=== PATIENT | male | born 1955 | race Caucasian/White ===

== ENCOUNTER → 2019-06-19 07:49 | Outpatient (BNVA) | payer MEDICAID, SELFPAY | PROVIDERS: Family Provider Family Medicine; PCP Family Medicine; Visit Provider Nurse Practitioner Psychiatric/Mental Health | DX: F33.2 Major depressive disorder, recurrent severe without psychotic features (principal); F17.210 Nicotine dependence, cigarettes, uncomplicated; F15.20 Other stimulant dependence, uncomplicated; F10.20 Alcohol dependence, uncomplicated; F12.20 Cannabis dependence, uncomplicated | CPT/HCPCS: 99213 ==

== ENCOUNTER 2019-07-18 09:14 | Emergency (ER) | payer MEDICAID, SELFPAY ==
[2019-07-18 09:14] VITALS: BP 124/86; PULSE 77; RESP 20; TEMP 36.6; O2SAT 96; BMI 20.5
[2019-07-18 09:22] VITALS: O2SAT 97
--- NOTE | 2019-07-18 09:30 | XR_ITS ---
WS: [id number] ABDOMEN SERIES ACUTE Supine and upright views of the abdomen with AP or PA chest CLINICAL INFORMATION: pain/cough COMPARISON: None. FINDINGS: Heart: Normal cardiac silhouette. Lungs: Hyperinflation. Chronic emphysematous changes. No acute pulmonary infiltrates. Bowel gas pattern: A few air-fluid levels in the upright view. Fecal retention left colon and sigmoid colon. Free air: None. Abnormal calcifications: None. Bones: Mild lumbar curve convex right. Hypertrophic changes lumbar spine. XR/XR acute abdomen series 36210 IMPRESSION: 1. A few air-fluid levels in the upright view and small bowel. 2. Descending colon and sigmoid constipation 3. Lungs are well aerated.
--- NOTE | 2019-07-18 09:32 | W.ED.GENADLT ---
HPI - General Adult General: Chief complaint: General Medical Stated complaint: flu like symptoms Time Seen by Provider: 07/18/19 09:21 History of Present Illness: HPI narrative: Patient's arrived via ambulance with complaint of cough now and abdominal pain that has resolved. Patient states he had nosebleed last night but has not had any since then. Patient states that he is homeless trying get back into skilled nursing. Called him and said he was dizzy but he said that dizziness has now resolved. Said he has some nasal congestion. Patient is a 1 pack/day smoker MD complaint: cough Onset (ago): hour(s) Associated symptoms: Reports cough and nausea; Deny chest pain, dyspnea, fevers/chills, headache(s), rash or vomiting Review of Systems Const: Denies: fever, chills or body aches Eyes: Denies: change in vision or blurry vision ENMT: Reports: nose bleeds (Last night only); Denies: throat pain or nasal congestion Card: Denies: chest pain or shortness of breath on exertion Resp: Reports: productive cough; Denies: shortness of breath or non-productive cough GI: Reports: abdominal pain (Last night only), nausea and heartburn/indigestion; Denies: vomiting : Denies: difficulty urinating Musc: Denies: extremity pain Skin/Breast: Denies: rash Neuro: Denies: headache Psych: Denies: anxiety or depression Yovanny/Lymph: Denies: easy bruising PFSH ED PFSH: Statuses (acute, chronic, etc) shown below reflect problem list status as previously entered and may not be historically accurate Medical History (Updated 06/19/19 @ 08:56 by Cintia Rodriguez [facility]) Alcohol addiction (Acute) Amphetamine addiction (Acute) Cannabis dependence (Acute) Cigarette nicotine dependence (Acute) Hiatal hernia (Acute) Major depressive disorder, recurrent severe without psychotic features (Acute) Social History (Updated 06/19/19 @ 08:12 by Nieves Baird LPN) Smoking and tobacco status: current every day smoker cigarettes Packs smoked per day: 1 Years cigarettes smoked: 40 Quit status (tobacco): not considering quitting Second hand smoke exposure: Yes Smoking risk assessment/counseling performed?: No Reason smoking risk assessment not done: patient refused Physical Exam Const: COMMON NORMALS: no apparent distress, average body habitus and oriented x3 HENMT: COMMON NORMALS: normocephalic HEAD & SCALP: normal to inspection and normocephalic FACE & SINUS: normal facial exam Eye: COMMON NORMALS: conjunctivae normal GENERAL EYE: normal appearance of both eyes CONJUNCTIVA: Yes conjunctivae normal Neck/C-Spine: COMMON NORMALS: no JVD Chest: COMMONS NORMALS: inspection of chest normal Resp: COMMON NORMALS: normal respiratory effort AUSCULTATION: rales (Bases minimal) and diminished lung sounds Cardio: COMMON NORMALS: no JVD, regular rate and regular rhythm RATE: regular rate RHYTHM: regular rhythm GI: COMMON NORMALS: normal to inspection, nondistended, normoactive bowel sounds Extremity: COMMON NORMALS: normal to inspection and full ROM Neuro: COMMON NORMALS: oriented x3 Course Vital Signs: Vital signs: Vital Signs Temperature 97.9 F 07/18/19 09:14 Pulse Rate 77 07/18/19 09:14 Respiratory Rate 20 H 07/18/19 09:14 Blood Pressure 124/86 07/18/19 09:14 Pulse Oximetry 97 07/18/19 09:22 MDM - General Adult MDM Narrative: Medical decision making narrative: Patient left the ER before I could going to talk to him about all of his test results. Case management went and talked to the patient about setting him up for a place to stay and he got upset and walked out of the room. In my visit with the patient during his stay here he said he was feeling fine he was hungry 1 7 drinks it did not bother his abdominal pain. His abdominal pain is gone no more nosebleeds and he feels fine. Lab Data: Labs: Lab Results 07/18/19 07/18/19 07/18/19 Range/Units 09:35 09:56 09:56 WBC 11.0 H (4.0-10.0) 10^3/ uL RBC 4.38 (4.1-5.3) 10^6/u L Hgb 14.3 (11.7-16.6) g/dL Hct 42.7 (42.0-52.0) % MCV 97.5 H (80-94) fL MCH 32.6 (28.0-34.0) pg MCHC 33.5 (30.0-36.0) g/dL RDW 12.9 (12.1-15.1) % Plt Count 277 (130-400) 10^3/c mm MPV 9.5 (7.4-10.4) fL Neut % (Auto) 77.6 % Lymph % (Auto) 13.9 % Caldwell % (Auto) 7.3 % Eos % (Auto) 0.4 % Baso % (Auto) 0.3 % Neut # (Auto) 8.6 H (1.8-7.7) 10^3/u L Lymph # (Auto) 1.5 (0.8-4.8) 10^3/u L Caldwell # (Auto) 0.8 (0.2-0.9) 10^3/u L Eos # (Auto) 0.0 (0.0-0.8) 10^3/u L Baso # (Auto) 0.0 (0.0-0.1) 10^3/u L Nucleated RBC % (a uto) 0 % Nucleated RBCs # 0.0 /100WBC Sodium 136 (136-145) mmol/L Potassium 4.3 (3.5-5.1) mmol/L Chloride 99 (98-107) mmol/L Carbon Dioxide 27 (22-29) mmol/L Anion Gap 14.3 (5-19) BUN 16 (8-23) mg/dL Creatinine 0.8 (0.7-1.2) mg/dL GFR Calculation 96.7 (90-130) mL/min Glucose 115 (65-115) mg/dL Calcium 9.5 (8.5-10.5) mg/dL Total Bilirubin 0.2 (0.15-1.2) mg/dL AST 17 (0-40) U/L ALT 11 (0-41) U/L Alkaline Phosphata se 125 (40-130) IU/L Total Protein 7.1 (6.6-8.7) g/dL Albumin 4.1 (3.5-5.2) g/dL Globulin 3.0 (1.3-4.6) g/dL Lipase 26 (13-60) U/L Influenza Type A A g Negative (Negative) POC Influenza B Ag Negative (Negative) Discharge Plan Discharge Patient Disposition: Home, Self-Care Condition: Stable Prescriptions: No Action quetiapine [Seroquel] 400 mg tablet 400 mg PO .Qhs RF: 0 citalopram [Celexa] 20 mg tablet 20 mg PO QAM RF: 0 aspirin 325 mg tablet,delayed release (DR/EC) 325 mg PO DAILY RF: 0 clopidogrel 75 mg tablet 75 mg PO ONCE RF: 0 diltiazem HCl 180 mg capsule,extended release 24 hr 180 mg PO QAM RF: 0 Referrals: Perico Martinez MD [Primary Care Provider] - Interventions: ED Discharge Assessment Last Done: 07/18/19 10:38 Discharge Date/Time: 07/18/19 10:40 Coding Level of Care Code ED Gas Operations Superintendent for Chg Fwd Exam Problem Focused
[2019-07-18] MEDS: ondansetron 4 MG Tablet PO (09:38)
--- NOTE | 2019-07-18 09:43 | PC.NURSE ---
pt off unit at this time to radiology by wheelchair with tech
[2019-07-18 10:02] LABS: Basophils % 0.3 %; Eosinophils % 0.4 %; Hematocrit 42.7 % (42.0-52.0); Hemoglobin 14.3 g/dL (11.7-16.6); Lymphocytes # 1.5 10^3/uL (0.8-4.8); Lymphocytes % 13.9 %; Mean Corpuscular HGB Conc 33.5 g/dL (30.0-36.0); Mean Corpuscular Hemoglobin 32.6 pg (28.0-34.0); Mean Corpuscular Volume 97.5 fL (80-94); Mean Platelet Volume 9.5 fL (7.4-10.4); Monocytes # 0.8 10^3/uL (0.2-0.9); Monocytes % 7.3 %; Neutrophils # 8.6 10^3/uL (1.8-7.7); Neutrophils % 77.6 %; Nucleated Red Blood Cells % 0 %; Platelet Count 277 10^3/cmm (130-400); Red Blood Count 4.38 10^6/uL (4.1-5.3); Red Cell Distribution Width 12.9 % (12.1-15.1)
[2019-07-18 10:09] LABS: Influenza A by IFA Negative (Negative); Influenza B by IFA Negative (Negative)
--- NOTE | 2019-07-18 10:17 | PC.NURSE ---
pt reports nausea improved. pt given food and drink per verbal order of ED provider
[2019-07-18 10:19] LABS: Alanine Aminotransferase 11 U/L (0-41); Albumin Level 4.1 g/dL (3.5-5.2); Alkaline Phosphatase 125 IU/L (40-130); Anion Gap 14.3 (5-19); Aspartate Amino Transferase 17 U/L (0-40); Blood Urea Nitrogen 16 mg/dL (8-23); Calcium 9.5 mg/dL (8.5-10.5); Carbon Dioxide 27 mmol/L (22-29); Chloride 99 mmol/L (98-107); Glomerular Filtration Rate 96.7 mL/min (90-130); Glucose 115 mg/dL (65-115); Lipase 26 U/L (13-60); Potassium 4.3 mmol/L (3.5-5.1); Sodium 136 mmol/L (136-145); Total Bilirubin 0.2 mg/dL (0.15-1.2); Total Protein 7.1 g/dL (6.6-8.7)
[2019-07-18 10:26] LABS: Add Urine Microscopic? NO
--- NOTE | 2019-07-18 10:32 | PC.NURSE ---
case management in room to speak with pt
--- NOTE | 2019-07-18 10:36 | PC.NURSE ---
Pt left-refusing to sign AMA papers. Pt alert and oriented upon departure. Pt left via ambulatory
[2019-07-18 10:43] LABS: Bilirubin Urine Neg (NEGATIVE); Blood Urine Neg (Negative); Glucose Urine UA Norm (Normal); Ketones Urine Negative (Negative); Leukocyte Esterase Urine Negative (Negative); Nitrate Urine Negative (Negative); Protein Urine Neg (Negative); Urine Appearance Clear (CLEAR); Urine Color Straw (Yellow); Urobilinogen Urine Norm (Negative)
== END 2019-07-18 10:45 | disposition left against medical advice (07) ==
PROVIDERS: Emergency Provider Nurse Practitioner Family; Family Provider Family Medicine; PCP Family Medicine
DX: R05 Cough (principal); R11.0 Nausea; R12 Heartburn; R42 Dizziness and giddiness; R09.81 Nasal congestion; F17.210 Nicotine dependence, cigarettes, uncomplicated; Z59.0 Homelessness
CPT/HCPCS: 36415; 74022; 80053; 81003; 83690; 85025; 87804; 99282; 99283; Q0162

== ENCOUNTER 2019-08-16 11:24 | Emergency (ER) | payer MEDICAID, SELFPAY | END 2019-08-16 13:29 | disposition admitted as inpatient to this hospital (09) | LOC: ER 09-10 16:05 | PROVIDERS: Emergency Provider Emergency Medicine; Family Provider Family Medicine; PCP Family Medicine | DX: F33.2 Major depressive disorder, recurrent severe without psychotic features (principal); R45.851 Suicidal ideations; F17.210 Nicotine dependence, cigarettes, uncomplicated | CPT/HCPCS: 12345; 36415; 80053; 80156; 80164; 80178; 80185; 80306; 80307; 84443; 85025; 93005; 99284; 99285 ==

== ENCOUNTER 2019-08-16 11:24 | Inpatient (IN) | payer MEDICAID, SELFPAY ==
[2019-08-16] VITALS (7 sets, daily range): BP systolic 127–164; BP diastolic 78–97; PULSE 68–81; RESP 16–20; TEMP 36.4–36.6; O2SAT 95–98; BMI 20.5
--- NOTE | 2019-08-16 11:41 | ECG_ITS ---
Measurements Intervals [place] Rate: 70 P: 79 FL: 163 QRS: 79 QRSD: 90 T: 68 QT: 402 QTc: 436 SINUS RHYTHM POSSIBLE LEFT ATRIAL ENLARGEMENT [-0.1mV P WAVE IN V1/V2] SEPTAL MYOCARDIAL INFARCTION , OF INDETERMINATE AGE [40+ ms Q WAVE IN V1/V2] Compared to ECG 08/22/2018 18:25:21 No significant changes Electronically Signed On 08-16-2019 16:58:15 ANNUAL CAMPAIGN MANAGER by Osmel Sánchez M.D. [email or web address]
--- NOTE | 2019-08-16 11:45 | ED_ITS ---
Entered by Didi Burgess, acting as scribe for Carla Morris HPI - Psych General: Chief Complaint: Psychiatric Symptoms Stated Complaint: SI Time Seen by Provider: 08/16/19 11:45 Source: patient Mode of arrival: ambulatory Limitations: no limitations History of Present Illness: HPI Narrative: 64 yo Male presents to ED with complaints of suicidal ideation and depression. Pt states that he has been living on the streets and he is tired of living like this. Pt states that he was going to try anything he could to kill himself. Pt states that he has been really depressed. Pt states that he has made previous suicidal attempts but failed. MD complaint: suicidal ideation and feels depressed Onset (ago): unknown Duration: constant History of same: Yes Relieving factors: none Exacerbating factors: none Associated psychiatric symptoms: depression and suicidal ideation Associated symptoms: Reports depression and suicidal ideation Treatments prior to arrival: none If self harm: admits thoughts of self harm and has acted on plan (in the past) Review of Systems General: Reports: other (negative unless marked) Const: Denies: fever, chills, body aches, fatigue, malaise or diaphoresis Eyes: Denies: change in vision or blurry vision ENMT: Denies: throat pain, painful swallowing, hoarseness, ear pain, ear discharge, Change in hearing or nasal discharge Card: Denies: chest pain, palpitations, irregular heart rhythm, syncope, pre- syncope, shortness of breath on exertion or shortness of breath when lying down Resp: Denies: shortness of breath, productive cough, non-productive cough, wheezing, coughing up blood or chest congestion GI: Denies: abdominal pain, nausea, vomiting, vomiting blood, coffee grounds in vomit, diarrhea, constipation, cramping, blood in stool or black tarry stool : Denies: flank pain, difficulty urinating, painful urination, urinary frequency, urinary urgency, decreased urine ouput, urinary incontinence or blood in urine Musc: Denies: neck pain, back pain, extremity pain, extremity swelling, joint pain, joint swelling, joint warmth or joint stiffness Skin/Breast: Denies: rash, skin tenderness or yellow skin Neuro: Denies: headache, numbness in extremities, weakness in extremities, changes in sensation, lack of coordination, difficulty walking, dizziness, vertigo or confusion Psych: Reports: depression and suicidal ideation Endo: Denies: excessive thirst, tired all the time, cold intolerance, excessive sweating, flushing or hot flashes Yovanny/Lymph: Denies: easy bruising, easy bleeding, petechiae or enlarged lymph nodes All/Imm: Denies: hives, throat swelling, tongue swelling, facial swelling or acute wheezing PFSH ED PFSH: Medical History Alcohol addiction Amphetamine addiction 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 Social History Smoking and tobacco status: current every day smoker cigarettes Packs smoked per day: 1 Years cigarettes smoked: 40 Quit status (tobacco): not considering quitting Second hand smoke exposure: Yes Smoking risk assessment/counseling performed?: No Reason smoking risk assessment not done: patient refused Alcohol intake: former Marital status: Current occupational status: disabled History of recent travel: No Physical Exam Const: COMMON NORMALS: no apparent distress, oriented x3, no limitations, healthy appearing and well nourished EXAM LIMITATIONS: no altered mental status GENERAL APPEARANCE: cooperative, well kempt and well developed ORIENTATION/CONSCIOUSNESS: Yes awake HENMT: COMMON NORMALS: normocephalic, head/scalp atraumatic, hearing grossly normal bilaterally, external ears normal, EAC's normal, external nose normal and moist oral mucous membranes HEAD & SCALP: normal to inspection, normocephalic and atraumatic FACE & SINUS: normal facial exam and face symmetric NOSE: external nose normal and nares normal EXTERNAL EAR: Yes external ears normal EXTERNAL AUDITORY CANAL: EAC's normal MOUTH: oral and palatal mucosa normal and tongue normal Eye: COMMON NORMALS: PERRL, EOMs intact bilaterally, conjunctivae normal and no scleral icterus GENERAL EYE: normal appearance of both eyes and normal light reflex CONJUNCTIVA: Yes conjunctivae normal SCLERA: sclerae normal CORNEA: Yes corneas normal PUPIL: Yes PERRL DIRECT OPHTHALMOSCOPY: Yes normal light reflex Neck/C-Spine: COMMON NORMALS: full ROM, no lymphadenopathy, supple, no meningeal signs and no JVD GENERAL: Yes normal visual inspection and Yes trachea midline CERVICAL SPINE: Yes cervical ROM normal Chest: COMMONS NORMALS: inspection of chest normal and palpation of chest normal Resp: COMMON NORMALS: normal respiratory effort, no retractions, no use of accessory muscles and clear to auscultation bilaterally EFFORT & INSPECTION: Yes able to speak in complete sentences AUSCULTATION: clear to auscultation bilaterally Cardio: COMMON NORMALS: no JVD, regular rate, regular rhythm, S1 normal heart sound, S2 normal heart sound, no gallops, no clicks, no murmurs and no rub JUGULAR VENOUS DISTENTION: no JVD RATE: regular rate RHYTHM: regular rhythm HEART SOUNDS: S1 normal and S2 normal GI: COMMON NORMALS: soft to palpation, non-tender, no hepatosplenomegaly and no masses INSPECTION: Yes normal to inspection PALPATION: Yes soft and Yes no hepatosplenomegaly : COMMON NORMALS: Yes no CVA tenderness BLADDER/KIDNEY EXAM: Yes no CVA tenderness Back/Pelvis: COMMON NORMALS: no CVA tenderness, thoracic and lumbar spine normal to inspection, no thoracic nor lumbar tenderness and thoraco-lumbar ROM normal Extremity: COMMON NORMALS: normal to inspection, full ROM, normal capillary refill, no joint enlargement, no clubbing, cyanosis or edema and no calf tenderness Neuro: COMMON NORMALS: oriented x3, CN's II-XII intact bilaterally, moves all extremities, no focal motor deficits and no sensory deficits noted MENINGEAL SIGNS: Yes no meningeal signs Psych: COMMON NORMALS: mental status grossly normal, thought process normal, cooperative, affect normal, speech normal and activity/motor behavior normal APPEARANCE: Yes well kempt SPEECH: Yes normal speech THOUGHT PROCESS: normal thought process Skin: COMMON NORMALS: no rashes or lesions noted, skin turgor normal, no jaundice, no petechiae and no mottling GENERAL SKIN EXAM: no rashes or lesions noted and turgor normal MDM - Psych MDM Narrative: Medical decision making narrative: The case was reviewed with Dr. Bruner, he will accept the patient to the [facility]. Lab Data: Labs: Lab Results 08/16/19 08/16/19 08/16/19 Range/Units 12:06 12:12 12:12 WBC 5.4 (4.0-10.0) 10^3/ uL RBC 4.17 (4.1-5.3) 10^6/u L Hgb 13.2 (11.7-16.6) g/dL Hct 39.9 L (42.0-52.0) % MCV 95.7 H (80-94) fL MCH 31.7 (28.0-34.0) pg MCHC 33.1 (30.0-36.0) g/dL RDW 13.1 (12.1-15.1) % Plt Count 247 (130-400) 10^3/c mm MPV 9.6 (7.4-10.4) fL Neut % (Auto) 46.6 % Lymph % (Auto) 39.2 % Ransom % (Auto) 11.2 % Eos % (Auto) 2.0 % Baso % (Auto) 0.6 % Neut # (Auto) 2.5 (1.8-7.7) 10^3/u L Lymph # (Auto) 2.1 (0.8-4.8) 10^3/u L Ransom # (Auto) 0.6 (0.2-0.9) 10^3/u L Eos # (Auto) 0.1 (0.0-0.8) 10^3/u L Baso # (Auto) 0.0 (0.0-0.1) 10^3/u L Nucleated RBC % (a uto) 0 % Nucleated RBCs # 0.0 /100WBC Sodium 139 (136-145) mmol/L Potassium 4.1 (3.5-5.1) mmol/L Chloride 99 (98-107) mmol/L Carbon Dioxide 30 H (22-29) mmol/L Anion Gap 14.1 (5-19) BUN 8 (8-23) mg/dL Creatinine 0.7 (0.7-1.2) mg/dL GFR Calculation 112.8 (90-130) mL/min Glucose 107 (65-115) mg/dL Calcium 9.3 (8.5-10.5) mg/dL Total Bilirubin 0.2 (0.15-1.2) mg/dL AST 16 (0-40) U/L ALT 10 (0-41) U/L Alkaline Phosphata se 111 (40-130) IU/L Total Protein 7.3 (6.6-8.7) g/dL Albumin 3.9 (3.5-5.2) g/dL Globulin 3.4 (1.3-4.6) g/dL TSH 3.04 (0.27-4.20) uIU/ mL Salicylates < 0.3 L (3-10) mg/dL Urine Opiates Scre en Negative (Negative) ng/mL Acetaminophen 15.6 (10-30) ug/mL Ur Barbiturates Sc reen Negative (Negative) ng/mL Phenytoin < 0.8 L (10-20) ug/mL Valproic Acid < 2.8 L (50-100) mcg/mL Carbamazepine < 2.0 L (4.0-12.0) ug/mL Ur Phencyclidine S crn Negative (Negative) ng/mL Ur Amphetamines Sc reen Negative (Negative) ng/mL U Benzodiazepines Scrn Positive H (Negative) ng/mL Bertram (0.6-1.2) mmol/L Urine Cocaine Scre en Negative (Negative) ng/mL U Marijuana (THC) Screen Negative (Negative) ng/mL Ethyl Alcohol < 10 (0-10) mg/dL 08/16/19 Range/Units 12:12 WBC (4.0-10.0) 10^3/ uL RBC (4.1-5.3) 10^6/u L Hgb (11.7-16.6) g/dL Hct (42.0-52.0) % MCV (80-94) fL MCH (28.0-34.0) pg MCHC (30.0-36.0) g/dL RDW (12.1-15.1) % Plt Count (130-400) 10^3/c mm MPV (7.4-10.4) fL Neut % (Auto) % Lymph % (Auto) % Ransom % (Auto) % Eos % (Auto) % Baso % (Auto) % Neut # (Auto) (1.8-7.7) 10^3/u L Lymph # (Auto) (0.8-4.8) 10^3/u L Ransom # (Auto) (0.2-0.9) 10^3/u L Eos # (Auto) (0.0-0.8) 10^3/u L Baso # (Auto) (0.0-0.1) 10^3/u L Nucleated RBC % (a uto) % Nucleated RBCs # /100WBC Sodium (136-145) mmol/L Potassium (3.5-5.1) mmol/L Chloride (98-107) mmol/L Carbon Dioxide (22-29) mmol/L Anion Gap (5-19) BUN (8-23) mg/dL Creatinine (0.7-1.2) mg/dL GFR Calculation (90-130) mL/min Glucose (65-115) mg/dL Calcium (8.5-10.5) mg/dL Total Bilirubin (0.15-1.2) mg/dL AST (0-40) U/L ALT (0-41) U/L Alkaline Phosphata se (40-130) IU/L Total Protein (6.6-8.7) g/dL Albumin (3.5-5.2) g/dL Globulin (1.3-4.6) g/dL TSH (0.27-4.20) uIU/ mL Salicylates (3-10) mg/dL Urine Opiates Scre en (Negative) ng/mL Acetaminophen (10-30) ug/mL Ur Barbiturates Sc reen (Negative) ng/mL Phenytoin (10-20) ug/mL Valproic Acid (50-100) mcg/mL Carbamazepine (4.0-12.0) ug/mL Ur Phencyclidine S crn (Negative) ng/mL Ur Amphetamines Sc reen (Negative) ng/mL U Benzodiazepines Scrn (Negative) ng/mL Bertram < 0.1 L (0.6-1.2) mmol/L Urine Cocaine Scre en (Negative) ng/mL U Marijuana (THC) Screen (Negative) ng/mL Ethyl Alcohol (0-10) mg/dL EKG Data^: EKG 1: Attestation: I personally reviewed and interpreted this EKG as follows: EKG interpretation date: 08/16/19 EKG interpretation time: 12:11 Interpretation: Normal sinus rhythm at 70 beats a minute, nonspecific ST and T wave changes, normal intervals, normal QTC. Discharge Plan Discharge Patient Disposition: Admitted As Inpatient Clinical Impression: Suicidal ideation Condition: Stable Coding Level of Care Code ED Small Engine Mechanic for Chg Fwd Exam Comprehensive The documentation recorded by the Jenifer castro Carmen, accurately reflects the service I personally performed and the decisions made by Arturo esqueda Eli N Aug 16, 2019 11:24
[2019-08-16 12:19] LABS: Basophils % 0.6 %; Eosinophils # 0.1 10^3/uL (0.0-0.8); Hematocrit 39.9 % (42.0-52.0); Hemoglobin 13.2 g/dL (11.7-16.6); Lymphocytes # 2.1 10^3/uL (0.8-4.8); Lymphocytes % 39.2 %; Mean Corpuscular HGB Conc 33.1 g/dL (30.0-36.0); Mean Corpuscular Hemoglobin 31.7 pg (28.0-34.0); Mean Corpuscular Volume 95.7 fL (80-94); Mean Platelet Volume 9.6 fL (7.4-10.4); Monocytes # 0.6 10^3/uL (0.2-0.9); Monocytes % 11.2 %; Neutrophils # 2.5 10^3/uL (1.8-7.7); Neutrophils % 46.6 %; Nucleated Red Blood Cells % 0 %; Platelet Count 247 10^3/cmm (130-400); Red Blood Count 4.17 10^6/uL (4.1-5.3); Red Cell Distribution Width 13.1 % (12.1-15.1); White Blood Count 5.4 10^3/uL (4.0-10.0)
--- NOTE | 2019-08-16 12:38 | PC.PHAR ---
pt states he has only been taking the flomax-pt states he hasnt taken his bp meds,and anxiety meds in months
[2019-08-16 12:42] LABS: Amphetamines Screen Urine Negative (Negative); Barbiturates Screen Urine Negative (Negative); Benzodiazepines Screen Urine Positive (Negative); Cocaine Screen Urine Negative (Negative); Opiate Screen Urine Negative (Negative); PCP Screen Urine Negative (Negative); THC Screen Urine Negative (Negative)
[2019-08-16 12:42] LABS: Carbamazepine Tegretol < 2.0 ug/mL (4.0-12.0); Lithium < 0.1 mmol/L (0.6-1.2); Phenytoin Dilantin < 0.8 ug/mL (10-20); Valproic Acid Level < 2.8 mcg/mL (50-100)
[2019-08-16 12:43] LABS: Acetaminophen 15.6 ug/mL (10-30); Alanine Aminotransferase 10 U/L (0-41); Albumin Level 3.9 g/dL (3.5-5.2); Alkaline Phosphatase 111 IU/L (40-130); Anion Gap 14.1 (5-19); Aspartate Amino Transferase 16 U/L (0-40); Blood Urea Nitrogen 8 mg/dL (8-23); Calcium 9.3 mg/dL (8.5-10.5); Carbon Dioxide 30 mmol/L (22-29); Chloride 99 mmol/L (98-107); Globulin 3.4 g/dL (1.3-4.6); Glomerular Filtration Rate 112.8 mL/min (90-130); Glucose 107 mg/dL (65-115); Potassium 4.1 mmol/L (3.5-5.1); Sodium 139 mmol/L (136-145); Thyroid Stimulating Hormone 3.04 uIU/mL (0.27-4.20); Total Bilirubin 0.2 mg/dL (0.15-1.2); Total Protein 7.3 g/dL (6.6-8.7)
[2019-08-16 12:45] LABS: Alcohol Level < 10 mg/dL (0-10); Salicylate < 0.3 mg/dL (3-10)
[2019-08-16] MEDS: lidocaine 2% viscous 15 ML, aluminum-mag hydrox-simethicon 30 ML, sucralfate oral liq 1 GM PO (12:50)
[2019-08-16] MEDS: hyDROXYzine 25 mg Capsule 50 MG PO (14:50)
[2019-08-16] MEDS: citalopram 20 mg Tablet PO (15:06)
[2019-08-16] MEDS: nicotine 21 mg Patch 1 PATCH TRANSDERMA (15:09)
[2019-08-16] MEDS: pneumococcal (23 valent) SDV 0.5 mL IM (17:56)
[2019-08-16] MEDS: quetiapine 100 mg Tablet PO (20:55)
--- NOTE | 2019-08-16 20:56 | PC.NURSE ---
HS meds given
[2019-08-17 06:00] VITALS: BP 116/73; PULSE 72; RESP 15; TEMP 36.4; O2SAT 97
[2019-08-17] MEDS: citalopram 20 mg Tablet PO (08:54)
[2019-08-17] MEDS: tamsulosin 0.4 mg Capsule PO (08:54)
[2019-08-17] MEDS: acetaminophen 325 mg Tablet 650 MG PO ×2 (09:49→16:26)
--- NOTE | 2019-08-17 09:58 | P.HP_ITS ---
Providers/Chief Complaint Admitting Physician: Sanford Bruner MD Primary Care Provider: Perico Martinez MD Chief Complaint: SI HPI NPU History of Present Illness Nima Vallejo is a 64 year old male who presents today reporting that he's been very depressed and not taking his medication because he's been fighting just have a place to lay his head etc. He reports that about a year ago he had been living in a local motel for about 2-1/2 years and he changed ownership and that led to him being evicted and since then he has been more or less going around [place] and living on the streets. He reports that for the last year he has been staying in a motel for about 8 days to get cleaned up every month and then spending the remaining 22-[address]. He reports that he asked her with addiction but that he has been doing much better recently. Endorses that he smokes marijuana but denies seeing that as a problem or really as a drug. He does report having issues with alcohol in the past but that not being an issue for the last 15 years or so and that he has struggled with methamphetamines. 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 He had his medications but he had not been taking them. He started having thoughts of killing himself and so he came to the hospital. We discussed his psychosocial history as compared to the note below from 03/24/2015. The only updates are that he was in fact homeless when he came in. He has 3 siblings and does not know where his children are except for 1. Any does endorse addiction issues in his father's side of the family and mental health issues on his mother's side of the family. Per last [facility] [place] eval: History of Present Illness Date of Service: Mar 24, 2015 Chief Complaint: Suicidal ideations. HPI: The patient was admitted from the emergency room. According to reports, he was depressed and stated that he had no place to stay. He had been living in a motel for a year and a half, but they recently switched the payment modality to weekly which was more expensive. He states he was spending $600 a month. Endorses depressed mood, suicidal ideations with a plan to stab himself, excessive worrying. He is not hearing voices and seeing things. Review of Psychiatric Systems: Negative, except as above. Allergies: Coded Allergies: No Known Allergies (Verified , 03/18/05) Past Medical History Past Medical/Social History: PAST PSYCHIATRIC HISTORY:Previous psychiatric admissions: He was here in 2007. Previous suicide attempts: Yes. No current outpatient psychiatric follow-up. Seroquel is prescribed by his primary care provider to help with sleep. SUBSTANCE ABUSE HISTORY: Smokes Cigarettes: yes. Number of packs per day: 2. Endorses illicit drug use: Yes. Has abused methamphetamine and marijuana, but states I quit . Alcohol use:No. SOCIAL HISTORY: Employed: No. Is on disability: Yes. Education: 11th grade. Marital status: . Has 3 children. DEVELOPMENTAL HISTORY: History of Physical, Emotional and Sexual abuse: No. LEGAL HISTORY: None. FAMILY PSYCHIATRIC HISTORY: None reported. PAST MEDICAL HISTORY: Gastritis, leg fracture. 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 Social History Smoking and tobacco status: current every day smoker cigarettes Packs smoked per day: 1 Years cigarettes smoked: 40 Quit status (tobacco): not considering quitting Second hand smoke exposure: Yes Smoking risk assessment/counseling performed?: No Reason smoking risk assessment not done: patient refused Alcohol intake: former Marital status: Current occupational status: disabled History of recent travel: No Mental Status Exam MSE Comments: This is a slender white male with adequate dress, grooming and eye contact. No abnormal movements except for psychomotor retardation. Cooperative with exam in no acute distress. Speech was decreased rate and volume. Mood described as depressed, affect congruent. Thought process organized. Thought content: Patient endorsed suicidal ideation that is less he re, he denies homicidal ideation, there were no delusions reported noted, he denied any auditory or visual hallucinations. Attention concentration and memory appear intact but were not formally tested. He is alert and oriented ?3. Insight and judgment are improving. Vitals/I&O/Wt Last Vital Signs Temp 98.1 F 08/17/19 14:00 Pulse 80 08/17/19 14:00 Resp 18 08/17/19 14:00 BP 151/78 08/17/19 14:00 Pulse Ox 95 08/17/19 14:00 Weight last 48 hrs Weight 72.575 kg Home Medications tamsulosin 0.4 mg PO DAILY 08/16/19 [History Confirmed 08/16/19] Active Medications Acetaminophen (Tylenol) 650 mg PO Q4H PRN PRN Reason: MILD PAIN Last Admin: 08/17/19 09:49 Dose: 650 mg Documented by: Benztropine Mesylate (Cogentin) 1 mg PO BID PRN PRN Reason: Mild Extrapyramidal symptoms Camphor/Menthol/Phenol (Blistex) 1 applic TOPICAL Q1H PRN PRN Reason: DRYNESS Citalopram Hydrobromide (Celexa) 20 mg PO DAILY [facility] Last Admin: 08/17/19 08:54 Dose: 20 mg Documented by: Diphenhydramine HCl (Benadryl) 50 mg IM ONCE PRN PRN Reason: Severe Extrapyramidal Symptoms Diphenhydramine HCl (Benadryl) 50 mg IM Q4H PRN PRN Reason: Severe Aggression Haloperidol (Haldol) 5 mg PO Q4H PRN PRN Reason: AGITATION Haloperidol Lactate (Haldol Inj) 5 mg IM Q4H PRN PRN Reason: Severe Aggression Hydroxyzine Pamoate (Vistaril) 50 mg PO Q6H PRN PRN Reason: ANXIETY Last Admin: 08/16/19 14:50 Dose: 50 mg Documented by: Loperamide HCl (Imodium Capsule) 2 mg PO Q6H PRN PRN Reason: DIARRHEA Lorazepam (Ativan) 2 mg IM Q4H PRN PRN Reason: Severe Aggression Nicotine (Nicoderm 21 Mg Patch) 1 patch TRANSDERMA DAILY PRN PRN Reason: NICOTINE WITHDRAWAL Last Admin: 08/16/19 15:09 Dose: 1 patch Documented by: Nicotine Polacrilex (Nicorette) 2 mg BUCCAL Q2H PRN PRN Reason: NICOTINE WITHDRAWAL Olanzapine (Zyprexa Zydis) 5 mg PO Q4H PRN PRN Reason: Agitation/Psychosis Ondansetron HCl (Zofran) 4 mg PO Q6H PRN PRN Reason: NAUSEA AND VOMITING Quetiapine Fumarate (Seroquel) 100 mg PO BEDTIME [facility] Last Admin: 08/16/19 20:55 Dose: 100 mg Documented by: Tamsulosin HCl (Flomax) 0.4 mg PO DAILY [facility] Last Admin: 08/17/19 08:54 Dose: 0.4 mg Documented by: Trazodone HCl (Desyrel) 50 mg PO BEDTIME PRN PRN Reason: SLEEP Data NPU : 08/16/19 12:12 08/16/19 12:12 A&P Additional A&P Information There is a 64-year-old white male with a long history of depression, anxiety and addiction who presents homeless and feeling this positive and suicidal and open to restarting his medication. 1. Continue current medication. We will titrate his Seroquel as he tolerates it back to previously successful dosing. 2. Encourage individual, group and milieu therapy. 3. Continue every 15 minute checks for safety. 4. Work with social workers to determine a reasonable discharge plan and explore sober living treatment options to assist in maintaining his sobriety. Involuntary Hold Information 96 Hour Hold: 96 Hour Involuntary Admission: Yes 96 Hour Hold Ending Date: 08/22/19 96 Hour Hold Ending Time: 12:20 Attestations NPU Medical Necessity Statement*: Inpatient hospitalization is medically necessary and the clinically appropriate intervention at this time. He will be in the hospital for over 2 midnights. We will monitor medications and titrate as indicated. Likely length of stay 3-5 days. Coding Level of Care Code Acute Clam Sorter for Nereida Martinez
[2019-08-17 14:00] VITALS: BP 151/78; PULSE 80; RESP 18; TEMP 36.7; O2SAT 95
[2019-08-17] MEDS: nicotine 21 mg Patch 1 PATCH TRANSDERMA (18:08)
[2019-08-17 20:23] VITALS: BP 120/76; PULSE 70; RESP 18; O2SAT 96
[2019-08-17] MEDS: quetiapine 100 mg Tablet PO (20:33)
[2019-08-17] MEDS: trazodone 50 mg Tablet PO (20:33)
--- NOTE | 2019-08-17 20:34 | PC.NURSE ---
hs meds given
--- NOTE | 2019-08-17 20:56 | PC.NURSE ---
pt voiced that he talked to his Dr earlier today about getting something for his cough. pt does not currently have a cough med ordered. pt stated he takes NyQuel at home, junior underwriter educated pt that this facility does not use NyQuel because of the alcohol in it. pt voiced being upset that nothing was made avaiable for his cough. Injection Molding Machine Offbearer has not heard pt cough even one time the last two (2) nights of caring for him.
[2019-08-18 06:00] VITALS: BP 113/70; PULSE 68; RESP 18; TEMP 36.6; O2SAT 97
[2019-08-18] MEDS: citalopram 20 mg Tablet PO ×2 (09:12→12:46)
[2019-08-18] MEDS: tamsulosin 0.4 mg Capsule PO (09:12)
--- NOTE | 2019-08-18 11:19 | PM.NPN ---
Subjective NPU Subjective: Interval history: The patient presents today reporting that he has a cold or cough that came from being out in the rain and being out on the streets for the last several weeks. He reports he has a lot of congestion and is hoping that we can give him something for that. He reports that he was able to get ahold of one of his brothers and his brother is going to get back to him, and he thinks he is going to help him out. He reports that he has made a commitment now to stopping the methamphetamine all together. He said he had been dabbling with it and as he sits back he realizes it has absolutely ruined his life; and the very reason why he is homeless has very much to do with methamphetamine. He said he has not done any for about three weeks, so it is his vision that he not do it ever again. He reports that he is still having depression. We discussed the risks, benefits, and alternatives of increasing the Seroquel to 200 mg and the Celexa to 40 mg, and he understood and agreed to proceed as is documented in this note. Mental Status Exam MSE Comments: This is a slender white male with adequate dress, grooming and eye contact. No abnormal movements except for psychomotor retardation. Cooperative with exam in no acute distress. Speech was decreased rate and volume. Mood described as a little depressed, affect congruent. Thought process organized. Thought content: Patient endorsed suicidal ideation is decreasing, he denies homicidal ideation, there were no delusions reported noted, he denied any auditory or visual hallucinations. Attention concentration and memory appear intact but were not formally tested. He is alert and oriented ?3. Insight and judgment are improving. Vitals/I&O/Wt Last Vital Signs Temp 97.8 F 08/18/19 06:00 Pulse 68 08/18/19 06:00 Resp 18 08/18/19 06:00 BP 113/70 08/18/19 06:00 Pulse Ox 97 08/18/19 06:00 Weight last 48 hrs Weight 72.575 kg Home Medications tamsulosin 0.4 mg PO DAILY 08/16/19 [History Confirmed 08/16/19] Active Medications Acetaminophen (Tylenol) 650 mg PO Q4H PRN PRN Reason: MILD PAIN Last Admin: 08/17/19 16:26 Dose: 650 mg Documented by: Benztropine Mesylate (Cogentin) 1 mg PO BID PRN PRN Reason: Mild Extrapyramidal symptoms Camphor/Menthol/Phenol (Blistex) 1 applic TOPICAL Q1H PRN PRN Reason: DRYNESS Citalopram Hydrobromide (Celexa) 40 mg PO DAILY [facility] Diphenhydramine HCl (Benadryl) 50 mg IM ONCE PRN PRN Reason: Severe Extrapyramidal Symptoms Diphenhydramine HCl (Benadryl) 50 mg IM Q4H PRN PRN Reason: Severe Aggression Haloperidol (Haldol) 5 mg PO Q4H PRN PRN Reason: AGITATION Haloperidol Lactate (Haldol Inj) 5 mg IM Q4H PRN PRN Reason: Severe Aggression Hydroxyzine Pamoate (Vistaril) 50 mg PO Q6H PRN PRN Reason: ANXIETY Last Admin: 08/16/19 14:50 Dose: 50 mg Documented by: Loperamide HCl (Imodium Capsule) 2 mg PO Q6H PRN PRN Reason: DIARRHEA Lorazepam (Ativan) 2 mg IM Q4H PRN PRN Reason: Severe Aggression Nicotine (Nicoderm 21 Mg Patch) 1 patch TRANSDERMA DAILY PRN PRN Reason: NICOTINE WITHDRAWAL Last Admin: 08/17/19 18:08 Dose: 1 patch Documented by: Nicotine Polacrilex (Nicorette) 2 mg BUCCAL Q2H PRN PRN Reason: NICOTINE WITHDRAWAL Olanzapine (Zyprexa Zydis) 5 mg PO Q4H PRN PRN Reason: Agitation/Psychosis Ondansetron HCl (Zofran) 4 mg PO Q6H PRN PRN Reason: NAUSEA AND VOMITING Quetiapine Fumarate (Seroquel) 200 mg PO BEDTIME [facility] Tamsulosin HCl (Flomax) 0.4 mg PO DAILY [facility] Last Admin: 08/18/19 09:12 Dose: 0.4 mg Documented by: Trazodone HCl (Desyrel) 50 mg PO BEDTIME PRN PRN Reason: SLEEP Last Admin: 08/17/19 20:33 Dose: 50 mg Documented by: Data NPU : 08/16/19 12:12 08/16/19 12:12 A&P Additional A&P Information There is a 64-year-old white male with a long history of depression, anxiety and addiction who presents homeless and feeling this positive and suicidal and open to restarting his medication. Continue current medications, except: Increase Seroquel to 200 mg po qhs. Increase Celexa to 40 mg po qam. Encourage individual, group, and milieu therapy. Continue q-15 minute checks for safety. Recommend drug and alcohol treatment, at the highest level to which he is willing to commit, after discharge. Involuntary Hold Information 96 Hour Hold: 96 Hour Involuntary Admission: Yes 96 Hour Hold Ending Date: 08/22/19 96 Hour Hold Ending Time: 12:20 Attestations NPU Medical Necessity Statement*: Inpatient hospitalization is medically necessary and the clinically appropriate intervention at this time. We will monitor medications and titrate as indicated. Likely length of stay 2-4 days. Coding Level of Care Code Acute Nuclear Weapons Mechanical Specialist for Nereida Martinez
[2019-08-18 14:00] VITALS: PULSE 75; RESP 18; TEMP 36.4; O2SAT 96
[2019-08-18 19:39] VITALS: BP 122/78; PULSE 74; RESP 18; TEMP 37.1; O2SAT 97
[2019-08-18] MEDS: trazodone 50 mg Tablet PO (20:47)
[2019-08-18] MEDS: quetiapine 100 mg Tablet 200 MG PO (20:47)
--- NOTE | 2019-08-18 21:33 | PC.NURSE ---
Pt requested prn Trazodone 50mgs po at bedtime. Pt in bed at present and appears to be resting comfortably with eyes closed. Respirations even and unlabored.
[2019-08-19 06:00] VITALS: BP 104/66; PULSE 72; RESP 18; TEMP 36.6
[2019-08-19] MEDS: citalopram 20 mg Tablet 40 MG PO (08:27)
[2019-08-19] MEDS: tamsulosin 0.4 mg Capsule PO (08:27)
--- NOTE | 2019-08-19 11:26 | P.PN_ITS ---
Subjective NPU Subjective: Interval history: Nima presents today reporting that he is feeling a little less depressed, but somewhat more anxious because he was able to speak to his brother and his brother is having a really tough time in his life as well. I talked to his other siblings and family, and it seems like no one is really going to be able to help him. He reports that he is at a place where being homeless and being out there using is just not something his system can tolerate, and he just does not feel like he can go forward if that is the solution, just to be on the street for another year or so, as he says he is just too old for that. We discussed treatment team tomorrow morning and that it will be our goal to work with them to find a rehab or some residential treatment poss ibility that might allow him to get himself back on his feet given the resources that he has as far as his social security. He is sleeping better and eating fine. He is starting to feel a little better from the standpoint of his upper respiratory virus. Mental Status Exam MSE Comments: This is a well-nourished, well-developed, older white male, with adequate dress, grooming, and eye contact. No abnormal movements except for mild psychomotor retardation. Cooperative with exam in no acute distress. Speech was decreased rate and volume. Mood described as a little better; affect congruent. Thought process, organized. Thought content: patient denied any suicidal or homicidal ideation, there were no delusions reported or noted, patient denied any auditory or visual hallucinations. Attention, concentration, and memory appeared intact but were not formally tested. Alert and oriented times three. Insight and judgment are improving. Vitals/I&O/Wt Last Vital Signs Temp 98 F 08/19/19 06:00 Pulse 72 08/19/19 06:00 Resp 18 08/19/19 06:00 BP 104/66 08/19/19 06:00 Pulse Ox 97 08/18/19 19:39 Weight last 48 hrs Weight 78.131 kg Home Medications tamsulosin 0.4 mg PO DAILY 08/16/19 [History Confirmed 08/16/19] Active Medications Acetaminophen (Tylenol) 650 mg PO Q4H PRN PRN Reason: MILD PAIN Last Admin: 08/17/19 16:26 Dose: 650 mg Documented by: Benztropine Mesylate (Cogentin) 1 mg PO BID PRN PRN Reason: Mild Extrapyramidal symptoms Camphor/Menthol/Phenol (Blistex) 1 applic TOPICAL Q1H PRN PRN Reason: DRYNESS Citalopram Hydrobromide (Celexa) 40 mg PO DAILY [facility] Last Admin: 08/19/19 08:27 Dose: 40 mg Documented by: Diphenhydramine HCl (Benadryl) 50 mg IM ONCE PRN PRN Reason: Severe Extrapyramidal Symptoms Diphenhydramine HCl (Benadryl) 50 mg IM Q4H PRN PRN Reason: Severe Aggression Haloperidol (Haldol) 5 mg PO Q4H PRN PRN Reason: AGITATION Haloperidol Lactate (Haldol Inj) 5 mg IM Q4H PRN PRN Reason: Severe Aggression Hydroxyzine Pamoate (Vistaril) 50 mg PO Q6H PRN PRN Reason: ANXIETY Last Admin: 08/16/19 14:50 Dose: 50 mg Documented by: Loperamide HCl (Imodium Capsule) 2 mg PO Q6H PRN PRN Reason: DIARRHEA Lorazepam (Ativan) 2 mg IM Q4H PRN PRN Reason: Severe Aggression Nicotine (Nicoderm 21 Mg Patch) 1 patch TRANSDERMA DAILY PRN PRN Reason: NICOTINE WITHDRAWAL Last Admin: 08/17/19 18:08 Dose: 1 patch Documented by: Nicotine Polacrilex (Nicorette) 2 mg BUCCAL Q2H PRN PRN Reason: NICOTINE WITHDRAWAL Olanzapine (Zyprexa Zydis) 5 mg PO Q4H PRN PRN Reason: Agitation/Psychosis Ondansetron HCl (Zofran) 4 mg PO Q6H PRN PRN Reason: NAUSEA AND VOMITING Quetiapine Fumarate (Seroquel) 200 mg PO BEDTIME [facility] Last Admin: 08/18/19 20:47 Dose: 200 mg Documented by: Tamsulosin HCl (Flomax) 0.4 mg PO DAILY [facility] Last Admin: 08/19/19 08:27 Dose: 0.4 mg Documented by: Data NPU : 08/16/19 12:12 08/16/19 12:12 A&P Additional A&P Information There is a 64-year-old white male with a long history of depression, anxiety and addiction who presents homeless and feeling this positive and suicidal and open to restarting his medication. Continue current medications, except: Encourage individual, group, and milieu therapy. Continue q-15 minute checks for safety. Recommend drug and alcohol treatment, at the highest level to which he is willing to commit, after discharge. Involuntary Hold Information 96 Hour Hold: 96 Hour Involuntary Admission: Yes 96 Hour Hold Ending Date: 08/22/19 96 Hour Hold Ending Time: 12:20 Attestations NPU Medical Necessity Statement*: Inpatient hospitalization is medically necessary and the clinically appropriate intervention at this time. We will monitor medications and titrate as indicated. Likely length of stay 1-3 days. Coding Level of Care Code Acute Apple Checker for Nereida Martinez
[2019-08-19 14:00] VITALS: BP 122/74; PULSE 80; RESP 18
[2019-08-19] MEDS: nicotine 21 mg Patch 1 PATCH TRANSDERMA (17:29)
[2019-08-19] MEDS: quetiapine 100 mg Tablet 200 MG PO (20:34)
[2019-08-19] MEDS: trazodone 50 mg Tablet PO (21:16)
--- NOTE | 2019-08-19 21:17 | PC.NURSE ---
6TRAZODONE 50 MG PO GIVEN SLEEP AIDE.
[2019-08-19 21:56] VITALS: BP 126/79; PULSE 70; RESP 24; TEMP 36.9; O2SAT 98
--- NOTE | 2019-08-19 22:04 | PC.NURSE ---
APPEARS TO BE ASLEEP AFTER TAKING TRAZADONE EARLIER.
[2019-08-20 06:00] VITALS: RESP 16
[2019-08-20 06:32] VITALS: RESP 16
[2019-08-20] MEDS: citalopram 20 mg Tablet 40 MG PO (08:18)
[2019-08-20] MEDS: tamsulosin 0.4 mg Capsule PO (08:18)
[2019-08-20 13:46] VITALS: BP 111/77; PULSE 76; RESP 20; TEMP 36.5; O2SAT 95
--- NOTE | 2019-08-20 15:53 | P.PN_ITS ---
Subjective NPU Subjective: Interval history: Nima presents today reporting that he is having continued improvement. He is working with the social workers to figure out where he is going to go next. He has had an upper respiratory virus that he feels is secondary to being out in the rain recently, but otherwise he is working with the treatment team to figure out where he can go that will not be a step backwards. We discussed the limitations given some of his lack of resources. He reports that he is eating fine and sleeping well. Mental Status Exam MSE Comments: This is a slender, white male, with adequate dress, grooming, and eye contact. No abnormal movements. Cooperative with exam in no acute distress. Speech was decreased rate and volume but improving. Mood described as getting better; affect slightly brighter. Thought process, organized. Thought content: patient denied any suicidal or homicidal ideation, there were no delusions reported or noted, patient denied any auditory or visual hallucinations. Attention, concentration, and memory appeared intact but were not formally tested. Alert and oriented times three. Insight and judgment are improving. Vitals/I&O/Wt Last Vital Signs Temp 97.7 F 08/20/19 13:46 Pulse 76 08/20/19 13:46 Resp 20 H 08/20/19 13:46 BP 111/77 08/20/19 13:46 Pulse Ox 95 08/20/19 13:46 Weight last 48 hrs Weight 78.131 kg Home Medications tamsulosin 0.4 mg PO DAILY 08/16/19 [History Confirmed 08/16/19] Active Medications Acetaminophen (Tylenol) 650 mg PO Q4H PRN PRN Reason: MILD PAIN Last Admin: 08/17/19 16:26 Dose: 650 mg Documented by: Benztropine Mesylate (Cogentin) 1 mg PO BID PRN PRN Reason: Mild Extrapyramidal symptoms Camphor/Menthol/Phenol (Blistex) 1 applic TOPICAL Q1H PRN PRN Reason: DRYNESS Citalopram Hydrobromide (Celexa) 40 mg PO DAILY [facility] Last Admin: 08/20/19 08:18 Dose: 40 mg Documented by: Diphenhydramine HCl (Benadryl) 50 mg IM ONCE PRN PRN Reason: Severe Extrapyramidal Symptoms Diphenhydramine HCl (Benadryl) 50 mg IM Q4H PRN PRN Reason: Severe Aggression Haloperidol (Haldol) 5 mg PO Q4H PRN PRN Reason: AGITATION Haloperidol Lactate (Haldol Inj) 5 mg IM Q4H PRN PRN Reason: Severe Aggression Hydroxyzine Pamoate (Vistaril) 50 mg PO Q6H PRN PRN Reason: ANXIETY Last Admin: 08/16/19 14:50 Dose: 50 mg Documented by: Loperamide HCl (Imodium Capsule) 2 mg PO Q6H PRN PRN Reason: DIARRHEA Nicotine (Nicoderm 21 Mg Patch) 1 patch TRANSDERMA DAILY PRN PRN Reason: NICOTINE WITHDRAWAL Last Admin: 08/19/19 17:29 Dose: 1 patch Documented by: Nicotine Polacrilex (Nicorette) 2 mg BUCCAL Q2H PRN PRN Reason: NICOTINE WITHDRAWAL Olanzapine (Zyprexa Zydis) 5 mg PO Q4H PRN PRN Reason: Agitation/Psychosis Ondansetron HCl (Zofran) 4 mg PO Q6H PRN PRN Reason: NAUSEA AND VOMITING Quetiapine Fumarate (Seroquel) 200 mg PO BEDTIME [facility] Last Admin: 08/19/19 20:34 Dose: 200 mg Documented by: Tamsulosin HCl (Flomax) 0.4 mg PO DAILY [facility] Last Admin: 08/20/19 08:18 Dose: 0.4 mg Documented by: Trazodone HCl (Desyrel) 50 mg PO BEDTIME PRN PRN Reason: SLEEP Last Admin: 08/19/19 21:16 Dose: 50 mg Documented by: Trazodone HCl (Desyrel) 50 mg PO Q24H PRN PRN Reason: SLEEP Data NPU : 08/16/19 12:12 08/16/19 12:12 A&P Additional A&P Information There is a 64-year-old white male with a long history of depression, anxiety and addiction who presents homeless and feeling this positive and suicidal and open to restarting his medication. Continue current medications, except: Encourage individual, group, and milieu therapy. Continue q-15 minute checks for safety. Recommend drug and alcohol treatment, at the highest level to which he is willing to commit, after discharge. Involuntary Hold Information 96 Hour Hold: 96 Hour Involuntary Admission: Yes 96 Hour Hold Ending Date: 08/22/19 96 Hour Hold Ending Time: 12:20 Attestations NPU Medical Necessity Statement*: Inpatient hospitalization is medically necessary and the clinically appropriate intervention at this time. We will monitor medications and titrate as indicated. Likely length of stay 1-2 days. Consider discharge tomorrow. Coding Level of Care Code Acute Vice President Global Advertising Sales for Nereida Martinez
[2019-08-20] MEDS: cetylpyridinium Lozenge 1 EACH MUCOUS MEM (16:26)
--- NOTE | 2019-08-20 16:27 | PC.NURSE ---
PRN CEPACOL 1 LOZENGE GIVEN PO PER PT C/O SORE THROAT
[2019-08-20] MEDS: quetiapine 100 mg Tablet 200 MG PO (20:34)
[2019-08-20] MEDS: trazodone 50 mg Tablet PO (20:34)
[2019-08-20 21:27] VITALS: BP 110/64; PULSE 69; RESP 23; TEMP 36.4; O2SAT 97
--- NOTE | 2019-08-20 22:29 | PC.NURSE ---
Pt requested sleeping pill with bedtime meds. Medicated with Trazadone 50mgs po per prn order. Appears to be resting comfortably with eyes closed. Respirations even and unlabored. Will continue to monitor.
[2019-08-21 06:00] VITALS: BP 99/56; PULSE 65; RESP 16; TEMP 36.4; O2SAT 96
[2019-08-21] MEDS: tamsulosin 0.4 mg Capsule PO (08:41)
[2019-08-21] MEDS: cetylpyridinium Lozenge 1 EACH MUCOUS MEM (08:41)
[2019-08-21] MEDS: citalopram 20 mg Tablet 40 MG PO (08:41)
--- NOTE | 2019-08-21 08:42 | PC.NURSE ---
PRN CEPACOL 1 LOZENGE GIVEN PO PER PT C/O SORE THROAT/COUGH
[2019-08-21 13:58] VITALS: BP 124/80; PULSE 75; RESP 18; TEMP 36.7; O2SAT 94
--- NOTE | 2019-08-21 16:29 | PM.NPN ---
Subjective NPU Subjective: Interval history: Nima presents today reporting that he is starting to feel better. He reports that he is working with the social services director to try to find a spot. We discussed the fact we were able to contact the community support individual that had been working with him to find a place. She is feeling optimistic that if we find something that meets the criteria, that they would support him in getting the cost of actually moving in everything taken care of. We discussed the plan of working on that today and if we are unable to manage that, we would discharge him by tomorrow morning. Mental Status Exam MSE Comments: This is a slender, older, white male, with adequate dress, limited grooming, and eye contact. No abnormal movements. Cooperative with exam in no acute distress. Speech was normal rate and volume. Mood described as a little better; affect congruent. Thought process, organized. Thought content: patient denied any suicidal or homicidal ideation, there were no delusions reported or noted, patient denied any auditory or visual hallucinations. Attention, concentration, and memory appeared intact but were not formally tested. Alert and oriented times three. Insight and judgment are improving. Vitals/I&O/Wt Last Vital Signs Temp 98.0 F 08/21/19 13:58 Pulse 75 08/21/19 13:58 Resp 18 08/21/19 13:58 BP 124/80 08/21/19 13:58 Pulse Ox 94 08/21/19 13:58 Home Medications tamsulosin 0.4 mg PO DAILY 08/16/19 [History Confirmed 08/16/19] Active Medications Acetaminophen (Tylenol) 650 mg PO Q4H PRN PRN Reason: MILD PAIN Last Admin: 08/17/19 16:26 Dose: 650 mg Documented by: Benzocaine (Cepacol) 1 each MUCOUS MEM Q2H PRN PRN Reason: SORE THROAT Last Admin: 08/21/19 08:41 Dose: 1 each Documented by: Benztropine Mesylate (Cogentin) 1 mg PO BID PRN PRN Reason: Mild Extrapyramidal symptoms Camphor/Menthol/Phenol (Blistex) 1 applic TOPICAL Q1H PRN PRN Reason: DRYNESS Citalopram Hydrobromide (Celexa) 40 mg PO DAILY HENRY Last Admin: 08/21/19 08:41 Dose: 40 mg Documented by: Diphenhydramine HCl (Benadryl) 50 mg IM ONCE PRN PRN Reason: Severe Extrapyramidal Symptoms Diphenhydramine HCl (Benadryl) 50 mg IM Q4H PRN PRN Reason: Severe Aggression Haloperidol (Haldol) 5 mg PO Q4H PRN PRN Reason: AGITATION Haloperidol Lactate (Haldol Inj) 5 mg IM Q4H PRN PRN Reason: Severe Aggression Hydroxyzine Pamoate (Vistaril) 50 mg PO Q6H PRN PRN Reason: ANXIETY Last Admin: 08/16/19 14:50 Dose: 50 mg Documented by: Loperamide HCl (Imodium Capsule) 2 mg PO Q6H PRN PRN Reason: DIARRHEA Nicotine (Nicoderm 21 Mg Patch) 1 patch TRANSDERMA DAILY PRN PRN Reason: NICOTINE WITHDRAWAL Last Admin: 08/19/19 17:29 Dose: 1 patch Documented by: Nicotine Polacrilex (Nicorette) 2 mg BUCCAL Q2H PRN PRN Reason: NICOTINE WITHDRAWAL Olanzapine (Zyprexa Zydis) 5 mg PO Q4H PRN PRN Reason: Agitation/Psychosis Ondansetron HCl (Zofran) 4 mg PO Q6H PRN PRN Reason: NAUSEA AND VOMITING Quetiapine Fumarate 100 mg/ (Quetiapine Fumarate 300 mg) 400 mg PO BEDTIME HENRY Tamsulosin HCl (Flomax) 0.4 mg PO DAILY HENRY Last Admin: 08/21/19 08:41 Dose: 0.4 mg Documented by: Trazodone HCl (Desyrel) 50 mg PO BEDTIME PRN PRN Reason: SLEEP Last Admin: 08/20/19 20:34 Dose: 50 mg Documented by: Trazodone HCl (Desyrel) 50 mg PO Q24H PRN PRN Reason: SLEEP Data NPU : 08/16/19 12:12 08/16/19 12:12 A&P Additional A&P Information There is a 64-year-old white male with a long history of depression, anxiety and addiction who presents homeless and feeling this positive and suicidal and open to restarting his medication. Continue current medications, except: Increase Seroquel to 400 mg by mouth daily at bedtime. Encourage individual, group, and milieu therapy. Continue q-15 minute checks for safety. Recommend drug and alcohol treatment, at the highest level to which he is willing to commit, after discharge. Working with community supports to assist with housing today will discharge tomorrow. Involuntary Hold Information 96 Hour Hold: 96 Hour Involuntary Admission: Yes 96 Hour Hold Ending Date: 08/22/19 96 Hour Hold Ending Time: 12:20 Attestations NPU Medical Necessity Statement*: Inpatient hospitalization is medically necessary and the clinically appropriate intervention at this time. We will monitor medications and titrate as indicated. Likely length of stay 1-2 days. Tentative discharge tomorrow. Coding Level of Care Code Acute Chef De Froid for Nereida Martinez
[2019-08-21 20:59] VITALS: BP 122/70; PULSE 73; RESP 20; TEMP 36.7; O2SAT 96
[2019-08-21 22:00] VITALS: BP 122/70; PULSE 73; RESP 20; TEMP 36.7; O2SAT 96
[2019-08-22 06:00] VITALS: BP 100/55; PULSE 65; RESP 18; TEMP 36.4; O2SAT 96
[2019-08-22] MEDS: citalopram 20 mg Tablet 40 MG PO (08:39)
[2019-08-22] MEDS: tamsulosin 0.4 mg Capsule PO (08:40)
--- NOTE | 2019-08-22 10:52 | PC.SOCIAL ---
Medicaid ride called, trip ID# [id number]
[2019-08-22 11:03] VITALS: BP 100/55; PULSE 65; RESP 18; TEMP 36.4; O2SAT 96
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
== END 2019-08-22 12:51 | disposition home or self-care (01) | DRG 881 ==
LOC: ER 12:30 → NP 12:54
PROVIDERS: Admitting Provider Psychiatry & Neurology Psychiatry; Emergency Provider Emergency Medicine; Family Provider Family Medicine; PCP Family Medicine; Visit Provider Psychiatry & Neurology Psychiatry
DX: F32.9 Major depressive disorder, single episode, unspecified (principal); R45.851 Suicidal ideations; F17.210 Nicotine dependence, cigarettes, uncomplicated; F41.9 Anxiety disorder, unspecified; Z59.0 Homelessness
CPT/HCPCS: 12345; 36415; 80053; 80156; 80164; 80178; 80185; 80306; 80307; 84443; 85025; 90471; 90732; 93005; 99284; A9270

== ENCOUNTER 2019-08-31 13:34 | Emergency (ER) | payer MEDICAID, SELFPAY | END 2019-08-31 19:47 | disposition admitted as inpatient to this hospital (09) | LOC: ER 09-06 15:17 | PROVIDERS: Emergency Provider Family Medicine; Family Provider Family Medicine; PCP Family Medicine | DX: Z01.89 Encounter for other specified special examinations (principal) | CPT/HCPCS: 12345; 36415; 80053; 80306; 80307; 85025; 99284; 99285; A9270 ==

== ENCOUNTER 2019-08-31 13:34 | Inpatient (IN) | payer MEDICAID, SELFPAY ==
[2019-08-31 13:43] VITALS: BP 146/87; PULSE 78; RESP 17; TEMP 36.6; O2SAT 100; BMI 21.8
--- NOTE | 2019-08-31 14:00 | ED_ITS ---
Entered by Natividad Hurst, acting as scribe for Martha Lynn MD, [facility] [place] [facility] [place] Aug 31, 2019 13:34 HPI - Psych General: Chief Complaint: Psychiatric Symptoms Stated Complaint: SI Time Seen by Provider: 08/31/19 14:03 Source: patient and EMS Mode of arrival: EMS Limitations: no limitations History of Present Illness: HPI Narrative: 64-year-old gentleman with a h istory of depression who was recently admitted and discharged from the neuropsychiatric unit for suicidal ideation presents to the emergency department today with suicidal ideations. He states that he was unable to obtain his medications as he claims they were not prescribed to him when he was discharged. The patient feels tired of living as he feels no one cares for him. He thinks he will be better off . He states that if he had a gun he would have shot himself already. 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) Duration: constant and getting worse History of same: Yes Relieving factors: none Exacerbating factors: other (stress) Context: significant life stressor and other (homeless) Associated psychiatric symptoms: depression and suicidal ideation Associated symptoms: Reports depression and suicidal ideation (no plan) Treatments prior to arrival: none If self harm: admits thoughts of self harm Review of Systems General: Reports: 10 or more systems reviewed and unremarkable except in HPI and below Const: Denies: fever, chills or body aches Eyes: Denies: change in vision or blurry vision ENMT: Denies: throat pain, enlarged tonsils, painful swallowing, hoarseness, mouth pain or swelling of lips/tongue Card: Reports: chest pain; Denies: palpitations, irregular heart rhythm, edema or swelling of feet/ankles Resp: Denies: shortness of breath, productive cough or non-productive cough GI: Denies: abdominal pain, nausea or vomiting : Denies: flank pain, painful urination, urinary frequency, urinary urgency or urinary hesitancy Musc: Denies: joint warmth Skin/Breast: Denies: rash, itching or redness Neuro: Denies: headache, numbness in extremities or weakness in extremities Psych: Reports: depression and suicidal ideation (no plan) Endo: Denies: excessive urination, excessive thirst or tired all the time All/Imm: Denies: acute wheezing PFSH ED PFSH: Medical History (Updated 09/01/19 @ 00:00 by Martha Lynn MD, [facility] [place]) Alcohol addiction Amphetamine addiction 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 Surgical History S/P hernia repair abdominal Status post skin graft Social History Smoking and tobacco status: current every day smoker cigarettes Packs smoked per day: 1 Years cigarettes smoked: 40 Quit status (tobacco): not considering quitting Second hand smoke exposure: Yes Smoking risk assessment/counseling performed?: No Reason smoking risk assessment not done: patient refused Alcohol intake: former Marital status: Current occupational status: disabled History of recent travel: No Physical Exam Const: COMMON NORMALS: no apparent distress, average body habitus, oriented x3, no limitations, healthy appearing, alert and well nourished HENMT: COMMON NORMALS: normocephalic, head/scalp atraumatic and moist oral mucous membranes HEAD & SCALP: normocephalic and atraumatic Eye: COMMON NORMALS: PERRL, EOMs intact bilaterally, conjunctivae normal and no scleral icterus CONJUNCTIVA: Yes conjunctivae normal PUPIL: Yes PERRL Neck/C-Spine: COMMON NORMALS: full ROM, supple, no meningeal signs, no JVD and no carotid bruits Chest: COMMONS NORMALS: inspection of chest normal and palpation of chest nor mal Resp: COMMON NORMALS: normal respiratory effort, no retractions, no use of accessory muscles, clear to auscultation bilaterally and percussion normal AUSCULTATION: clear to auscultation bilaterally PERCUSSION: percussion normal Cardio: COMMON NORMALS: no JVD, regular rate, regular rhythm, S1 normal heart sound, S2 normal heart sound, no gallops, no clicks, no murmurs, no rub and peripheral pulses 2+ throughout RATE: regular rate RHYTHM: regular rhythm HEART SOUNDS: S1 normal and S2 normal PERIPHERAL PULSES: pulses 2+ thr oughout GI: COMMON NORMALS: normal to inspection, nondistended, normoactive bowel sounds, soft to palpation, non-tender, no hepatosplenomegaly, no masses and no bruits PALPATION: Yes soft and Yes no hepatosplenomegaly : COMMON NORMALS: Yes no CVA tenderness BLADDER/KIDNEY EXAM: Yes no CVA tenderness Back/Pelvis: COMMON NORMALS: no CVA tenderness Extremity: COMMON NORMALS: normal to inspection, full ROM, normal capillary refill, no calf tenderness and no pedal edema Neuro: COMMON NORMALS: oriented x3 SENSORIUM/ORIENTATION: Yes alert MENINGEAL SIGNS: Yes no meningeal signs Psych: COMMON NORMALS: thought process normal and cooperative ATTITUDE: Yes agitated MOOD & AFFECT: Yes depressed mood and Yes irritable THOUGHT PROCESS: normal thought process THOUGHT CONTENT: Yes suicidality Skin: COMMON NORMALS: no rashes or lesions noted, no wounds, skin turgor normal, no jaundice, no petechiae and no mottling GENERAL SKIN EXAM: no rash es or lesions noted and turgor normal MDM - Psych MDM Narrative: Medical decision making narrative: 64-year-old gentleman who presents with suicidal ideation. He was medically cleared and admitted to the neuropsychiatric unit under the care of Dr. Arrieta. Medical Records: Attestation: I reviewed the patient's medical records. Lab Data: Attestation: I reviewed the patient's lab results. Labs: Lab Results 08/31/19 08/31/19 08/31/19 Range/Units 13:50 13:50 14:00 WBC 7.1 (4.0-10.0) 10^3/ uL RBC 3.83 L (4.1-5.3) 10^6/u L Hgb 12.6 (11.7-16.6) g/dL Hct 38.9 L (42.0-52.0) % MCV 101.6 H (80-94) fL MCH 32.9 (28.0-34.0) pg MCHC 32.4 (30.0-36.0) g/dL RDW 13.2 (12.1-15.1) % Plt Count 300 (130-400) 10^3/c mm MPV 9.9 (7.4-10.4) fL Neut % (Auto) 55.7 % Lymph % (Auto) 30.4 % Jerome % (Auto) 9.6 % Eos % (Auto) 3.0 % Baso % (Auto) 1.0 % Neut # (Auto) 3.9 (1.8-7.7) 10^3/u L Lymph # (Auto) 2.1 (0.8-4.8) 10^3/u L Jerome # (Auto) 0.7 (0.2-0.9) 10^3/u L Eos # (Auto) 0.2 (0.0-0.8) 10^3/u L Baso # (Auto) 0.1 (0.0-0.1) 10^3/u L Nucleated RBC % (a uto) 0 % Nucleated RBCs # 0.0 /100WBC Sodium 141 (136-145) mmol/L Potassium 4.0 (3.5-5.1) mmol/L Chloride 101 (98-107) mmol/L Carbon Dioxide 36 H (22-29) mmol/L Anion Gap 8.0 (5-19) BUN 6 L (8-23) mg/dL Creatinine 0.7 (0.7-1.2) mg/dL GFR Calculation 112.8 (90-130) mL/min Glucose 98 (65-115) mg/dL Calculated Osmolal ity 288 (285-295) mOsm/k g Calcium 9.0 (8.5-10.5) mg/dL Total Bilirubin 0.2 (0.15-1.2) mg/dL AST 16 (0-40) U/L ALT 14 (0-41) U/L Alkaline Phosphata se 116 (40-130) IU/L Total Protein 6.7 (6.6-8.7) g/dL Albumin 3.8 (3.5-5.2) g/dL Globulin 2.9 (1.3-4.6) g/dL Salicylates < 0.3 L (3-10) mg/dL Urine Opiates Scre en Negative (Negative) ng/mL Acetaminophen < 5.0 L (10-30) ug/mL Ur Barbiturates Sc reen Negative (Negative) ng/mL Ur Phencyclidine S crn Negative (Negative) ng/mL Ur Amphetamines Sc reen Negative (Negative) ng/mL U Benzodiazepines Scrn Negative (Negative) ng/mL Urine Cocaine Scre en Negative (Negative) ng/mL U Marijuana (THC) Screen Positive H (Negative) ng/mL Ethyl Alcohol < 10 (0-10) mg/dL Discharge Plan Discharge Patient Disposition: Admitted As Inpatient Admit Provider: Govind Collins Clinical Impression: Suicidal ideation, Cannabis dependence, Major depressive disorder, recurrent severe without psychotic features Condition: Stable Interventions: ED Discharge Assessment Last Done: 08/31/19 19:46 Discharge Date/Time: 08/31/19 19:47 Coding Level of Care Code ED Hand Blocker for Chg Fwd Exam Comprehensive The documentation recorded by the Aris castro Bridget Annette, accurately reflects the service I personally performed and the decisions made by Shane esqueda Adegoke I, MD, [facility] [place] Aug 31, 2019 13:34
[2019-08-31 14:08] LABS: Basophils # 0.1 10^3/uL (0.0-0.1); Eosinophils # 0.2 10^3/uL (0.0-0.8); Hematocrit 38.9 % (42.0-52.0); Hemoglobin 12.6 g/dL (11.7-16.6); Lymphocytes # 2.1 10^3/uL (0.8-4.8); Lymphocytes % 30.4 %; Mean Corpuscular HGB Conc 32.4 g/dL (30.0-36.0); Mean Corpuscular Hemoglobin 32.9 pg (28.0-34.0); Mean Corpuscular Volume 101.6 fL (80-94); Mean Platelet Volume 9.9 fL (7.4-10.4); Monocytes # 0.7 10^3/uL (0.2-0.9); Monocytes % 9.6 %; Neutrophils # 3.9 10^3/uL (1.8-7.7); Neutrophils % 55.7 %; Nucleated Red Blood Cells % 0 %; Platelet Count 300 10^3/cmm (130-400); Red Blood Count 3.83 10^6/uL (4.1-5.3); Red Cell Distribution Width 13.2 % (12.1-15.1); White Blood Count 7.1 10^3/uL (4.0-10.0)
[2019-08-31 14:27] LABS: Alanine Aminotransferase 14 U/L (0-41); Albumin Level 3.8 g/dL (3.5-5.2); Alkaline Phosphatase 116 IU/L (40-130); Aspartate Amino Transferase 16 U/L (0-40); Blood Urea Nitrogen 6 mg/dL (8-23); Carbon Dioxide 36 mmol/L (22-29); Chloride 101 mmol/L (98-107); Globulin 2.9 g/dL (1.3-4.6); Glomerular Filtration Rate 112.8 mL/min (90-130); Glucose 98 mg/dL (65-115); Osmolality Calculated 288 mOsm/kg (285-295); Sodium 141 mmol/L (136-145); Total Bilirubin 0.2 mg/dL (0.15-1.2); Total Protein 6.7 g/dL (6.6-8.7)
[2019-08-31 14:29] LABS: Acetaminophen < 5.0 ug/mL (10-30); Alcohol Level < 10 mg/dL (0-10); Salicylate < 0.3 mg/dL (3-10)
[2019-08-31 15:07] LABS: Amphetamines Screen Urine Negative (Negative); Barbiturates Screen Urine Negative (Negative); Benzodiazepines Screen Urine Negative (Negative); Cocaine Screen Urine Negative (Negative); Opiate Screen Urine Negative (Negative); PCP Screen Urine Negative (Negative); THC Screen Urine Positive (Negative)
[2019-08-31] MEDS: LORazepam 2 mg Tablet PO (15:56)
[2019-08-31] MEDS: nicotine 21 mg Patch 1 PATCH TRANSDERMA (16:49)
[2019-08-31 19:46] VITALS: BP 128/67; PULSE 87; RESP 17; O2SAT 99
--- NOTE | 2019-08-31 20:30 | PC.NURSE ---
Pt arrived to unit via w/c from ER at this time.
[2019-08-31 22:00] VITALS: BP 144/82; PULSE 84; RESP 18; TEMP 36.8; O2SAT 96
[2019-08-31] MEDS: acetaminophen 325 mg Tablet 650 MG PO (22:41)
[2019-08-31] MEDS: trazodone 50 mg Tablet PO (22:42)
[2019-09-01 06:00] VITALS: BP 113/72; PULSE 68; RESP 18; TEMP 36.4; O2SAT 97
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
[2019-09-01 14:00] VITALS: BP 143/79; PULSE 79; RESP 18
[2019-09-01] MEDS: trazodone 50 mg Tablet PO (20:40)
[2019-09-01] MEDS: quetiapine 100 mg Tablet 400 MG PO ×2 (20:44→22:11)
[2019-09-01 22:00] VITALS: BP 160/95; PULSE 75; RESP 18; TEMP 36.6; O2SAT 98
[2019-09-02 06:00] VITALS: BP 115/76; PULSE 70; RESP 16; TEMP 36.7; O2SAT 97
[2019-09-02] MEDS: citalopram 20 mg Tablet 40 MG PO (09:42)
[2019-09-02] MEDS: tamsulosin 0.4 mg Capsule PO (09:42)
--- NOTE | 2019-09-02 10:25 | P.PN_ITS ---
Subjective NPU Subjective: Interval history: The patient indicates that he got stressed because he was homeless and was not on his medicines (again), which he knows to be very detrimental to him. He says his medicines work very well for him and there is no need for adjustment. He feels safe on the unit and can keep himself safe here. Medications: Reviewed: Yes Medication Review Details: Current Medications Acetaminophen (Tylenol) 650 mg PO Q4H PRN PRN Reason: MILD PAIN Last Admin: 08/31/19 22:41 Dose: 650 mg Documented by: Camphor/Menthol/Phenol (Blistex) 1 applic TOPICAL Q1H PRN PRN Reason: DRYNESS Citalopram Hydrobromide (Celexa) 40 mg PO DAILY [facility] Last Admin: 09/02/19 09:42 Dose: 40 mg Documented by: Diphenhydramine HCl (Benadryl) 50 mg IM ONCE PRN PRN Reason: Severe Extrapyramidal Symptoms Diphenhydramine HCl (Benadryl) 50 mg IM Q4H PRN PRN Reason: Severe Aggression Haloperidol (Haldol) 5 mg PO Q4H PRN PRN Reason: AGITATION Haloperidol Lactate (Haldol Inj) 5 mg IM Q4H PRN PRN Reason: Severe Aggression Hydroxyzine Pamoate (Vistaril) 50 mg PO Q6H PRN PRN Reason: ANXIETY Ibuprofen (Motrin) 400 mg PO QID PRN PRN Reason: Pain Loperamide HCl (Imodium Capsule) 2 mg PO Q6H PRN PRN Reason: DIARRHEA Lorazepam (Ativan) 2 mg IM Q4H PRN PRN Reason: Severe Aggression Nicotine (Nicoderm 21 Mg Patch) 1 patch TRANSDERMA DAILY PRN PRN Reason: NICOTINE WITHDRAWAL Nicotine Polacrilex (Nicorette) 2 mg BUCCAL Q2H PRN PRN Reason: NICOTINE WITHDRAWAL Olanzapine (Zyprexa Zydis) 5 mg PO Q4H PRN PRN Reason: Agitation/Psychosis Ondansetron HCl (Zofran) 4 mg PO Q6H PRN PRN Reason: NAUSEA AND VOMITING Quetiapine Fumarate (Seroquel) 400 mg PO DAILY@2200 [facility] Last Admin: 09/01/19 22:11 Dose: 400 mg Documented by: Tamsulosin HCl (Flomax) 0.4 mg PO DAILY [facility] Last Admin: 09/02/19 09:42 Dose: 0.4 mg Documented by: Mental Status Exam MSE Comments: This is a 64-year-old male who presents at his stated age. He is disheveled but clean. Mood is upbeat, affect is cheerful. He is very happy. He is back on his meds, which he frankly acknowledges are helpful. Thought processes are integrated and free of any racing, blocking or looseness of association. Speech is of normal rate and volume, without dysarthria, aprosody or pressure. Cognitive functions seem adequate vis-?-vis orientation, recent and remote memory, capacity to reason, although not formally tested. However, insight and judgment appear to be mildly impaired. Cognition: Patient Appearance: Disheveled/Poor Hygiene Level of Consciousness: Awake, Alert and Appropriate Attention Span Ability: Capable of Focused Attention Level of Alertness: Alert and Active Patient Cognition Impaired: No Ability to Follow Directions: Good Executive Function Ability: No Deficits Noted Patient Orientation (long list): Person, Place, Time, Name, Age and Birthday Comprehension Ability: No Impairment Memory Description: Intact Perception: None Receptive Language Skills Age Appropriate: Yes Hallucination Type: None Delusion Description: Not Present Thought Process: Appropriate Thought Content: Intact Affect: Mood Description: Appropriate Behavior: Patient Behavior: Appropriate and Cooperative Emotional State Description: Alert and Attentive Speech Pattern: Appropriate Voice Loudness: Normal Restraint Use Risk: Mental Disorder, Psych Facility Resident and Substance Use Vitals/I&O/Wt Last Vital Signs Temp 98.1 F 09/02/19 06:00 Pulse 70 09/02/19 06:00 Resp 16 09/02/19 06:00 BP 115/76 09/02/19 06:00 Pulse Ox 97 09/02/19 06:00 Weight last 48 hrs Weight 184 lb Weight 170 lb Data NPU : 08/31/19 13:50 08/31/19 13:50 A&P Assessment and plan (1) Major depressive disorder, recurrent severe without psychotic features: The patient will be involved in [facility]. He will be referred for outpatient treatment. He is presently on citalopram. Status: Acute Code(s): F33.2 - Major depressive disorder, recurrent severe without psychotic features (2) Amphetamine addiction: Refer to rehab Status: Acute Code(s): F15.20 - Other stimulant dependence, uncomplicated (3) Alcohol addiction: This patient needs rehab for all his addictions. Status: Acute Code(s): F10.20 - Alcohol dependence, uncomplicated Additional A&P Information Additional A&P Information There is a 64-year-old white male with a long history of depression, anxiety and addiction who presents homeless and feeling this positive and suicidal and open to restarting his medication. Continue current medications, except: Increase Seroquel to 400 mg by mouth daily at bedtime. Encourage individual, group, and milieu therapy. Continue q-15 minute checks for safety. Recommend drug and alcohol treatment, at the highest level to which he is w illing to commit, after discharge. Working with community supports to assist with housing today will discharge tomorrow. Involuntary Hold Information 96 Hour Hold: 96 Hour Involuntary Admission: No 96 Hour Hold Ending Date: 08/22/19 96 Hour Hold Ending Time: 12:20 Attestations NPU Medical Necessity Statement*: I anticipate it will take 2-3 midnights to e ffectuate transfer to rehab. Time Spent in Patient Care: Greater than 35 minutes (>than 50% of time spent in counselling and/or direct pt care on unit) . Coding Level of Care Code Acute Event Decorator for Nereida Martinez Diagnoses Major depressive disorder, recurrent severe without psychotic features F33.2 Amphetamine addiction F15.20 Alcohol addiction F10.20
[2019-09-02 13:41] VITALS: BP 111/79; PULSE 82; RESP 17
[2019-09-02 21:41] VITALS: BP 125/69; PULSE 77; RESP 20; TEMP 36.6; O2SAT 95
[2019-09-02] MEDS: quetiapine 100 mg Tablet 400 MG PO (22:00)
[2019-09-03 06:00] VITALS: BP 92/56; PULSE 67; RESP 17; TEMP 36.5; O2SAT 95
[2019-09-03] MEDS: tamsulosin 0.4 mg Capsule PO (08:42)
[2019-09-03] MEDS: citalopram 20 mg Tablet 40 MG PO (08:42)
--- NOTE | 2019-09-03 09:10 | PM.NDC ---
Diagnoses at Discharge Discharge Diagnosis (1) Major depressive disorder, recurrent severe without psychotic features: Status: Resolved Problem details: Patient has responded well to pharmacotherapy. We will set him up with follow-up at [facility] and discharge him with a supply of medicine (2) Amphetamine addiction: Status: Chronic Problem details: Patient is offered inpatient/outpatient rehab program. He declines. (3) Alcohol addiction: Status: Chronic Problem details: Patient is offered inpatient/outpatient rehab program. He declines. Reason for Visit Reason for Visit: Reason For Visit: SI Brief History: 64-year-old gentleman with a history of depression who was recently admitted and discharged from the neuropsychiatric unit for suicidal ideation presents to the emergency department today with suicidal ideations. He states that he was unable to obtain his medications as he claims they were not prescribed to him when he was discharged. The patient feels tired of living as he feels no one cares for him. He thinks he will be better off . He states that if he had a gun he would have shot himself already. Hospital Course Hospital Course The patient is back on his medicines and responding. He understands the need for stable lifestyle and entry into recovery. We shall see. Involuntary Hold Information 96 Hour Hold: 96 Hour Involuntary Admission: No 96 Hour Hold Ending Date: 08/22/19 96 Hour Hold Ending Time: 12:20 Mental Status Exam MSE Comments: 64-year-old male who presents older than his stated age. Mood is much improved, being upbeat and energetic. Affect is appropriate. Thought processes are integrated and free of any racing, blocking or looseness of association. There is no evidence of psychosis, such as but not limited to hallucinations, delusions or ideas of reference. Speech is of normal rate and volume, without dysarthria, aprosody or pressure. Cognitive functions, including but not limited to orientation, recent and remote memory, capacity for reason. Insight and judgment are improved. The patient denies any suicidal or homicidal ideation, plan or intent. Discharge Data Vitals: Last Vital Signs Temp 97.7 F 09/03/19 06:00 Pulse 67 09/03/19 06:00 Resp 17 09/03/19 06:00 BP 92/56 09/03/19 06:00 Pulse Ox 95 09/03/19 06:00 Discharge Plan Discharge Patient Disposition: Home, Self-Care Condition: Stable Prescriptions: Continued citalopram 40 mg tablet 40 mg PO DAILY 30 Days Qty: 30 RF: 1 tamsulosin 0.4 mg Capsule 0.4 mg PO DAILY 30 Days Qty: 30 RF: 1 quetiapine [Seroquel] 400 mg tablet 400 mg PO DAILY Qty: 30 RF: 1 Discontinued ibuprofen 200 mg Tablet 400 mg PO QID PRN (Reason: Pain) RF: 0 Discharge Orders: Discharge Order (Routine); Ordered 09/03/19 Ordered By: Harsh House Referrals: Perico Martinez MD [Primary Care Provider] - Discharge Diet: Usual diet Discharge Activity: Resume usual activity Discharge Attestations NPU Time Spent in Discharge Care*: greater than 30 min Coding Level of Care Code Acute Superintendent Horticulture for [facility] Fwd Diagnoses Major depressive disorder, recurrent severe without psychotic features F33.2 Amphetamine addiction F15.20 Alcohol addiction F10.20
[2019-09-03 09:21] VITALS: BP 92/56; PULSE 67; RESP 17; TEMP 36.5; O2SAT 95
[2019-09-03 10:12] VITALS: BP 92/56; PULSE 67; RESP 17; TEMP 36.5; O2SAT 95
== END 2019-09-03 10:55 | disposition home or self-care (01) | DRG 885 ==
LOC: ER 14:03 → NP 19:44
PROVIDERS: Emergency Medicine; Admitting Provider Psychiatry & Neurology Psychiatry; Emergency Provider Family Medicine; Family Provider Family Medicine; PCP Family Medicine; Visit Provider Psychiatry & Neurology Psychiatry
DX: F33.2 Major depressive disorder, recurrent severe without psychotic features (principal); F15.20 Other stimulant dependence, uncomplicated; R45.851 Suicidal ideations; F10.20 Alcohol dependence, uncomplicated; F12.90 Cannabis use, unspecified, uncomplicated; Z59.0 Homelessness; Z79.1 Long term (current) use of non-steroidal anti-inflammatories (NSAID)
CPT/HCPCS: 12345; 36415; 80053; 80306; 80307; 85025; 99284; A9270

== ENCOUNTER → 2019-09-14 07:26 | Outpatient (BNVA) | payer MEDICAID, SELFPAY | PROVIDERS: Family Provider Family Medicine; PCP Family Medicine; Visit Provider Nurse Practitioner Psychiatric/Mental Health | DX: F15.20 Other stimulant dependence, uncomplicated (principal); F33.2 Major depressive disorder, recurrent severe without psychotic features; F10.20 Alcohol dependence, uncomplicated; F12.20 Cannabis dependence, uncomplicated; F17.210 Nicotine dependence, cigarettes, uncomplicated | CPT/HCPCS: 99213 ==

== ENCOUNTER 2019-09-29 19:52 | Inpatient (IN) | payer MEDICAID, SELFPAY ==
[2019-09-29 20:03] VITALS: BP 113/79; PULSE 98; RESP 18; TEMP 36.6; O2SAT 95; BMI 21.9
--- NOTE | 2019-09-29 20:34 | XRR_ITS ---
PROCEDURE INFORMATION: Exam: XR Chest, 1 View Exam date and time: 09/29/2019 9:17 PM Age: 64 years old Clinical indication: Other: Psychiatric screen TECHNIQUE: Imaging protocol: XR of the chest Views: Frontal portable upright view of the chest. COMPARISON: CR Chest 1 [place] [id number] 03/06/2016 2:03 PM FINDINGS: Lungs: Moderate pulmonary hyperexpansion. The lungs are otherwise clear bilaterally. The pulmonary vasculature is normal. Pleural space: No pleural effusion. No pneumothorax. Heart/Mediastinum: The heart is normal in size and contour. Mediastinum: Stable. Vasculature: Mild aortic arch atherosclerotic calcification without ectasia. Bones/joints: Stable. XR/XR chest 1V portable [id number] IMPRESSION: Moderate pulmonary hyperexpansion.
--- NOTE | 2019-09-29 20:34 | ECG_ITS ---
Measurements Intervals [place] Rate: 92 P: 76 NC: 176 QRS: 75 QRSD: 86 T: 74 QT: 371 QTc: 460 SINUS RHYTHM WITH OCCASIONAL VENTRICULAR PREMATURE COMPLEXES Compared to ECG 08/16/2019 12:11:54 Ventricular premature complex(es) now present Myocardial infarct finding no longer present Electronically Signed On 09-30-2019 12:24:52 CDT by Sherri Warren M.D. [email or web address]
--- NOTE | 2019-09-29 21:05 | ED_ITS ---
HPI - Psych General: Chief Complaint: Psychiatric Symptoms Stated Complaint: si/hi Time Seen by Provider: 09/29/19 20:17 History of Present Illness: HPI Narrative: 64-year-old male presents to the emergency department complaining of feeling down and depressed. He states I need to go to the psychiatric unit . When asked why he says I have been feeling really down . He also states if I do not get help, I am going to end up hurting myself or someone else. MD complaint: feels depressed Associated symptoms: Deny auditory hallucinations or visual hallucinations Review of Systems Const: Denies: fever or chills Eyes: Denies: change in vision or blurry vision ENMT: Denies: painful swallowing, swelling of lips/tongue, bleeding gums, dental pain, Change in hearing, nose bleeds, post nasal drip or facial/sinus pain Card: Denies: chest pain, palpitations, irregular heart rhythm, edema, swelling of feet/ankles, shortness of breath on exertion or shortness of breath when lying down Resp: Denies: shortness of breath, productive cough, non-productive cough or wheezing GI: Denies: abdominal pain, nausea, vomiting, rectal pain, blood in stool or black tarry stool : Denies: difficulty urinating, painful urination, urinary frequency, urinary urgency or blood in urine Musc: Denies: neck pain, back pain, redness or joint warmth Skin/Breast: Denies: rash, itching or redness Neuro: Denies: headache, dizziness, vertigo, confusion or seizure-like activity Psych: Denies: anxiety, visual hallucinations or auditory hallucinations PFS ED PFSH: Medical History (Updated 09/14/19 @ 10:24 by Cintia Rodriguez, [facility]) Alcohol addiction Patient is offered inpatient/outpatient rehab program. He declines. Amphetamine addiction Patient is offered inpatient/outpatient rehab program. He declines. 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 Surgical History S/P hernia repair abdominal Status post skin graft Social History Smoking and tobacco status: current every day smoker cigarettes Packs smoked per day: 1 Years cigarettes smoked: 40 Quit status (tobacco): not considering quitting Second hand smoke exposure: Yes Smoking risk assessment/counseling performed?: No Reason smoking risk assessment not done: patient refused Alcohol intake: former Marital status: Current occupational status: disabled History of recent travel: No Physical Exam Const: GENERAL APPEARANCE: disheveled ORIENTATION/CONSCIOUSNESS: Yes oriented to person, Yes oriented to place and Yes oriented to time HENMT: COMMON NORMALS: normocephalic, external ears normal and external nose normal HEAD & SCALP: normocephalic; no scalp tenderness FACE & SINUS: normal facial exam NOSE: external nose normal and no nasal discharge EXTERNAL EAR: Yes external ears normal MOUTH: tongue normal Eye: COMMON NORMALS: PERRL, EOMs intact bilaterally and conjunctivae normal EYELID: eyelids normal CONJUNCTIVA: Yes conjunctivae normal PUPIL: Yes PERRL Neck/C-Spine: GENERAL: No tracheal deviation Chest: COMMONS NORMALS: inspection of chest normal CHEST: No tenderness Resp: COMMON NORMALS: clear to auscultation bilaterally EFFORT & INSPECTION: No tachypneic, No respiratory distress, No retractions, No uses accessory muscles and No tracheal deviation AUSCULTATION: clear to auscultation bilaterally, no rhonchi, no wheezes and lung sounds not diminished Cardio: COMMON NORMALS: regular rate and regular rhythm RATE: regular rate RHYTHM: regular rhythm HEART SOUNDS: no murmurs PERIPHERAL PULSES: radial pulses present GI: INSPECTION: No abdominal distension AUSCULTATION: No hyperactive bowel sounds and No hypoactive bowel sounds PALPATION: No guarding and No rigid PERCUSSION: no dullness to percussion and no tympanic to percussion : COMMON NORMALS: Yes no CVA tenderness BLADDER/KIDNEY EXAM: Yes no CVA tenderness Back/Pelvis: COMMON NORMALS: no CVA tenderness Neuro: SENSORIUM/ORIENTATION: Yes oriented to person, Yes oriented to place and Yes oriented to time Psych: COMMON NORMALS: cooperative and speech normal APPEARANCE: Yes disheveled ATTITUDE: Yes agitated ACTIVITY/MOTOR BEHAVIOR: Yes appropriate eye contact SPEECH: Yes normal speech MOOD & AFFECT: Yes depressed mood and Yes irritable MEMORY/COGNITION: Yes memory grossly intact INSIGHT: fair JUDGEMENT: fair Skin: COMMON NORMALS: no rashes or lesions noted GENERAL SKIN EXAM: no rashes or lesions noted MDM - Psych MDM Narrative: Medical decision making narrative: 64-year-old male presents with depression and suicidal ideation. He is willing to come in. His labs are benign. Spoke with psychiatry. They are willing to admit. Lab Data: Labs: Lab Results 09/29/19 09/29/19 Range/Units 21:02 21:02 WBC 12.4 H (4.0-10.0) 10^3/ uL RBC 4.29 (4.1-5.3) 10^6/u L Hgb 13.6 (11.7-16.6) g/dL Hct 41.9 L (42.0-52.0) % MCV 97.7 H (80-94) fL MCH 31.7 (28.0-34.0) pg MCHC 32.5 (30.0-36.0) g/dL RDW 13.2 (12.1-15.1) % Plt Count 314 (130-400) 10^3/c mm MPV 9.6 (7.4-10.4) fL Neut % (Auto) 63.4 % Lymph % (Auto) 27.0 % Bullock % (Auto) 8.7 % Eos % (Auto) 0.2 % Baso % (Auto) 0.5 % Neut # (Auto) 7.9 H (1.8-7.7) 10^3/u L Lymph # (Auto) 3.4 (0.8-4.8) 10^3/u L Bullock # (Auto) 1.1 H (0.2-0.9) 10^3/u L Eos # (Auto) 0.0 (0.0-0.8) 10^3/u L Baso # (Auto) 0.1 (0.0-0.1) 10^3/u L Nucleated RBC % (a uto) 0 % Nucleated RBCs # 0.0 /100WBC Sodium 137 (136-145) mmol/L Potassium 3.5 (3.5-5.1) mmol/L Chloride 101 (98-107) mmol/L Carbon Dioxide 26 (22-29) mmol/L Anion Gap 13.5 (5-19) BUN 21 (8-23) mg/dL Creatinine 0.9 (0.7-1.2) mg/dL GFR Calculation 84.4 L (90-130) mL/min Glucose 126 H (65-115) mg/dL Calculated Osmolal ity 282 L (285-295) mOsm/k g Calcium 9.4 (8.5-10.5) mg/dL Total Bilirubin 0.5 (0.15-1.2) mg/dL AST 22 (0-40) U/L ALT 12 (0-41) U/L Alkaline Phosphata se 111 (40-130) IU/L Total Protein 6.9 (6.6-8.7) g/dL Albumin 4.4 (3.5-5.2) g/dL Globulin 2.5 (1.3-4.6) g/dL TSH 3.97 (0.27-4.20) uIU/ mL Salicylates < 0.3 L (3-10) mg/dL Acetaminophen < 5.0 L (10-30) ug/mL Ethyl Alcohol < 10 (0-10) mg/dL Discharge Plan Discharge Admit Provider: Govind Collins Discharge Date/Time: 09/29/19 23:40 Coding Level of Care Code ED Communications Professional for Nereida Martinez
[2019-09-29 21:07] LABS: Basophils # 0.1 10^3/uL (0.0-0.1); Basophils % 0.5 %; Eosinophils % 0.2 %; Hematocrit 41.9 % (42.0-52.0); Hemoglobin 13.6 g/dL (11.7-16.6); Lymphocytes # 3.4 10^3/uL (0.8-4.8); Mean Corpuscular HGB Conc 32.5 g/dL (30.0-36.0); Mean Corpuscular Hemoglobin 31.7 pg (28.0-34.0); Mean Corpuscular Volume 97.7 fL (80-94); Mean Platelet Volume 9.6 fL (7.4-10.4); Monocytes # 1.1 10^3/uL (0.2-0.9); Monocytes % 8.7 %; Neutrophils # 7.9 10^3/uL (1.8-7.7); Neutrophils % 63.4 %; Nucleated Red Blood Cells % 0 %; Platelet Count 314 10^3/cmm (130-400); Red Blood Count 4.29 10^6/uL (4.1-5.3); Red Cell Distribution Width 13.2 % (12.1-15.1); White Blood Count 12.4 10^3/uL (4.0-10.0)
[2019-09-29 21:26] LABS: Acetaminophen < 5.0 ug/mL (10-30); Alanine Aminotransferase 12 U/L (0-41); Albumin Level 4.4 g/dL (3.5-5.2); Alcohol Level < 10 mg/dL (0-10); Alkaline Phosphatase 111 IU/L (40-130); Anion Gap 13.5 (5-19); Aspartate Amino Transferase 22 U/L (0-40); Blood Urea Nitrogen 21 mg/dL (8-23); Calcium 9.4 mg/dL (8.5-10.5); Carbon Dioxide 26 mmol/L (22-29); Chloride 101 mmol/L (98-107); Globulin 2.5 g/dL (1.3-4.6); Glomerular Filtration Rate 84.4 mL/min (90-130); Glucose 126 mg/dL (65-115); Osmolality Calculated 282 mOsm/kg (285-295); Potassium 3.5 mmol/L (3.5-5.1); Salicylate < 0.3 mg/dL (3-10); Sodium 137 mmol/L (136-145); Total Bilirubin 0.5 mg/dL (0.15-1.2); Total Protein 6.9 g/dL (6.6-8.7)
[2019-09-29 21:35] LABS: Thyroid Stimulating Hormone 3.97 uIU/mL (0.27-4.20)
[2019-09-29] MEDS: ondansetron 4 MG Tablet PO (22:34)
[2019-09-29] MEDS: ziprasidone 20 mg/mL SDV 10 MG IM (23:27)
[2019-09-29 23:36] VITALS: BP 117/76; PULSE 86; RESP 16; O2SAT 96
[2019-09-29 23:38] VITALS: BP 117/82; PULSE 88; RESP 16; O2SAT 97
[2019-09-29 23:45] VITALS: BP 97/64; PULSE 66; RESP 18; TEMP 36.8; O2SAT 99
[2019-09-30 06:00] VITALS: BP 97/67; PULSE 85; RESP 18; TEMP 36.6; O2SAT 95
[2019-09-30] MEDS: tamsulosin 0.4 mg Capsule PO (08:14)
[2019-09-30] MEDS: citalopram 20 mg Tablet 40 MG PO (08:14)
[2019-09-30] MEDS: LORazepam 2 mg/mL INJ 1 mL IM (09:18)
[2019-09-30] MEDS: acetaminophen 325 mg Tablet 650 MG PO (09:19)
--- NOTE | 2019-09-30 09:24 | PC.NURSE ---
PT UP TO NURSES STATION REQUESTING IBUPROFEN, APAP IS ORDERED HE STATED THAT HE HAS IBUPROFEN IN HIS BAG & FOR ME TO GO GET IT. HE THEN HE STATES THAT WE ARE GOING TO FIGHT IF I CANT GET HIM HIS MEDS. ATIVAN 2MG IM GIVEN LEFT DELTOID APAP 650MG PO GIVEN FOR HEADACHE
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
[2019-09-30 14:00] VITALS: BP 97/67; PULSE 85; RESP 18; TEMP 36.6; O2SAT 95
[2019-09-30] MEDS: trazodone 50 mg Tablet PO (21:29)
[2019-09-30] MEDS: quetiapine 100 mg Tablet 400 MG PO (21:29)
[2019-09-30 21:41] VITALS: BP 117/66; PULSE 77; RESP 22; TEMP 36.7; O2SAT 96
--- NOTE | 2019-09-30 21:52 | PC.NURSE ---
Pt given HS seroquel and prn trazodone at 2128
[2019-10-01 06:00] VITALS: BP 99/61; PULSE 73; RESP 17; TEMP 36.6; O2SAT 96
[2019-10-01] MEDS: citalopram 20 mg Tablet 40 MG PO (08:06)
[2019-10-01] MEDS: tamsulosin 0.4 mg Capsule PO (08:06)
[2019-10-01 14:00] VITALS: BP 94/57; PULSE 102; RESP 18; TEMP 36.7; O2SAT 97
--- NOTE | 2019-10-01 14:42 | P.PN_ITS ---
Subjective NPU Subjective: Interval history: Nima presented today much per his MO with a somewhat entitled sense to his about what the treatment team needs to do for him. To his credit his UDS was only positive for marijuana and so the methamphetamine abuse does not appear to be a major factor as it has been in the past. But he continues to be saddled by his psychosocial challenges. His samira elessness seems to really way down on his mental illness and functioning. But he does not seem to be able to follow through on the opportunity are provided him. His feverish demand for independence very much is in denial of the limited options that are in front of him. We continue to discussed the fact that there was a high likelihood we would need to discharge without any real solutions. Mental Status Exam MSE Comments: This is a slender, older, white male, with adequate dress, grooming, and eye contact. No abnormal movements except for psychomotor retardation. Cooperative with exam in no acute distress. Speech was slightly increased rate and volume. Mood described as depressed; affect congruent. Thought process, organized. Thought content: patient denied any suicidal or homicidal ideation at the moment, there were no delusions reported or noted, patient denied any auditory or visual hallucinations. Attention and concentration appeared intact and memory seemed reliable, but none were formally tested. He is alert and oriented times three. Insight and judgment are limited . Vitals/I&O/Wt Last Vital Signs Temp 97.8 F 10/01/19 22:00 Pulse 91 10/01/19 22:00 Resp 18 10/01/19 22:00 BP 127/66 10/01/19 22:00 Pulse Ox 96 10/01/19 22:00 Weight last 48 hrs Weight 79.923 kg Data NPU : 09/29/19 21:02 09/29/19 21:02 A&P Additional A&P Information (1) Major depressive disorder, recurrent severe without psychotic features: This is a 64 year old, white male, with a long history of depression, anxiety and addiction, who presents with continued psychosocial challenges, active addiction, though with some improvements, and reports of suicidal thoughts and plans to kill himself. Restart medications. Encourage individual and milieu therapy. Continue q 15-minute checks for safety. Recommend sober living treatment after discharge, at the highest level of treatment he is willing to commit. (2) Cannabis dependence: (3) Amphetamine addiction: (4) Alcohol addiction: Involuntary Hold Information 96 Hour Hold: 96 Hour Involuntary Admission: No 96 Hour Hold Ending Date: 08/22/19 96 Hour Hold Ending Time: 12:20 Attestations NPU Medical Necessity Statement*: Inpatient hospitalization is medically necessary and the clinically appropriate intervention at this time. We will monitor medications and titrate as indicated. We will work with social work to make a fast admission with a plan to assist if possible but accept that there are limitations to our abilities and cannot manage his psychosocial challenges as long inpatient stays.Likely length of stay 2-4 days. Coding Level of Care Code Acute Lacing String Cutter for Nereida Martinez
[2019-10-01] MEDS: trazodone 50 mg Tablet PO (20:45)
[2019-10-01] MEDS: quetiapine 100 mg Tablet 400 MG PO (20:45)
--- NOTE | 2019-10-01 21:53 | PC.NURSE ---
Pt given scheduled seroquel and prn trazodone at 2044.
[2019-10-01 22:00] VITALS: BP 127/66; PULSE 91; RESP 18; TEMP 36.6; O2SAT 96
[2019-10-02 05:54] VITALS: BP 111/70; PULSE 83; RESP 20; TEMP 36.8; O2SAT 95
[2019-10-02] MEDS: citalopram 20 mg Tablet 40 MG PO (08:04)
[2019-10-02] MEDS: tamsulosin 0.4 mg Capsule PO (08:04)
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
[2019-10-02 14:02] VITALS: BP 111/70; PULSE 83; RESP 20; TEMP 36.8; O2SAT 95
== END 2019-10-02 15:31 | disposition home or self-care (01) | DRG 885 ==
LOC: ER 21:19 → NP 23:39
PROVIDERS: Admitting Provider Psychiatry & Neurology Psychiatry; Emergency Provider Emergency Medicine; Family Provider Family Medicine; PCP Family Medicine; Visit Provider Psychiatry & Neurology Psychiatry
DX: F33.2 Major depressive disorder, recurrent severe without psychotic features (principal); F15.20 Other stimulant dependence, uncomplicated; R45.851 Suicidal ideations; F12.20 Cannabis dependence, uncomplicated; F10.20 Alcohol dependence, uncomplicated; R45.850 Homicidal ideations; F17.210 Nicotine dependence, cigarettes, uncomplicated
CPT/HCPCS: 12345; 36415; 71045; 80053; 80307; 84443; 85025; 93005; 96372; 99282; A9270; J2060; J3486; Q0162

== ENCOUNTER 2019-09-29 19:52 | Emergency (ER) | payer MEDICAID, SELFPAY | END 2019-09-29 23:40 | disposition admitted as inpatient to this hospital (09) | LOC: ER 10-01 10:08 | PROVIDERS: Emergency Provider Emergency Medicine; Family Provider Family Medicine; PCP Family Medicine | DX: R45.851 Suicidal ideations (principal); F17.210 Nicotine dependence, cigarettes, uncomplicated | CPT/HCPCS: 36415; 71045; 80053; 80307; 84443; 85025; 93005; 96372; 99282; 99285; J3486; Q0162 ==

== ENCOUNTER 2019-11-07 08:13 | Emergency (ER) | payer MEDICAID, SELFPAY ==
[2019-11-07 08:07] VITALS: BP 129/91; PULSE 77; RESP 18; TEMP 36.7; O2SAT 94; BMI 21.2
--- NOTE | 2019-11-07 08:15 | XR_ITS ---
WS: [id number] PORTABLE CHEST HISTORY: cough/congestion COMPARISON: 09/29/2019 Moderate pulmonary hyperexpansion. No pneumonia. Normal vasculature. No pleural effusion or pneumotho rax. Cardiac size: Normal. Mediastinum/Aorta: Normal mediastinum. No osseous abnormality seen. XR/XR chest 1V portable [id number] IMPRESSION: Chronic emphysema with no pneumonia.
--- NOTE | 2019-11-07 08:16 | ED_ITS ---
HPI - General Adult General: Chief complaint: General Medical Stated complaint: flu like symptoms Source: patient Mode of arrival: EMS Limitations: no limitations History of Present Illness: HPI narrative: Patient is a 64-year-old homeless individual here for complaints of a productive cough with white sputum as well as nausea and vomiting over the past few days. Patient states he has been chilling however reports being outside in the rain over the last few days. He has no known fevers. Most of the vomiting he describes as dry heaving but has had a few active episodes of vomiting. No hematemesis. Patient reports normal bowel movements. He has some mild epigastric tenderness. He states he was able to eat some pizza last night. Patient reports history of COPD-continues to smoke daily. He does not complain of chest pains, SOB, or difficulty breathing. Onset (ago): day(s) Relieving factors: none Exacerbating factors: none Associated symptoms: Reports nausea and vomiting (reports dry heaving white stuff ); Deny chest pain, dyspnea, headache(s), malaise, rash, palpitations or syncope Treatments prior to arrival: none Review of Systems General: Reports: 10 or more systems reviewed and unremarkable except in HPI and below Const: Denies: fever(s), chills, body aches, fatigue or malaise Eyes: Denies: change in vision, blurry vision, photophobia, floaters or seeing flashes ENMT: Denies: throat pain, enlarged tonsils or odynophagia Card: Denies: chest pain, palpitations, irregular heart rhythm, edema, swelling of feet/ankles, lightheadedness, syncope, pre-syncope, dyspnea on exertion, orthopnea, leg pain with exertion or acrocyanosis Resp: Reports: productive cough, change in phlegm color (reports white phlegm) and chest congestion; Denies: dyspnea, wheezing, stridor, pain on inspiration or hemoptysis GI: Reports: abdominal pain, nausea and vomiting (reports dry heaving white stuff ); Denies: hematemesis, coffee ground emesis, dysphagia, heartburn, early satiety, diarrhea, constipation, change in bowel habits, rectal swelling, change in stool character, hematochezia, melena, mucus in stool, white/light colored stool or steatorrhea : Denies: flank pain, difficulty urinating, dysuria, urinary frequency, urinary urgency or urinary hesitancy Musc: Denies: neck pain, back pain, extremity pain, extremity swelling, joint pain or joint swelling Skin/Breast: Denies: rash Neuro: Denies: headache(s), numbness in extremities, weakness in extremities or sensory changes PFS ED PFSH: Medical History (Updated 11/07/19 @ 08:54 by MALCOM Lamb) Alcohol addiction Amphetamine addiction 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 Social History Smoking and tobacco status: current every day smoker cigarettes Packs smoked per day: 1 Years cigarettes smoked: 40 Quit status (tobacco): not considering quitting Second hand smoke exposure: Yes Smoking risk assessment/counseling performed?: No Reason smoking risk assessment not done: patient refused Alcohol intake: former Marital status: Current occupational status: disabled History of recent travel: No Physical Exam Const: COMMON NORMALS: no acute distress, patient oriented x3, no limitations and alert GENERAL APPEARANCE: cooperative and disheveled ORIENTATION/CONSCIOUSNESS: Yes oriented to person, Yes oriented to place and Yes oriented to time HENMT: COMMON NORMALS: normocephalic and atraumatic HEAD & SCALP: normocephalic and atraumatic Chest: COMMONS NORMALS: normal inspection of the chest and normal palpation of entire chest wall Resp: COMMON NORMALS: normal respiratory effort and clear to auscultation bilaterally AUSCULTATION: clear to auscultation bilaterally Cardio: COMMON NORMALS: regular rate and regular rhythm RATE: regular rate RHYTHM: regular rhythm GI: COMMON NORMALS: Normal to inspection, nondistended, normoactive bowel sounds present, Soft to palpation, No hepatosplenomegaly present and no masses PALPATION: Yes Soft to palpation, Yes Tenderness to palpation present (GI) (mild tenderness-epigastric; non surgical examination) and Yes No hepatosplenomegaly present : COMMON NORMALS: Yes no CVA tenderness BLADDER/KIDNEY EXAM: Yes no CVA tenderness Back/Pelvis: COMMON NORMALS: no CVA tenderness Extremity: COMMON NORMALS: normal to inspection, full ROM, capillary refill normal, no clubbing, cyanosis or edema, no calf tenderness and no pedal edema GENERAL: Yes normal exam except as noted Neuro: TUNDE COMA SCALE: document GCS findings Tunde coma scale eye opening: Spontaneous [facility] coma scale verbal response: Orientated [facility] coma scale motor response: Obey commands Tunde coma scale total score: 15 COMMON NORMALS: patient oriented x3, CN's II-XII intact bilaterally, moves all extremities, no focal motor deficits and no sensory deficits noted SENSORIUM/ORIENTATION: Yes alert, Yes oriented to person, Yes oriented to place and Yes oriented to time Skin: COMMON NORMALS: no rashes or lesions noted GENERAL SKIN EXAM: no rashes or lesions noted Course Vital Signs: Vital signs: Vital Signs Temperature 98.0 F 11/07/19 08:07 Pulse Rate 77 11/07/19 08:07 Respiratory Rate 18 11/07/19 08:07 Blood Pressure 129/91 11/07/19 08:07 Pulse Oximetry 94 11/07/19 08:07 MDM - General Adult MDM Narrative: Medical decision making narrative: Patient clinically is in no acute distress. His vital signs are completely normal. Patient's labs are normal. His CXR showing chronic emphysema without pneumonia or other acute abnormalities. Patient has not had any vomiting during his stay here. Patient is stable for discharge. Lab Data: Labs: Lab Results 11/07/19 11/07/19 Range/Units 07:45 07:45 WBC 8.6 (4.0-10.0) 10^3/ uL RBC 4.64 (4.1-5.3) 10^6/u L Hgb 15.3 (11.7-16.6) g/dL Hct 45.7 (42.0-52.0) % MCV 98.5 H (80-94) fL MCH 33.0 (28.0-34.0) pg MCHC 33.5 (30.0-36.0) g/dL RDW 13.2 (12.1-15.1) % Plt Count 388 (130-400) 10^3/c mm MPV 10.3 (7.4-10.4) fL Neut % (Auto) 54.4 % Lymph % (Auto) 31.7 % [place] % (Auto) 10.2 % Eos % (Auto) 2.6 % Baso % (Auto) 0.8 % Neut # (Auto) 4.7 (1.8-7.7) 10^3/u L Lymph # (Auto) 2.7 (0.8-4.8) 10^3/u L [place] # (Auto) 0.9 (0.2-0.9) 10^3/u L Eos # (Auto) 0.2 (0.0-0.8) 10^3/u L Baso # (Auto) 0.1 (0.0-0.1) 10^3/u L Nucleated RBC % (a uto) 0 % Nucleated RBCs # 0.0 /100WBC Sodium 142 (136-145) mmol/L Potassium 4.0 (3.5-5.1) mmol/L Chloride 104 (98-107) mmol/L Carbon Dioxide 28 (22-29) mmol/L Anion Gap 14.0 (5-19) BUN 17 (8-23) mg/dL Creatinine 0.8 (0.7-1.2) mg/dL GFR Calculation 96.7 (90-130) mL/min Glucose 103 (65-115) mg/dL Calculated Osmolal ity 291 (285-295) mOsm/k g Calcium 10.1 (8.5-10.5) mg/dL Total Bilirubin 0.4 (0.15-1.2) mg/dL AST 18 (0-40) U/L ALT 10 (0-41) U/L Alkaline Phosphata se 108 (40-130) IU/L Total Protein 8.1 (6.6-8.7) g/dL Albumin 4.8 (3.5-5.2) g/dL Globulin 3.3 (1.3-4.6) g/dL Lipase 21 (13-60) U/L Imaging Data^: CXR: Radiologist's impression: [address] [address] XRay Report Signed Patient: Nima Vallejo Unit #: [id number] : 1955 Age/Sex: 64 / M ADM Date: 11/07/19 Loc: ER Room/Bed: Attending Dr: Ordering Provider/Ordering MD: Asmita Herrera Date of Service: 11/07/19 Procedure(s): XR chest 1V portable [id number] Accession Number(s): [id number] Report Number: [id number] WS: [id number] PORTABLE CHEST HISTORY: cough/congestion COMPARISON: 09/29/2019 Moderate pulmonary hyperexpansion. No pneumonia. Normal vasculature. No pleural effusion or pneumothorax. Cardiac size: Normal. Mediastinum/Aorta: Normal mediastinum. No osseous abnormality seen. XR/XR chest 1V portable [id number] IMPRESSION: Chronic emphysema with no pneumonia. Dictated By: Ania Raymond DO Signed By: Ania Raymond DO Signed Date/Time: 11/07/19826 DD/ 6 Discharge Plan Discharge Patient Disposition: Home, Self-Care Clinical Impression: Homeless Emphysema/COPD Qualifiers: Emphysema type: unspecified Qualified Code(s): J43.9 - Emphysema, unspecified Nausea and vomiting Qualifiers: Vomiting type: unspecified Vomiting Intractability: non-intractable Qualified Code(s): R11.2 - Nausea with vomiting, unspecified Condition: Stable Prescriptions: New Zofran 4 mg tablet 4 mg PO Q6H PRN (Reason: nausea and vomiting) Qty: 14 RF: 0 Medrol (Barber) 4 mg tablets,dose pack See Rx Instructions .ROUTE .COMPLEX Qty: 21 RF: 0 albuterol sulfate 90 mcg/actuation HFA aerosol inhaler 2 inh INHALATION Q4H PRN (Reason: bronchospasm) Qty: 6.7 RF: 0 No Action quetiapine [Seroquel] 25 mg tablet 25 mg PO TID PRN (Reason: anxiety/agitation) Qty: 90 RF: 3 quetiapine [Seroquel] 400 mg tablet 400 mg PO .bedtime Qty: 30 RF: 3 tamsulosin 0.4 mg Capsule 0.4 mg PO DAILY 30 Days Qty: 30 RF: 1 citalopram 20 mg Tablet 40 mg PO DAILY 30 Days Qty: 30 RF: 1 Discharge Orders: Discharge Order (Routine); Ordered 11/07/19 Ordered By: Asimta Herrera Referrals: Perico Martinez MD [Primary Care Provider] - Coding Level of Care Code ED Personal Development Educator for Chg Fwd Exam Comprehensive
[2019-11-07 08:30] LABS: Basophils # 0.1 10^3/uL (0.0-0.1); Basophils % 0.8 %; Eosinophils # 0.2 10^3/uL (0.0-0.8); Eosinophils % 2.6 %; Hematocrit 45.7 % (42.0-52.0); Hemoglobin 15.3 g/dL (11.7-16.6); Lymphocytes # 2.7 10^3/uL (0.8-4.8); Lymphocytes % 31.7 %; Mean Corpuscular HGB Conc 33.5 g/dL (30.0-36.0); Mean Corpuscular Volume 98.5 fL (80-94); Mean Platelet Volume 10.3 fL (7.4-10.4); Monocytes # 0.9 10^3/uL (0.2-0.9); Monocytes % 10.2 %; Neutrophils # 4.7 10^3/uL (1.8-7.7); Neutrophils % 54.4 %; Nucleated Red Blood Cells % 0 %; Platelet Count 388 10^3/cmm (130-400); Red Blood Count 4.64 10^6/uL (4.1-5.3); Red Cell Distribution Width 13.2 % (12.1-15.1); White Blood Count 8.6 10^3/uL (4.0-10.0)
[2019-11-07 08:45] LABS: Alanine Aminotransferase 10 U/L (0-41); Albumin Level 4.8 g/dL (3.5-5.2); Alkaline Phosphatase 108 IU/L (40-130); Aspartate Amino Transferase 18 U/L (0-40); Blood Urea Nitrogen 17 mg/dL (8-23); Calcium 10.1 mg/dL (8.5-10.5); Carbon Dioxide 28 mmol/L (22-29); Chloride 104 mmol/L (98-107); Creatinine Clr Calc Pharmacy 104.7619; Globulin 3.3 g/dL (1.3-4.6); Glomerular Filtration Rate 96.7 mL/min (90-130); Glucose 103 mg/dL (65-115); Lipase 21 U/L (13-60); Osmolality Calculated 291 mOsm/kg (285-295); Sodium 142 mmol/L (136-145); Total Bilirubin 0.4 mg/dL (0.15-1.2); Total Protein 8.1 g/dL (6.6-8.7)
[2019-11-07] MEDS: sodium chloride 0.9% 1,000 ML 999 ML IV (09:22)
[2019-11-07 10:14] VITALS: BP 136/87; PULSE 71; RESP 18; O2SAT 96
== END 2019-11-07 10:17 | disposition home or self-care (01) ==
PROVIDERS: Emergency Provider Physician Assistant; Family Provider Family Medicine; PCP Family Medicine
DX: J43.9 Emphysema, unspecified (principal); R11.2 Nausea with vomiting, unspecified; Z59.0 Homelessness; F17.210 Nicotine dependence, cigarettes, uncomplicated
CPT/HCPCS: 12345; 36415; 71045; 80053; 83690; 85025; 96360; 99281; 99283; J7030

== ENCOUNTER → 2019-12-05 07:30 | Outpatient (BNVA) | payer MEDICAID, SELFPAY | PROVIDERS: Family Provider Family Medicine; PCP Family Medicine; Visit Provider Nurse Practitioner Psychiatric/Mental Health | DX: F15.20 Other stimulant dependence, uncomplicated (principal); F10.20 Alcohol dependence, uncomplicated; F12.20 Cannabis dependence, uncomplicated; F17.210 Nicotine dependence, cigarettes, uncomplicated; F33.2 Major depressive disorder, recurrent severe without psychotic features | CPT/HCPCS: 99213 ==

== ENCOUNTER 2020-01-17 13:37 | Emergency (ER) | payer MEDICAID, SELFPAY ==
[2020-01-17 13:47] VITALS: BP 124/75; PULSE 81; RESP 14; TEMP 35.6; O2SAT 96; BMI 23.2
--- NOTE | 2020-01-17 13:59 | ED_ITS ---
HPI - Psych General: Chief Complaint: Psychiatric Symptoms Stated Complaint: mhe Time Seen by Provider: 01/17/20 13:50 Source: patient Mode of arrival: ambulatory Limitations: no limitations History of Present Illness: HPI Narrative: 64-year-old male with a history of depression along with marijuana use. Patient states that he has been having suicidal thoughts as a plan of killing himself by shooting himself in the head. He states he wants to get help. He denies any worsening improving factors. complaint: suicidal ideation Onset (ago): day(s) Duration: constant History of same: Yes Relieving factors: none Exacerbating factors: none Associated symptoms: Reports depression and suicidal ideation Review of Systems Const: Denies: fever(s), chills, body aches or change in appetite Eyes: Denies: blurry vision or eye discomfort ENMT: Denies: throat pain or dental pain Card: Denies: chest pain Resp: Denies: dyspnea GI: Denies: abdominal pain, nausea, vomiting or diarrhea : Denies: dysuria Musc: Denies: neck pain or back pain Skin/Breast: Denies: rash Neuro: Denies: headache(s) Psych: Reports: depression and suicidal ideation Yovanny/Lymph: Denies: easy bruising All/Imm: Denies: urticaria PFSH ED PFSH: Medical History Alcohol addiction Amphetamine addiction 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 Social History Smoking and tobacco status: current every day smoker cigarettes Packs smoked per day: 1 Years cigarettes smoked: 40 Quit status (tobacco): not considering quitting Second hand smoke exposure: Yes Smoking risk assessment/counseling performed?: No Reason smoking risk a ssessment not done: patient refused Alcohol intake: former Marital status: Current occupational status: disabled History of recent travel: No Physical Exam Const: COMMON NORMALS: no acute distress, patient oriented x3 and healthy appearing HENMT: COMMON NORMALS: normocephalic and atraumatic HEAD & SCALP: normocephalic and atraumatic Eye: COMMON NORMALS: Equal, round and reactive pupils present and EOMs intact bilaterally PUPIL: Yes Equal, round and reactive pupils present Neck/C-Spine: COMMON NORMALS: full ROM and supple Chest: COMMONS NORMALS: normal inspection of the chest and normal palpation of entire chest wall Resp: COMMON NORMALS: normal respiratory effort, No retractions, No use of accessory muscles and clear to auscultation bilaterally AUSCULTATION: clear to auscultation bilaterally Cardio: COMMON NORMALS: regular rate, regular rhythm and No murmurs present (Cardio) RATE: regular rate RHYTHM: regular rhythm GI: COMMON NORMALS: Normal to inspection, nondistended, normoactive bowel sounds present, Soft to palpation, non-tender and no masses PALPATION: Yes Soft to palpation Extremity: COMMON NORMALS: normal to inspection and full ROM Neuro: COMMON NORMALS: patient oriented x3, moves all extremities and no focal motor deficits Psych: COMMON NORMALS: mental status grossly normal and cooperative THOUGHT CONTENT: Yes Suicidality present Skin: COMMON NORMALS: no rashes or lesions noted and no wounds GENERAL SKIN EXAM: no rashes or lesions noted MDM - Psych MDM Narrative: Medical decision making narrative: Patient presents here with suicidal ideation. Patient was medically cleared and accepted at [facility]. Patient has been stable here. Patient transferred there. Lab Data: Labs: Lab Results 01/17/20 01/17/20 01/17/20 Range/Units 14:05 14:20 14:20 WBC 8.1 (4.0-10.0) 10^3/ uL RBC 4.16 (4.1-5.3) 10^6/u L Hgb 13.8 (11.7-16.6) g/dL Hct 40.8 L (42.0-52.0) % MCV 98.1 H (80-94) fL MCH 33.2 (28.0-34.0) pg MCHC 33.8 (30.0-36.0) g/dL RDW 13.4 (12.1-15.1) % Plt Count 258 (130-400) 10^3/c mm MPV 10.2 (7.4-10.4) fL Neut % (Auto) 69.0 % Lymph % (Auto) 21.0 % Swift % (Auto) 7.6 % Eos % (Auto) 1.5 % Baso % (Auto) 0.5 % Neut # (Auto) 5.60 (1.8-7.7) 10^3/u L Lymph # (Auto) 1.7 (0.8-4.8) 10^3/u L Swift # (Auto) 0.6 (0.2-0.9) 10^3/u L Eos # (Auto) 0.1 (0.0-0.8) 10^3/u L Baso # (Auto) 0.0 (0.0-0.1) 10^3/u L Nucleated RBC % (a uto) 0 % Nucleated RBCs # 0.0 /100WBC Sodium 136 (136-145) mmol/L Potassium 3.7 (3.5-5.1) mmol/L Chloride 101 (98-107) mmol/L Carbon Dioxide 28 (22-29) mmol/L Anion Gap 10.7 (5-19) BUN 14 (8-23) mg/dL Creatinine 0.7 (0.7-1.2) mg/dL GFR Calculation 112.8 (90-130) mL/min Glucose 107 (65-115) mg/dL Calculated Osmolal ity 279 L (285-295) mOsm/k g Calcium 8.5 (8.5-10.5) mg/dL Total Bilirubin 0.2 (0.15-1.2) mg/dL AST 13 (0-40) U/L ALT 8 (0-41) U/L Alkaline Phosphata se 90 (40-130) IU/L Total Protein 6.7 (6.6-8.7) g/dL Albumin 4.0 (3.5-5.2) g/dL Globulin 2.7 (1.3-4.6) g/dL Vitamin B12 (232-1245) pg/mL TSH (0.27-4.20) uIU/ mL Salicylates < 0.3 L (3-10) mg/dL Urine Opiates Scre en Negative (Negative) ng/mL Acetaminophen < 5.0 L (10-30) ug/mL Ur Barbiturates Sc reen Negative (Negative) ng/mL Ur Phencyclidine S crn Negative (Negative) ng/mL Ur Amphetamines Sc reen Positive H (Negative) ng/mL U Benzodiazepines Scrn Negative (Negative) ng/mL Urine Cocaine Scre en Negative (Negative) ng/mL U Marijuana (THC) Screen Positive H (Negative) ng/mL Ethyl Alcohol < 10 (0-10) mg/dL 01/17/20 Range/Units 14:20 WBC (4.0-10.0) 10^3/ uL RBC (4.1-5.3) 10^6/u L Hgb (11.7-16.6) g/dL Hct (42.0-52.0) % MCV (80-94) fL MCH (28.0-34.0) pg MCHC (30.0-36.0) g/dL RDW (12.1-15.1) % Plt Count (130-400) 10^3/c mm MPV (7.4-10.4) fL Neut % (Auto) % Lymph % (Auto) % Swift % (Auto) % Eos % (Auto) % Baso % (Auto) % Neut # (Auto) (1.8-7.7) 10^3/u L Lymph # (Auto) (0.8-4.8) 10^3/u L Swift # (Auto) (0.2-0.9) 10^3/u L Eos # (Auto) (0.0-0.8) 10^3/u L Baso # (Auto) (0.0-0.1) 10^3/u L Nucleated RBC % (a uto) % Nucleated RBCs # /100WBC Sodium (136-145) mmol/L Potassium (3.5-5.1) mmol/L Chloride (98-107) mmol/L Carbon Dioxide (22-29) mmol/L Anion Gap (5-19) BUN (8-23) mg/dL Creatinine (0.7-1.2) mg/dL GFR Calculation (90-130) mL/min Glucose (65-115) mg/dL Calculated Osmolal ity (285-295) mOsm/k g Calcium (8.5-10.5) mg/dL Total Bilirubin (0.15-1.2) mg/dL AST (0-40) U/L ALT (0-41) U/L Alkaline Phosphata se (40-130) IU/L Total Protein (6.6-8.7) g/dL Albumin (3.5-5.2) g/dL Globulin (1.3-4.6) g/dL Vitamin B12 353 (232-1245) pg/mL TSH 1.69 (0.27-4.20) uIU/ mL Salicylates (3-10) mg/dL Urine Opiates Scre en (Negative) ng/mL Acetaminophen (10-30) ug/mL Ur Barbiturates Sc reen (Negative) ng/mL Ur Phencyclidine S crn (Negative) ng/mL Ur Amphetamines Sc reen (Negative) ng/mL U Benzodiazepines Scrn (Negative) ng/mL Urine Cocaine Scre en (Negative) ng/mL U Marijuana (THC) Screen (Negative) ng/mL Ethyl Alcohol (0-10) mg/dL Imaging Data^: CXR: Attestation: I personally reviewed and interpreted this imaging study as follows : My impression: no acute abnormality Discharge Plan Discharge Patient Disposition: Xfer Other Clinical Impression: Suicidal ideation Condition: Stable Referrals: Perico Martinez MD [Primary Care Provider] - Coding Level of Care Code ED Enrobing Machine Corder for Nereida Fwd Exam Comprehensive
[2020-01-17 14:09] VITALS: BP 132/57; PULSE 80; RESP 16; O2SAT 96
[2020-01-17 14:35] LABS: Basophils % 0.5 %; Eosinophils # 0.1 10^3/uL (0.0-0.8); Eosinophils % 1.5 %; Hematocrit 40.8 % (42.0-52.0); Hemoglobin 13.8 g/dL (11.7-16.6); Lymphocytes # 1.7 10^3/uL (0.8-4.8); Mean Corpuscular HGB Conc 33.8 g/dL (30.0-36.0); Mean Corpuscular Hemoglobin 33.2 pg (28.0-34.0); Mean Corpuscular Volume 98.1 fL (80-94); Mean Platelet Volume 10.2 fL (7.4-10.4); Monocytes # 0.6 10^3/uL (0.2-0.9); Monocytes % 7.6 %; Nucleated Red Blood Cells % 0 %; Platelet Count 258 10^3/cmm (130-400); Red Blood Count 4.16 10^6/uL (4.1-5.3); Red Cell Distribution Width 13.4 % (12.1-15.1); White Blood Count 8.1 10^3/uL (4.0-10.0)
[2020-01-17 14:53] LABS: Alanine Aminotransferase 8 U/L (0-41); Alkaline Phosphatase 90 IU/L (40-130); Anion Gap 10.7 (5-19); Aspartate Amino Transferase 13 U/L (0-40); Blood Urea Nitrogen 14 mg/dL (8-23); Calcium 8.5 mg/dL (8.5-10.5); Carbon Dioxide 28 mmol/L (22-29); Chloride 101 mmol/L (98-107); Globulin 2.7 g/dL (1.3-4.6); Glomerular Filtration Rate 112.8 mL/min (90-130); Glucose 107 mg/dL (65-115); Osmolality Calculated 279 mOsm/kg (285-295); Potassium 3.7 mmol/L (3.5-5.1); Sodium 136 mmol/L (136-145); Total Bilirubin 0.2 mg/dL (0.15-1.2); Total Protein 6.7 g/dL (6.6-8.7)
[2020-01-17 14:54] LABS: Acetaminophen < 5.0 ug/mL (10-30); Alcohol Level < 10 mg/dL (0-10); Salicylate < 0.3 mg/dL (3-10)
[2020-01-17 15:01] LABS: Amphetamines Screen Urine Positive (Negative); Barbiturates Screen Urine Negative (Negative); Benzodiazepines Screen Urine Negative (Negative); Cocaine Screen Urine Negative (Negative); Opiate Screen Urine Negative (Negative); PCP Screen Urine Negative (Negative); THC Screen Urine Positive (Negative)
--- NOTE | 2020-01-17 15:14 | ECG_ITS ---
[facility] Test Date: 2020-01-17 Pat Name: Nima Vallejo Department: Room: Gender: Male Crystal Evaluator: : 1955 Requested By: Roman Jin Order Number: [id number] Concepción MD: Nicci Montalvo M.D. Measurements Intervals [place] Rate: 73 P: 74 TX: 165 QRS: 70 QRSD: 85 T: 69 QT: 387 QTc: 428 Interpretive Statements SINUS RHYTHM LOW QRS VOLTAGE IN PRECORDIAL LEADS [QRS DEFLECTION < 1.0 mV IN CHEST LEADS] Compared to ECG 09/29/2019 21:38:48 Low QRS voltage now present Ventricular premature complex(es) no longer present Electronically Signed On 01-17-2020 21:07:43 CDT by Nicci Montalvo M.D. [id number]
--- NOTE | 2020-01-17 15:14 | XRR_ITS ---
PROCEDURE INFORMATION: Exam: XR Chest, 1 View Exam date and time: 01/17/2020 3:30 PM Age: 64 years old Clinical indication: Screening exam; Other screening; Other: None noted; Additional info: Psych medical clearance TECHNIQUE: Imaging protocol: XR of the chest Views: 1 view. COMPARISON: CR XR chest 1V portable [id number] 11/07/2019 8:35 AM FINDINGS: Lungs: Unremarkable. No consolidation. Pleural space: Unremarkable. No pleural effusion. No pneumothorax. Heart/Mediastinum: Unremarkable. No cardiomegaly. Bones/joints: Unremarkable. XR/XR chest 1V portable [id number] IMPRESSION: No acute findings.
[2020-01-17 16:10] LABS: Thyroid Stimulating Hormone 1.69 uIU/mL (0.27-4.20); Vitamin B12 353 pg/mL (232-1245)
[2020-01-17 20:07] VITALS: BP 116/76; PULSE 70; RESP 16; O2SAT 96
== END 2020-01-17 21:55 | disposition other institution (70) ==
PROVIDERS: Emergency Provider Emergency Medicine; PCP Family Medicine
DX: R45.851 Suicidal ideations (principal); F17.210 Nicotine dependence, cigarettes, uncomplicated
CPT/HCPCS: 12345; 36415; 71045; 80053; 80306; 80307; 82607; 84443; 85025; 93005; 99284; 99285

== ENCOUNTER → 2020-03-04 09:32 | Outpatient (BNVA) | payer MEDICAID, SELFPAY | PROVIDERS: PCP Family Medicine; Visit Provider Urology | DX: R39.9 Unspecified symptoms and signs involving the genitourinary system (principal) | CPT/HCPCS: 81001 ==

== ENCOUNTER 2020-05-16 15:28 | Emergency (ER) | payer MEDICAID, SELFPAY ==
[2020-05-16 15:34] VITALS: BP 133/76; PULSE 104; RESP 18; TEMP 36.4; O2SAT 96; BMI 21.2
--- NOTE | 2020-05-16 15:40 | ECG_ITS ---
[facility] Test Date: 2020-05-16 Pat Name: Nima Vallejo Department: Room: Gender: Male Quality Assurance Calibrator: : 1955 Requested By: Ariel Bauer Order Number: [id number] Concepción MD: Nicci Montalvo M.D. Measurements Intervals [place] Rate: 71 P: 70 SC: 172 QRS: 68 QRSD: 89 T: 72 QT: 408 QTc: 444 Interpretive Statements SINUS RHYTHM Compared to ECG 01/17/2020 15:31:02 No significant changes Electronically Signed On 05-16-2020 19:16:02 FORENSIC INVESTIGATOR by Nicci Montalvo M.D. [id number]
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
--- NOTE | 2020-05-16 15:47 | XR_ITS ---
WS: [id number] Portable AP upright chest, 05/16/2020 Clinical Data: cough Comparison: Portable chest, 01/17/2020 Findings: No nodules, masses or effusions are seen. The heart is normal. The pulmonary vascularity is not increased. No pneumonia or pneumothorax is seen. The aortic arch and descending aorta are minima lly tortuous and the diaphragms are flattened. XR/XR chest 1V portable [id number] Impression: Atherosclerosis and hyperinflation.
[2020-05-16 16:33] LABS: Basophils % 0.5 %; Eosinophils # 0.1 10^3/uL (0.0-0.8); Eosinophils % 1.9 %; Hematocrit 42.8 % (42.0-52.0); Hemoglobin 14.5 g/dL (11.7-16.6); Lymphocytes # 2.1 10^3/uL (0.8-4.8); Lymphocytes % 29.1 %; Mean Corpuscular HGB Conc 33.9 g/dL (30.0-36.0); Mean Corpuscular Hemoglobin 32.9 pg (28.0-34.0); Mean Corpuscular Volume 97.1 fL (80-94); Mean Platelet Volume 9.9 fL (7.4-10.4); Monocytes # 0.6 10^3/uL (0.2-0.9); Neutrophils # 4.37 10^3/uL (1.8-7.7); Neutrophils % 60.1 %; Nucleated Red Blood Cells % 0 %; Platelet Count 312 10^3/cmm (130-400); Red Blood Count 4.41 10^6/uL (4.1-5.3); Red Cell Distribution Width 12.8 % (12.1-15.1); White Blood Count 7.3 10^3/uL (4.0-10.0)
[2020-05-16 17:03] LABS: Alanine Aminotransferase 9 U/L (0-41); Albumin Level 4.3 g/dL (3.5-5.2); Alkaline Phosphatase 91 IU/L (40-130); Aspartate Amino Transferase 17 U/L (0-40); Blood Urea Nitrogen 22 mg/dL (8-23); Carbon Dioxide 28 mmol/L (22-29); Chloride 102 mmol/L (98-107); Globulin 2.4 g/dL (1.3-4.6); Glomerular Filtration Rate 84.4 mL/min (90-130); Glucose 126 mg/dL (65-115); Osmolality Calculated 293 mOsm/kg (285-295); Sodium 139 mmol/L (136-145); Thyroid Stimulating Hormone 1.41 uIU/mL (0.27-4.20); Total Bilirubin 0.2 mg/dL (0.15-1.2); Total Protein 6.7 g/dL (6.6-8.7)
[2020-05-16 17:04] LABS: Acetaminophen < 5.0 ug/mL (10-30); Alcohol Level < 10 mg/dL (0-10); Salicylate < 0.3 mg/dL (3-10)
[2020-05-16 18:33] LABS: Add Urine Microscopic? NO
[2020-05-16 18:50] LABS: Amphetamines Screen Urine Positive (Negative); Barbiturates Screen Urine Negative (Negative); Benzodiazepines Screen Urine Negative (Negative); Cocaine Screen Urine Negative (Negative); Opiate Screen Urine Negative (Negative); PCP Screen Urine Negative (Negative); THC Screen Urine Positive (Negative)
[2020-05-16 18:51] LABS: Bilirubin Urine Neg (Negative); Blood Urine Neg (Negative); Glucose Urine UA Norm (Normal); Ketones Urine Negative (Negative); Leukocyte Esterase Urine Negative (Negative); Nitrate Urine Negative (Negative); Protein Urine Neg (Negative); Urine Appearance Clear (CLEAR); Urine Color Yellow (Yellow); Urobilinogen Urine Norm (Negative); pH Urine 5 (5-7)
[2020-05-16 20:23] LABS: SARS Covid-2 Antigen Negative (Negative)
--- NOTE | 2020-05-16 21:30 | PC.SOCIAL ---
Patient updated that due to age he will need to go to a geriatric unit. He is agreeable to this and was updated that [facility] [place] was considering. Will continue to update.
[2020-05-17 01:00] VITALS: BP 109/62; PULSE 72; RESP 16; O2SAT 96
--- NOTE | 2020-05-17 01:06 | PC.SOCIAL ---
Accepted at [facility] in [place], [place] per [facility]. Dr. Garces accepting provider. Phone number for report provided to HANNAH Negron. Patient updated.
[2020-05-17 01:21] VITALS: BP 100/53; PULSE 63; RESP 15; O2SAT 96
== END 2020-05-17 02:35 ==
PROVIDERS: Nurse Practitioner Family; Emergency Provider Physician Assistant
DX: R45.851 Suicidal ideations (principal); F17.210 Nicotine dependence, cigarettes, uncomplicated
CPT/HCPCS: 12345; 71045; 80053; 80306; 80307; 81003; 84443; 85025; 87426; 93005; 99284; 99285

== ENCOUNTER 2020-08-01 15:12 | Emergency (ER) | payer MEDICAID, SELFPAY ==
[2020-08-01 16:13] VITALS: BP 122/68; PULSE 80; RESP 20; TEMP 36.4; O2SAT 98; BMI 21.2
--- NOTE | 2020-08-01 16:28 | ED_ITS ---
Documented by User: MALCOM Lamb 08/01/20 16:47 HPI - Psych General: Chief Complaint: Psychiatric Symptoms Stated Complaint: wants to check into stress unit Time Seen by Provider: 08/01/20 15:32 Source: patient Mode of arrival: ambulatory Limitations: no limitations History of Present Illness: HPI Narrative: Patient is a 65-year-old male who presents to ED today with a complaint of suicidal ideations. Patient states he has felt suicidal over the past 3 weeks. He states I am ready to go . He states that he is tired of living on the streets and baggin' . When asked if he has specific plan he responds if I had a gun it would already been over with . Patient is not homicidal or experiencing hallucinations. He admittedly is homeless. MD complaint: suicidal ideation Onset (ago): week(s) Duration: constant History of same: Yes Relieving factors: none Exacerbating factors: other (homelessness ) Associated psychiatric symptoms: depression and suicidal ideation Associated symptoms: Reports depression and suicidal ideation; Deny auditory hallucinations, visual hallucinations or homicidal ideation Review of Systems Const: Denies: fever(s) or chills Card: Denies: chest pain, palpitations, lightheadedness or syncope Resp: Denies: dyspnea GI: Denies: abdominal pain, nausea, vomiting or diarrhea Skin/Breast: Denies: rash Neuro: Denies: headache(s) Psych: Reports: depression, hopelessness, loss of interest and suicidal ideation; Denies: anxiety, visual hallucinations, auditory hallucinations or homicidal ideation [facility] ED PFSH: Medical History Alcohol addiction 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 Social History Smoking and tobacco status: current every day smoker cigarettes Packs smoked per day: 1 Years cigarettes smoked: 40 Quit status (tobacco): not considering quitting Second hand smoke exposure: Yes Smoking risk assessment/counseling performed?: No Reason smoking risk assessment not done: patient refused Alcohol intake: former Marital status: Current occupational status: disabled History of recent travel: No Physical Exam Const: COMMON NORMALS: no acute distress, patient oriented x3 and alert GENERAL APPEARANCE: cooperative and disheveled ORIENTATION/CONSCIOUSNESS: Yes awake, Yes oriented to person, Yes oriented to place and Yes oriented to time Resp: COMMON NORMALS: normal respiratory effort and clear to auscultation bilaterally AUSCULTATION: clear to auscultation bilaterally Cardio: COMMON NORMALS: regular rate and regular rhythm RATE: regular rate RHYTHM: regular rhythm Neuro: TUNDE COMA SCALE: document GCS findings Kingsley coma scale eye opening: Spontaneous Kingsley coma scale verbal response: Orientated Tunde coma scale motor response: Obey commands Kingsley coma scale total score: 15 COMMON NORMALS: patient oriented x3 SENSORIUM/ORIENTATION: Yes alert, Yes oriented to person, Yes oriented to place and Yes oriented to time Psych: COMMON NORMALS: mental status grossly normal, Normal thought process present, cooperative, normal affect, speech normal, activity/motor behavior normal, denies hallucinations and denies homicidal ideation APPEARANCE: Yes disheveled ATTITUDE: Yes calm ACTIVITY/MOTOR BEHAVIOR: Yes appropriate eye contact and No psychomotor agitation SPEECH: Yes normal speech MOOD & AFFECT: Yes euthymic mood THOUGHT PROCESS: Normal thought process present ATTENTION/CONCENTRATION: Yes attention grossly intact and Yes concentration grossly intact MEMORY/COGNITION: Yes memory grossly intact and Yes cognition grossly intact INSIGHT: Good insight present (Psych) JUDGEMENT: Good judgement present (Psych) MDM - Psych MDM Narrative: Medical decision making narrative: Affidavit filled out on patient. Care will be transferred to HEATHER Cui at shift change pending work up and trudy psych transfer. Lab Data: Labs: Lab Results 08/01/20 08/01/20 08/01/20 Range/Units 16:44 16:44 16:44 WBC 5.4 (4.0-10.0) 10^3/ uL RBC 4.37 (4.1-5.3) 10^6/u L Hgb 14.2 (11.7-16.6) g/dL Hct 42.7 (42.0-52.0) % MCV 97.7 H (80-94) fL MCH 32.5 (28.0-34.0) pg MCHC 33.3 (30.0-36.0) g/dL RDW 12.8 (12.1-15.1) % Plt Count 246 (130-400) 10^3/c mm MPV 9.8 (7.4-10.4) fL Neut % (Auto) 47.9 % Lymph % (Auto) 43.6 % [place] % (Auto) 5.6 % Eos % (Auto) 2.1 % Baso % (Auto) 0.6 % Neut # (Auto) 2.57 (1.8-7.7) 10^3/u L Lymph # (Auto) 2.3 (0.8-4.8) 10^3/u L [place] # (Auto) 0.3 (0.2-0.9) 10^3/u L Eos # (Auto) 0.1 (0.0-0.8) 10^3/u L Baso # (Auto) 0.0 (0.0-0.1) 10^3/u L Nucleated RBC % (a uto) 0 % Nucleated RBCs # 0.0 /100WBC Sodium 140 (136-145) mmol/L Potassium 3.6 (3.5-5.1) mmol/L Chloride 103 (98-107) mmol/L Carbon Dioxide 29 (22-29) mmol/L Anion Gap 11.6 (5-19) BUN 13 (8-23) mg/dL Creatinine 0.6 L (0.7-1.2) mg/dL GFR Calculation 134.4 H (90-130) mL/min Glucose 106 (65-115) mg/dL Calculated Osmolal ity 291 (285-295) mOsm/k g Calcium 8.8 (8.5-10.5) mg/dL Total Bilirubin 0.2 (0.15-1.2) mg/dL AST 12 (0-40) U/L ALT 7 (0-41) U/L Alkaline Phosphata se 105 (40-130) IU/L Total Protein 6.3 L (6.6-8.7) g/dL Albumin 3.9 (3.5-5.2) g/dL Globulin 2.4 (1.3-4.6) g/dL TSH 1.23 (0.27-4.20) uIU/ mL Free T4 1.08 (0.82-1.77) ng/d L Free T3 3.0 (2.0-4.4) PG/ML Urine Color (Yellow) Urine Appearance (CLEAR) Urine pH (5-7) Ur Specific Gravit y (1.005-1.030) Urine Protein (Negative) Urine Glucose (UA) (Normal) Urine Ketones (Negative) Urine Blood (Negative) Urine Nitrate (Negative) Urine Bilirubin (Negative) Urine Urobilinogen (Negative) mg/dL Ur Leukocyte Ella ase (Negative) Salicylates < 0.3 L (3-10) mg/dL Urine Opiates Scre en (Negative) ng/mL Acetaminophen < 5.0 L (10-30) ug/mL Ur Barbiturates Sc reen (Negative) ng/mL Ur Phencyclidine S crn (Negative) ng/mL Ur Amphetamines Sc reen (Negative) ng/mL U Benzodiazepines Scrn (Negative) ng/mL Urine Cocaine Scre en (Negative) ng/mL U Marijuana (THC) Screen (Negative) ng/mL Ethyl Alcohol < 10 (0-10) mg/dL Influenza Type A A g (Negative) Influenza Type B A g (Negative) SARS-CoV-2 Ag (Rap id) (Negative) 08/01/20 08/01/20 08/01/20 Range/Units 17:10 17:23 17:23 WBC (4.0-10.0) 10^3/ uL RBC (4.1-5.3) 10^6/u L Hgb (11.7-16.6) g/dL Hct (42.0-52.0) % MCV (80-94) fL MCH (28.0-34.0) pg MCHC (30.0-36.0) g/dL RDW (12.1-15.1) % Plt Count (130-400) 10^3/c mm MPV (7.4-10.4) fL Neut % (Auto) % Lymph % (Auto) % [place] % (Auto) % Eos % (Auto) % Baso % (Auto) % Neut # (Auto) (1.8-7.7) 10^3/u L Lymph # (Auto) (0.8-4.8) 10^3/u L [place] # (Auto) (0.2-0.9) 10^3/u L Eos # (Auto) (0.0-0.8) 10^3/u L Baso # (Auto) (0.0-0.1) 10^3/u L Nucleated RBC % (a uto) % Nucleated RBCs # /100WBC Sodium (136-145) mmol/L Potassium (3.5-5.1) mmol/L Chloride (98-107) mmol/L Carbon Dioxide (22-29) mmol/L Anion Gap (5-19) BUN (8-23) mg/dL Creatinine (0.7-1.2) mg/dL GFR Calculation (90-130) mL/min Glucose (65-115) mg/dL Calculated Osmolal ity (285-295) mOsm/k g Calcium (8.5-10.5) mg/dL Total Bilirubin (0.15-1.2) mg/dL AST (0-40) U/L ALT (0-41) U/L Alkaline Phosphata se (40-130) IU/L Total Protein (6.6-8.7) g/dL Albumin (3.5-5.2) g/dL Globulin (1.3-4.6) g/dL TSH (0.27-4.20) uIU/ mL Free T4 (0.82-1.77) ng/d L Free T3 (2.0-4.4) PG/ML Urine Color Straw (Yellow) Urine Appearance Clear (CLEAR) Urine pH 5 (5-7) Ur Specific Gravit y 1.015 (1.005-1.030) Urine Protein Neg (Negative) Urine Glucose (UA) Norm (Normal) Urine Ketones Negative (Negative) Urine Blood Neg (Negative) Urine Nitrate Negative (Negative) Urine Bilirubin Neg (Negative) Urine Urobilinogen Norm (Negative) mg/dL Ur Leukocyte Ella ase Negative (Negative) Salicylates (3-10) mg/dL Urine Opiates Scre en Negative (Negative) ng/mL Acetaminophen (10-30) ug/mL Ur Barbiturates Sc reen Negative (Negative) ng/mL Ur Phencyclidine S crn Negative (Negative) ng/mL Ur Amphetamines Sc reen Negative (Negative) ng/mL U Benzodiazepines Scrn Negative (Negative) ng/mL Urine Cocaine Scre en Negative (Negative) ng/mL U Marijuana (THC) Screen Positive H (Negative) ng/mL Ethyl Alcohol (0-10) mg/dL Influenza Type A A g (Negative) Influenza Type B A g (Negative) SARS-CoV-2 Ag (Rap id) Negative (Negative) 08/01/20 Range/Units 20:50 WBC (4.0-10.0) 10^3/ uL RBC (4.1-5.3) 10^6/u L Hgb (11.7-16.6) g/dL Hct (42.0-52.0) % MCV (80-94) fL MCH (28.0-34.0) pg MCHC (30.0-36.0) g/dL RDW (12.1-15.1) % Plt Count (130-400) 10^3/c mm MPV (7.4-10.4) fL Neut % (Auto) % Lymph % (Auto) % [place] % (Auto) % Eos % (Auto) % Baso % (Auto) % Neut # (Auto) (1.8-7.7) 10^3/u L Lymph # (Auto) (0.8-4.8) 10^3/u L [place] # (Auto) (0.2-0.9) 10^3/u L Eos # (Auto) (0.0-0.8) 10^3/u L Baso # (Auto) (0.0-0.1) 10^3/u L Nucleated RBC % (a uto) % Nucleated RBCs # /100WBC Sodium (136-145) mmol/L Potassium (3.5-5.1) mmol/L Chloride (98-107) mmol/L Carbon Dioxide (22-29) mmol/L Anion Gap (5-19) BUN (8-23) mg/dL Creatinine (0.7-1.2) mg/dL GFR Calculation (90-130) mL/min Glucose (65-115) mg/dL Calculated Osmolal ity (285-295) mOsm/k g Calcium (8.5-10.5) mg/dL Total Bilirubin (0.15-1.2) mg/dL AST (0-40) U/L ALT (0-41) U/L Alkaline Phosphata se (40-130) IU/L Total Protein (6.6-8.7) g/dL Albumin (3.5-5.2) g/dL Globulin (1.3-4.6) g/dL TSH (0.27-4.20) uIU/ mL Free T4 (0.82-1.77) ng/d L Free T3 (2.0-4.4) PG/ML Urine Color (Yellow) Urine Appearance (CLEAR) Urine pH (5-7) Ur Specific Gravit y (1.005-1.030) Urine Protein (Negative) Urine Glucose (UA) (Normal) Urine Ketones (Negative) Urine Blood (Negative) Urine Nitrate (Negative) Urine Bilirubin (Negative) Urine Urobilinogen (Negative) mg/dL Ur Leukocyte Ella ase (Negative) Salicylates (3-10) mg/dL Urine Opiates Scre en (Negative) ng/mL Acetaminophen (10-30) ug/mL Ur Barbiturates Sc reen (Negative) ng/mL Ur Phencyclidine S crn (Negative) ng/mL Ur Amphetamines Sc reen (Negative) ng/mL U Benzodiazepines Scrn (Negative) ng/mL Urine Cocaine Scre en (Negative) ng/mL U Marijuana (THC) Screen (Negative) ng/mL Ethyl Alcohol (0-10) mg/dL Influenza Type A A g Negative (Negative) Influenza Type B A g Negative (Negative) SARS-CoV-2 Ag (Rap id) (Negative) Discharge Plan Discharge Prescriptions: No Action tamsulosin 0.4 mg capsule 0.4 mg PO BID 30 Days Qty: 180 RF: 3 oxybutynin chloride 5 mg tablet 5 mg PO BID Qty: 60 RF: 3 ibuprofen 200 mg Tablet 400 mg PO PRN RF: 0 citalopram [Celexa] 40 mg tablet 40 mg PO DAILY PRN (Reason: unknown) RF: 0 finasteride 5 mg tablet 5 mg PO DAILY RF: 0 quetiapine [Seroquel] 400 mg tablet 400 mg PO BEDTIME RF: 0 Coding Level of Care Code ED Building Admin for Chg Fwd Exam Detailed Documented by User: HEATHER Cui 08/02/20 02:03 HPI - Psych General: Chief Complaint: Psychiatric Symptoms Stated Complaint: wants to check into stress unit Time Seen by Provider: 08/01/20 15:32 PFSH ED PFSH: Medical History Alcohol addiction 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 Social History Smoking and tobacco status: current every day smoker cigarettes Packs smoked per day: 1 Years cigarettes smoked: 40 Quit status (tobacco): not considering quitting Second hand smoke exposure: Yes Smoking risk assessment/counseling performed?: No Reason smoking risk assessment not done: patient refused Alcohol intake: former Marital status: Current occupational status: disabled History of recent travel: No MDM - Psych Lab Data: Labs: Lab Results 08/01/20 08/01/20 08/01/20 Range/Units 16:44 16:44 16:44 WBC 5.4 (4.0-10.0) 10^3/ uL RBC 4.37 (4.1-5.3) 10^6/u L Hgb 14.2 (11.7-16.6) g/dL Hct 42.7 (42.0-52.0) % MCV 97.7 H (80-94) fL MCH 32.5 (28.0-34.0) pg MCHC 33.3 (30.0-36.0) g/dL RDW 12.8 (12.1-15.1) % Plt Count 246 (130-400) 10^3/c mm MPV 9.8 (7.4-10.4) fL Neut % (Auto) 47.9 % Lymph % (Auto) 43.6 % [place] % (Auto) 5.6 % Eos % (Auto) 2.1 % Baso % (Auto) 0.6 % Neut # (Auto) 2.57 (1.8-7.7) 10^3/u L Lymph # (Auto) 2.3 (0.8-4.8) 10^3/u L [place] # (Auto) 0.3 (0.2-0.9) 10^3/u L Eos # (Auto) 0.1 (0.0-0.8) 10^3/u L Baso # (Auto) 0.0 (0.0-0.1) 10^3/u L Nucleated RBC % (a uto) 0 % Nucleated RBCs # 0.0 /100WBC Sodium 140 (136-145) mmol/L Potassium 3.6 (3.5-5.1) mmol/L Chloride 103 (98-107) mmol/L Carbon Dioxide 29 (22-29) mmol/L Anion Gap 11.6 (5-19) BUN 13 (8-23) mg/dL Creatinine 0.6 L (0.7-1.2) mg/dL GFR Calculation 134.4 H (90-130) mL/min Glucose 106 (65-115) mg/dL Calculated Osmolal ity 291 (285-295) mOsm/k g Calcium 8.8 (8.5-10.5) mg/dL Total Bilirubin 0.2 (0.15-1.2) mg/dL AST 12 (0-40) U/L ALT 7 (0-41) U/L Alkaline Phosphata se 105 (40-130) IU/L Total Protein 6.3 L (6.6-8.7) g/dL Albumin 3.9 (3.5-5.2) g/dL Globulin 2.4 (1.3-4.6) g/dL TSH 1.23 (0.27-4.20) uIU/ mL Free T4 1.08 (0.82-1.77) ng/d L Free T3 3.0 (2.0-4.4) PG/ML Urine Color (Yellow) Urine Appearance (CLEAR) Urine pH (5-7) Ur Specific Gravit y (1.005-1.030) Urine Protein (Negative) Urine Glucose (UA) (Normal) Urine Ketones (Negative) Urine Blood (Negative) Urine Nitrate (Negative) Urine Bilirubin (Negative) Urine Urobilinogen (Negative) mg/dL Ur Leukocyte Ella ase (Negative) Salicylates < 0.3 L (3-10) mg/dL Urine Opiates Scre en (Negative) ng/mL Acetaminophen < 5.0 L (10-30) ug/mL Ur Barbiturates Sc reen (Negative) ng/mL Ur Phencyclidine S crn (Negative) ng/mL Ur Amphetamines Sc reen (Negative) ng/mL U Benzodiazepines Scrn (Negative) ng/mL Urine Cocaine Scre en (Negative) ng/mL U Marijuana (THC) Screen (Negative) ng/mL Ethyl Alcohol < 10 (0-10) mg/dL Influenza Type A A g (Negative) Influenza Type B A g (Negative) SARS-CoV-2 Ag (Rap id) (Negative) 08/01/20 08/01/20 08/01/20 Range/Units 17:10 17:23 17:23 WBC (4.0-10.0) 10^3/ uL RBC (4.1-5.3) 10^6/u L Hgb (11.7-16.6) g/dL Hct (42.0-52.0) % MCV (80-94) fL MCH (28.0-34.0) pg MCHC (30.0-36.0) g/dL RDW (12.1-15.1) % Plt Count (130-400) 10^3/c mm MPV (7.4-10.4) fL Neut % (Auto) % Lymph % (Auto) % [place] % (Auto) % Eos % (Auto) % Baso % (Auto) % Neut # (Auto) (1.8-7.7) 10^3/u L Lymph # (Auto) (0.8-4.8) 10^3/u L [place] # (Auto) (0.2-0.9) 10^3/u L Eos # (Auto) (0.0-0.8) 10^3/u L Baso # (Auto) (0.0-0.1) 10^3/u L Nucleated RBC % (a uto) % Nucleated RBCs # /100WBC Sodium (136-145) mmol/L Potassium (3.5-5.1) mmol/L Chloride (98-107) mmol/L Carbon Dioxide (22-29) mmol/L Anion Gap (5-19) BUN (8-23) mg/dL Creatinine (0.7-1.2) mg/dL GFR Calculation (90-130) mL/min Glucose (65-115) mg/dL Calculated Osmolal ity (285-295) mOsm/k g Calcium (8.5-10.5) mg/dL Total Bilirubin (0.15-1.2) mg/dL AST (0-40) U/L ALT (0-41) U/L Alkaline Phosphata se (40-130) IU/L Total Protein (6.6-8.7) g/dL Albumin (3.5-5.2) g/dL Globulin (1.3-4.6) g/dL TSH (0.27-4.20) uIU/ mL Free T4 (0.82-1.77) ng/d L Free T3 (2.0-4.4) PG/ML Urine Color Straw (Yellow) Urine Appearance Clear (CLEAR) Urine pH 5 (5-7) Ur Specific Gravit y 1.015 (1.005-1.030) Urine Protein Neg (Negative) Urine Glucose (UA) Norm (Normal) Urine Ketones Negative (Negative) Urine Blood Neg (Negative) Urine Nitrate Negative (Negative) Urine Bilirubin Neg (Negative) Urine Urobilinogen Norm (Negative) mg/dL Ur Leukocyte Ella ase Negative (Negative) Salicylates (3-10) mg/dL Urine Opiates Scre en Negative (Negative) ng/mL Acetaminophen (10-30) ug/mL Ur Barbiturates Sc reen Negative (Negative) ng/mL Ur Phencyclidine S crn Negative (Negative) ng/mL Ur Amphetamines Sc reen Negative (Negative) ng/mL U Benzodiazepines Scrn Negative (Negative) ng/mL Urine Cocaine Scre en Negative (Negative) ng/mL U Marijuana (THC) Screen Positive H (Negative) ng/mL Ethyl Alcohol (0-10) mg/dL Influenza Type A A g (Negative) Influenza Type B A g (Negative) SARS-CoV-2 Ag (Rap id) Negative (Negative) 08/01/20 Range/Units 20:50 WBC (4.0-10.0) 10^3/ uL RBC (4.1-5.3) 10^6/u L Hgb (11.7-16.6) g/dL Hct (42.0-52.0) % MCV (80-94) fL MCH (28.0-34.0) pg MCHC (30.0-36.0) g/dL RDW (12.1-15.1) % Plt Count (130-400) 10^3/c mm MPV (7.4-10.4) fL Neut % (Auto) % Lymph % (Auto) % [place] % (Auto) % Eos % (Auto) % Baso % (Auto) % Neut # (Auto) (1.8-7.7) 10^3/u L Lymph # (Auto) (0.8-4.8) 10^3/u L [place] # (Auto) (0.2-0.9) 10^3/u L Eos # (Auto) (0.0-0.8) 10^3/u L Baso # (Auto) (0.0-0.1) 10^3/u L Nucleated RBC % (a uto) % Nucleated RBCs # /100WBC Sodium (136-145) mmol/L Potassium (3.5-5.1) mmol/L Chloride (98-107) mmol/L Carbon Dioxide (22-29) mmol/L Anion Gap (5-19) BUN (8-23) mg/dL Creatinine (0.7-1.2) mg/dL GFR Calculation (90-130) mL/min Glucose (65-115) mg/dL Calculated Osmolal ity (285-295) mOsm/k g Calcium (8.5-10.5) mg/dL Total Bilirubin (0.15-1.2) mg/dL AST (0-40) U/L ALT (0-41) U/L Alkaline Phosphata se (40-130) IU/L Total Protein (6.6-8.7) g/dL Albumin (3.5-5.2) g/dL Globulin (1.3-4.6) g/dL TSH (0.27-4.20) uIU/ mL Free T4 (0.82-1.77) ng/d L Free T3 (2.0-4.4) PG/ML Urine Color (Yellow) Urine Appearance (CLEAR) Urine pH (5-7) Ur Specific Gravit y (1.005-1.030) Urine Protein (Negative) Urine Glucose (UA) (Normal) Urine Ketones (Negative) Urine Blood (Negative) Urine Nitrate (Negative) Urine Bilirubin (Negative) Urine Urobilinogen (Negative) mg/dL Ur Leukocyte Ella ase (Negative) Salicylates (3-10) mg/dL Urine Opiates Scre en (Negative) ng/mL Acetaminophen (10-30) ug/mL Ur Barbiturates Sc reen (Negative) ng/mL Ur Phencyclidine S crn (Negative) ng/mL Ur Amphetamines Sc reen (Negative) ng/mL U Benzodiazepines Scrn (Negative) ng/mL Urine Cocaine Scre en (Negative) ng/mL U Marijuana (THC) Screen (Negative) ng/mL Ethyl Alcohol (0-10) mg/dL Influenza Type A A g Negative (Negative) Influenza Type B A g Negative (Negative) SARS-CoV-2 Ag (Rap id) (Negative) Discharge Plan Discharge Prescriptions: No Action tamsulosin 0.4 mg capsule 0.4 mg PO BID 30 Days Qty: 180 RF: 3 oxybutynin chloride 5 mg tablet 5 mg PO BID Qty: 60 RF: 3 ibuprofen 200 mg Tablet 400 mg PO PRN RF: 0 citalopram [Celexa] 40 mg tablet 40 mg PO DAILY PRN (Reason: unknown) RF: 0 finasteride 5 mg tablet 5 mg PO DAILY RF: 0 quetiapine [Seroquel] 400 mg tablet 400 mg PO BEDTIME RF: 0 Coding Level of Care Code ED Building Admin for Chg Fwd Exam Detailed
--- NOTE | 2020-08-01 16:46 | XRR_ITS ---
PROCEDURE INFORMATION: Exam: XR Chest, 1 View Exam date and time: 08/01/2020 4:53 PM Age: 65 years old Clinical indication: Cough; Patient HX: No chest complaints for trudy physch placement; Additional info: Trudy psych placement TECHNIQUE: Imaging protocol: XR of the chest Views: 1 view. COMPARISON: CR XR chest 1V portable [id number] 05/16/2020 4:09 PM FINDINGS: Lungs: Moderate emphysematous changes. No focal pulmonary consolidation. Pleural spaces: Unremarkable. No pleural effusion. No pneumothorax. Heart/Mediastinum: Unremarkable. No cardiomegaly. Bones/joints: Unremarkable. XR/XR chest 1V portable [id number] IMPRESSION: 1. Negative for acute pulmonary disease. 2. No significant change from prior on 05/16/2020.
--- NOTE | 2020-08-01 16:46 | ECG_ITS ---
[facility] Test Date: 2020-08-01 Pat Name: Nima Vallejo Department: Room: Gender: Male International Exchange Coordinator: : 1955 Requested By: Asmita Herrera Order Number: [id number] Concepción MD: Sherri Warren M.D. Measurements Intervals [place] Rate: 70 P: 81 TX: 177 QRS: 83 QRSD: 86 T: 76 QT: 404 QTc: 436 Interpretive Statements SINUS RHYTHM SEPTAL MYOCARDIAL INFARCTION , PROBABLY OLD [40+ ms Q WAVE IN V1/V2] Compared to ECG 05/16/2020 17:51:13 Myocardial infarct finding now present Electronically Signed On 08-02-2020 19:59:35 ASSISTANT PUBLIC DEFENDER by Sherri Warren M.D. [id number]
[2020-08-01 16:48] LABS: Basophils % 0.6 %; Eosinophils # 0.1 10^3/uL (0.0-0.8); Eosinophils % 2.1 %; Hematocrit 42.7 % (42.0-52.0); Hemoglobin 14.2 g/dL (11.7-16.6); Lymphocytes # 2.3 10^3/uL (0.8-4.8); Lymphocytes % 43.6 %; Mean Corpuscular HGB Conc 33.3 g/dL (30.0-36.0); Mean Corpuscular Hemoglobin 32.5 pg (28.0-34.0); Mean Corpuscular Volume 97.7 fL (80-94); Mean Platelet Volume 9.8 fL (7.4-10.4); Monocytes # 0.3 10^3/uL (0.2-0.9); Monocytes % 5.6 %; Neutrophils # 2.57 10^3/uL (1.8-7.7); Neutrophils % 47.9 %; Nucleated Red Blood Cells % 0 %; Platelet Count 246 10^3/cmm (130-400); Red Blood Count 4.37 10^6/uL (4.1-5.3); Red Cell Distribution Width 12.8 % (12.1-15.1); White Blood Count 5.4 10^3/uL (4.0-10.0)
[2020-08-01 17:14] LABS: Alanine Aminotransferase 7 U/L (0-41); Albumin Level 3.9 g/dL (3.5-5.2); Alkaline Phosphatase 105 IU/L (40-130); Anion Gap 11.6 (5-19); Aspartate Amino Transferase 12 U/L (0-40); Blood Urea Nitrogen 13 mg/dL (8-23); Calcium 8.8 mg/dL (8.5-10.5); Carbon Dioxide 29 mmol/L (22-29); Chloride 103 mmol/L (98-107); Globulin 2.4 g/dL (1.3-4.6); Glomerular Filtration Rate 134.4 mL/min (90-130); Glucose 106 mg/dL (65-115); Osmolality Calculated 291 mOsm/kg (285-295); Potassium 3.6 mmol/L (3.5-5.1); Sodium 140 mmol/L (136-145); Total Bilirubin 0.2 mg/dL (0.15-1.2); Total Protein 6.3 g/dL (6.6-8.7)
[2020-08-01 17:18] LABS: Acetaminophen < 5.0 ug/mL (10-30); Alcohol Level < 10 mg/dL (0-10); Salicylate < 0.3 mg/dL (3-10)
[2020-08-01 17:26] LABS: Free T4 Free Thyroxine 1.08 ng/dL (0.82-1.77); Thyroid Stimulating Hormone 1.23 uIU/mL (0.27-4.20)
[2020-08-01 17:28] LABS: Add Urine Microscopic? NO
[2020-08-01 17:32] LABS: Bilirubin Urine Neg (Negative); Blood Urine Neg (Negative); Glucose Urine UA Norm (Normal); Ketones Urine Negative (Negative); Leukocyte Esterase Urine Negative (Negative); Nitrate Urine Negative (Negative); Protein Urine Neg (Negative); Specific Gravity, Urine 1.015 (1.005-1.030); Urine Appearance Clear (CLEAR); Urine Color Straw (Yellow); Urobilinogen Urine Norm (Negative); pH Urine 5 (5-7)
[2020-08-01 17:41] LABS: Amphetamines Screen Urine Negative (Negative); Barbiturates Screen Urine Negative (Negative); Benzodiazepines Screen Urine Negative (Negative); Cocaine Screen Urine Negative (Negative); Opiate Screen Urine Negative (Negative); PCP Screen Urine Negative (Negative); THC Screen Urine Positive (Negative)
[2020-08-01 18:08] LABS: SARS Covid-2 Antigen Negative (Negative)
--- NOTE | 2020-08-01 18:28 | PC.NURSE ---
called [facility] who has beds, faxed pt packet to them.
[2020-08-01 20:09] VITALS: BP 130/69; PULSE 60; O2SAT 96
--- NOTE | 2020-08-01 20:34 | PC.NURSE ---
contacted [facility], nurse stated she was looking over our fax and would call us when a decision was made
[2020-08-01 21:22] LABS: Influenza A by IFA Negative (Negative); Influenza B by IFA Negative (Negative)
[2020-08-01 22:49] VITALS: PULSE 72; O2SAT 95
[2020-08-01 23:58] VITALS: BP 111/57; PULSE 68; RESP 18; O2SAT 96
[2020-08-01 23:59] VITALS: BP 111/57; PULSE 68; O2SAT 96
[2020-08-02] VITALS: PULSE 68; O2SAT 96
[2020-08-02 00:07] VITALS: PULSE 68; O2SAT 96
== END 2020-08-02 01:05 ==
PROVIDERS: Physician Assistant; Emergency Provider Nurse Practitioner Family
DX: R45.851 Suicidal ideations (principal); F17.210 Nicotine dependence, cigarettes, uncomplicated
CPT/HCPCS: 71045; 80053; 80306; 80307; 81003; 84439; 84443; 84481; 85025; 87426; 87804; 93005; 99285

== ENCOUNTER → 2020-08-18 07:42 | Outpatient (BNVA) | payer MEDICAID, SELFPAY | PROVIDERS: Visit Provider Nurse Practitioner Psychiatric/Mental Health | DX: F33.2 Major depressive disorder, recurrent severe without psychotic features (principal); F02.80 Dementia in other diseases classified elsewhere, unspecified severity, without behavioral disturbance, psychotic disturbance, mood disturbance, and anxiety; F17.210 Nicotine dependence, cigarettes, uncomplicated; F15.20 Other stimulant dependence, uncomplicated; F10.20 Alcohol dependence, uncomplicated; F12.20 Cannabis dependence, uncomplicated | CPT/HCPCS: 99214 ==

== ENCOUNTER 2020-09-21 12:28 | Emergency (ER) | payer MEDICAID, SELFPAY ==
[2020-09-21 12:37] VITALS: BP 159/94; PULSE 76; RESP 18; TEMP 36.3; O2SAT 96; BMI 23.7
--- NOTE | 2020-09-21 13:40 | ED_ITS ---
HPI - Extremity Problem General: Chief complaint: Extremity Problem,Nontraumatic Stated complaint: r side pain Time Seen by Provider: 09/21/20 13:40 Source: patient Mode of arrival: ambulatory Limitations: no limitations History of Present Illness: HPI Narrative: Patient is a 65-year-old male who presents to ED today with a complaint of pain to the right posterior hip that radiates down the posterior lateral aspect of his right lower extremity and down into his lower leg and foot. He states symptoms have been present over the past 2 to 3 months. He states pain seems to be exacerbated with walking. He has not noticed any swelling to his extremity. No color or temperature changes. He is not having midline lower back pain. He denies saddle anesthesia. No issues with urinary retention or bowel incontinence. MD Complaint: extremity pain Onset (ago): month(s) Pain Consistency: intermittent Location: right and lower extremity Relieving factors: nothing Exacerbating factors: walking Associated symptoms: Reports no associated symptoms; Deny chest pain or fever(s) Review of Systems Const: Denies: fever(s) Card: Denies: chest pain Resp: Denies: dyspnea Musc: Reports: extremity pain; Denies: neck pain, back pain, extremity swelling, joint pain, joint swelling or limited range of motion Neuro: Denies: numbness in extremities, weakness in extremities or sensory changes [facility] ED PFSH: Medical History (Updated 09/21/20 @ 14:00 by MALCOM Lamb) Alcohol addiction Last use Jul 2020 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 Social History Smoking and tobacco status: current every day smoker cigarettes Packs smoked per day: 1 Years cigarettes smoked: 40 Quit status (tobacco): not considering quitting Second hand smoke exposure: Yes Smoking risk assessment/counseling performed?: No Reason smoking risk assessment not done: patient refused Alcohol intake: former Marital status: Current occupational status: disabled History of recent travel: No Physical Exam Const: COMMON NORMALS: no acute distress, patient oriented x3, no limitations and alert GENERAL APPEARANCE: cooperative ORIENTATION/CONSCIOUSNESS: Yes awake, Yes oriented to person, Yes oriented to place and Yes oriented to time Back/Pelvis: COMMON NORMALS: thoracic and lumbar spine normal to inspection, no thoracic nor lumbar tenderness and thoraco-lumbar ROM normal Extremity: COMMON NORMALS: full ROM, capillary refill normal, no joint enlargement, no clubbing, cyanosis or edema, no calf tenderness and no pedal edema GENERAL: Yes normal exam except as noted EXTREMITY IMAGE (BACK): 1. TTP Neuro: COMMON NORMALS: patient oriented x3, moves all extremities, no focal motor deficits, no sensory deficits noted and gait normal SENSORIUM/ORIENTATION: Yes alert, Yes oriented to person, Yes oriented to place and Yes oriented to time Course Vital Signs: Vital signs: Vital Signs Temperature 97.3 F L 09/21/20 12:37 Pulse Rate 76 09/21/20 12:37 Respiratory Rate 18 09/21/20 12:37 Blood Pressure 159/94 09/21/20 12:37 Pulse Oximetry 96 09/21/20 12:37 Discharge Plan Discharge Patient Disposition: Home Clinical Impression: Neuropathy, lumbosacral plexus Condition: Stable Prescriptions: New diclofenac sodium 50 mg tablet,delayed release (DR/EC) 50 mg PO Q12H PRN (Reason: pain) Qty: 20 RF: 0 Medrol (Barber) 4 mg tablets,dose pack See Rx Instructions .ROUTE .COMPLEX Qty: 21 RF: 0 Discontinued ibuprofen 200 mg Tablet 400 mg PO PRN RF: 0 No Action tamsulosin 0.4 mg capsule 0.4 mg PO BID 30 Days Qty: 180 RF: 3 donepezil 5 mg tablet 5 mg PO .morning Qty: 30 RF: 6 quetiapine [Seroquel] 400 mg tablet 400 mg PO BEDTIME Qty: 30 RF: 6 citalopram [Celexa] 20 mg tablet 20 mg PO .morning Qty: 30 RF: 6 oxybutynin chloride 5 mg tablet 5 mg PO BID Qty: 60 RF: 3 finasteride 5 mg tablet 5 mg PO DAILY RF: 0 Discharge Orders: Discharge ED (Routine); Ordered 09/21/20 Ordered By: Asmita Herrera Patient Instructions: Lumbar Radiculopathy (ED) Activity Restrictions/Additional Instructions: Do not take the Diclofenac with other anti-inflammatory such as Motrin/Ibuprofen/Advil or Naproxen/Aleve. Coding Level of Care Code ED Project Management Engineer for Nereida Martinez
== END 2020-09-21 14:09 | disposition home or self-care (01) ==
PROVIDERS: Emergency Provider Physician Assistant
DX: G54.1 Lumbosacral plexus disorders (principal); F17.210 Nicotine dependence, cigarettes, uncomplicated
CPT/HCPCS: 99281

== ENCOUNTER 2020-11-19 11:06 | Outpatient (CLI) | payer MEDICAID, SELFPAY ==
--- NOTE | 2020-11-19 11:20 | XR_ITS ---
WS: [id number] Lumbar spine, AP, L5-S1, lateral, both obliques, 11/19/2020 Clinical Data: BACK PAIN. LUMBAR Comparison: None. Findings: No compression fractures or subluxation is seen. There is degenerative disc narrowing at all levels e xcept L2-L3. There is anterior osteoarthritic spurring of all the lumbar vertebral bodies.. The trans verse processes and SI joints are normal. The oblique films show no spondylolysis or spondylolisthesis. There is aortic vascular calcification but no aneurysm is seen. XR/XR lumbar spine min 4V [id number] Impression: 1. Degenerative disc narrowing at all levels except L2-L3. 2. Osteoarthritis of all the lumbar vertebral bodies.
== END 2020-11-19 11:07 | disposition home or self-care (01) ==
LOC: RAD 11:12
PROVIDERS: PCP Nurse Practitioner Family; Visit Provider Nurse Practitioner Family
DX: M54.16 Radiculopathy, lumbar region (principal); M47.816 Spondylosis without myelopathy or radiculopathy, lumbar region
CPT/HCPCS: 72110

== ENCOUNTER → 2021-02-19 10:36 | Outpatient (BNVA) | payer MEDICAID, SELFPAY | PROVIDERS: PCP Nurse Practitioner Family; Referring Provider Nurse Practitioner Family; Visit Provider Orthopaedic Surgery | DX: M47.896 Other spondylosis, lumbar region (principal); M54.5 Low back pain | CPT/HCPCS: 72120 ==

== ENCOUNTER 2021-03-19 14:56 | Outpatient (CLI) | payer MEDICAID, SELFPAY ==
--- NOTE | 2021-03-19 15:15 | MR_ITS ---
WS: [id number] MRI LUMBAR SPINE NONCONTRAST TECHNIQUE: Sagittal T1, T2 and STIR imaging. Axial T2 imaging. Patient unable to complete entire exam ination due to claustrophobia CLINICAL INFORMATION: M48.061 - Spinal stenosis, lumbar region without neurogen... COMPARISON: None. FINDINGS: Mild lumbar curve. No acute compression. Endplate Schmorl's nodes in the lower thoracic and lumbar sp ine. Severe central canal stenosis L4-5 due to small disc protrusion in combination with facet arthro saad and ligamentum flavum hypertrophy. Impingement on the traversing L5 nerve roots right greater t villarreal left. Mild congenital spinal canal narrowing contributes to central canal stenosis. L1-L2: Normal. L2-L3: No significant disc bulging. Mild right and no significant left foraminal narrowing. Mild face t arthropathy. L3-L4: Mild disc bulging with mild central canal stenosis. Slight impingement on the subarticular rec ess bilaterally. Mild bilateral foraminal narrowing. L4-L5: Severe central canal stenosis with a small right pericentral protrusion in combination with fa cet arthropathy and ligamentum flavum hypertrophy. Moderate facet arthropathy. Mild bilateral foramin al narrowing. This is worse on the right. L5-S1: Tiny central disc protrusion with slight effacement of ventral thecal sac. Slight contact of t he S1 nerve roots without significant impingement. Foramen are patent. Mild facet arthropathy. Chronic myelomalacia in the cervical cord at C4-5 with moderate cervical spondylitic changes. This is seen on the Second Officer imaging. Right renal cyst measuring 1.5 CM. MR/MR lumbar spine wo con* [id number] IMPRESSION: 1. Mild lumbar curve. No acute compression. 2. Congenital spinal canal narrowing contributes to central canal stenosis. 3. Severe central canal stenosis L4-5 with a small central and right pericentr al disc protrusion impinges the right greater than left subarticular recess and traversing L5 nerve roots. Mild right greater than left L4-5 foraminal narrowi ng. 4. Mild central canal stenosis L3-4 with narrowing of the subarticular recess bilaterally. Mild bilateral foraminal narrowing. 5. Tiny central protrusion L5-S1 with slight encroachment traversing S1 nerve roots. 6. Mild to moderate facet arthropathy L3-L4 L4-L5 and L5-S1 worse L4-5.
== END 2021-03-19 14:57 | disposition home or self-care (01) ==
PROVIDERS: PCP Nurse Practitioner Family; Visit Provider Orthopaedic Surgery
DX: M48.061 Spinal stenosis, lumbar region without neurogenic claudication (principal); M47.816 Spondylosis without myelopathy or radiculopathy, lumbar region; M47.817 Spondylosis without myelopathy or radiculopathy, lumbosacral region; M51.27 Other intervertebral disc displacement, lumbosacral region
CPT/HCPCS: 72148

== ENCOUNTER → 2021-04-14 12:42 | Outpatient (BNVA) | payer MEDICAID, SELFPAY | PROVIDERS: PCP Nurse Practitioner Family; Visit Provider Orthopaedic Surgery | DX: M48.062 Spinal stenosis, lumbar region with neurogenic claudication (principal); Z20.822 Contact with and (suspected) exposure to COVID-19 | CPT/HCPCS: 87635 ==

== ENCOUNTER 2021-04-17 11:34 | Day surgery (SDC) | payer MEDICAID, SELFPAY ==
[2021-04-14 12:09] VITALS: BMI 22.5
--- NOTE | 2021-04-14 12:21 | ANES.PREANE2 ---
Pre-Anesthetic Assessment Pre-Anesthetic Assessment: Height/Weight: Height 1.91 m Weight 81.647 kg Preop Diagnosis: back pain Proposed Procedure: Operation Date: 04/17/21 13:35 Proposed Procedures p Lumbar Spine Decompression L4/5 72775(Bilateral) - Nile Denny DO Familial anesthetic complications: none Social: Social History: No alcohol Exam: Pre-Anes Outpt Exam: alert, oriented x 3 and regular rate & rhythm Additional Exam Findings (including area of procedure): coarse breath sounds Airway: MP: 3 Dentition: Other (no teeth) Pulmonary: Pulmonary: COPD Anesthetic Plan: ASA status: 3 Anesthesia: General Risk of > 500 ml blood loss (7ml/kg in children): No PFSH Anesthesia PFSH: Medical History Alcohol addiction Last use Jul 2020 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 Social History Quit status (tobacco): not considering quitting Second hand smoke exposure: Yes Smoking risk assessment/counseling performed?: No Reason smoking risk assessment not done: patient refused Alcohol intake: former Marital status: Current occupational status: disabled History of recent travel: No Data Anesthesia Cardiac Studies: No Data to Display
--- NOTE | 2021-04-17 | XR_ITS ---
WS: [id number] C-ARM RADIOGRAPHS LUMBAR SPINE; 2 IMAGES HISTORY: lumbar spine decompression COMPARISON: None available. Intraoperative imaging during spine decompression. Marker is placed at the L4-5 level. XR/XR lumbar spine 1V 16030 IMPRESSION: Intraoperative imaging during spine decompression at L4-5.
--- NOTE | 2021-04-17 | SCC_ITS ---
Procedure Done: Bilateral L4/5 laminectomywith partial facetectomies 10.3 seconds of fluoroscopic guidance, for a cumulative dose of 2.92 mGy, was provided to Dr. Denny by the radiology department. C-arm images of the lumbar spine were saved for the patient's permanent record. MONA
[2021-04-17 11:42] VITALS: BP 124/84; PULSE 90; RESP 18; TEMP 37; O2SAT 96
[2021-04-17] MEDS: sodium chloride 0.9% 1,000 ML 30 ML IV (11:58)
--- NOTE | 2021-04-17 12:16 | W.PM.OPSUD ---
Surgery/Procedure H&P Update DATE OF PROCEDURE: April 17, 2021 DATE H&P PERFORMED: 03/26/21 H&P UPDATE INFORMATION: I have reviewed H&P completed within last 30 days, I have examined patient prior to procedure and No changes to prior documentation PREOP DIAGNOSIS: Lumbar stenosis with neurogenic claudication PLANNED PROCEDURE: Operation Date: 04/17/21 09:35 Proposed Procedures p Lumbar Spine Decompression L4/5 65000(Bilateral) - Nile Denny DO
--- NOTE | 2021-04-17 12:48 | P.ANESUD_ITS ---
Pre-Anesthetic Update Pre-Anesthetic Assessment: Date of Surgery/Procedure: 04/17/21 Preop Ella gnosis: Lumbar stenosis with neurogenic claudication Proposed Procedure: Operation Date: 04/17/21 09:35 Proposed Procedures p Lumbar Spine Decompression L4/5 11148(Bilateral) - Nile Denny, DO Any changes to Pre-Anesthetic Assessment?: No Last Intake: Intake Last Liquid Date 04/16/21 Last Liquid Time 23:00 Last Solid Date 04/16/21 Last Solid Time 23:00 Vitals: Temperature 98.6 F 04/17/21 11:42 Temperature Source Temporal Artery S can 04/17/21 11:42 Pulse Rate 90 04/17/21 11:42 Pulse Rhythm 04/17/21 11:43 Pulse Strength 3+ Normal 04/17/21 11:43 Respiratory Rate 18 04/17/21 11:42 Blood Pressure 124/84 04/17/21 11:42 Blood Pressure Pura n 97 04/17/21 11:42 Pulse Oximetry 96 04/17/21 11:42 Oxygen Delivery Me thod 04/17/21 11:43 Exam: Pre-Anes Outpt Exam: alert, oriented x 3, clear to auscultation bilaterally and regular rate & rhythm Cardiac Studies: No Data to Display
--- NOTE | 2021-04-17 13:52 | PM.OP ---
Operative Report Date of procedure: April 17, 2021 Pre-op Diagnosis: Lumbar stenosis with neurogenic claudication Post-op diagnosis: same Procedure Done: Bilateral L4/5 laminectomywith partial facetectomies Anesthesia: General Estimated blood loss (mL): 5 Condition: stable Disposition: PACU Procedure: Bilateral L4/5 laminectomywith partial facetectomies Patient is brought to the operative suite. After undergoing anesthesia they are placed in the prone position. All areas of impingement are well padded. Patient is then prepped and draped in the normal sterile fashion. A skin incision is made over the L4/5 level. This is confirmed under c-arm guidance. A series of dilators are passed and the tubular retractor is docked on the L4 lamina. A bovie is used to clear the soft tissue off the lamina and the L 4/5 facet joint. A high speed brannon is then used to perform the laminectomy and take down the medial aspect of the L 4/5 facet joint. A kerrison rongeure was then used to take down the remaining lamina and smooth the edged of the laminectomy up to the point where the ligamentum flavum attaches. Attention was then brought to the medial aspect of the facet joint. The remaining medial aspect of the superior and inferior aspect of the facet joint were taken down with the kerrison from the pedicle of L4 to L 5. The facet joint had significant hypertrophy. Attention was then brought to the Ligamentum Flavum. The ligament was taken down from the lamina of L4 to L5 and out medially to the remaining facet joint. The ligament was thick. The dura was then exposed. The dura was in good repair. The L4 nerve was then traced with a curette out the L4/5 foramen and found to be adequately decompressed. The L5 nerve was traced with a curette around the L5 pedicle. The lateral recess was opened with a kerrison helping to further decompress the L5 nerve. The tubular retractor was then tilted to the contralateral side. The bovie was used to take down the soft tissue on the spinous process. The high speed brannon was used to take down the spinous process and then the contralateral lamina of L4. The kerrison rongeur was used to take down the remaining lamina to the point where the ligamentum flavum attached and the ligamentum flavum was taken down from L4 to L5. The kerrison rongeur was then used to reach across and take down the medial aspect of the contralateral L4/5 facet joint.The currete was used to trace the contralateral L4 nerve out the L4/5 foramen to make sure it was decompressed adequatesly and the L5 was traced around the L5 pedicle. The lateral recess was opened further with the kerrison to ensure the L5 is adequately decompressed. Wound is then irrigated copiously with saline and surgiflo is used to stop any bleeding. The tubular retractor is removed and the wound is closed with vicryl and monocryl suture. Glue is then used to protect the wound. A sterile dressing is then placed. Patient was then placed in the supine position and transferred to the PACU in stable condition.
[2021-04-17 13:59] VITALS: BP 144/88; PULSE 90; RESP 16; TEMP 36.3; O2SAT 99
[2021-04-17 14:05] VITALS: BP 147/92; PULSE 92; RESP 27; O2SAT 99
[2021-04-17 14:10] VITALS: BP 115/63; PULSE 89; RESP 20; TEMP 36.5; O2SAT 100
[2021-04-17 14:20] VITALS: BP 145/117; PULSE 103; RESP 18; O2SAT 94
[2021-04-17 14:45] VITALS: BP 145/101; PULSE 98; RESP 18; O2SAT 97
--- NOTE | 2021-04-17 17:23 | ANE.PACU2 ---
Inpatient post-anesthesia follow up: Airway intact: Yes Vital signs: Temperature 97.7 F Pulse Rate 98 Respiratory Rate 18 Blood Pressure 145/101 Pulse Oximetry 97 Oxygen Delivery Me thod Room Air Oxygen Flow Rate 8 Fraction of Inspir ed Oxygen Hydration adequate: Yes Nausea and vomiting: No Pain level: 2 Mental status: Baseline
== END 2021-04-17 15:05 | disposition home or self-care (01) ==
PROVIDERS: PCP Nurse Practitioner Family; Visit Provider Orthopaedic Surgery
PROC: (CPT 63005; principal; 2021-04-17 09:35)
DX: M48.062 Spinal stenosis, lumbar region with neurogenic claudication (principal); J44.9 Chronic obstructive pulmonary disease, unspecified; F17.210 Nicotine dependence, cigarettes, uncomplicated
CPT/HCPCS: 63047; 72020; 76000; J0690; J1100; J2405; J2704; J3010; J3490; J7030

== ENCOUNTER 2021-04-19 06:39 | Emergency (ER) | payer MEDICAID, SELFPAY ==
[2021-04-19 06:40] VITALS: BP 112/64; PULSE 90; RESP 18; TEMP 36.6; O2SAT 93; BMI 22.5
[2021-04-19 06:44] VITALS: BP 112/64; PULSE 92; RESP 18; O2SAT 93
--- NOTE | 2021-04-19 07:03 | ED_ITS ---
HPI - Back Pain/Injury General: Chief Complaint: Back Pain/Injury Stated Complaint: BACK PAIN POST SURGERY Time Seen by Provider: 04/19/21 06:49 Source: patient and old records reviewed Mode of arrival: EMS History of Present Illness: HPI Narrative: 65-year-old male presents to emergency department by EMS chief complaint of acute on chronic back pain. Patient underwent a bilateral laminectomy of L4-L5 by Dr. Denny on 04/17/2021. Patient had uneventful postoperative. He had the surgery due to significant lumbar spine stenosis with neurological claudication. Patient presents in here this morning with increased pain postsurgical. The patient reports she was released yesterday he reports he is unsure whether or not he took his medications this morning for pain control. He reports no recent injury or trauma. He reports no numbness. in his groin area reports no bowel or bladder incontinence or weakness to either his legs. MD elicited complaint: back pain Pertinent past history: prior back pain and back surgery Onset (ago): day(s) Timing: constant Severity: moderate Similar Symptoms Previously: Yes Quality: burning Location: lumbar spine Radiation: none Exacerbating factors: movement Associated symptoms: Reports no associated symptoms; Deny chills, change in bowel habits, difficulty walking, dysuria, fatigue, fecal incontinence, fever(s), numbness, tingling/numbness/burning, urinary frequency or urinary urgency Treatments prior to arrival: other medications Review of Systems General: Reports: 10 or more systems reviewed and unremarkable except in HPI and below Const: Denies: fever(s), chills, fatigue or malaise Eyes: Denies: change in vision or blurry vision Card: Denies: chest pain or palpitations Resp: Denies: dyspnea or productive cough GI: Denies: fecal incontinence or change in bowel habits : Denies: dysuria or urinary urgency Musc: Reports: back pain; Denies: extremity pain or extremity swelling Skin/Breast: Denies: rash or pruritus Neuro: Denies: difficulty walking Psych: Denies: anxiety or depression Yovanny/Lymph: Denies: easy bleeding All/Imm: Denies: urticaria, throat swelling or facial swelling PFS ED PFSH: Medical History Alcohol addiction Last use Jul 2020 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 Social History Quit status (tobacco): not considering quitting Second hand smoke exposure: Yes Smoking risk assessment/counseling performed?: No Reason smoking risk assessment not done: patient refused Alcohol intake: former Marital status: Current occupational status: disabled History of recent travel: No Physical Exam Narrative: EXAM NARRATIVE: Patient appears in no obvious acute distress on exa m. Currently asking for a Coke to drink. Const: COMMON NORMALS: no acute distress and patient oriented x3 HENMT: COMMON NORMALS: normocephalic and atraumatic HEAD & SCALP: normocephalic and atraumatic Eye: COMMON NORMALS: Equal, round and reactive pupils present and EOMs intact bilaterally PUPIL: Yes Equal, round and reactive pupils present Neck/C-Spine: COMMON NORMALS: full ROM, supple and no JVD Lymph: LYMPHATIC: no lymphadenopathy noted Chest: COMMONS NORMALS: normal inspection of the chest and normal palpation of entire chest wall Resp: COMMON NORMALS: normal respiratory effort and No retractions EFFORT & INSPECTION: Yes able to speak in complete sentences and Yes symmetric chest movement AUSCULTATION: wheezes expiratory wheezes ( mild expiratory wheezing noted patient reports this is chronic) Cardio: COMMON NORMALS: no JVD, regular rate and regular rhythm RATE: regular rate RHYTHM: regular rhythm GI: COMMON NORMALS: Normal to inspection, nondistended, normoactive bowel sounds present, Soft to palpation and non-tender INSPECTION: Yes normal to inspection PALPATION: Yes Soft to palpation : COMMON NORMALS: Yes no CVA tenderness BLADDER/KIDNEY EXAM: Yes no CVA tenderness Back/Pelvis: COMMON NORMALS: no CVA tenderness GENERAL BACK: Yes scar(s), Yes tenderness (Mild tenderness noted to the midline spine region no obvious ecchymosis no ) and Yes other (Bandage noted to the midline region L4-L5 the back appears to be fresh with) THORACIC SPINE/UPPER BACK: Yes normal to inspection Extremity: COMMON NORMALS: normal to inspection and full ROM Neuro: COMMON NORMALS: patient oriented x3, CN's II-XII intact bilaterally, moves all extremities and no focal motor deficits Psych: COMMON NORMALS: mental status grossly normal, Normal thought process present, cooperative and normal affect THOUGHT PROCESS: Normal thought process present Skin: COMMON NORMALS: no rashes or lesions noted GENERAL SKIN EXAM: no rashes or lesions noted Course ED course: Due to due to the patient's symptoms and condition CT imaging of the lumbar spine without contrast will be obtained we will continue to follow. Anticipate discharge home pending results. Vital Signs: Vital signs: Vital Signs Temperature 98 F 04/19/21 06:40 Pulse Rate 77 04/19/21 08:16 Respiratory Rate 18 04/19/21 08:16 Blood Pressure 104/50 04/19/21 08:16 Pulse Oximetry 97 04/19/21 08:16 MDM - Back Pain/Injury MDM Narrative: Medical decision making narrative: Patient CT imaging came back unremarkable at this time will be provided patient hydrocodone for breakthrough pain control which she was set up will be subsequent discharged home to promptly follow-up outpatient with his back doctor. Patient throughout his 10 emergency department was demanding about wanting something to eat and/or drink he was provided a Coke prior to subsequent discharge. Differential Diagnosis: Differential diagnosis back pain/injury: Likely lumbar radiculopathy and strain of lumbar region Medical Records: Attestation: I reviewed the patient's medical records. Discharge Plan Discharge Patient Disposition: Home Clinical Impression: Postoperative back pain Condition: Stable Prescriptions: No Action tizanidine [Zanaflex] 4 mg capsule 4 mg PO Q8H PRN (Reason: Muscle Spasticity) RF: 0 prednisone 20 mg tablet 20 mg PO DAILY Qty: 15 RF: 0 donepezil 5 mg tablet 5 mg PO .morning Qty: 30 RF: 6 quetiapine [Seroquel] 400 mg tablet 400 mg PO BEDTIME Qty: 30 RF: 6 tamsulosin 0.4 mg capsule See Rx Instructions .ROUTE .COMPLEX Qty: 180 RF: 0 hydrocodone-acetaminophen 5-325 mg tablet 1 - 2 tab PO .Q4-6H Qty: 40 RF: 0 Discharge Orders: Discharge ED (Routine); Ordered 04/19/21 Ordered By: Evelio Toro Referrals: Armond Armando NP [Primary Care Provider] - Patient Instructions: Opioid Safety Activity Restrictions/Additional Instructions: Follow-up with your back surgeon in the next 2 to 3 days, take medications as already prescribed, please return the ER if any of your symptoms persist or worse. Coding Level of Care Code ED Art History Instructor for Nereida Fwd Exam Comprehensive
--- NOTE | 2021-04-19 07:04 | CTR_ITS ---
PROCEDURE INFORMATION: Exam: CT Lumbar Spine Without Contrast Exam date and time: 04/19/2021 7:04 AM Age: 65 years old Clinical indication: Low back pain; Prior surgery; Surgery date: Post-operative (0-2 days); Surgery type: Low back; Additional info: Back pain S/P surgery TECHNIQUE: Imaging protocol: Computed tomography images of the lumbar spine without contrast. Total images: 387 Radiation optimization: All CT scans at this facility use at least one of these dose optimization techniques: automated exposure control; mA and/or kV adjustment per patient size (includes targeted exams where dose is matched to clinical indication); or iterative reconstruction. COMPARISON: MR lumbar spine wo con* [id number] 03/19/2021 3:26 PM RADIATION DOSE METRICS: Total DLP (mGy-cm): 4348.9 FINDINGS: Vertebrae: Multiple Schmorl's nodes noted. Facet joint degenerative changes are present. Discs/Spinal canal/Neural foramina: Multilevel degenerative disc disease with disc space narrowing and osteophyte formation. Epidural space: Status post left laminectomy at L4 with expected small amount of fluid and air within this area and adjacent soft tissues and epidural space. No complication detected. Vasculature: Atherosclerosis is evident. Soft tissues: Unremarkable. CT/CT lumbar spine wo con* [id number] IMPRESSION: Status post left laminectomy at L4 with expected small amount of fluid and air within this area and adjacent soft tissues and epidural space. No complication detected. Radiation Dose CTDIVOL = (mGy): DLP = 4348.9 (mGy-cm)
[2021-04-19] MEDS: HYDROcodone-acetaminophen 7.5-325 mg Tablet 1 TAB PO (08:12)
[2021-04-19 08:16] VITALS: BP 104/50; PULSE 77; RESP 18; O2SAT 97
[2021-04-19 09:16] VITALS: BP 104/50; PULSE 77; RESP 18; O2SAT 97
== END 2021-04-19 09:17 | disposition home or self-care (01) ==
PROVIDERS: Emergency Provider Emergency Medicine; PCP Nurse Practitioner Family
DX: G89.18 Other acute postprocedural pain (principal); M54.9 Dorsalgia, unspecified; Z77.22 Contact with and (suspected) exposure to environmental tobacco smoke (acute) (chronic)
CPT/HCPCS: 72131; 99283

== ENCOUNTER 2021-04-20 09:12 | Emergency (ER) | payer MEDICAID, SELFPAY ==
[2021-04-20 09:19] VITALS: BP 131/77; PULSE 92; RESP 18; O2SAT 96; BMI 23.7
--- NOTE | 2021-04-20 09:37 | W.ED.BACK ---
HPI - Back Pain/Injury General: Chief Complaint: Back Pain/Injury Stated Complaint: BACK PAIN Time Seen by Provider: 04/20/21 09:26 History of Present Illness: HPI Narrative: 65-year-old male presents emergency room with complaints of back pain. He was seen at this hospital on 04 17 and had a lumbar decompression procedure done he was discharged home after the surgery. He returned to the emergency room yesterday 04 19 and again today. He will take his medication reports the medicine wears off and the pain recurs evidently EMS states she has been calling 911. MD elicited complaint: back pain Pertinent past history: prior back pain and other (Postop day #3 L4-5 laminectomy) Onset (ago): hour(s) Timing: other Severity: moderate Similar Symptoms Previously: Yes Quality: sharp Location: lumbar spine Radiation: none Exacerbating factors: sitting upright and walking Relieving factors: medication Associated symptoms: Reports difficulty walking; Deny abdominal pain, arthralgias, chills, change in bowel habits, dysuria, fatigue, fecal incontinence, fever(s), hematuria, myalgias, nausea, numbness, syncope, tingling/numbness/burning, urinary frequency, urinary urgency, vomiting, weakness or other Treatments prior to arrival: prescription analgesics Work related injury: No Review of Systems Const: Denies: fever(s), chills or fatigue Card: Denies: syncope GI: Denies: abdominal pain, nausea, vomiting, fecal incontinence or change in bowel habits : Denies: dysuria, urinary urgency or hematuria Neuro: Reports: difficulty walking ON LICENSE OF [facility] ED PFSH: Medical History Alcohol addiction Last use Jul 2020 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 Social History Quit status (tobacco): not considering quitting Second hand smoke exposure: Yes Smoking risk assessment/counseling performed?: No Reason smoking risk assessment not done: patient refused Alcohol intake: former Marital status: Current occupational status: disabled History of recent travel: No Physical Exam Const: COMMON NORMALS: no acute distress GENERAL APPEARANCE: cooperative and comfortable ORIENTATION/CONSCIOUSNESS: Yes awake, Yes oriented to person, Yes oriented to place and Yes oriented to time HENMT: COMMON NORMALS: normocephalic, atraumatic and hearing grossly normal bilaterally HEAD & SCALP: normocephalic and atraumatic Neck/C-Spine: COMMON NORMALS: no JVD Resp: COMMON NORMALS: normal respiratory effort, No retractions, No use of accessory muscles and clear to auscultation bilaterally AUSCULTATION: clear to auscultation bilaterally Cardio: COMMON NORMALS: no JVD, regular rate, regular rhythm and No murmurs present (Cardio) RATE: regular rate RHYTHM: regular rhythm GI: COMMON NORMALS: Soft to palpation and No hepatosplenomegaly present AUSCULTATION: Yes normoactive bowel sounds PALPATION: Yes Soft to palpation, No Tenderness to palpation present (GI), No Guarding due to palpation present (GI) and Yes No hepatosplenomegaly present Extremity: COMMON NORMALS: normal to inspection, capillary refill normal, no clubbing, cyanosis or edema, no calf tenderness and no pedal edema OTHER: Straight leg raising negative dorsum plantar flexion strength at the ankles is +45. Neuro: SENSORIUM/ORIENTATION: Yes oriented to person, Yes oriented to place and Yes oriented to time Skin: COMMON NORMALS: no rashes or lesions noted GENERAL SKIN EXAM: no rashes or lesions noted Course Vital Signs: Vital signs: Vital Signs Pulse Rate 92 04/20/21 09:19 Respiratory Rate 18 04/20/21 09:19 Blood Pressure 131/77 04/20/21 09:19 Pulse Oximetry 96 04/20/21 09:19 MDM - Back Pain/Injury MDM Narrative: Medical decision making narrative: Switch to Percocet add Lyrica follow-up with surgeon within the next 2 to 3 days return if has further problems. Discharge Plan Discharge Patient Disposition: Home Clinical Impression: Postoperative back pain, Lumbar radiculopathy, Lumbar disc disease with radiculopathy Condition: Stable Prescriptions: New Percocet 5-325 mg tablet 1 tab PO Q4H PRN (Reason: pain) Qty: 20 RF: 0 Lyrica 75 mg capsule 75 mg PO BID Qty: 60 RF: 0 Discontinued hydrocodone-acetaminophen 5-325 mg tablet 1 - 2 tab PO .Q4-6H Qty: 40 RF: 0 No Action tizanidine [Zanaflex] 4 mg capsule 4 mg PO Q8H PRN (Reason: Muscle Spasticity) RF: 0 prednisone 20 mg tablet 20 mg PO DAILY Qty: 15 RF: 0 donepezil 5 mg tablet 5 mg PO .morning Qty: 30 RF: 6 quetiapine [Seroquel] 400 mg tablet 400 mg PO BEDTIME Qty: 30 RF: 6 tamsulosin 0.4 mg capsule See Rx Instructions .ROUTE .COMPLEX Qty: 180 RF: 0 Discharge Orders: Discharge ED (Routine); Ordered 04/20/21 Ordered By: Diego hCen Referrals: Armond Armando NP [Primary Care Provider] - Discharge Diet: Usual diet Discharge Activity: Resume usual activity Patient Instructions: Opioid Safety Activity Restrictions/Additional Instructions: Call Dr. Denny's office for follow-up this week. Coding Level of Care Code ED Client Technologies Analyst for Nereida Martinez
[2021-04-20] MEDS: dexamethasone 10 mg/mL INJ IVP (10:38)
[2021-04-20] MEDS: morphine 4 mg/mL SDV 1 mL IVP (10:39)
[2021-04-20] MEDS: promethazine 25 mg/mL SDV 1 mL IM (10:39)
--- NOTE | 2021-04-21 09:27 | DCPLANNER ---
it risk and assurance manager had message to schedule a follow up appointment for patient with ortho. it risk and assurance manager called the ortho clinic, spoke with Lluvia, gave the clinic patients information. it risk and assurance manager was told that patients information will be printed and reviewed. Clinic will call patient with appointment information.
--- NOTE | 2021-04-22 15:22 | DCPLANNER ---
Patient has a follow up appointment scheduled for , April 30, 2021 at 3:[address] Denny at [facility]. Clinic will call patient with appointment information.
--- NOTE | 2021-07-05 16:20 | DCPLANNER ---
Patient had a follow up appointment scheduled with ortho - patient did attend appointment.
== END 2021-04-20 11:11 | disposition home or self-care (01) ==
PROVIDERS: Emergency Provider Family Medicine; PCP Nurse Practitioner Family
DX: M51.16 Intervertebral disc disorders with radiculopathy, lumbar region (principal); M54.89 Other dorsalgia; G89.18 Other acute postprocedural pain; Z79.52 Long term (current) use of systemic steroids; Z79.891 Long term (current) use of opiate analgesic; F17.200 Nicotine dependence, unspecified, uncomplicated
CPT/HCPCS: 96372; 99283; J1100; J2270; J2550

== ENCOUNTER → 2021-05-12 12:55 | Outpatient (BNVA) | payer MEDICAID, SELFPAY | PROVIDERS: PCP Nurse Practitioner Family; Visit Provider Nurse Practitioner Psychiatric/Mental Health | DX: F33.2 Major depressive disorder, recurrent severe without psychotic features (principal); F02.80 Dementia in other diseases classified elsewhere, unspecified severity, without behavioral disturbance, psychotic disturbance, mood disturbance, and anxiety; F17.210 Nicotine dependence, cigarettes, uncomplicated; F12.20 Cannabis dependence, uncomplicated; F10.11 Alcohol abuse, in remission; F15.21 Other stimulant dependence, in remission | CPT/HCPCS: 99214 ==

== ENCOUNTER 2021-08-24 09:11 | Emergency (ER) | payer MEDICAID, SELFPAY ==
[2021-08-24 09:19] VITALS: BP 124/83; PULSE 91; RESP 20; TEMP 36.4; O2SAT 94
[2021-08-24 09:23] VITALS: BP 127/86; RESP 18; O2SAT 95
--- NOTE | 2021-08-24 09:32 | CT_ITS ---
WS: [id number] CT neck w con* [id number] REASON FOR EXAM: pain, trouble swallowing, hoarseness IV CONTRAST ADMINISTERED: 95 mL of Omnipaque 300 TOTAL EXAM DLP: 401.[address] scans at use at least one of these dose optimization techniques: automat ed exposure control; mA and/or kV adjustment per patient size (includes targeted exams where dose is matched to clinical indication); or iterative reconstruction. FINDINGS: Some loss of resolution due to swallowing and movement of soft tissue air interfaces. Moderately severe changes of degenerative spondylosis with disc space narrowing and anterior osteophy tic spurring C3-T1. Normal thyroid. No salivary gland abnormality. No significant cervical adenopathy. 3 x 3 x 4 cm (? Ulcerated) Mass in the base of the tongue/epiglottis with obliteration of the left va llecula. Lesion extends posteriorly to the left anterior margin of the C4 vertebral body without defi nite invasion. There appears to abut the left posterior aspect of the hyoid bone without definite inv asion. 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
--- NOTE | 2021-08-24 09:33 | XR_ITS ---
WS: [id number] Portable AP upright chest, 08/24/2021 Clinical Data: cough Comparison: Portable chest, 08/01/2020. Findings: No nodules, masses or effusions are seen. There is apical pleural scarring. The heart is no rmal. The pulmonary vascularity is not increased. No pneumonia or pneumothorax is seen. The aortic ar ch and descending thoracic aorta show minimal calcification and tortuosity. The diaphragms are flatte antione. XR/XR chest 1V portable [id number] Impression: Atherosclerosis and hyperinflation.
--- NOTE | 2021-08-24 09:34 | W.ED.NECK ---
Documented by User: MALCOM Lamb 08/24/21 12:29 HPI - Neck Pain/Injury General: Chief Complaint: COVID symptoms Stated Complaint: sore throat Time Seen by Provider: 08/24/21 09:14 Source: patient Mode of arrival: ambulatory Limitations: no limitations History of Present Illness: Patient is a 66-year-old male who presents to ED today with a complaint of throat/neck pain over the past month. Patient states he is having difficulty eating-mainly with large food bites. He is still able to hold down liquids normally. He feels like his voice has changed. He also reports feeling like there is a lot of phlegm in his throat. Patient does complain of a cough as well. He is an every day smoker. He has not noticed any swelling to his neck. He has no previous history of malignancy though reportedly is concerned about this today. MD complaint: neck pain Onset (ago): week(s) Duration: constant Exacerbating factors: swallowing and other (eating/drinking) Associated symptoms: Denies headache(s) Review of Systems Const: Denies: fever(s), chills, body aches, fatigue or malaise ENMT: Reports: throat pain and odynophagia; Denies: oral sores, ear or mastoid pain, nasal discharge, nasal congestion, post nasal drip or sinus pain Card: Denies: chest pain Resp: Reports: non-productive cough; Denies: dyspnea GI: Denies: abdominal pain Musc: Reports: neck pain; Denies: back pain, extremity pain or joint pain Skin/Breast: Denies: rash Neuro: Denies: headache(s), numbness in extremities, weakness in extremities or sensory changes [facility] ED PFSH: Medical History Alcohol use disorder, mild, in early remission, abuse Last use Jul 2020 Amphetamine use disorder, severe, in early remission, dependence Last use Jul 2020 BPH loc w urin obs/LUTS Cannabis dependence Cigarette nicotine dependence Hiatal hernia Lower urinary tract symptoms (LUTS) Major depressive disorder, 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 Social History Smoking and tobacco status: current every day smoker cigarettes Packs smoked per day: 1 Years cigarettes smoked: 40 Quit status (tobacco): not considering quitting Second hand smoke exposure: Yes Smoking risk assessment/counseling performed?: No Reason smoking risk assessment not done: patient refused Alcohol intake: former Marital status: Current occupational status: disabled History of recent travel: No Physical Exam Const: COMMON NORMALS: patient oriented x3, no limitations and alert GENERAL APPEARANCE: disheveled ORIENTATION/CONSCIOUSNESS: Yes awake, Yes oriented to person, Yes oriented to place and Yes oriented to time HENMT: COMMON NORMALS: normocephalic, atraumatic, Normal nasal mucous membranes and turbinates present and gingiva normal HEAD & SCALP: normal to inspection, normocephalic and atraumatic FACE & SINUS: normal facial exam NOSE: Normal nasal mucous membranes and turbinates present MOUTH: lip normal and tongue normal TEETH & GINGIVA: Yes poor dentition THROAT: posterior oropharynx normal (minus a large amount of phlegm/post nasal drainage present) Eye: GENERAL EYE: appearance normal, both eyes and all related structures Neck/C-Spine: COMMON NORMALS: full ROM, no lymphadenopathy, no meningeal signs and Thyroid normal GENERAL: No anterior neck swelling, No tracheal deviation and No submandibular swelling THYROID: Thyroid normal CERVICAL SPINE: Yes cervical ROM normal Resp: COMMON NORMALS: normal respiratory effort and clear to auscultation bilaterally AUSCULTATION: clear to auscultation bilaterally Cardio: COMMON NORMALS: regular rate and regular rhythm RATE: regular rate RHYTHM: regular rhythm Extremity: GENERAL: Yes normal exam except as noted Neuro: TUNDE COMA SCALE: document GCS findings [place] coma scale eye opening: Spontaneous [place] coma scale verbal response: Orientated [place] coma scale motor response: Obey commands [place] coma scale total score: 15 COMMON NORMALS: patient oriented x3, CN's II-XII intact bilaterally, moves all extremities, no focal motor deficits and no sensory deficits noted SENSORIUM/ORIENTATION: Yes alert, Yes oriented to person, Yes oriented to place and Yes oriented to time MENINGEAL SIGNS: Yes no meningeal signs Skin: COMMON NORMALS: no rashes or lesions noted GENERAL SKIN EXAM: no rashes or lesions noted Course Consultations: Consultation #1: Dr. Clarke-will see patient in office and schedule biopsy Vital Signs: Vital signs: Vital Signs Temperature 97.5 F L 08/24/21 09:19 Pulse Rate 88 08/24/21 10:54 Respiratory Rate 18 08/24/21 10:54 Blood Pressure 143/87 08/24/21 10:54 Pulse Oximetry 94 08/24/21 10:54 MDM - Neck Pain/Injury Medical Decision Making Patient is a 66-year-old male here for complaints of anterior neck pain and trouble eating. Patient is an every day smoker. On his CT scan he does have a 3 x 3 x 4 cm presumed malignancy at the base of his tongue/epiglottis. Patient is still able to drink and eat small bites and soft foods normally. He has no complaints of difficulty breathing/no airway compromise. I spoke to Dr. Clarke who will see patient as an outpatient and get him biopsied. Case management was able to get him an appointment today at 3:00PM. Strict return to ED precautions given. 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 Chest X-Ray 08/24/21 09:33 Impression: Atherosclerosis and hyperinflation. Laboratory Results WBC 7.4 10^3/uL (4.0-10.0) 08/24/21 09:50 RBC 4.80 10^6/uL (4.1-5.3) 08/24/21 09:50 Hgb 15.8 g/dL (11.7-16.6) 08/24/21 09:50 Hct 46.7 % (42.0-52.0) 08/24/21 09:50 MCV 97.3 fl (80-94) H 08/24/21 09:50 MCH 32.9 pg (28.0-34.0) 08/24/21 09:50 MCHC 33.8 g/dL (30.0-36.0) 08/24/21 09:50 RDW 13.5 % (12.1-15.1) 08/24/21 09:50 Plt Count 314 10^3/cmm (130-400) 08/24/21 09:50 MPV 9.5 fL (7.4-10.4) 08/24/21 09:50 Neut % (Auto) 53.5 % 08/24/21 09:50 Lymph % (Auto) 34.7 % 08/24/21 09:50 [place] % (Auto) 8.0 % 08/24/21 09:50 Eos % (Auto) 2.7 % 08/24/21 09:50 Baso % (Auto) 0.8 % 08/24/21 09:50 Neut # (Auto) 3.96 10^3/uL (1.8-7.7) 08/24/21 09:50 Lymph # (Auto) 2.6 10^3/uL (0.8-4.8) 08/24/21 09:50 [place] # (Auto) 0.6 10^3/uL (0.2-0.9) 08/24/21 09:50 Eos # (Auto) 0.2 10^3/uL (0.0-0.8) 08/24/21 09:50 Baso # (Auto) 0.1 10^3/uL (0.0-0.1) 08/24/21 09:50 Nucleated RBC % (auto) 0 % 08/24/21 09:50 Nucleated RBCs # 0.0 /100WBC 08/24/21 09:50 Sodium 140 mmol/L (136-145) 08/24/21 09:50 Potassium 4.1 mmol/L (3.5-5.1) 08/24/21 09:50 Chloride 102 mmol/L (98-107) 08/24/21 09:50 Carbon Dioxide 28 mmol/L (22-29) 08/24/21 09:50 Anion Gap 14.1 (5-19) 08/24/21 09:50 BUN 13 mg/dL (8-23) 08/24/21 09:50 Creatinine 0.7 mg/dL (0.7-1.2) 08/24/21 09:50 GFR Calculation 112.1 mL/min (90-130) 08/24/21 09:50 Glucose 93 mg/dL (65-115) 08/24/21 09:50 Calculated Osmolality 290 mOsm/kg (285-295) 08/24/21 09:50 Calcium 9.1 mg/dL (8.5-10.5) 08/24/21 09:50 Total Bilirubin 0.3 mg/dL (0.15-1.2) 08/24/21 09:50 AST 12 U/L (0-40) 08/24/21 09:50 ALT 11 U/L (0-41) 08/24/21 09:50 Alkaline Phosphatase 126 IU/L (40-130) 08/24/21 09:50 Total Protein 7.7 g/dL (6.6-8.7) 08/24/21 09:50 Albumin 4.8 g/dL (3.5-5.2) 08/24/21 09:50 Globulin 2.9 g/dL (1.3-4.6) 08/24/21 09:50 Discharge Plan Discharge Patient Disposition: Home Clinical Impression: Mass of throat Condition: Stable Prescriptions: No Action tizanidine [Zanaflex] 4 mg capsule 4 mg PO Q8H PRN (Reason: Muscle Spasticity) 0RF prednisone 20 mg tablet 20 mg PO DAILY Qty: 15 0RF Rx Instructions: 60mg x 3 days 40mg x 2 days 20mg x 2 days donepezil 5 mg tablet 5 mg PO .morning Qty: 30 6RF Rx Instructions: Take one tablet every morning quetiapine [Seroquel] 400 mg tablet 400 mg PO BEDTIME Qty: 30 6RF Rx Instructions: Take one tablet at bedtime Percocet 5-325 mg tablet 1 tab PO Q4H PRN (Reason: pain) 7 Days Qty: 40 0RF tamsulosin 0.4 mg capsule See Rx Instructions .ROUTE .COMPLEX Qty: 180 0RF Dose Instruction: TAKE 1 CAPSULE BY MOUTH TWICE DAILY Rx Instructions: TAKE 1 CAPSULE BY MOUTH TWICE DAILY Lyrica 75 mg capsule 75 mg PO BID Qty: 60 0RF Discharge Orders: Discharge ED (Routine); Ordered 08/24/21 Ordered By: Asmita Herrera Referrals: Tirso Clarke MD [Physician] - Armond Armando NP [Referring] - Activity Restrictions/Additional Instructions: YOU HAVE AN APPOINTMENT WITH Dr. Clarke-ear/nose/throat specialty physician TODAY AT 3PM. DO NOT MISS THIS APPOINTMENT! YOU HAVE BEEN GIVEN THE CLINIC ADDRESS AND PHONE NUMBER AND WE HAVE EXPLAINED DIRECTIONS TO YOU. Please stick with a soft food diet to avoid food becoming stuck or lodged. You need to return to the emergency department immediately for any trouble swallowing, inability to control your saliva, trouble breathing, trouble eating, or any other concerns you may have. Coding Level of Care Code ED Boom Stick Man for Chg Fwd Exam Comprehensive Documented by User: Diego Chen DO 08/24/21 12:30 HPI - Neck Pain/Injury General: Chief Complaint: COVID symptoms Stated Complaint: sore throat Time Seen by Provider: 08/24/21 09:14 [facility] ED PFSH: Medical History Alcohol use disorder, mild, in early remission, abuse Last use Jul 2020 Amphetamine use disorder, severe, in early remission, dependence Last use Jul 2020 BPH loc w urin obs/LUTS Cannabis dependence Cigarette nicotine dependence Hiatal hernia Lower urinary tract symptoms (LUTS) Major depressive disorder, 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 Social History Smoking and tobacco status: current every day smoker cigarettes Packs smoked per day: 1 Years cigarettes smoked: 40 Quit status (tobacco): not considering quitting Second hand smoke exposure: Yes Smoking risk assessment/counseling performed?: No Reason smoking risk assessment not done: patient refused Alcohol intake: former Marital status: Current occupational status: disabled History of recent travel: No Physical Exam Neuro: TUNDE COMA SCALE: document GCS findings [place] coma scale total score: 15 Course Vital Signs: Vital signs: Vital Signs Temperature 97.5 F L 08/24/21 09:19 Pulse Rate 88 08/24/21 10:54 Respiratory Rate 18 08/24/21 10:54 Blood Pressure 143/87 08/24/21 10:54 Pulse Oximetry 94 08/24/21 10:54 MDM - Neck Pain/Injury Medical Decision Making Patient is a 66-year-old male here for complaints of anterior neck pain and trouble eating. Patient is an every day smoker. On his CT scan he does have a 3 x 3 x 4 cm presumed malignancy at the base of his tongue/epiglottis. Patient is still able to drink and eat small bites and soft foods normally. He has no complaints of difficulty breathing/no airway compromise. I spoke to Dr. Clarke who will see patient as an outpatient and get him biopsied. Case management was able to get him an appointment today at 3:00PM. Strict return to ED precautions given. Chart reviewed and patient discussed with midlevel. Agree with assessment and plan. Lab Data : 08/24/21 09:50 08/24/21 09:[address] 08/24/21 09:32
[2021-08-24 09:59] LABS: Basophils # 0.1 10^3/uL (0.0-0.1); Basophils % 0.8 %; Eosinophils # 0.2 10^3/uL (0.0-0.8); Eosinophils % 2.7 %; Hematocrit 46.7 % (42.0-52.0); Hemoglobin 15.8 g/dL (11.7-16.6); Lymphocytes # 2.6 10^3/uL (0.8-4.8); Lymphocytes % 34.7 %; Mean Corpuscular HGB Conc 33.8 g/dL (30.0-36.0); Mean Corpuscular Hemoglobin 32.9 pg (28.0-34.0); Mean Corpuscular Volume 97.3 fl (80-94); Mean Platelet Volume 9.5 fL (7.4-10.4); Monocytes # 0.6 10^3/uL (0.2-0.9); Neutrophils # 3.96 10^3/uL (1.8-7.7); Neutrophils % 53.5 %; Nucleated Red Blood Cells % 0 %; Platelet Count 314 10^3/cmm (130-400); Red Cell Distribution Width 13.5 % (12.1-15.1); White Blood Count 7.4 10^3/uL (4.0-10.0)
[2021-08-24 10:05] VITALS: O2SAT 95
[2021-08-24 10:21] LABS: Alanine Aminotransferase 11 U/L (0-41); Albumin Level 4.8 g/dL (3.5-5.2); Alkaline Phosphatase 126 IU/L (40-130); Aspartate Amino Transferase 12 U/L (0-40); Blood Urea Nitrogen 13 mg/dL (8-23); Calcium 9.1 mg/dL (8.5-10.5); Carbon Dioxide 28 mmol/L (22-29); Chloride 102 mmol/L (98-107); Creatinine Clr Calc Pharmacy 99.6625; Globulin 2.9 g/dL (1.3-4.6); Glomerular Filtration Rate 112.1 mL/min (90-130); Glucose 93 mg/dL (65-115); Osmolality Calculated 290 mOsm/kg (285-295); Sodium 140 mmol/L (136-145); Total Bilirubin 0.3 mg/dL (0.15-1.2); Total Protein 7.7 g/dL (6.6-8.7)
[2021-08-24 10:27] LABS: Anion Gap 14.1 (5-19); Potassium 4.1 mmol/L (3.5-5.1)
[2021-08-24] MEDS: iohexol 300 mg/mL 100 mL Btl IV (10:40)
[2021-08-24 10:54] VITALS: BP 143/87; PULSE 88; RESP 18; O2SAT 94
--- NOTE | 2021-08-24 12:38 | DCPLANNER ---
Addendum entered by Sonia Dee 09/04/21 12:30: Patient had a follow up appointment scheduled for 08.24.21 with ROME Sharpe - patient did attend appointment. Original Note: net development manager was asked to schedule a follow up appointment for patient with Dr. Clarke ENT. net development manager called the office of Dr. Clarke, a follow up appointment was scheduled for Tuesday, August 24, 2021 at 3:[address] Clarke. net development manager informed physician and patient of the scheduled appointment. net development manager will fax patients information to the office of Dr. Clarke.
== END 2021-08-24 12:31 | disposition home or self-care (01) ==
PROVIDERS: Emergency Provider Physician Assistant
DX: J39.2 Other diseases of pharynx (principal); F17.210 Nicotine dependence, cigarettes, uncomplicated
CPT/HCPCS: 70491; 71045; 80053; 85025; 99283; Q9967

== ENCOUNTER 2021-08-25 09:07 | Outpatient (CLI) | payer MEDICAID, SELFPAY ==
--- NOTE | 2021-08-25 09:34 | ECG_ITS ---
[facility] Test Date: 2021-08-25 Pat Name: Nima Vallejo Department: Room: Gender: Male Slasher Operator: : 1955 Requested By: Tirso Bauer Order Number: [id number] Concepción MD: Jonathon Pedro M.D. Measurements Intervals [place] Rate: 90 P: 77 [place]: 161 QRS: 72 QRSD: 93 T: 68 QT: 357 QTc: 439 Interpretive Statements SINUS RHYTHM Compared to ECG 08/01/2020 18:10:48 Myocardial infarct finding no longer present Electronically Signed On 08-26-2021 20:26:02 CDT by Jonathon Pedro M.D. [email or web address].Net 263/store/[id number] f
== END 2021-08-25 09:08 | disposition home or self-care (01) ==
LOC: RT 09:08
PROVIDERS: Visit Provider Specialist
DX: Z01.810 Encounter for preprocedural cardiovascular examination (principal); C32.1 Malignant neoplasm of supraglottis
CPT/HCPCS: 93005

== ENCOUNTER 2021-08-26 15:08 | Inpatient (IN) | payer MEDICAID, SELFPAY ==
[2021-08-26] VITALS (30 sets, daily range): BP systolic 113–139; BP diastolic 70–90; PULSE 72–114; RESP 11–26; TEMP 36.2–37.8; O2SAT 81–100
--- NOTE | 2021-08-26 13:00 | ANES.PREANE2 ---
Pre-Anesthetic Assessment Height/Weight: Height 1.91 m Preop Diagnosis: Lumbar stenosis with neurogenic claudication Operation Date: 08/26/21 14:00 Proposed Procedures p Tracheostomy [id number](Not Applicable) - Tirso Clarke MD s Direct Laryngoscopy(Not Applicable) - Tirso Clarke MD s Esophagoscopy(Not Applicable) - Tirso Clarke MD Familial anesthetic complications: None Was Beta Miriam taken within 24 hours: N/A Was Clonidine taken within 24 hours: N/A Last intake: Patient entered pre-op with coffee and creamer. States he only took a few sips, denying any other food or drink during the day. Discussed with Clarke and patient. They are agreeable to proceed with tracheostomy under local only. Social Tobacco and No alcohol patient denies alcohol, but is listed as having dependence Exam alert, oriented x 3, clear to auscultation bilaterally and regular rate & rhythm Airway Mallampati: Class IV Dentition: other (no teeth) Comments: Comments: Mass not visible with inspection Pulmonary Chronic Obstructive Pulmonary Disease CV/HEM None reported None reported Hepatic None reported GI Gastroesophageal Reflux Disease Metabolic None reported Musc/skel None reported Neuropsych None reported Anesthetic Plan ASA status: 3 Anesthesia: Local Only Other: MAC after airway secured and cuff inflated Risk of > 500 ml blood loss (7ml/kg in children): Yes, adequate IV access and fluids planned Medications/Allergies Home Medications Medication Instructions Recorded Confirmed Last Taken Type tizanidine 4 mg capsule (Zanaflex) 4 mg PO Q8H PRN 02/19/21 08/26/21 08/25/21 History donepezil 5 mg tablet 5 mg PO .morning #30 tab 05/12/21 08/26/21 08/26/21 Rx quetiapine 400 mg tablet (Seroquel) 400 mg PO BEDTIME #30 tab 05/12/21 08/26/21 08/25/21 Rx Allergies Allergy/AdvReac Type Severity Reaction Status Date / Time No Known Allergies Allergy Verified 07/07/21 14:41 [facility] Anesthesia Medical History Alcohol use disorder, mild, in early remission, abuse Last use Jul 2020 Amphetamine use disorder, severe, in early remission, dependence Last use Jul 2020 BPH loc w urin obs/LUTS Cannabis dependence Cigarette nicotine dependence Hiatal hernia Lower urinary tract symptoms (LUTS) Major depressive disorder, 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 Social History Smoking and tobacco status: current every day smoker cigarettes Packs smoked per day: 1 Years cigarettes smoked: 40 Quit status (tobacco): not considering quitting Second hand smoke exposure: Yes Smoking risk assessment/counseling performed?: No Reason smoking risk assessment not done: patient refused Alcohol intake: former Marital status: Current occupational status: disabled History of recent travel: No Data Anesthesia Cardiac Studies: No Data to Display
--- NOTE | 2021-08-26 13:33 | W.PM.OPSUD ---
Surgery/Procedure H&P Update DATE OF PROCEDURE: August 26, 2021 DATE H&P PERFORMED: 08/24/21 H&P UPDATE INFORMATION: I have reviewed H&P completed within last 30 days, I have examined patient prior to procedure and No changes to prior documentation PREOP DIAGNOSIS: Laryngeal mass with airway obstruction PRIMARY INDICATION FOR PROCEDURE: Laryngeal mass Airway obstruction PLANNED PROCEDURE: Operation Date: 08/26/21 14:00 Proposed Procedures p Tracheostomy [id number](Not Applicable) - Tirso Clarke MD s Direct Laryngoscopy(Not Applicable) - Tirso Clarke MD s Esophagoscopy(Not Applicable) - Tirso Clarke MD Related Problem List Diagnoses (1) Mass of throat:
[2021-08-26] MEDS: fluorescein 1 mg Strip XX (14:06)
[2021-08-26] MEDS: EPINEPHrine 1 mg/mL INJ XX (14:07)
[2021-08-26] MEDS: thrombin 5,000 unit SDV 5000 UNIT XX (14:12)
[2021-08-26] MEDS: lidocaine 2% INJ 20 mL INJECTION (14:45)
--- NOTE | 2021-08-26 15:00 | PC.NURSE ---
Pt admitted to ICU from OR. Fresh trach payment. Size 8, sutured. Site oozing blood. Pt coughing up phlegm, suction off end of trach with yankuer. Pt tolerating well.
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
[2021-08-26 15:18] LABS: Adenovirus Not Detected (NOT DETECT); Chlamydia Pneumoniae Not Detected (NOT DETECT); Coronavirus 229E,HKU1,NL63,OC4 Not Detected (NOT DETECT); Human Metapneumovirus Not Detected (NOT DETECT); Human Rhinovirus/Enterovirus Not Detected (NOT DETECT); Influenza A Not Detected (NOT DETECT); Influenza A H1 Not Detected (NOT DETECT); Influenza A H1-2009 Not Detected (NOT DETECT); Influenza A H3 Not Detected (NOT DETECT); Influenza B Not Detected (NOT DETECT); Mycoplasma Pneumoniae Not Detected (NOT DETECT); Parainfluenza Virus Type 1 Not Detected (NOT DETECT); Parainfluenza Virus Type 2 Not Detected (NOT DETECT); Parainfluenza Virus Type 3 Not Detected (NOT DETECT); Parainfluenza Virus Type 4 Not Detected (NOT DETECT); Respiratory Syncytial Virus A Not Detected (NOT DETECT); Respiratory Syncytial Virus B Not Detected (NOT DETECT); SARS-COV-2 Not Detected (NOT DETECT)
--- NOTE | 2021-08-26 15:19 | ANE.PACU2 ---
Inpatient post-anesthesia follow up: Airway intact: Yes Vital signs: Temperature 97.2 F Pulse Rate 78 Respiratory Rate 18 Blood Pressure 113/70 Pulse Oximetry 96 Oxygen Delivery Me thod Room Air Oxygen Flow Rate Fraction of Inspir ed Oxygen Hydration adequate: Yes Nausea and vomiting: No Pain level: 2 Mental status: Baseline
--- NOTE | 2021-08-26 16:27 | PC.NURSE ---
Hospitalization education: Pt has fresh trach he is unable to verbalize. But he does mouth words, nods and /or writes to communicate.
[2021-08-26] MEDS: lactated ringers 1,000 ML 125 ML IV (18:15)
[2021-08-26] MEDS: famotidine 20 mg/2 mL INJ IVP (18:16)
[2021-08-26] MEDS: docusate sodium 100 mg Capsule PO (18:17)
[2021-08-26] MEDS: HYDROcodone-acetaminophen 5-325 mg Tablet 1 TAB PO (18:27)
--- NOTE | 2021-08-26 19:12 | PC.NURSE ---
Shift Note Pt has been rest in bed. He coughs frequently. Thick tenacious phlegm suctioned numerous times. Trach site oozing slightly at end of shift. Pt has attempted ice chips and small sips, he tolerates well. Medication needed crushed in applesauce this evening, he tolerated that well. Vital signs stable. Pt able to make needs known with writing, gesturing and mouthing words. Frequent safety and comfort rounds continue. Orders and/or nursing care completed as indicated. Patient monitored for response to intervention and treatment(s). Education provided includes Suctioning, pepcid and continuing care. Patient and/or community representative verbalized understanding of plan of care,medications and progress . Will continue to monitor.
[2021-08-26] MEDS: quetiapine 100 mg Tablet PO (21:16)
[2021-08-26] MEDS: quetiapine 300 mg Tablet PO (21:16)
[2021-08-26] MEDS: donepezil 5 MG Tablet PO (21:16)
[2021-08-27] VITALS (25 sets, daily range): BP systolic 84–157; BP diastolic 55–97; PULSE 74–102; RESP 12–25; TEMP 36.8–36.9; O2SAT 10–100
[2021-08-27] MEDS: lactated ringers 1,000 ML 125 ML IV ×3 (01:31→18:39)
--- NOTE | 2021-08-27 05:19 | XRR_ITS ---
PROCEDURE INFORMATION: Exam: XR Chest Exam date and time: 08/27/2021 5:19 AM Age: 66 years old Clinical indication: Device placement; Tracheostomy placement or adjustment; Prior surgery; Surgery date: Post-operative (0-2 days); Additional info: S/P tracheotomy - for placement TECHNIQUE: Imaging protocol: XR of the chest. Views: 1 view. COMPARISON: CR XR chest 1V portable [id number] 08/24/2021 8:55 AM FINDINGS: Airway: Tracheostomy.Subcutaneous emphysema in the soft tissues of the neck likely related to the tracheostomy. No visualized pneumothorax or pneumo mediastinum. Correlate. Lungs: Lungs are well aerated without a focal area of consolidation. Pleural spaces: See Airway finding. Heart/Mediastinum: See Airway finding. Bones/joints: Unremarkable. XR/XR chest 1V portable [id number] IMPRESSION: 1. Tracheostomy.Subcutaneous emphysema in the soft tissues of the neck likely related to the tracheostomy. No visualized pneumothorax or pneumo mediastinum. Correlate. 2. Lungs are well aerated without a focal area of consolidation.
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
[2021-08-27] MEDS: famotidine 20 mg/2 mL INJ IVP ×2 (05:28→18:38)
[2021-08-27] MEDS: HYDROcodone-acetaminophen 5-325 mg Tablet 1 TAB PO ×2 (09:53→19:52)
[2021-08-27] MEDS: docusate sodium 100 mg Capsule PO ×2 (09:53→18:39)
[2021-08-27] MEDS: tizanidine 4 mg Tablet PO (14:06)
[2021-08-27] MEDS: LORazepam 0.5 mg Tablet 0.25 MG PO (15:40)
--- NOTE | 2021-08-27 19:42 | PC.NURSE ---
Shift Note: Pt able to make needs know very well with writing, gesturing and mouthing words. His lungs sound clear, his Oxygen needs are low, 28% on CAG/trach collar. He coughs up copious amounts of sputum, mostly whitish. At endi f sift it is getting blood flecks occasionally. He has requested suctioning very frequently and it was provided. Sterile trach suctioning provided numerous times this shift. Dressing and gowns changed frequently too, due to excess drainage. He is able to eat well and swallow whole tablets. He toro been instructed to take small bites, chew thoroughly and take sips of water between bites (as this seems to lessen his sputum production during/after meals.) He has been do this. He has been out of bed to the chair today without difficulty. He has been slightly agitated/anxious and tearful worried/thinking about what his prognosis might be. He said he was going to/ wanted to . Spiritual support p ovided by health companion Dr Clarke notified of pt's comments and state. Psychiatric consult and ativan ordered. Pt given ativan, he stated he felt better afterwards. He has received pain med once and Muscle spasm med once this shift. Adequate urine output. Frequent safety and comfort rounds continue. Orders and/or nursing care completed as indicated. Patient monitored for response to intervention and treatment(s). Education provided includes suctioning, too much in trach suctioning can cause irritation, ativan, Pepcid. Patient verbaized understadning of medications, and ongoing plan of care. Will continue to monitor.
[2021-08-27] MEDS: donepezil 5 MG Tablet PO (19:51)
[2021-08-27] MEDS: quetiapine 100 mg Tablet PO (19:52)
[2021-08-27] MEDS: quetiapine 300 mg Tablet PO (19:52)
[2021-08-28] VITALS (19 sets, daily range): BP systolic 86–167; BP diastolic 62–113; PULSE 76–196; RESP 15–30; O2SAT 89–98
[2021-08-28] MEDS: famotidine 20 mg/2 mL INJ IVP ×2 (04:02→17:14)
[2021-08-28] MEDS: lactated ringers 1,000 ML 125 ML IV ×4 (04:02→20:59)
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
[2021-08-28] MEDS: docusate sodium 100 mg Capsule PO ×2 (08:57→17:14)
[2021-08-28] MEDS: LORazepam 0.5 mg Tablet 0.25 MG PO (09:00)
--- NOTE | 2021-08-28 10:25 | PC.CHAP ---
Pastoral Care Encounter/Spiritual Assessment Type of Contact [] Declined vice president of operations visit [] Patient/Family/Request visit [] Outpatient visit [] Follow-up visit [] Physician referral [] Code/Alert [x] Routine visit [] Staff referral [] Actively dying [] Patient sleeping [x] Family support [] [] Out of room [] Palliative care [] [] Receiving care in room [] Pre-surgical visit [] Trauma [] Long length of stay [x] ICU visit [] Other: Relational/Emotional Strength [] Patient feels connected with others/family/visitors/staff [] Distress [] Loneliness/isolation [] Abandonment Spirituality of Patient [] Person of Ivy [] Attends Cheondoism of their Ivy [] Believes in Prayer [] Reads Bible or Congregational materials [] There are Spiritual issues to be addressed Circus Hand Interventions [x] Prayer [] Active listening [] Non-anxious presence [] Spiritual/emotional support [] Crisis/trauma care [] Spiritual counseling [] Bereavement support [] Provided bereavement packet [] Provided Bible/devotional materials [] Provided toy/stuffed animal, coloring book to patient or family member [] Provided Communion [] Anointing/Munday [] Salvation [x] Completed spiritual assessment [] Other: Impact on Illness or Injury [] Angry [] Fearful [] Anxious [] Often cries [] Exhaustion [] Unable to work [] Unable to attend yazidi [] Unable to walk/stand [] Unable to read [] Unable to drive [] Unable to eat/drink [] Unable to sleep [] Unable to be with family [] Patient intubated [] Other: Summary chaplain Soler addressing this patient... called in night before and will continue to oxygen furnace operator to him while he is in hospital Time spent with patient 5 min
[2021-08-28] MEDS: lanolin oint 7 gm 1 APPLIC TOPICAL (11:30)
[2021-08-28] MEDS: HYDROcodone-acetaminophen 5-325 mg Tablet 1 TAB PO ×2 (12:34→20:58)
--- NOTE | 2021-08-28 12:46 | PC.NURSE ---
Patient reliant on nursing staff to perform suctioning cares, patient is capable of performing cares, patient wants staff to perform everything for him.
[2021-08-28] MEDS: donepezil 5 MG Tablet PO (20:58)
[2021-08-28] MEDS: quetiapine 300 mg Tablet PO (20:59)
[2021-08-28] MEDS: quetiapine 100 mg Tablet PO (20:59)
[2021-08-28] MEDS: diphenhydrAMINE 50 mg/mL SDV 1mL 12.5 MG IVP (23:55)
[2021-08-29] VITALS (80 sets, daily range): BP systolic 78–164; BP diastolic 60–90; PULSE 67–184; RESP 7–32; TEMP 36.8–37.1; O2SAT 87–100
--- NOTE | 2021-08-29 00:01 | ECG_ITS ---
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 Measurements Intervals [place] Rate: 184 P: UT: QRS: 79 QRSD: 90 T: 48 QT: 240 QTc: 420 Interpretive Statements SUPRAVENTRICULAR TACHYCARDIA ST DEPRESSION, CONSIDER SUBENDOCARDIAL INJURY [0.1+ mV ST DEPRESSION] CRITICAL TEST RESULT INTERPRETATION BASED ON A DEFAULT AGE OF 40 YEARS Compared to ECG 08/25/2021 09:26:14 ST (T wave) deviation now present Sinus rhythm no longer present Electronically Signed On 08-30-2021 17:20:21 CDT by Nicci Montalvo M.D. [email or web address]
[2021-08-29] MEDS: adenosine 3 mg/mL SDV 2mL 6 MG IVP (00:08)
[2021-08-29] MEDS: sodium chloride 0.9% (100 ml) 100 ML (00:08)
--- NOTE | 2021-08-29 00:08 | XRR_ITS ---
PROCEDURE INFORMATION: Exam: XR Chest Exam date and time: 08/29/2021 12:18 AM Age: 66 years old Clinical indication: Shortness of breath; Prior surgery; Surgery type: Tracheostomy; Patient HX: Sudden onset of svts with SOB. ; Additional info: Svt, SOB TECHNIQUE: Imaging protocol: XR of the chest. Views: 1 view. COMPARISON: CR XR chest 1V portable [id number] 08/27/2021 5:50 AM FINDINGS: Tubes, catheters and devices: A tracheostomy tube is stable in position. A transcutaneous pacemaker lead overlies the right upper hemithorax and left hemidiaphragm. EKG leads overlie the chest. Lungs: Unremarkable. No consolidation. Pleural spaces: Unremarkable. No pleural effusion. No pneumothorax. Heart/Mediastinum: Unremarkable. No cardiomegaly. Bones/joints: Unremarkable. Soft tissues: The subcutaneous emphysema within the neck base bilaterally appears slightly improved compared to 08/27/2021. XR/XR chest 1V portable [id number] IMPRESSION: Stable appearance of the chest compared with 08/27/2021.
--- NOTE | 2021-08-29 00:12 | ECG_ITS ---
[facility] Test Date: 2021-08-29 Pat Name: Nima Vallejo Department: Room: [facility]04 Gender: Male Tobacco Sorter: : 1955 Requested By: David Hauser Order Number: [id number] Concepción MD: Nicci Montalvo M.D. Measurements Intervals [place] Rate: 119 P: 83 NC: 167 QRS: 76 QRSD: 81 T: 81 QT: 422 QTc: 594 Interpretive Statements SINUS TACHYCARDIA NONSPECIFIC ST & T-WAVE ABNORMALITY ABNORMAL RHYTHM ECG INTERPRETATION BASED ON A DEFAULT AGE OF 40 YEARS Compared to ECG 08/28/2021 23:57:56 T-wave abnormality now present Supraventricular tachycardia no longer present ST (T wave) deviation no longer present Electronically Signed On 08-30-2021 17:22:28 CDT by Nicci Montalvo M.D. [email or web address]
--- NOTE | 2021-08-29 00:25 | P.CONIM_ITS ---
Providers/Reason For Consult Consulting Physician/Specialty*: Hospitalist Reason for Consult*: SVT Attending Physician: Tirso Clarke MD History of Present Illness History of Present Illness Received an urgent call regarding rapid change in condition of Mr. Vallejo who underwent tracheostomy on 08/26 due to obstruction with laryngeal mass, with noted regular tachycardia into 180s just around midnight, not symptomatic but with soft blood pressure when seen at bedside. Vagal manouvers did chelo alleviate tachycardia noted as SVT on 12-lead. Additional IV access was being worked on. He received 6mg adenosine with return to sinus rhythm. The only pain he notes is some discomfort around the tracheostomy. We are going to repeat chest x-ray. We will follow-up chemistries including magnesium. Check TSH. Check troponin EKG series. He reports he may have had an episode of tachycardia in the past. Discussed with Dr Clarke. Review of Systems General: Reports: ROS unobtainable due to medical condition Medications/Allergies Home Medications Medication Instructions Recorded Confirmed Last Taken Type tizanidine 4 mg capsule (Zanaflex) 4 mg PO Q8H PRN 02/19/21 08/26/21 08/25/21 History donepezil 5 mg tablet 5 mg PO .morning #30 tab 05/12/21 08/26/21 08/26/21 Rx quetiapine 400 mg tablet (Seroquel) 400 mg PO BEDTIME #30 tab 05/12/21 08/26/21 08/25/21 Rx Allergies Allergy/AdvReac Type Severity Reaction Status Date / Time No Known Allergies Allergy Verified 07/07/21 14:41 Current Medications Generic Name Dose Route Start Last Admin Trade Name Freq PRN Reason Stop Dose Admin Hydrocodone Bitart/Acetaminophen 1 tab 08/26/21 15:49 08/28/21 20:58 Hydrocodone-Acetaminophen 5-325 Mg Tablet PO 1 tab Q6H PRN Administration MODERATE PAIN Docusate Sodium 100 mg 08/26/21 18:00 08/28/21 17:14 Docusate Sodium 100 Mg Capsule PO 100 mg BID HENRY Administration Donepezil HCl 5 mg 08/26/21 21:00 08/28/21 20:58 Donepezil 5 Mg Tablet PO 5 mg BEDTIME HENRY Administration Famotidine 20 mg 08/26/21 18:00 08/28/21 17:14 Famotidine 20 Mg/2 Ml Inj IVP 20 mg Q12H HENRY Administration Lactated Ringer's 1,000 mls @ 125 mls/hr 08/26/21 15:49 08/28/21 20:59 Lactated Ringers IV 125 mls/hr .Q8H HENRY Administration Lanolin 1 applic 08/28/21 11:25 08/28/21 11:30 Lanolin Oint 7 Gm TOPICAL 1 applic PRN PRN Administration DRYNESS Lorazepam 0.25 mg 08/27/21 15:22 08/28/21 09:00 Lorazepam 0.5 Mg Tablet PO 0.25 mg TID PRN Administration ANXIETY Quetiapine Fumarate 300 mg 08/26/21 21:00 08/28/21 20:59 Quetiapine 300 Mg Tablet PO 300 mg BEDTIME HENRY Administration Quetiapine Fumarate 100 mg 08/26/21 21:00 08/28/21 20:59 Quetiapine 100 Mg Tablet PO 100 mg BEDTIME HENRY Administration Tizanidine HCl 4 mg 08/26/21 15:52 08/27/21 14:06 Tizanidine 4 Mg Tablet PO 4 mg Q8H PRN Administration Muscle Spasticity PFSH Acute PFSH: Medical History Alcohol use disorder, mild, in early remission, abuse Last use Jul 2020 Amphetamine use disorder, severe, in early remission, dependence Last use Jul 2020 BPH loc w urin obs/LUTS Cannabis dependence Cigarette nicotine dependence Hiatal hernia Lower urinary tract symptoms (LUTS) Major depressive disorder, 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 Social History Smoking and tobacco status: current every day smoker cigarettes Packs smoked per day: 1 Years cigarettes smoked: 40 Quit status (tobacco): not considering quitting Second hand smoke exposure: Yes Smoking risk assessment/counseling performed?: No Reason smoking risk assessment not done: patient refused Alcohol intake: former Marital status: Current occupational status: disabled History of recent travel: No Vitals/I&O/Wt Last Vital Signs Temp 98.5 F 08/27/21 16:00 Pulse 84 08/28/21 23:00 Resp 15 08/28/21 23:00 BP 102/62 08/28/21 23:00 Pulse Ox 96 08/28/21 23:00 08/28/21 08/28/21 08/29/21 14:59 22:59 06:59 Intake Total 1297.5 / 1297.5 1421.25 / 2718.75 Output Total 300 / 300 1250 / 1550 Balance 997.5 / 997.5 171.25 / 1168.75 Physical Exam Const: COMMON NORMALS: no acute distress, patient oriented x3 and alert GENERAL APPEARANCE: cooperative ORIENTATION/CONSCIOUSNESS: Yes awake HENMT: COMMON NORMALS: oropharynx normal OTHER: Tracheostomy Neck/C-Spine: COMMON NORMALS: no JVD Resp: COMMON NORMALS: normal respiratory effort AUSCULTATION: rhonchi Cardio: COMMON NORMALS: no JVD, regular rhythm, S1 normal heart sound present, S2 normal heart sound present and No murmurs present (Cardio) RATE: tachycardic RHYTHM: regular rhythm HEART SOUNDS: S1 normal heart sound present and S2 normal heart sound present GI: COMMON NORMALS: Normal to inspection, nondistended, normoactive bowel sounds present, Soft to palpation and non-tender PALPATION: Yes Soft to palpation Extremity: COMMON NORMALS: no joint enlargement and no pedal edema Neuro: COMMON NORMALS: patient oriented x3 and moves all extremities SENSORIUM/ORIENTATION: Yes alert Skin: COMMON NORMALS: no rashes or lesions noted GENERAL SKIN EXAM: no rashes or lesions noted A&P Assessment and plan (1) SVT (supraventricular tachycardia): Did not respond to vagal maneuvers, but responded to 6 mg of adenosine. Denies chest pain or pressure. Will repeat chemistries including magnesium, TSH. CBC. Repeat chest x-ray. Complete troponin EKG series. TTE. PE less likely given improvement in blood pressure with resolution of SVT, no chest pain pressure, no cough, no change in oxygen requirement. Check DDimer. We will add low-dose metoprolol 12.5mg BID. Status: Acute (2) Tracheostomy in place: Status post tracheostomy on 316 Status: Acute (3) Mass of throat: Status: Acute Plan Past history of alcohol use disorder, amphetamine use disorder BPH Smoking Depression Neurocognitive disorder with behavioral disturbance Other chronic medical problems Consult Attestations Medical Necessity Statement: Continue admission for postoperative care after tracheostomy due to laryngeal mass as per primary team. 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
--- NOTE | 2021-08-29 00:37 | USCV_ITS ---
Yoni Nima Age: 66 Gender: M : 1955 Exam Date: 08/29/2021 06:28 Ordering Phys: David Hauser MD Technologist: Exam Location: [facility] Indication: svt BP: 142 / 88 HR: 75 Rhythm: Sinus Technical Quality: Very technically difficult study MEASUREMENTS (Male / Female) Normal Values DOPPLER LVOT Peak Velocity 101.3 cm/s MV Area PHT 5.0 cm squared Mitral E to A Ratio 0.8 MV E' Velocity 71.0 cm/s TR Peak Velocity 227.0 cm/s TR Peak Gradient 20.6 mmHg TV Peak E Velocity 94.0 cm/s Right Atrial Pressure 8.0 mmHg Pulmonary Artery Systolic Pressu 28.6 mmHg FINDINGS Left Ventricle Technically very difficult study. Only subcostal views were obtained. The LV ejection fraction appears to be within normal limits. The septum was found to have mild diffuse hypokinesia. Right Ventricle Possibly normal size and ejection fraction Right Atrium Right atrium not well visualized. Left Atrium Left atrium not well visualized. Mitral Valve No gross abnormalities noted Aortic Valve Aortic valve not well visualized. Tricuspid Valve No gross abnormalities noted Pulmonic Valve Pulmonic valve not well visualized. Pericardium Normal pericardium without effusion. Aorta Aorta not well visualized. CONCLUSIONS Technically very difficult study. Only subcostal views were obtained. The LV ejection fraction appears to be within normal limits. The septum was found to have mild diffuse hypokinesia. The atria valve not well visualized. The right ventricle, possibly of normal size and ejection fraction There is no pericardial effusion. Comparison with the previous study is difficult because of the difference in the technical quality. Dr Nicci Montalvo MD [facility] (Electronically Signed) Final Date: 29 August 2021 11:51 S
--- NOTE | 2021-08-29 00:45 | PC.NURSE ---
At 2349 on 08/28/21 pt's heart rate elevated from the baseline rate of approximately 90-115 to the 180s after the patient stood up in order to urinate. After sitting back down the patient's heart rate did not return to baseline. An EKG was obtained at 2357 which verified SVT with a rate of 184. At 2358, the patient's blood pressure dropped from 102/62(75) (baseline) to 86/73(77) and remained low throughout the duration of the SVT. Dr. Clarke was notified, as well as the hospitalist, who came to bedside. Vagal maneuvers were attempted X2 without success. Per hospitalist orders, 6mg of adenosine was given at 0008 followed by a rapid flush. This successfully returned the patient's heart rate to the 120s by 0010 and to the low 100s by 0015. A second EKG was obtained at 0009 which verified sinus tachycardia. The patient's blood pressure at 0009 was 101/678 and at 0011 was 103/68. The patient did not report any symptoms except for mild anxiety at the beginning of the episode, but is now asymptomatic.
[2021-08-29 01:00] LABS: D Dimer 1.04 ug/mIFEU (0-0.59)
[2021-08-29 01:03] LABS: Basophils % 0.3 %; Eosinophils # 0.1 10^3/uL (0.0-0.8); Eosinophils % 0.7 %; Hematocrit 40.7 % (42.0-52.0); Hemoglobin 13.9 g/dL (11.7-16.6); Lymphocytes # 2.1 10^3/uL (0.8-4.8); Lymphocytes % 19.4 %; Mean Corpuscular HGB Conc 34.2 g/dL (30.0-36.0); Mean Corpuscular Hemoglobin 33.1 pg (28.0-34.0); Mean Corpuscular Volume 96.9 fl (80-94); Mean Platelet Volume 9.8 fL (7.4-10.4); Monocytes # 0.8 10^3/uL (0.2-0.9); Monocytes % 7.4 %; Neutrophils # 7.83 10^3/uL (1.8-7.7); Neutrophils % 71.9 %; Nucleated Red Blood Cells % 0 %; Platelet Count 241 10^3/cmm (130-400); Red Cell Distribution Width 13.4 % (12.1-15.1); White Blood Count 10.9 10^3/uL (4.0-10.0)
[2021-08-29] MEDS: metoprolol tartrate 25 mg Tablet 12.5 MG PO ×3 (01:07→21:01)
[2021-08-29 01:09] LABS: Troponin(5th) Baseline 11 ng/L (0-15)
--- NOTE | 2021-08-29 01:10 | CTR_ITS ---
PROCEDURE INFORMATION: Exam: CTA Chest With Contrast Exam date and time: 08/29/2021 1:59 AM Age: 66 years old Clinical indication: Shortness of breath; Prior surgery; Surgery type: Tracheostomy; Patient HX: Episode of svts with SOB. History of esophageal cancer. ; Additional info: Svt, cancer, assess for pe TECHNIQUE: Imaging protocol: Computed tomographic angiography of the chest with contrast. 3D rendering (Not supervised by radiologist): MIP and/or 3D reconstructed images were created by the technologist. Radiation optimization: All CT scans at this facility use at least one of these dose optimization techniques: automated exposure control; mA and/or kV adjustment per patient size (includes targeted exams where dose is matched to clinical indication); or iterative reconstruction. Contrast material: OMNI 350; Contrast volume: 64 ml; Contrast route: INTRAVENOUS (IV); COMPARISON: CR (CHEST, ) 08/29/2021 12:18 AM RADIATION DOSE METRICS: Total DLP (mGy-cm): 610.72 FINDINGS: Pulmonary arteries: Normal. No pulmonary emboli. Aorta: Unremarkable. No aortic aneurysm. No aortic dissection. Trachea: A tracheostomy is present. The tip terminates approximately 7.5 cm from the ariella. Lungs: There is a background of centrilobular emphysema and pulmonary fibrosis. There are tiny nodularity seen within the left hemithorax, the largest measuring 4.8 mm within the superior segment of the left lower lobe adjacent to the major fissure. These likely represent benign granulomas. There is a calcified granuloma present within the left lower lobe adjacent to the major fissure is well. Pleural spaces: Unremarkable. No pneumothorax. No pleural effusion. Heart: Unremarkable. No cardiomegaly. No pericardial effusion. Mediastinal space: There is pneumomediastinum seen. This finding could be related to the patient's history of esophageal cancer or secondary to the tracheostomy. Lymph nodes: Unremarkable. No enlarged lymph nodes. Bones/joints: Unremarkable. No acute fracture. Soft tissues: Subcutaneous gas densities are present in the neck base is bilaterally similar to those seen on the chest radiograph of the same date. CT/CT angio chest PE protcl [id number] IMPRESSION: 1. There is no evidence for pulmonary emboli. 2. Pneumomediastinum possibly related to the patient's esophageal cancer or perhaps secondary to the tracheostomy. 3. Subcutaneous emphysema seen in the neck base bilaterally again possibly related to the patient's tracheostomy. 4. Severe bullous emphysematous changes and pulmonary fibrosis seen. 5. Multiple small pulmonary nodularities seen in the left hemithorax, the largest measuring 4.8 mm. Fleischner Society follow up recommendations for incidental nodules are not indicated. Follow up per the patient's medical condition.
[2021-08-29 01:18] LABS: Alanine Aminotransferase 7 U/L (0-41); Albumin Level 4.1 g/dL (3.5-5.2); Alkaline Phosphatase 115 IU/L (40-130); Anion Gap 17.4 (5-19); Aspartate Amino Transferase 13 U/L (0-40); Blood Urea Nitrogen 6 mg/dL (8-23); Calcium 9.4 mg/dL (8.5-10.5); Carbon Dioxide 24 mmol/L (22-29); Chloride 100 mmol/L (98-107); Globulin 2.4 g/dL (1.3-4.6); Glucose 123 mg/dL (65-115); Magnesium 1.9 mg/dL (1.7-2.3); Osmolality Calculated 285 mOsm/kg (285-295); Potassium 3.4 mmol/L (3.5-5.1); Sodium 138 mmol/L (136-145); Thyroid Stimulating Hormone 5.57 uIU/mL (0.27-4.20); Total Bilirubin 0.5 mg/dL (0.15-1.2); Total Protein 6.5 g/dL (6.6-8.7)
[2021-08-29 01:19] LABS: Creatinine Clr Calc Pharmacy 99.6625
[2021-08-29] MEDS: iohexol 350 mg/mL 100 mL Btl IV (02:03)
[2021-08-29] MEDS: potassium chloride oral liq 20 mEq/15 mL UDC 40 MEQ PO (03:24)
[2021-08-29] MEDS: enoxaparin 40 mg/0.4 mL Syringe SUBCUT (03:24)
--- NOTE | 2021-08-29 03:30 | ECG_ITS ---
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 Measurements Intervals [place] Rate: 80 P: 73 MD: 173 QRS: 65 QRSD: 88 T: 67 QT: 369 QTc: 428 Interpretive Statements SINUS RHYTHM ANTEROSEPTAL MYOCARDIAL INFARCTION , OF INDETERMINATE AGE [40+ ms Q WAVE IN V1-V4] Compared to ECG 08/29/2021 00:09:32 Myocardial infarct finding now present Sinus tachycardia no longer present T-wave abnormality no longer present Electronically Signed On 08-30-2021 17:41:44 CDT by Nicci Montalvo M.D. [id number]
[2021-08-29 04:04] LABS: Troponin 5 2HR 11.47 ng/L (0-15)
[2021-08-29 04:16] LABS: Free T4 Free Thyroxine 1.54 ng/dL (0.82-1.77)
[2021-08-29] MEDS: famotidine 20 mg/2 mL INJ IVP ×2 (06:30→17:09)
--- NOTE | 2021-08-29 06:30 | ECG_ITS ---
[facility] Test Date: 2021-08-29 Pat Name: Nima Vallejo Department: Room: [facility]04 Gender: Male Log Roller: : 1955 Requested By: David Hauser Order Number: [id number] Reading MD: Nicci Montalvo M.D. Measurements Intervals [place] Rate: 73 P: 69 ID: [id number] QRS: 58 QRSD: 88 T: 63 QT: 377 QTc: 417 Interpretive Statements SINUS RHYTHM ANTEROSEPTAL MYOCARDIAL INFARCTION , OF INDETERMINATE AGE [40+ ms Q WAVE IN V1-V4] Compared to ECG 08/29/2021 03:30:45 No significant changes Electronically Signed On 08-30-2021 17:41:52 CDT by Nicci Montalvo M.D. [id number]
[2021-08-29 06:57] LABS: Troponin 5 6HR 9.93 ng/L (0-15)
[2021-08-29 07:42] LABS: Troponin 5 6HR Delta -1.07 ng/L (0-12)
[2021-08-29] MEDS: docusate sodium 100 mg Capsule PO ×2 (08:33→17:09)
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
[2021-08-29] MEDS: lactated ringers 1,000 ML 125 ML IV (08:34)
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
--- NOTE | 2021-08-29 10:42 | PC.NURSE ---
Nurse waited 1 hour after morning dose of metoprolol before getting patient up to a chair. Patient transferred well with minimal assistance. No tachycardia noted.
[2021-08-29] MEDS: HYDROcodone-acetaminophen 5-325 mg Tablet 1 TAB PO ×2 (11:28→21:02)
--- NOTE | 2021-08-29 12:29 | PM.PN ---
Subjective Subjective: Pt c/o of neck pain. Good BM today. Denies cp, pressure or trouble breathing. agrees to NH for a few weeks to recover. Vitals/I&O/Wt Last Vital Signs Temp 98.5 F 08/27/21 16:00 Pulse 79 08/29/21 05:27 Resp 18 08/29/21 00:39 BP 83/65 08/29/21 00:39 Pulse Ox 93 08/29/21 00:39 08/28/21 08/29/21 08/29/21 22:59 06:59 14:59 Intake Total 1421.25 / 2718.75 1062 / 3780.75 Output Total 1250 / 1550 250 / 1800 250 / 250 Balance 171.25 / 1168.75 812 / 1980.75 -250 / -250 Physical Exam Narrative: Thin white male seen sitting in chair in room. No acute distress. Neck: Trach in place with need for frequent suctioning. Heart: Normal S1-S2 without murmurs clicks gallops or rubs normal rate. Normal rhythm Lungs: Diminished breath sounds throughout Abdomen: Flat soft nontender nondistended positive bowel sounds Extremities: No clubbing cyanosis or edema Data : 08/29/21 00:24 08/29/21 00:24 A&P Assessment and plan (1) SVT (supraventricular tachycardia): treated with adenosine and given electrolyte replacement and started on low dose metoprolol. No further tachycardia. continue current medications and follow electrolytes. Will follow with you/ Status: Acute (2) Tracheostomy in place: Discussed with Dr. Santoyo from ENT. Patient will need [facility] for initial care of a fresh trach. Case management aware and working on placement. Status: Acute (3) Mass of throat: Per ENT. Status: Acute Plan Transfer to floor. Continue metoprolol and telemetry monitoring. We will check electrolytes again in a.m. Attestations Medical Necessity Statement*: new trachostomy, concern with acute respiratory failure or life threatening arryhmias. Coding Level of Care Code Acute Tool And Die Maker for [facility] Fwd Diagnoses SVT (supraventricular tachycardia) I47.[address] Z93.0 Mass of throat J39.2
[2021-08-29] MEDS: acetaminophen 325 mg Tablet 650 MG PO (17:08)
--- NOTE | 2021-08-29 18:06 | PC.NURSE ---
Addendum entered by Tigre Nash RN 08/29/21 18:09: Shift SUmmary: Uneventful shift. Patient was up to a chair for about 9 hours of the day. Ambulates well. Mostly needs help managing lines. VItals stayed within normal limits. NUrse cleaned trach using vinegar, q tips, and non fibrous gauze per Dr Clarke orders. Ne repeat episodes of SVT. Transferred patient to [facility] room [facility]. REport given to and patient received by Nurse Painter. Transport was uneventful. Nurse verified that patient had working suction at bedside before leaving room. Original Note: Shift SUmmary: Transferred patient to [facility] room 275. REport given to and patient received by Nurse Painter. Transport was uneventful. Nurse verified that patient had working suction at bedside.
--- NOTE | 2021-08-29 18:08 | PC.NURSE ---
NUrse attempted sebas call patient's brother, Felxi thanh, to update him. patient transferred to [facility]. no answer.
--- NOTE | 2021-08-29 19:09 | PC.NURSE ---
Report to Ania YOUNG at this time.
[2021-08-29] MEDS: quetiapine 100 mg Tablet PO (21:01)
[2021-08-29] MEDS: quetiapine 300 mg Tablet PO (21:01)
[2021-08-29] MEDS: donepezil 5 MG Tablet PO (21:01)
[2021-08-30] VITALS (12 sets, daily range): BP systolic 119–159; BP diastolic 72–85; PULSE 69–89; RESP 16–18; TEMP 36.7–37.3; O2SAT 91–96
[2021-08-30] MEDS: enoxaparin 40 mg/0.4 mL Syringe SUBCUT (04:11)
[2021-08-30] MEDS: HYDROcodone-acetaminophen 5-325 mg Tablet 1 TAB PO ×3 (04:16→17:54)
[2021-08-30 05:50] LABS: Anion Gap 12.3 (5-19); Blood Urea Nitrogen 11 mg/dL (8-23); Carbon Dioxide 28 mmol/L (22-29); Chloride 103 mmol/L (98-107); Glomerular Filtration Rate 165.4 mL/min (90-130); Glucose 106 mg/dL (65-115); Osmolality Calculated 290 mOsm/kg (285-295); Potassium 3.3 mmol/L (3.5-5.1); Sodium 140 mmol/L (136-145)
[2021-08-30 05:51] LABS: Creatinine Clr Calc Pharmacy 99.6625
--- NOTE | 2021-08-30 06:05 | PC.RESP ---
Trach care done at beginning of this RT's shift, around 2129- cleaned and replaced gauze as well as inspected inner cannula. Pt is on room air at this time with a Spo2 of 94%- at 0545, Ania YOUNG and I cleaned inner cannula as well as around trach. trach site at this time is clean and dry. little redness which is expected of a fairly new trach. both stitches are still in place. Inner Cannula gumming up on the inside. cleaned this and looked for a replacement of the inner cannula. Unable to find.Replaced inner cannula with no adverse reactions. placed the patient back on a heated air flow of 6l to thin the secretions for him to cough up more easily. We will continue to clean and keep dry. Patient very gracious with his trach care.
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
[2021-08-30] MEDS: metoprolol tartrate 25 mg Tablet 12.5 MG PO ×2 (08:21→20:51)
[2021-08-30] MEDS: docusate sodium 100 mg Capsule PO (08:21)
[2021-08-30] MEDS: acetaminophen 325 mg Tablet 650 MG PO (14:49)
[2021-08-30] MEDS: potassium chloride ER 20 mEq Tablet 40 MEQ PO (14:49)
--- NOTE | 2021-08-30 17:21 | PM.PN ---
Subjective Subjective: Doing OK Feels like he is having swallong issue at times. Mild neck discomfort Vitals/I&O/Wt Last Vital Signs Temp 98.4 F 08/30/21 16:00 Pulse 89 08/30/21 16:00 Resp 18 08/30/21 16:00 BP 119/72 08/30/21 16:00 Pulse Ox 94 08/30/21 16:00 08/30/21 08/30/21 08/30/21 06:59 14:59 22:59 Intake Total 480 / 480 Output Total 200 / 1050 225 / 225 Balance -200 / 670 255 / 255 Physical Exam Narrative: Thin white male seen sitting in chair in room.? No acute distress.? Neck: Trach in place with need for frequent suctioning. Heart: Normal S1-S2 without murmurs clicks gallops or rubs normal rate.? Normal rhythm Lungs: Diminished breath sounds throughout Abdomen: Flat soft nontender nondistended positive bowel sounds Extremities: No clubbing cyanosis or edema Data : 08/29/21 00:24 08/30/21 05:15 A&P Assessment and plan (1) SVT (supraventricular tachycardia): Rate controlled Probablly due to hypokalemia Status: Acute (2) Electrolyte abnormality: K 3.3 being corrected Status: Acute (3) Laryngeal mass: S/P Tracheostomy. 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 Will need SNF placement. Awaiting yransferand until the continue hospitalization Time Spent in Patient Care: 40 min Coding Level of Care Code Acute Assistant Property Manager for [facility] Fwd Diagnoses SVT (supraventricular tachycardia) I47.1 Electrolyte abnormality E87.8 Laryngeal mass J38.7
--- NOTE | 2021-08-30 18:24 | PC.NURSE ---
Trach care performed. Suctioned multiple times. Abram changed twice this shift due to thick secretions. Respiratory deep suctioned as needed. Patient encouraged and educated to suction self with mirror set up in room. Done multiple times by himself.
[2021-08-30 19:14] LABS: Anion Gap 13.9 (5-19); Blood Urea Nitrogen 12 mg/dL (8-23); Calcium 9.2 mg/dL (8.5-10.5); Carbon Dioxide 28 mmol/L (22-29); Chloride 102 mmol/L (98-107); Glomerular Filtration Rate 165.4 mL/min (90-130); Glucose 119 mg/dL (65-115); Osmolality Calculated 291 mOsm/kg (285-295); Potassium 3.9 mmol/L (3.5-5.1); Sodium 140 mmol/L (136-145)
[2021-08-30 19:15] LABS: Creatinine Clr Calc Pharmacy 99.6625
[2021-08-30] MEDS: quetiapine 100 mg Tablet PO (20:50)
[2021-08-30] MEDS: donepezil 5 MG Tablet PO (20:50)
[2021-08-30] MEDS: quetiapine 300 mg Tablet PO (20:50)
[2021-08-31] VITALS (11 sets, daily range): BP systolic 120–151; BP diastolic 58–85; PULSE 70–108; RESP 16–20; TEMP 36.4–36.9; O2SAT 90–96
[2021-08-31] MEDS: HYDROcodone-acetaminophen 5-325 mg Tablet 1 TAB PO ×3 (02:29→17:57)
[2021-08-31] MEDS: enoxaparin 40 mg/0.4 mL Syringe SUBCUT (03:31)
--- NOTE | 2021-08-31 04:55 | P.PN_ITS ---
Subjective Subjective: 66 yo wm who has an obstructing SCCA of the supraglottic larynx who is POD #5 s/p tracheotomy who is doing well from this standpoint. The patient has also had an episode of SVT and hypokalemia which the Hospitalist team has been managing. The patient reports that he is taking po well, and has no other c/o. Medications: Reviewed: Yes Vitals/I&O/Wt Last Vital Signs Temp 98.4 F 08/31/21 04:00 Pulse 108 H 08/31/21 04:00 Resp 17 08/31/21 04:00 BP 133/85 08/31/21 04:00 Pulse Ox 90 08/31/21 04:00 08/30/21 08/30/21 08/31/21 14:59 22:59 06:59 Intake Total 480 / 480 600 / 1080 Output Total 225 / 225 640 / 865 225 / 1090 Balance 255 / 255 -40 / 215 -225 / -10 Physical Exam Const: COMMON NORMALS: no acute distress and patient oriented x3 HENMT: COMMON NORMALS: normocephalic and atraumatic HEAD & SCALP: nor mocephalic and atraumatic FACE & SINUS: sinuses nontender and face symmetric Eye: COMMON NORMALS: EOMs intact bilaterally, conjunctivae normal and no scleral icterus CONJUNCTIVA: Yes conjunctivae normal Neck/C-Spine: COMMON NORMALS: no lymphadenopathy and supple GENERAL: Yes trachea midline, Yes tracheostomy present (Clean without erythema or discharge.) and Yes other Lymph: LYMPHATIC: no lymphadenopathy noted Chest: COMMONS NORMALS: normal inspection of the chest and normal palpation of entire chest wall Resp: COMMON NORMALS: normal respiratory effort, No retractions and clear to auscultation bilaterally AUSCULTATION: clear to auscultation bilaterally Cardio: COMMON NORMALS: regular rate, regular rhythm and No murmurs present (Cardio) RATE: regular rate RHYTHM: regular rhythm GI: COMMON NORMALS: Normal to inspection, nondistended, normoactive bowel sounds present Extremity: COMMON NORMALS: normal to inspection Neuro: COMMON NORMALS: patient oriented x3 Data : 08/29/21 00:24 08/30/21 18:36 Attestation for Other Data: I personally reviewed and interpreted the following: Other data: Surgical path report A&P Assessment and plan (1) Laryngeal mass: Impression Status: Acute (2) Electrolyte abnormality: Impression: Hypokalemia now resolved Plan: See Hospitalist's notes Status: Acute (3) Tracheostomy in place: Impression: POD #5 s/p tracheotomy doing well from this standpoint Plan: I will perform the first trach change tomorrow Status: Acute (4) SVT (supraventricular tachycardia): Impression: Stable Plan: See Hospitalists notes Status: Acute (5) Need for discharge planning: Impression: The patient will need a penitentiary facility after discharge that can care for a tracheotomy patient Plan: Social work evaluation pending Status: Acute Attestations Medical Necessity Statement*: The patient requires admission until airway is stable and his discharge planning is complete. Coding Level of Care Code Acute Bindery Assistant for Nereida Martinez Diagnoses Laryngeal mass J38.7 Electrolyte abnormality E87.[address] Z93.0 SVT (supraventricular tachycardia) I47.1 Need for discharge planning
[2021-08-31 05:45] LABS: Blood Urea Nitrogen 12 mg/dL (8-23); Calcium 9.1 mg/dL (8.5-10.5); Carbon Dioxide 23 mmol/L (22-29); Chloride 102 mmol/L (98-107); Glomerular Filtration Rate 213.9 mL/min (90-130); Glucose 103 mg/dL (65-115); Osmolality Calculated 284 mOsm/kg (285-295); Sodium 137 mmol/L (136-145)
[2021-08-31 05:51] LABS: Creatinine Clr Calc Pharmacy 99.6625
[2021-08-31 05:52] LABS: Anion Gap 15.5 (5-19); Potassium 3.5 mmol/L (3.5-5.1)
[2021-08-31] MEDS: metoprolol tartrate 25 mg Tablet 12.5 MG PO ×2 (07:52→20:56)
[2021-08-31] MEDS: docusate sodium 100 mg Capsule PO (07:52)
--- NOTE | 2021-08-31 10:21 | PC.CHAP ---
Pastoral Care Encounter/Spiritual Assessment Type of Contact [] Declined aerotriangulation specialist visit [] Patient/Family/Request visit [] Outpatient visit [] Follow-up visit [] Physician referral [] Code/Alert [x] Routine visit [] Staff referral [] Actively dying [] Patient sleeping [] Family support [] [] Out of room [] Palliative care [] [] Receiving care in room [] Pre-surgical visit [] Trauma [] Long length of stay [] ICU visit [] Other: Relational/Emotional Strength [] Patient feels connected with others/family/visitors/staff [] Distress [] Loneliness/isolation [] Abandonment Spirituality of Patient x] Person of Ivy [] Attends Mu-Ism of their Ivy [x] Believes in Prayer [] Reads Bible or Worship materials [] There are Spiritual issues to be addressed Artificial Flower Maker Interventions [x] Prayer [] Active listening [] Non-anxious presence [] Spiritual/emotional support [] Crisis/trauma care [] Spiritual counseling [] Bereavement support [] Provided bereavement packet [] Provided Bible/devotional materials [] Provided toy/stuffed animal, coloring book to patient or family member [] Provided Communion [] Anointing/[place] [] Salvation [x] Completed spiritual assessment [] Other: Impact on Illness or Injury [] Angry [] Fearful [] Anxious [] Often cries [] Exhaustion [] Unable to work [] Unable to attend yarsanism [] Unable to walk/stand [] Unable to read [] Unable to drive [] Unable to eat/drink [] Unable to sleep [] Unable to be with family [] Patient intubated [] Other: Summary Time spent with patient
[2021-08-31] MEDS: acetaminophen 325 mg Tablet 650 MG PO (12:42)
--- NOTE | 2021-08-31 13:42 | PM.PN ---
Subjective Subjective: Potassium was 3.5 Afebrile A lot of secretions noted through the PEG tube which patient has been suctioning He was asking if he will be able to talk or if he needs any further surgeries, I requested him to ask this question to the ENT surgeon We will give IV potassium Check magnesium level No signs of SVT on telemetry Heart rate has been in sinus rhythm 70 to 80s. Echo was not of optimal quality, septal hypokinesia, chest pain, troponin without significant delta Normal free T4 Vitals/I&O/Wt Last Vital Signs Temp 98.0 F 08/31/21 11:42 Pulse 84 08/31/21 11:42 Resp 16 08/31/21 11:42 BP 135/79 08/31/21 11:42 Pulse Ox 96 08/31/21 11:42 08/30/21 08/31/21 08/31/21 22:59 06:59 14:59 Intake Total 600 / 1080 100 / 1180 60 / 60 Output Total 640 / 865 425 / 1290 125 / 125 Balance -40 / 215 -325 / -110 -65 / -65 Physical Exam Narrative: Patient was sitting in a chair Currently on 6 L oxygen around his trach collar Dehydrated malnourished Water secretions noted through the trach tube Patient has been suctioning yellow mucoid secretions He has been writing in order to communicate No signs of edema Nonfocal neuro exam Brother at the bedside Lung auscultation :-diminished airflow bilaterally Data : 08/29/21 00:24 08/31/21 05:04 A&P Assessment and plan (1) Laryngeal mass: Status: Acute (2) Electrolyte abnormality: Status: Acute (3) Tracheostomy in place: Status: Acute (4) SVT (supraventricular tachycardia): Status: Acute (5) Mass of throat: Status: Acute (6) Encounter for Postoperative Care: Status: Acute (7) Need for discharge planning: Status: Acute (8) Alcohol use disorder, mild, in early remission, abuse: Status: Acute (9) Amphetamine use disorder, severe, in early remission, dependence: Status: Acute (10) BPH loc w urin obs/LUTS: Status: Acute Plan Poor quality echo Septal hypokinesia However no active chest pain, no significant delta troponin noted No recurrence of SVT Patient has remained in sinus rhythm Replenish potassium, check magnesium level Laryngeal mass status post tracheostomy, trach will be replaced tomorrow Appreciate speech therapy recommendation Patient is not full code, he does not want any chest compressions, defibrillation or intubation in case of any worsening he would likely choose comfort measures. Brother was at the bedside Awaiting placement Attestations Medical Necessity Statement*: Awaiting placement Time Spent in Patient Care: 20mins Coding Level of Care Code Acute Registered Respiratory Technician for [facility] Fwd Diagnoses Laryngeal mass J38.7 Electrolyte abnormality E87.[address] Z93.0 SVT (supraventricular tachycardia) I47.1 Mass of throat J39.2 Encounter for Postoperative Care Z48.89 Need for discharge planning Alcohol use disorder, mild, in early remission, abuse F10.11 Amphetamine use disorder, severe, in early remission, dependence F15.21 BPH loc w urin obs/LUTS N40.1
[2021-08-31] MEDS: lidocaine 1% 5 ML in potassium chloride premix 100 ML 25 ML IV (14:23)
[2021-08-31 14:43] LABS: Magnesium 1.8 mg/dL (1.7-2.3)
[2021-08-31] MEDS: donepezil 5 MG Tablet PO (20:56)
[2021-08-31] MEDS: quetiapine 300 mg Tablet PO (20:57)
[2021-09-01] VITALS (10 sets, daily range): BP systolic 112–160; BP diastolic 68–81; PULSE 75–117; RESP 15–19; TEMP 36.6–37.1; O2SAT 89–96
[2021-09-01] MEDS: enoxaparin 40 mg/0.4 mL Syringe SUBCUT (04:18)
--- NOTE | 2021-09-01 04:52 | P.PN_ITS ---
Subjective Subjective: 66 yo wm with an obstructing SCCA of the supraglottic larynx who is POD #6 s/p tracheotomy and DL with biopsy. The patient is doing well from this standpoint. There are no new c/o. He reports that he is taking po well. Medications: Reviewed: Yes Vitals/I&O/Wt Last Vital Signs Temp 97.8 F 09/01/21 04:00 Pulse 82 09/01/21 04:00 Resp 15 09/01/21 04:00 BP 112/69 09/01/21 04:00 Pulse Ox 90 09/01/21 04:00 08/31/21 08/31/21 09/01/21 14:59 22:59 06:59 Intake Total 180 / 180 240 / 420 Output Total 125 / 125 400 / 525 350 / 875 Balance 55 / 55 -160 / -105 -350 / -455 Physical Exam Const: COMMON NORMALS: no acute distress, patient oriented x3 and alert HENMT: COMMON NORMALS: normocephalic and atraumatic HEAD & SCALP: normocephalic and atraumatic FACE & SINUS: other (Facial exam unchanged.) Eye: COMMON NORMALS: EOMs intact bilaterally, conjunctivae normal and no scleral icterus CONJUNCTIVA: Yes conjunctivae normal Neck/C-Spine: COMMON NORMALS: no lymphadenopathy and supple GENERAL: Yes trachea midline and Yes tracheostomy present (Clean, without erythema or tenderness. ) Lymph: LYMPHATIC: no lymphadenopathy noted Chest: COMMONS NORMALS: normal inspection of the chest and normal palpation of entire chest wall Resp: COMMON NORMALS: normal respiratory effort Cardio: COMMON NORMALS: regular rate, regular rhythm and No murmurs present (Cardio) RATE: regular rate RHYTHM: regular rhythm GI: COMMON NORMALS: Normal to inspection, nondistended, normoactive bowel sounds present Extremity: COMMON NORMALS: normal to inspection Neuro: COMMON NORMALS: patient oriented x3 SENSORIUM/ORIENTATION: Yes alert Data : 08/29/21 00:24 08/31/21 05:04 A&P Assessment and plan (1) Laryngeal mass: Impression: Obstructing supraglottic SCCA Plan: - Will schedule a staging PET scan after discharge - The patient will need Radiation Oncology, HemeOncology, and Surgical Oncology evaluations after discharge - We will formulate a treatment plan once the above is complete Status: Acute (2) Tracheostomy in place: Impression: POD #6 s/p tracheotomy doing well Plan: First Trach change performed this morning without difficulty Status: Acute (3) Need for discharge planning: Impression: The patient is ready for discharge to a intermediate facility from a tracheotomy standpoint Plan: - D/C once the patient is placed Status: Acute (4) Electrolyte abnormality: Impression/Plan: See Hospitalists notes Status: Acute (5) SVT (supraventricular tachycardia): Impression: Stable Plan: See Hospitalists notes Status: Acute Attestations Medical Necessity Statement*: The patient requires inpatient care until his airway and medical issues are stable. Procedures Procedure Narrative First Tracheotomy Change: The patient's trach was removed and replaced with an uncuffed #8 Shiley with disposable inner cannula without difficulty. The patient tolerated the procedure well. Coding Level of Care Code Acute Pulverizer Feeder for Chg Fwd Diagnoses Laryngeal mass J38.[address] Z93.0 Need for discharge planning Electrolyte abnormality E87.8 SVT (supraventricular tachycardia) I47.1
--- NOTE | 2021-09-01 05:07 | PC.NURSE ---
SHIFT SUMMARY Has done well tonight. Continues to brig up quite a bit of thick secretions via trach. Pt uses [facility] and occ wants nurse to help him. Says hard to get secretions coughed up. Has denied pain. HAG per trach mask. Taking po well and likes coffee. Dr Clarke in this am and changed out trach. Pt tolerated well. He communicated bu mouthing words, writing notes and gestures. Is telling me this morning that he would like to go home with his brother. Enc him to discuss this with and health information managers.
[2021-09-01 06:00] LABS: Basophils % 0.6 %; Eosinophils # 0.1 10^3/uL (0.0-0.8); Eosinophils % 0.8 %; Hematocrit 38.7 % (42.0-52.0); Hemoglobin 13.3 g/dL (11.7-16.6); Lymphocytes # 1.2 10^3/uL (0.8-4.8); Lymphocytes % 17.1 %; Mean Corpuscular HGB Conc 34.4 g/dL (30.0-36.0); Mean Corpuscular Hemoglobin 32.8 pg (28.0-34.0); Mean Corpuscular Volume 95.3 fl (80-94); Mean Platelet Volume 10.1 fL (7.4-10.4); Monocytes % 13.8 %; Neutrophils # 4.88 10^3/uL (1.8-7.7); Neutrophils % 67.1 %; Nucleated Red Blood Cells % 0 %; Platelet Count 285 10^3/cmm (130-400); Red Blood Count 4.06 10^6/uL (4.1-5.3); Red Cell Distribution Width 13.5 % (12.1-15.1); White Blood Count 7.3 10^3/uL (4.0-10.0)
[2021-09-01 06:25] LABS: Anion Gap 16.7 (5-19); Blood Urea Nitrogen 10 mg/dL (8-23); Calcium 9.4 mg/dL (8.5-10.5); Carbon Dioxide 25 mmol/L (22-29); Chloride 98 mmol/L (98-107); Glomerular Filtration Rate 165.4 mL/min (90-130); Glucose 101 mg/dL (65-115); Osmolality Calculated 281 mOsm/kg (285-295); Potassium 3.7 mmol/L (3.5-5.1); Sodium 136 mmol/L (136-145)
[2021-09-01 06:28] LABS: Creatinine Clr Calc Pharmacy 99.6625
[2021-09-01] MEDS: metoprolol tartrate 25 mg Tablet 12.5 MG PO ×2 (08:28→20:10)
[2021-09-01] MEDS: docusate sodium 100 mg Capsule PO ×2 (08:28→17:32)
[2021-09-01] MEDS: HYDROcodone-acetaminophen 5-325 mg Tablet 1 TAB PO ×2 (08:28→17:32)
--- NOTE | 2021-09-01 11:55 | P.PN_ITS ---
Subjective Subjective: Case discussed with Dr. Clarke who is planning for outpatient PET scan and follow-up with oncologist after a week, for now we are looking for rehab with [facility] care Dr. Santoyo mentioned that thick secretions are normal after tracheostomy, he did not recommend long-term antibiotics Potassium and magnesium levels noted No recurrent SVT Patient is agreeable to go to rehab Vitals/I&O/Wt Last Vital Signs Temp 97.8 F 09/01/21 11:00 Pulse 75 09/01/21 11:00 Resp 18 09/01/21 11:00 BP 114/68 09/01/21 11:00 Pulse Ox 92 09/01/21 11:00 08/31/21 09/01/21 09/01/21 22:59 06:59 14:59 Intake Total 240 / 420 590 / 590 Output Total 400 / 525 650 / 1175 225 / 225 Balance -160 / -105 -650 / -755 365 / 365 Physical Exam Narrative: Patient was communicating via writing Lot of secretions noted in the trach which she has been suctioning He is not on oxygen Bilateral breath sounds diminished left lower than right Cachectic Malnourished No active respiratory distress Nonfocal neuro exam Dehydrated Malnourished Data : 09/01/21 05:11 09/01/21 05:11 A&P Assessment and plan (1) Need for discharge planning: Status: Acute (2) Laryngeal mass: Status: Acute (3) Electrolyte abnormality: Status: Acute (4) Tracheostomy in place: Status: Acute (5) SVT (supraventricular tachycardia): Status: Acute (6) Encounter for Postoperative Care: Status: Acute (7) Amphetamine use disorder, severe, in early remission, dependence: Status: Acute (8) Alcohol use disorder, mild, in early remission, abuse: Status: Acute (9) Malnourished: Status: Acute Plan Patient is awaiting rehab placement Is agreeable to go to the rehab No need to continue long-term antibiotics Secretions are normal as per the ENT surgeon Afebrile Potassium magnesium levels noted, no recurrence of SVT Continue metoprolol Patient's CODE STATUS has been changed to DNR/DNI, verified with the nurse today as well He will follow up with Dr. 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
[2021-09-01] MEDS: acetaminophen 325 mg Tablet 650 MG PO (13:11)
[2021-09-01] MEDS: magnesium oxide 400 mg tablet PO (17:32)
[2021-09-01] MEDS: ondansetron 2 mg/ML SDV 2 mL 4 MG IVP (20:09)
[2021-09-01] MEDS: quetiapine 300 mg Tablet PO (20:09)
[2021-09-01] MEDS: donepezil 5 MG Tablet PO (20:10)
--- NOTE | 2021-09-01 21:35 | XRR_ITS ---
PROCEDURE INFORMATION: Exam: XR Chest Exam date and time: 09/01/2021 9:43 PM Age: 66 years old Clinical indication: Other: Low o2; Prior surgery; Surgery date: 1-6 months; Additional info: SOB TECHNIQUE: Imaging protocol: XR of the chest. Views: 1 view. COMPARISON: CR (CHEST, ) 08/29/2021 12:18 AM FINDINGS: Tubes, catheters and devices: Stable tracheostomy tube. Lungs: Stable severe COPD . Pleural spaces: Unremarkable. No pleural effusion. No pneumothorax. Heart/Mediastinum: Unremarkable. No cardiomegaly. Bones/joints: Mild dextroscoliosis. XR/XR chest 1V portable [id number] IMPRESSION: 1. Stable tracheostomy tube. 2. Stable severe COPD .
--- NOTE | 2021-09-01 21:36 | ECG_ITS ---
[facility] Test Date: 2021-09-01 Pat Name: Nima Vallejo Department: Room: 275 Gender: Male Hired Hand: : 1955 Requested By: Jt Fair Order Number: [id number] Concepción MD: Nicci Montalvo M.D. Measurements Intervals [place] Rate: 121 P: 73 [place]: 140 QRS: 65 QRSD: 80 T: 74 QT: 335 QTc: 476 Interpretive Statements SINUS TACHYCARDIA NONSPECIFIC T-WAVE ABNORMALITY ABNORMAL RHYTHM ECG Compared to ECG 08/29/2021 06:12:13 T-wave abnormality now present Sinus rhythm no longer present Myocardial infarct finding no longer present Electronically Signed On 09-02-2021 19:15:48 CDT by Nicci Montalvo M.D. [id number]
--- NOTE | 2021-09-01 21:43 | PC.NURSE ---
Went to check on Mr. Vallejo and found him to have saturations at 77%. Woke him and encouraged him to cough. His saturations only came up to 82%. Notified RT as she came onto the floor. She was able to suction him, and placed him on 100% heated high flow. His saturations came up to 91%. Notified Dr. Fair and he ordered telemetry, Ekg, and chest x-ray.
[2021-09-01 22:26] LABS: Basophils # 0.1 10^3/uL (0.0-0.1); Basophils % 0.6 %; Eosinophils % 0.1 %; Hematocrit 38.3 % (42.0-52.0); Hemoglobin 13.3 g/dL (11.7-16.6); Lymphocytes # 0.6 10^3/uL (0.8-4.8); Mean Corpuscular HGB Conc 34.7 g/dL (30.0-36.0); Mean Corpuscular Hemoglobin 32.8 pg (28.0-34.0); Mean Corpuscular Volume 94.6 fl (80-94); Mean Platelet Volume 9.9 fL (7.4-10.4); Monocytes # 0.8 10^3/uL (0.2-0.9); Monocytes % 8.8 %; Neutrophils # 7.27 10^3/uL (1.8-7.7); Nucleated Red Blood Cells % 0 %; Platelet Count 286 10^3/cmm (130-400); Red Blood Count 4.05 10^6/uL (4.1-5.3); Red Cell Distribution Width 13.4 % (12.1-15.1); White Blood Count 8.8 10^3/uL (4.0-10.0)
[2021-09-01 22:28] LABS: ABG PCO2 41.3 mmHg (35-45); ABG PH Result 7.45 (7.35-7.45); Arterial Blood Gas Hematocrit 40.9 % (42-52); Base Excess ABG 4.3 mmol/L (-2.0-2.0); Blood Gas Allen Test Pos; Blood Gas Sample Site Radial, left; Blood Gas Sample Type Arterial; HCO3 ABG 28.7 mmol/L (22-26); Oxygen Device HAG; PO2 ABG 66.3 mmHg (80.0-100.0)
[2021-09-01 22:54] LABS: Troponin(5th) Baseline 14 ng/L (0-15)
[2021-09-01 22:58] LABS: NT Pro B Type Natriuretic Pept 146 pg/mL (0-125)
--- NOTE | 2021-09-01 23:36 | ECG_ITS ---
[facility] Test Date: 2021-09-02 Pat Name: Nima Vallejo Department: Room: 275 Gender: Male Technology Trainer: : 1955 Requested By: Jt Fair Order Number: [id number] Concepción MD: Nicci Montalvo M.D. Measurements Intervals [place] Rate: 123 P: 79 [place]: 116 QRS: 76 QRSD: 82 T: 75 QT: 337 QTc: 482 Interpretive Statements SINUS TACHYCARDIA WITH SHORT LA INTERVAL ABNORMAL RHYTHM ECG Compared to ECG 09/01/2021 21:41:19 Short LA interval now present T-wave abnormality no longer present Electronically Signed On 09-02-2021 19:27:39 CDT by Nicci Montalvo M.D. [id number]
[2021-09-02] VITALS (10 sets, daily range): BP systolic 102–126; BP diastolic 59–78; PULSE 82–121; RESP 14–22; TEMP 36.5–38.8; O2SAT 90–97
[2021-09-02] MEDS: enoxaparin 40 mg/0.4 mL Syringe SUBCUT (03:28)
--- NOTE | 2021-09-02 03:36 | ECG_ITS ---
[facility] Test Date: 2021-09-02 Pat Name: Nima Vallejo Department: Room: 275 Gender: Male Parts Counter Representative: : 1955 Requested By: Jt Fair Order Number: [id number] Concepción MD: Nicci Montalvo M.D. Measurements Intervals [place] Rate: 97 P: 85 TX: 155 QRS: 80 QRSD: 86 T: 88 QT: 337 QTc: 430 Interpretive Statements SINUS RHYTHM POSSIBLE RIGHT ATRIAL ENLARGEMENT [0.25mV P WAVE] POSSIBLE LEFT ATRIAL ENLARGEMENT [-0.1mV P WAVE IN V1/V2] There are a progression. Possible old septal WA Compared to ECG 09/02/2021 00:06:21 Sinus tachycardia no longer present Short TX interval no longer present Electronically Signed On 09-02-2021 19:28:39 CDT by Nicci Montalvo M.D. [id number]
[2021-09-02 04:37] LABS: Troponin 5 6HR 9.67 ng/L (0-15)
[2021-09-02 04:49] LABS: Troponin 5 6HR Delta -4.33 ng/L (0-12)
--- NOTE | 2021-09-02 08:37 | XRR_ITS ---
PROCEDURE INFORMATION: Exam: XR Chest Exam date and time: 09/02/2021 8:43 AM Age: 66 years old Clinical indication: Other: Hypoxia TECHNIQUE: Imaging protocol: XR of the chest. Views: 1 view. Total images: 2 COMPARISON: CR XR chest 1V portable [id number] 09/01/2021 9:43 PM FINDINGS: Tubes, catheters and devices: Tracheostomy tube in satisfactory location. Lungs: Hyperinflation with prominent interstitial markings suggesting COPD changes. Pleural spaces: Unremarkable. No pleural effusion. No pneumothorax. Heart/Mediastinum: Unremarkable. No cardiomegaly. Bones/joints: Unremarkable. Soft tissues: Subcutaneous emphysema present in the lower neck and left axilla similar to prior exam. XR/XR chest 1V portable [id number] IMPRESSION: 1. Hyperinflation with prominent interstitial markings suggesting COPD changes. 2. No acute cardiopulmonary process. 3. Subcutaneous emphysema present in the lower neck and left axilla similar to prior exam.
--- NOTE | 2021-09-02 08:58 | PM.PN ---
Subjective Subjective: Overnight events noted Currently patient is on 40% 10 L A lot of yellow thick mucoid secretions noted around the trach Crackles noted left lung base greater than right Repeated x-ray this morning Afebrile Added Augmentin Vitals/I&O/Wt Last Vital Signs Temp 98.2 F 09/02/21 08:00 Pulse 92 09/02/21 08:00 Resp 18 09/02/21 08:00 BP 120/73 09/02/21 08:00 Pulse Ox 97 09/02/21 08:00 09/01/21 09/02/21 09/02/21 22:59 06:59 14:59 Intake Total 240 / 830 Output Total 100 / 325 Balance 240 / 605 -100 / 505 Physical Exam Narrative: Patient is on oxygen now He was laying in his right lateral position Cachectic, malnourished Nonlabored breathing A lot of thick mucoid secretions around the trach collar Crackles noted at lung base left greater than right Soft abdomen Nonfocal neuro exam Data : 09/01/21 22:16 09/01/21 05:11 A&P Assessment and plan (1) Malnourished: Status: Acute (2) Need for discharge planning: Status: Acute (3) Laryngeal mass: Status: Acute (4) Electrolyte abnormality: Status: Acute (5) Tracheostomy in place: Status: Acute (6) SVT (supraventricular tachycardia): Status: Acute (7) Encounter for Postoperative Care: Status: Acute (8) Amphetamine use disorder, severe, in early remission, dependence: Status: Acute (9) Hypoxia: Status: Acute Plan Status post tracheostomy for laryngeal mass PET scan and radiation oncology follow-up outpatient Tracheostomy tube has been replaced by Dr. 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
[2021-09-02] MEDS: amoxicillin-clav 875-125 mg Tablet 1 TAB PO ×2 (09:40→18:04)
[2021-09-02] MEDS: HYDROcodone-acetaminophen 5-325 mg Tablet 1 TAB PO ×2 (09:41→18:02)
[2021-09-02] MEDS: magnesium oxide 400 mg tablet PO ×2 (09:41→18:04)
[2021-09-02] MEDS: metoprolol tartrate 25 mg Tablet 12.5 MG PO ×2 (09:41→20:04)
[2021-09-02] MEDS: docusate sodium 100 mg Capsule PO ×2 (09:41→18:03)
[2021-09-02] MEDS: potassium chloride ER 20 mEq Tablet PO (09:41)
--- NOTE | 2021-09-02 18:36 | ECG_ITS ---
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 Measurements Intervals [place] Rate: 96 P: -20 NC: 151 QRS: -20 QRSD: 89 T: -28 QT: 331 QTc: 420 Interpretive Statements SINUS RHYTHM INFERIOR MYOCARDIAL INFARCTION , OF INDETERMINATE AGE [40+ ms Q WAVE AND/OR ST/T ABNORMALITY IN II/aVF] Poor R wave progression Compared to ECG 09/02/2021 05:37:16 Myocardial infarct finding now present Electronically Signed On 09-02-2021 19:26:35 CDT by Nicci Montalvo M.D. [id number]
[2021-09-02] MEDS: donepezil 5 MG Tablet PO (20:04)
[2021-09-02] MEDS: acetaminophen 325 mg Tablet 650 MG PO (20:04)
[2021-09-02] MEDS: quetiapine 300 mg Tablet PO (20:04)
[2021-09-03] VITALS (11 sets, daily range): BP systolic 105–121; BP diastolic 62–82; PULSE 64–102; RESP 16–18; TEMP 36.3–37.4; O2SAT 90–98
[2021-09-03 03:15] LABS: Basophils # 0.1 10^3/uL (0.0-0.1); Basophils % 0.5 %; Eosinophils % 0.1 %; Hematocrit 38.4 % (42.0-52.0); Hemoglobin 13.1 g/dL (11.7-16.6); Lymphocytes # 1.2 10^3/uL (0.8-4.8); Lymphocytes % 12.6 %; Mean Corpuscular HGB Conc 34.1 g/dL (30.0-36.0); Mean Corpuscular Hemoglobin 32.3 pg (28.0-34.0); Mean Corpuscular Volume 94.8 fl (80-94); Mean Platelet Volume 9.6 fL (7.4-10.4); Monocytes # 1.2 10^3/uL (0.2-0.9); Monocytes % 13.1 %; Neutrophils # 6.67 10^3/uL (1.8-7.7); Neutrophils % 72.9 %; Nucleated Red Blood Cells % 0 %; Platelet Count 322 10^3/cmm (130-400); Red Blood Count 4.05 10^6/uL (4.1-5.3); Red Cell Distribution Width 13.6 % (12.1-15.1); White Blood Count 9.2 10^3/uL (4.0-10.0)
[2021-09-03 03:36] LABS: Anion Gap 15.4 (5-19); Blood Urea Nitrogen 20 mg/dL (8-23); Calcium 9.7 mg/dL (8.5-10.5); Carbon Dioxide 29 mmol/L (22-29); Chloride 97 mmol/L (98-107); Glucose 101 mg/dL (65-115); Osmolality Calculated 287 mOsm/kg (285-295); Potassium 4.4 mmol/L (3.5-5.1); Sodium 137 mmol/L (136-145)
[2021-09-03 03:37] LABS: Creatinine Clr Calc Pharmacy 99.6625
[2021-09-03] MEDS: enoxaparin 40 mg/0.4 mL Syringe SUBCUT (05:28)
--- NOTE | 2021-09-03 09:23 | PM.PN ---
Subjective Subjective: Patient is still requiring oxygen Thick mucoid secretions noted from the trach 10 L 30% Febrile episode Chest x-ray reviewed Vitals/I&O/Wt Last Vital Signs Temp 97.4 F L 09/03/21 07:37 Pulse 64 09/03/21 07:37 Resp 18 09/03/21 07:37 BP 108/62 09/03/21 07:37 Pulse Ox 98 09/03/21 07:37 09/02/21 09/03/21 09/03/21 22:59 06:59 14:59 Intake Total 50 / 50 240 / 240 Output Total 175 / 175 Balance 50 / 50 -175 / -125 240 / 240 Physical Exam Narrative: Cachectic malnourished early male He seems to show signs of depression He was laying in left lateral position Thick mucoid yellow secretions noted from trach collar Soft abdomen Looks dehydrated He did not communicate much today Not making eye contact Nonfocal neuro exam Does understand and follow commands appropriately Data : 09/03/21 02:59 09/03/21 02:59 A&P Assessment and plan (1) Hypoxia: Status: Acute (2) Malnourished: Status: Acute (3) Laryngeal mass: Status: Acute (4) SVT (supraventricular tachycardia): Status: Acute (5) Tracheostomy in place: Status: Acute (6) Electrolyte abnormality: Status: Acute (7) Alcohol use disorder, mild, in early remission, abuse: Status: Acute (8) Amphetamine use disorder, severe, in early remission, dependence: Status: Acute Plan Acute hypoxia Currently on 10 L, 30% Related to thick mucoid secretions around and inside PEG tube Needing frequent suctioning I have put him on Augmentin Febrile events noted X-ray did not show consolidation Concern for aspiration pneumonitis PET scan and radiation oncologist appointment outpatient Awaiting halfway placement Cachectic, malnourished, supplemental diet Signs of depression, add escitalopram DNR/DNI Attestations Medical Necessity Statement*: Awaiting placement Time Spent in Patient Care: 20min Coding Level of Care Code Acute Social Media Coordinator for Nereida Fwmega Diagnoses Hypoxia R09.02 Malnourished E46 Laryngeal mass J38.7 SVT (supraventricular tachycardia) I47.[address] Z93.0 Electrolyte abnormality E87.8 Alcohol use disorder, mild, in early remission, abuse F10.11 Amphetamine use disorder, severe, in early remission, dependence F15.21
[2021-09-03] MEDS: magnesium oxide 400 mg tablet PO ×2 (09:31→17:17)
[2021-09-03] MEDS: amoxicillin-clav 875-125 mg Tablet 1 TAB PO ×2 (09:31→17:17)
[2021-09-03] MEDS: docusate sodium 100 mg Capsule PO ×2 (09:32→17:17)
[2021-09-03] MEDS: escitalopram 10 mg Tablet 20 MG PO (09:37)
[2021-09-03] MEDS: HYDROcodone-acetaminophen 5-325 mg Tablet 1 TAB PO (11:33)
--- NOTE | 2021-09-03 18:53 | PC.NURSE ---
Patient AAOx4, sits up in bed and moves around independently. Trach has copious amount of thick secretions. Hag in place and patient re-educated to keep in place. Patient communicates with paper and pen. Patient tolerating soft mechanical diet and fluids with minimal aspiration. No new events during shift.
[2021-09-03] MEDS: acetaminophen 325 mg Tablet 650 MG PO (20:10)
[2021-09-03] MEDS: donepezil 5 MG Tablet PO (20:10)
[2021-09-03] MEDS: quetiapine 300 mg Tablet PO (20:10)
[2021-09-03] MEDS: metoprolol tartrate 25 mg Tablet 12.5 MG PO (20:10)
[2021-09-04] VITALS (13 sets, daily range): BP systolic 110–145; BP diastolic 73–92; PULSE 74–98; RESP 16–18; TEMP 36.7–36.9; O2SAT 90–96
[2021-09-04] MEDS: enoxaparin 40 mg/0.4 mL Syringe SUBCUT (04:58)
[2021-09-04] MEDS: acetaminophen 325 mg Tablet 650 MG PO ×3 (07:24→20:01)
[2021-09-04] MEDS: metoprolol tartrate 25 mg Tablet 12.5 MG PO (08:49)
--- NOTE | 2021-09-04 09:13 | PC.NURSE ---
Crushed all of patients morning medications after reviewing with patient, mixed them in applesauce and when returned to room patient refused all medications including IV medication.
--- NOTE | 2021-09-04 11:06 | P.PN_ITS ---
Subjective Subjective: No fever since 09/02 Currently on 8 L 30% Poor p.o. intake Refusing his p.o. meds He was asking for his cough medications Added Mucinex to Robitussin Vitals/I&O/Wt Last Vital Signs Temp 98.4 F 09/04/21 08:00 Pulse 98 09/04/21 09:37 Resp 17 09/04/21 09:37 BP 119/73 09/04/21 08:00 Pulse Ox 96 09/04/21 09:37 09/03/21 09/04/21 09/04/21 22:59 06:59 14:59 Intake Total 300 / 540 240 / 780 300 / 300 Output Total 180 / 180 200 / 380 Balance 120 / 360 40 / 400 300 / 300 Physical Exam Narrative: Patient laying in left lateral position Currently on 8 L, 30% Cachectic malnourished Dehydrated Thick mucoid secretions from trach Patient seems very depressed Nonfocal neuro exam Abdomen is soft No audible stridor, diminished airflow bilaterally Data : 09/03/21 02:59 09/03/21 02:59 A&P Assessment and plan (1) Hypoxia: Status: Acute (2) Malnourished: Status: Acute (3) Need for discharge planning: Status: Acute (4) Laryngeal mass: Status: Acute (5) Electrolyte abnormality: Status: Acute (6) Tracheostomy in place: Status: Acute (7) SVT (supraventricular tachycardia): Status: Acute (8) Alcohol use disorder, mild, in early remission, abuse: Status: Acute (9) Amphetamine use disorder, severe, in early remission, dependence: Status: Acute (10) Depression: Status: Acute Plan Laryngeal mass status post tracheostomy PET scan and radiation oncology appointment outpatient as per Dr. 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
[2021-09-04] MEDS: guaiFENesin-dextromethorphan UDC 10 mL 5 ML PO (13:09)
[2021-09-04] MEDS: HYDROcodone-acetaminophen 5-325 mg Tablet 1 TAB PO ×2 (13:10→20:01)
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
--- NOTE | 2021-09-04 18:31 | PC.NURSE ---
Patient AAOx4, displeased with current diet, physician will discuss with patient. Patient wants to walk the halls but still has HAG in place so compromised to walk in room. Still producing copious amounts of sputem through trach. C/o headache through out shift, refusing all medications but pain and cough. Will report to oncoming nurse.
[2021-09-04] MEDS: quetiapine 300 mg Tablet PO (20:01)
[2021-09-05] VITALS (11 sets, daily range): BP systolic 108–134; BP diastolic 58–76; PULSE 68–92; RESP 16–18; TEMP 36.7–36.8; O2SAT 90–97
--- NOTE | 2021-09-05 09:23 | P.PN_ITS ---
Subjective Subjective: Appreciate neuropsych evaluation He is stating that he does not like modification of his diet and he would like to take the risk of eating food that he wants, he does understand that there is risk of aspiration, choking and He is depressed, started antidepressants yesterday, will consider Remeron at night Currently on 10 L oxygen, 30% Vitals/I&O/Wt Last Vital Signs Temp 98.1 F 09/05/21 07:40 Pulse 80 09/05/21 08:45 Resp 16 09/05/21 08:45 BP 125/73 09/05/21 07:40 Pulse Ox 94 09/05/21 08:45 09/04/21 09/05/21 09/05/21 22:59 06:59 14:59 Intake Total 480 / 780 480 / 1260 480 / 480 Output Total 630 / 630 200 / 830 Balance -150 / 150 280 / 430 480 / 480 Physical Exam Narrative: She was laying comfortably in his bed Currently on oxygen 10 L, 30% Thick mucoid secretions around trach collar Cachectic, malnourished No active chest pain No audible stridor or wheezing Crackles and rhonchi No signs of edema Nonfocal neuro exam Is making eye contact today, slight improvement in his mood Data : 09/03/21 02:59 09/03/21 02:59 A&P Assessment and plan (1) Anxiety: Status: Acute (2) Depression: Status: Acute (3) Hypoxia: Status: Acute (4) Malnourished: Status: Acute (5) Need for discharge planning: Status: Acute (6) Laryngeal mass: Status: Acute (7) Electrolyte abnormality: Status: Acute (8) Tracheostomy in place: Status: Acute (9) SVT (supraventricular tachycardia): Status: Acute (10) Amphetamine use disorder, severe, in early remission, dependence: Status: Acute (11) Alcohol use disorder, mild, in early remission, abuse: Status: Acute Plan Laryngeal mass status post tracheostomy Patient has a lot of thick mucoid secretions around his trach collar He has not been suctioning frequently now, he stated that nurses should help him with suctioning His diet was modified because of risk of aspiration, he wants to take a chance and eat, he was told about the risk of aspiration, choking and cardiac arrest Nurse was updated I would continue Augmentin for now He has been afebrile Hypoxia related to thick secretions and aspiration pneumonitis Wean off oxygen Patient is awaiting placement Appreciate neuropsych evaluation Depression with anorexia Started Lexapro, will add mirtazapine Guarded prognosis Attestations 2 Medical Necessity Statement*: Continue medical management Time Spent in Patient Care: 20min Coding Level of Care Code Acute Automated Teller Manager for [facility] Fwd Diagnoses Anxiety F41.9 Depression F32.A Hypoxia R09.02 Malnourished E46 Need for discharge planning Laryngeal mass J38.7 Electrolyte abnormality E87.[address] Z93.0 SVT (supraventricular tachycardia) I47.1 Amphetamine use disorder, severe, in early remission, dependence F15.21 Alcohol use disorder, mild, in early remission, abuse F10.11
[2021-09-05] MEDS: guaiFENesin 600 mg Tablet PO ×2 (09:40→17:22)
[2021-09-05] MEDS: amoxicillin-clav 875-125 mg Tablet 1 TAB PO ×2 (09:40→17:22)
[2021-09-05] MEDS: escitalopram 10 mg Tablet 20 MG PO (09:40)
[2021-09-05] MEDS: acetaminophen 325 mg Tablet 650 MG PO ×2 (09:41→22:11)
--- NOTE | 2021-09-05 18:46 | W.PM.NPUPNS ---
Subjective NPU Subjective: Patient presents today reporting that he wants to know what his diagnosis is and we have a long discussion about the fact that no one is keeping information from him but that we are awaiting the pathology report. We discussed that soon as the doctor have the report back he would certainly talk to him about what they know and what the recommended treatment plan would be. He reports a lot of anxiety related to his situation which we both agreed is expected and that he is dealing with his mood being low. We discussed the recommendation of the Arsalan and Merle and he is trying to decide what path of action he wants to take. Mental Status Exam MSE Comments: This is a tall underweight appearing white male with signs of hughes around his face looking older than his stated age in a hospital gown with limited grooming but adequate eye contact. No abnormal movements. Cooperative with exam in mild distress. Speech was limited and normal rate but inaudible as he was not pushing air across his trach so he was more mouthing the words. Mood described as depressed and anxious, affect congruent. Thought process, organized. Thought content: patient denies any suicidal or homicidal ideation, no delusions reported or noted, and denies any auditory or visual hallucinations. Attention and concentration are intact and memory is reliable but none were formally tested. He is alert and oriented three times. Insight and judgment appear fair. Impulse control is limited. Vitals/I&O/Wt Last Vital Signs Temp 98.1 F 09/05/21 20:00 Pulse 89 09/05/21 20:00 Resp 17 09/05/21 20:00 BP 112/62 09/05/21 20:00 Pulse Ox 96 09/05/21 20:00 09/05/21 09/05/21 09/05/21 06:59 14:59 22:59 Intake Total 480 / 1260 600 / 600 480 / 1080 Output Total 200 / 830 Balance 280 / 430 600 / 600 480 / 1080 Data NPU : 09/03/21 02:59 09/03/21 02:59 A&P Assessment and plan (1) Anxiety: Status: Acute (2) Major depressive disorder, recurrent severe without psychotic features: Status: Chronic (3) Hypoxia: Status: Acute (4) Malnourished: Status: Acute (5) Need for discharge planning: Status: Acute (6) Laryngeal mass: Status: Acute (7) Electrolyte abnormality: Status: Acute (8) Tracheostomy in place: Status: Acute (9) SVT (supraventricular tachycardia): Status: Acute (10) Encounter for Postoperative Care: Status: Acute (11) Amphetamine use disorder, severe, in early remission, dependence: Status: Acute (12) Alcohol use disorder, mild, in early remission, abuse: Status: Acute (13) Cigarette nicotine dependence: Status: Acute Qualifiers: Substance use status: uncomplicated Qualified Code(s): F17.210 - Nicotine dependence, cigarettes, uncomplicated (14) Cannabis dependence: Status: Chronic Plan This is a 66 year old white male with a long history of alcohol dependence with significant nicotine/cigarette smoking history, depression and anxiety who presents with recent discovery of a lorengal mass in less than two weeks who presents recently having been of his medications but open to restarting those medications. Continue current medications. Lexapro is a fine medication to use for depression and anxiety. Will check back in tomorrow and possibly consider starting Buspar 15 mg twice a day for anxiety. If issues of appetite exist, could consider Remeron at bedtime to help with appetite. At this point there does not seem to be a need for inpatient psychiatric services, only a need to assist in him getting proper treatment for his malignancy but we will continue to monitor. Involuntary Hold Information 96 Hour Hold: 96 Hour Involuntary Admission: No 96 Hour Hold Ending Date: 08/22/19 96 Hour Hold Ending Time: 12:20 Attestations NPU Medical Necessity Statement*: N/A. Please see primary team note for medical necessity but we will follow to see whether there are any indications for need for inpatient geriatric psychiatric services. Coding Level of Care Code Acute Magnetic Resonance Technologist for g Fwd Diagnoses Anxiety F41.9 Major depressive disorder, recurrent severe without psychotic features F33.2 Hypoxia R09.02 Malnourished E46 Need for discharge planning Laryngeal mass J38.7 Electrolyte abnormality E87.[address] Z93.0 SVT (supraventricular tachycardia) I47.1 Encounter for Postoperative Care Z48.89 Amphetamine use disorder, severe, in early remission, dependence F15.21 Alcohol use disorder, mild, in early remission, abuse F10.11 Cigarette nicotine dependence F17.210 Substance use status: uncomplicated Cannabis dependence F12.20
[2021-09-05] MEDS: guaiFENesin-dextromethorphan UDC 10 mL 5 ML PO (19:34)
[2021-09-05] MEDS: quetiapine 300 mg Tablet PO (22:09)
[2021-09-05] MEDS: HYDROcodone-acetaminophen 5-325 mg Tablet 1 TAB PO (22:09)
[2021-09-05] MEDS: donepezil 5 MG Tablet PO (22:09)
[2021-09-06 04:00] VITALS: BP 127/76; RESP 18
[2021-09-06 07:40] VITALS: BP 110/74; PULSE 81; RESP 18; O2SAT 93
--- NOTE | 2021-09-06 10:43 | P.PN_ITS ---
Subjective Subjective: Patient is on 10 L oxygen Did not endorse new complaints I reinforced the importance of Augmentin today Vitals/I&O/Wt Last Vital Signs Temp 98.0 F 09/05/21 23:50 Pulse 81 09/06/21 07:40 Resp 18 09/06/21 07:40 BP 110/74 09/06/21 07:40 Pulse Ox 93 09/06/21 07:40 09/05/21 09/06/21 09/06/21 22:59 06:59 14:59 Intake Total 480 / 1080 340 / 1420 240 / 240 Output Total 200 / 200 640 / 840 Balance 280 / 880 -300 / 580 240 / 240 Physical Exam Narrative: Comfortably in his bed On 10 L oxygen No audible stridor or wheezing No signs of respiratory distress Dehydrated malnourished cachectic No signs of edema Nonfocal neuro exam Data : 09/03/21 02:59 09/03/21 02:59 A&P Assessment and plan (1) Anxiety: Status: Acute (2) Depression: Status: Acute (3) Hypoxia: Status: Acute (4) Malnourished: Status: Acute (5) Laryngeal mass: Status: Acute (6) Electrolyte abnormality: Status: Acute (7) Tracheostomy in place: Status: Acute (8) SVT (supraventricular tachycardia): Status: Acute (9) Amphetamine use disorder, severe, in early remission, dependence: Status: Acute (10) Alcohol use disorder, mild, in early remission, abuse: Status: Acute Plan laryngeal mass status post tracheostomy PET scan radiation oncology visit outpatient Augmentin for asp pnemonitis hypoxia related to above mentioned etiology Awaiting [facility] placement vs [facility] Added antideprrasants and mirtazapine DNR DNI ON DYSPHAGIA DIET : he has been eating solid food AMA Attestations Medical Necessity Statement*: NH placement Time Spent in Patient Care: 10mins Coding Level of Care Code Acute Skiver Box Toe for [facility] Fwd Diagnoses Anxiety F41.9 Depression F32.A Hypoxia R09.02 Malnourished E46 Laryngeal mass J38.7 Electrolyte abnormality E87.[address] Z93.0 SVT (supraventricular tachycardia) I47.1 Amphetamine use disorder, severe, in early remission, dependence F15.21 Alcohol use disorder, mild, in early remission, abuse F10.11
[2021-09-06] MEDS: HYDROcodone-acetaminophen 5-325 mg Tablet 1 TAB PO ×2 (10:53→16:04)
[2021-09-06] MEDS: escitalopram 10 mg Tablet 20 MG PO (10:54)
[2021-09-06] MEDS: guaiFENesin 600 mg Tablet PO ×2 (10:54→18:03)
[2021-09-06] MEDS: docusate sodium 100 mg Capsule PO ×2 (10:54→18:03)
[2021-09-06] MEDS: amoxicillin-clav 875-125 mg Tablet 1 TAB PO ×2 (10:55→18:03)
[2021-09-06 16:00] VITALS: BP 121/72; PULSE 86; RESP 18; TEMP 36.7; O2SAT 94
--- NOTE | 2021-09-06 16:05 | W.PM.NPUPNS ---
Subjective NPU Subjective: Patient presents today reporting that he is doing as well as can be expected. Still awaiting the news as to what the actual pathology report is. He reports he is feeling better and is taking the medications. He reports that he is prepared to deal with what ever the response is he does want to know and get a sense of what he needs to do now. He reports being in improved spirits. Mental Status Exam MSE Comments: This is a tall underweight appearing white male with signs of hughes around his face looking older than his stated age in a hospital gown with limited grooming but adequate eye contact. No abnormal movements. Cooperative with exam in no acute distress. Speech was limited and normal rate but inaudible as he was not pushing air across his trach so he was more mouthing the words. Mood described as better, affect congruent. Thought process, organized. Thought content: patient denies any suicidal or homicidal ideation, no delusions reported or noted, and denies any auditory or visual hallucinations. Attention and concentration are intact and memory is reliable but none were formally tested. He is alert and oriented three times. Insight and judgment appear fair. Impulse control is limited. Vitals/I&O/Wt Last Vital Signs Temp 98.1 F 09/06/21 16:00 Pulse 86 09/06/21 16:00 Resp 18 09/06/21 16:00 BP 121/72 09/06/21 16:00 Pulse Ox 94 09/06/21 16:00 09/06/21 14:59 Intake Total 480 / 480 Output Total Balance 480 / 480 Data NPU : 09/03/21 02:59 09/03/21 02:59 A&P Assessment and plan (1) Hypoxia: Status: Acute (2) Malnourished: Status: Acute (3) Need for discharge planning: Status: Acute (4) Laryngeal mass: Status: Acute (5) Electrolyte abnormality: Status: Acute (6) Tracheostomy in place: Status: Acute (7) SVT (supraventricular tachycardia): Status: Acute (8) Amphetamine use disorder, severe, in early remission, dependence: Status: Acute (9) Alcohol use disorder, mild, in early remission, abuse: Status: Acute (10) DDD (degenerative disc disease), lumbosacral: Status: Acute (11) Spinal stenosis, lumbar region, with neurogenic claudication: Status: Acute (12) 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: Status: Acute (13) BPH loc w urin obs/LUTS: Status: Acute (14) Major depressive disorder, recurrent severe without psychotic features: Status: Chronic (15) Prostate induration: Status: Acute (16) Cigarette nicotine dependence: Status: Acute Qualifiers: Substance use status: uncomplicated Qualified Code(s): F17.210 - Nicotine dependence, cigarettes, uncomplicated (17) Cannabis dependence: Status: Chronic (18) Anxiety: Status: Acute (19) Depression: Status: Acute Plan This is a 66 year old white male with a long history of alcohol dependence with significant nicotine/cigarette smoking history, depression and anxiety who presents with recent discovery of a laryngeal mass in the last two weeks and he had not been taking medications but open to restarting medications. Continue current medications. If anxiety increases or becomes an issue would consider BuSpar 15 mg twice daily currently appears his current regimen is working quite well with the Lexapro and Remeron. As well as the Seroquel at night. At this point there is no need for inpatient psychiatric services, only a need to assist in him getting proper treatment for his likely malignancy. We will sign off but feel free to reconsult if there is any issues. Involuntary Hold Information 96 Hour Hold: 96 Hour Involuntary Admission: No 96 Hour Hold Ending Date: 08/22/19 96 Hour Hold Ending Time: 12:20 Attestations NPU Medical Necessity Statement*: N/A. Please see primary team note for medical necessity. 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
[2021-09-06 20:00] VITALS: BP 119/64; PULSE 75; RESP 22; TEMP 36.4; O2SAT 94
[2021-09-06 21:04] VITALS: PULSE 73; O2SAT 93
[2021-09-06] MEDS: ipratropium-albuterol 3 mL Neb INHALATION (21:04)
[2021-09-06] MEDS: mirtazapine 15 mg Tablet 7.5 MG PO (21:13)
[2021-09-06] MEDS: quetiapine 300 mg Tablet PO (21:13)
[2021-09-06] MEDS: donepezil 5 MG Tablet PO (21:13)
[2021-09-06] MEDS: metoprolol tartrate 25 mg Tablet 12.5 MG PO (21:20)
[2021-09-06 22:00] VITALS: PULSE 76
[2021-09-07] VITALS (11 sets, daily range): BP systolic 87–129; BP diastolic 56–77; PULSE 62–75; RESP 17–23; TEMP 36.6–37.1; O2SAT 91–99
[2021-09-07] MEDS: enoxaparin 40 mg/0.4 mL Syringe SUBCUT (04:56)
[2021-09-07] MEDS: magnesium oxide 400 mg tablet PO ×2 (08:19→17:03)
[2021-09-07] MEDS: metoprolol tartrate 25 mg Tablet 12.5 MG PO ×2 (08:19→20:22)
[2021-09-07] MEDS: guaiFENesin 600 mg Tablet PO ×2 (08:19→17:03)
[2021-09-07] MEDS: HYDROcodone-acetaminophen 5-325 mg Tablet 1 TAB PO ×3 (08:19→18:09)
[2021-09-07] MEDS: amoxicillin-clav 875-125 mg Tablet 1 TAB PO ×2 (08:19→17:03)
[2021-09-07] MEDS: docusate sodium 100 mg Capsule PO ×2 (08:20→17:03)
[2021-09-07] MEDS: escitalopram 10 mg Tablet 20 MG PO (08:20)
--- NOTE | 2021-09-07 10:28 | PC.CHAP ---
Pastoral Care Encounter/Spiritual Assessment Type of Contact [] Declined factory engineer visit [] Patient/Family/Request visit [] Outpatient visit [] Follow-up visit [] Physician referral [] Code/Alert [x] Routine visit [] Staff referral [] Actively dying [] Patient sleeping [] Family support [] [] Out of room [] Palliative care [] [] Receiving care in room [] Pre-surgical visit [] Trauma [] Long length of stay [] ICU visit [] Other: Relational/Emotional Strength [x] Patient feels connected with others/family/visitors/staff [] Distress [] Loneliness/isolation [] Abandonment Spirituality of Patient [x] Person of Ivy [] Attends Christianity of their Ivy [x] Believes in Prayer [] Reads Bible or Baptism materials [] There are Spiritual issues to be addressed Process Artist Interventions [x] Prayer [] Active listening [] Non-anxious presence [] Spiritual/emotional support [] Crisis/trauma care [] Spiritual counseling [] Bereavement support [] Provided bereavement packet [] Provided Bible/devotional materials [] Provided toy/stuffed animal, coloring book to patient or family member [] Provided Communion [] Anointing/Dexter [] Salvation [x] Completed spiritual assessment [] Other: Impact on Illness or Injury [] Angry [] Fearful [] Anxious [] Often cries [] Exhaustion [] Unable to work [] Unable to attend jewish [] Unable to walk/stand [] Unable to read [] Unable to drive [] Unable to eat/drink [] Unable to sleep [] Unable to be with family [] Patient intubated [] Other: Summary patient doing much better Time spent with patient 15 min
--- NOTE | 2021-09-07 12:22 | PM.PN ---
Subjective Subjective: Patient was on 10 L this morning Hag collar No overnight events Tolerating his diet Vitals/I&O/Wt Last Vital Signs Temp 98.7 F 09/07/21 11:48 Pulse 67 09/07/21 11:48 Resp 17 09/07/21 11:48 BP 108/75 09/07/21 11:48 Pulse Ox 94 09/07/21 11:48 09/06/21 09/07/21 09/07/21 22:59 06:59 14:59 Intake Total 1420 / 1900 480 / 480 Output Total 300 / 300 1025 / 1325 Balance 1120 / 1600 -1025 / 575 480 / 480 Physical Exam Narrative: Cachectic malnourished male Tolerating his diet Dehydrated Bilateral breath sound with rhonchi No signs of edema EOMI, PERRLA Nonfocal neuro exam Data : 09/03/21 02:59 09/03/21 02:59 A&P Assessment and plan (1) Laryngeal mass: Status: Acute (2) Need for discharge planning: Status: Acute (3) Malnourished: Status: Acute (4) Hypoxia: Status: Acute (5) Depression: Status: Acute (6) Anxiety: Status: Acute (7) Electrolyte abnormality: Status: Acute (8) Tracheostomy in place: Status: Acute (9) SVT (supraventricular tachycardia): Status: Acute (10) Amphetamine use disorder, severe, in early remission, dependence: Status: Acute (11) Alcohol use disorder, mild, in early remission, abuse: Status: Acute Plan Laryngeal mass status post tracheostomy Outpatient PET scan radiation oncology appointment as per Dr. Santoyo SVT: No recurrence Electrolyte: Replenished Hypoxia related to aspiration pneumonitis, currently 10 L humidified mist collar No active signs of aspiration pneumonia Afebrile, Continue Augmentin Modified dysphagia diet Patient has been eating AGAINST MEDICAL ADVICE DNR/DNI Guarded prognosis Cachectic malnourished: Added mirtazapine to improve anorexia Attestations Medical Necessity Statement*: Awaiting placement Time Spent in Patient Care: 15min Coding Level of Care Code Acute Economic Development Specialist for Chg Fwd Diagnoses Laryngeal mass J38.7 Need for discharge planning Malnourished E46 Hypoxia R09.02 Depression F32.A Anxiety F41.9 Electrolyte abnormality E87.[address] Z93.0 SVT (supraventricular tachycardia) I47.1 Amphetamine use disorder, severe, in early remission, dependence F15.21 Alcohol use disorder, mild, in early remission, abuse F10.11
[2021-09-07] MEDS: quetiapine 300 mg Tablet PO (20:23)
[2021-09-07] MEDS: mirtazapine 15 mg Tablet 7.5 MG PO (20:23)
[2021-09-07] MEDS: donepezil 5 MG Tablet PO (20:23)
[2021-09-08] VITALS (12 sets, daily range): BP systolic 100–159; BP diastolic 62–92; PULSE 63–78; RESP 16–20; TEMP 36.3–36.9; O2SAT 90–97
[2021-09-08] MEDS: enoxaparin 40 mg/0.4 mL Syringe SUBCUT (03:33)
[2021-09-08] MEDS: guaiFENesin 600 mg Tablet PO ×2 (07:34→17:05)
[2021-09-08] MEDS: magnesium oxide 400 mg tablet PO (07:34)
[2021-09-08] MEDS: amoxicillin-clav 875-125 mg Tablet 1 TAB PO ×2 (07:34→17:05)
[2021-09-08] MEDS: docusate sodium 100 mg Capsule PO ×2 (07:34→17:05)
[2021-09-08] MEDS: metoprolol tartrate 25 mg Tablet 12.5 MG PO ×2 (07:34→20:37)
[2021-09-08] MEDS: escitalopram 10 mg Tablet 20 MG PO (07:34)
[2021-09-08] MEDS: HYDROcodone-acetaminophen 5-325 mg Tablet 1 TAB PO ×2 (11:40→20:35)
--- NOTE | 2021-09-08 12:07 | PM.PN ---
Subjective Subjective: Family was present at the bedside Did discuss results of biopsy, but was asking about the staging of the cancer I told them about the PET scan, which would be done outpatient Vitals/I&O/Wt Last Vital Signs Temp 97.9 F 09/08/21 11:15 Pulse 63 09/08/21 11:15 Resp 17 09/08/21 11:15 BP 100/62 09/08/21 11:15 Pulse Ox 93 09/08/21 11:15 09/07/21 09/08/21 09/08/21 22:59 06:59 14:59 Intake Total 1200 / 2160 480 / 480 Output Total 700 / 950 675 / 1625 Balance 500 / 1210 -675 / 535 480 / 480 Physical Exam Narrative: Patient is on room air today Much more awake alert and in good spirits Mild mucoid discharge from tracheostomy No signs of respiratory distress Cachectic, malnourished Abdomen is soft Data : 09/03/21 02:59 09/03/21 02:59 A&P Assessment and plan (1) Depression: Status: Acute (2) Hypoxia: Status: Acute (3) Malnourished: Status: Acute (4) Laryngeal mass: Status: Acute (5) Electrolyte abnormality: Status: Acute (6) Tracheostomy in place: Status: Acute (7) SVT (supraventricular tachycardia): Status: Acute Plan Laryngeal mass status post tracheostomy 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 Santoyo's plan He is on room air today Not requiring oxygen Hypoxia: Resolved Aspiration pneumonitis: Improving Thick mucoid yellow discharge still present Afebrile I did discuss with him whether he wants to go home however brother is planning to leave for about 10 days and he will not be home, for now [facility] not [facility] as he is now requiring oxygen, case making machine operator updated, will try to look into other facilities if not her last resort will be to discharge him home after adequate teaching to his brother regarding trach care Attestations Medical Necessity Statement*: Awaiting placement Time Spent in Patient Care: 20mins Coding Level of Care Code Acute Stockroom Inventory Clerk for g Fwd Diagnoses Depression F32.A Hypoxia R09.02 Malnourished E46 Laryngeal mass J38.7 Electrolyte abnormality E87.[address] Z93.0 SVT (supraventricular tachycardia) I47.1
[2021-09-08] MEDS: acetaminophen 325 mg Tablet 650 MG PO (19:07)
[2021-09-08] MEDS: quetiapine 300 mg Tablet PO (20:33)
[2021-09-08] MEDS: donepezil 5 MG Tablet PO (20:35)
[2021-09-08] MEDS: mirtazapine 15 mg Tablet 7.5 MG PO (20:36)
[2021-09-09] VITALS (11 sets, daily range): BP systolic 104–133; BP diastolic 56–84; PULSE 62–93; RESP 15–18; TEMP 36.3–36.8; O2SAT 91–96
[2021-09-09] MEDS: enoxaparin 40 mg/0.4 mL Syringe SUBCUT (03:13)
--- NOTE | 2021-09-09 04:51 | PC.RESP ---
Please note patient has been on room air since TuesdaySeptember 04- Patient currently on 6l heated air flow meter with trach shield.
[2021-09-09] MEDS: metoprolol tartrate 25 mg Tablet 12.5 MG PO ×2 (07:53→20:36)
[2021-09-09] MEDS: guaiFENesin 600 mg Tablet PO ×2 (07:53→16:51)
[2021-09-09] MEDS: amoxicillin-clav 875-125 mg Tablet 1 TAB PO ×2 (07:53→16:50)
[2021-09-09] MEDS: escitalopram 10 mg Tablet 20 MG PO (07:53)
[2021-09-09] MEDS: magnesium oxide 400 mg tablet PO ×2 (07:53→16:51)
[2021-09-09] MEDS: docusate sodium 100 mg Capsule PO (07:54)
[2021-09-09] MEDS: thiamine 100 mg Tablet PO (07:54)
[2021-09-09] MEDS: HYDROcodone-acetaminophen 5-325 mg Tablet 1 TAB PO (09:09)
--- NOTE | 2021-09-09 09:11 | P.PN_ITS ---
Subjective Subjective: This morning patient is on 6 L of oxygen which is 21% room air Not endorsing new complaints Awaiting placement Secretions from trach decreasing Vitals/I&O/Wt Last Vital Signs Temp 97.3 F L 09/09/21 08:00 Pulse 73 09/09/21 08:00 Resp 18 09/09/21 08:00 BP 131/69 09/09/21 08:00 Pulse Ox 91 09/09/21 08:00 09/08/21 09/09/21 09/09/21 22:59 06:59 14:59 Intake Total 480 / 1440 480 / 1920 200 / 200 Output Total 700 / 700 500 / 1200 200 / 200 Balance -220 / 740 -20 / 720 0 / 0 Physical Exam Narrative: Patient was comfortable in his bed On 6 L oxygen which is at room air Cachectic malnourished EOMI, PERRLA Nonfocal neuro exam No audible stridor or wheezing No respiratory distress Abdomen soft Data : 09/03/21 02:59 09/03/21 02:59 A&P Assessment and plan (1) Anxiety: Status: Acute (2) Depression: Status: Acute (3) Hypoxia: Status: Acute (4) Malnourished: Status: Acute (5) Need for discharge planning: Status: Acute (6) Laryngeal mass: Status: Acute (7) Electrolyte abnormality: Status: Acute (8) Tracheostomy in place: Status: Acute (9) SVT (supraventricular tachycardia): Status: Acute (10) Alcohol use disorder, mild, in early remission, abuse: Status: Acute (11) Amphetamine use disorder, severe, in early remission, dependence: Status: Acute Plan 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 Clarke. His brother is leaving [facility] for about 10 days, meanwhile will try to find another facility, if nothing could be arranged, will try to educate his brother for trach care and appropriate suctioning, otherwise there is a plan to do PET scan outpatient & follow-up with radiation oncologist as per Dr. Clarke ENT surgeon GI soft diet DVT prophylaxis Lovenox I have kept him on Mucinex and mucolytic's For anorexia continue Remeron Seroquel at nighttime can be continued SVT resolved Attestations Medical Necessity Statement*: Continue medical management Time Spent in Patient Care: 20mins Coding Level of Care Code Acute Instructional Technology Coach for Chg Fwd Diagnoses Anxiety F41.9 Depression F32.A Hypoxia R09.02 Malnourished E46 Need for discharge planning Laryngeal mass J38.7 Electrolyte abnormality E87.[address] Z93.0 SVT (supraventricular tachycardia) I47.1 Alcohol use disorder, mild, in early remission, abuse F10.11 Amphetamine use disorder, severe, in early remission, dependence F15.21
[2021-09-09] MEDS: acetaminophen 325 mg Tablet 650 MG PO (19:49)
[2021-09-09] MEDS: mirtazapine 15 mg Tablet 7.5 MG PO (20:36)
[2021-09-09] MEDS: donepezil 5 MG Tablet PO (20:36)
[2021-09-09] MEDS: quetiapine 300 mg Tablet PO (20:36)
[2021-09-10] VITALS (13 sets, daily range): BP systolic 97–144; BP diastolic 58–79; PULSE 63–75; RESP 16–19; TEMP 36.4–36.8; O2SAT 91–94
[2021-09-10] MEDS: enoxaparin 40 mg/0.4 mL Syringe SUBCUT (03:36)
--- NOTE | 2021-09-10 07:30 | PC.NURSE ---
patient laying in bed with eyes closed at this time. call light and personal items reach.
[2021-09-10] MEDS: ipratropium-albuterol 3 mL Neb INHALATION ×2 (07:44→13:52)
[2021-09-10] MEDS: docusate sodium 100 mg Capsule PO (08:53)
[2021-09-10] MEDS: escitalopram 10 mg Tablet 20 MG PO (08:53)
[2021-09-10] MEDS: magnesium oxide 400 mg tablet PO ×2 (08:53→17:43)
[2021-09-10] MEDS: thiamine 100 mg Tablet PO (08:53)
[2021-09-10] MEDS: guaiFENesin 600 mg Tablet PO ×2 (08:53→17:43)
[2021-09-10] MEDS: metoprolol tartrate 25 mg Tablet 12.5 MG PO (09:00)
--- NOTE | 2021-09-10 12:07 | P.PN_ITS ---
Subjective Subjective: Overnight events noted, C. difficile positive, started p.o. vancomycin Patient currently on room air 21% with 6 L of oxygen Vitals/I&O/Wt Last Vital Signs Temp 98.0 F 09/10/21 11:28 Pulse 75 09/10/21 11:28 Resp 16 09/10/21 11:28 BP 110/70 09/10/21 11:28 Pulse Ox 92 09/10/21 11:28 09/09/21 09/10/21 09/10/21 22:59 06:59 14:59 Intake Total 1080 / 1520 760 / 2280 Output Total 1000 / 1400 700 / 2100 Balance 80 / 120 60 / 180 Physical Exam Narrative: Cuffless size 8 trach Secretions noted Diminished breath sounds Cachectic malnourished Dehydrated Awake and alert Nonfocal neuro exam No active chest pain Abdomen soft Data : 09/03/21 02:59 09/03/21 02:59 Micro: Microbiology 09/09/21 16:58 C.difficile Toxin B Gene (PCR) - Final Stool Routine Collection A&P Assessment and plan (1) Depression: Status: Acute (2) Malnourished: Status: Acute (3) Need for discharge planning: Status: Acute (4) Laryngeal mass: Status: Acute (5) Electrolyte abnormality: Status: Acute (6) Tracheostomy in place: Status: Acute (7) SVT (supraventricular tachycardia): Status: Acute (8) Amphetamine use disorder, severe, in early remission, dependence: Status: Acute (9) Alcohol use disorder, mild, in early remission, abuse: Status: Acute (10) C. difficile diarrhea: Status: Acute Plan C. difficile diarrhea like related to Augmentin that was used for aspiration pneumonitis Currently on room air at 6 L Secretions noted from tracheostomy Patient is not endorsing any pain Continue antidepressant and mirtazapine P.o. 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 difficile diarrhea A04.72
[2021-09-10] MEDS: HYDROcodone-acetaminophen 5-325 mg Tablet 1 TAB PO (20:45)
[2021-09-10] MEDS: mirtazapine 15 mg Tablet 7.5 MG PO (20:45)
[2021-09-10] MEDS: quetiapine 300 mg Tablet PO (20:45)
[2021-09-10] MEDS: donepezil 5 MG Tablet PO (20:45)
[2021-09-11] VITALS (9 sets, daily range): BP systolic 96–152; BP diastolic 47–84; PULSE 63–92; RESP 16–20; TEMP 36.4–37.1; O2SAT 92–94
[2021-09-11 03:45] LABS: Basophils # 0.1 10^3/uL (0.0-0.1); Basophils % 0.7 %; Eosinophils # 0.2 10^3/uL (0.0-0.8); Eosinophils % 2.3 %; Hematocrit 36.6 % (42.0-52.0); Hemoglobin 12.2 g/dL (11.7-16.6); Lymphocytes # 3.1 10^3/uL (0.8-4.8); Lymphocytes % 41.5 %; Mean Corpuscular HGB Conc 33.3 g/dL (30.0-36.0); Mean Corpuscular Hemoglobin 32.5 pg (28.0-34.0); Mean Corpuscular Volume 97.6 fl (80-94); Mean Platelet Volume 9.7 fL (7.4-10.4); Monocytes # 0.8 10^3/uL (0.2-0.9); Monocytes % 11.2 %; Neutrophils # 3.15 10^3/uL (1.8-7.7); Neutrophils % 42.3 %; Nucleated Red Blood Cells % 0 %; Platelet Count 536 10^3/cmm (130-400); Red Blood Count 3.75 10^6/uL (4.1-5.3); Red Cell Distribution Width 13.6 % (12.1-15.1); White Blood Count 7.4 10^3/uL (4.0-10.0)
[2021-09-11 04:14] LABS: Anion Gap 12.9 (5-19); Blood Urea Nitrogen 14 mg/dL (8-23); Calcium 9.4 mg/dL (8.5-10.5); Carbon Dioxide 26 mmol/L (22-29); Chloride 101 mmol/L (98-107); Creatinine Clr Calc Pharmacy 99.6625; Glomerular Filtration Rate 165.4 mL/min (90-130); Glucose 93 mg/dL (65-115); Magnesium 2.2 mg/dL (1.7-2.3); Osmolality Calculated 282 mOsm/kg (285-295); Potassium 3.9 mmol/L (3.5-5.1); Sodium 136 mmol/L (136-145)
[2021-09-11] MEDS: enoxaparin 40 mg/0.4 mL Syringe SUBCUT (04:39)
--- NOTE | 2021-09-11 07:15 | PC.NURSE ---
Patient laying on right side resting in bed with eyes closed. Report gave by HANNAH Zarate. Bed locked and in lowest position. Will continue plan of care.
[2021-09-11] MEDS: escitalopram 10 mg Tablet 20 MG PO (08:37)
[2021-09-11] MEDS: guaiFENesin 600 mg Tablet PO ×2 (08:37→17:25)
[2021-09-11] MEDS: magnesium oxide 400 mg tablet PO ×2 (08:37→17:25)
[2021-09-11] MEDS: thiamine 100 mg Tablet PO (08:37)
[2021-09-11] MEDS: metoprolol tartrate 25 mg Tablet 12.5 MG PO ×2 (08:40→20:48)
[2021-09-11] MEDS: HYDROcodone-acetaminophen 5-325 mg Tablet 1 TAB PO ×2 (11:27→20:47)
--- NOTE | 2021-09-11 13:23 | PM.PN ---
Subjective Subjective: Had multiple family meetings today Second meeting was done in presence of Delphine I tried to call PET executive coordinator but my request was denied because patient is inpatient and they can do PET scan while he is inpatient, this was conveyed to the family, PET executive coordinator was also able to speak with his [id number] We are still struggling to find him a placement and family is upset about it This morning he is on room air I also called Dr. Clarke, he is in [place], he is planning to see him over the weekend as well Vitals/I&O/Wt Last Vital Signs Temp 97.5 F L 09/11/21 11:11 Pulse 92 09/11/21 11:11 Resp 17 09/11/21 11:11 BP 110/67 09/11/21 11:11 Pulse Ox 94 09/11/21 11:11 09/10/21 09/11/21 09/11/21 22:59 06:59 14:59 Intake Total 1050 / 1650 600 / 2250 240 / 240 Output Total 2100 / 2100 500 / 2600 400 / 400 Balance -1050 / -450 100 / -350 -160 / -160 Physical Exam Narrative: Patient is very upset, he wants to get the PET scan done inpatient however we are not able to schedule him for that for now Cuffless trach size 8 Thick secretions still noted He has been doing frequent suctioning Cachectic, malnourished Dehydrated Able to make his needs known Awake and alert Nonfocal neuro exam Abdomen is soft Data : 09/11/21 02:40 09/11/21 02:40 A&P Assessment and plan (1) C. difficile diarrhea: Status: Acute (2) Anxiety: Status: Acute (3) Depression: Status: Acute (4) Malnourished: Status: Acute (5) Need for discharge planning: Status: Acute (6) Laryngeal mass: Status: Acute (7) Electrolyte abnormality: Status: Acute (8) Tracheostomy in place: Status: Acute (9) SVT (supraventricular tachycardia): Status: Acute Plan Hypoxia: Improved Discontinued antibiotics C. difficile diarrhea: Currently on p.o. vancomycin Multiple family meetings conducted today restaurant service manager updated I tried my best however failed to schedule PET scan while he is in the hospital Dr. Clarke nodified, his plan to see him over the weekend Modified diet DNR/DNI GI soft diet DVT prophylaxis Lovenox Seroquel and mirtazapine at bedtime Continue Ativan B1 Attestations Medical Necessity Statement*: Awaiting placement Time Spent in Patient Care: 40mins Coding Level of Care Code Acute Coffee Machine Technician for Chg Fwd Diagnoses C. difficile diarrhea A04.72 Anxiety F41.9 Depression F32.A Malnourished E46 Need for discharge planning Laryngeal mass J38.7 Electrolyte abnormality E87.[address] Z93.0 SVT (supraventricular tachycardia) I47.1
[2021-09-11] MEDS: donepezil 5 MG Tablet PO (20:48)
[2021-09-11] MEDS: mirtazapine 15 mg Tablet 7.5 MG PO (20:48)
[2021-09-11] MEDS: quetiapine 300 mg Tablet PO (20:48)
[2021-09-12] VITALS (13 sets, daily range): BP systolic 107–126; BP diastolic 57–79; PULSE 62–78; RESP 16–24; TEMP 36.3–36.7; O2SAT 92–95
[2021-09-12] MEDS: enoxaparin 40 mg/0.4 mL Syringe SUBCUT (04:14)
[2021-09-12] MEDS: escitalopram 10 mg Tablet 20 MG PO (10:00)
[2021-09-12] MEDS: magnesium oxide 400 mg tablet PO ×2 (10:01→17:41)
[2021-09-12] MEDS: thiamine 100 mg Tablet PO (10:02)
[2021-09-12] MEDS: metoprolol tartrate 25 mg Tablet 12.5 MG PO ×2 (10:02→21:00)
[2021-09-12] MEDS: guaiFENesin 600 mg Tablet PO ×2 (10:04→17:40)
[2021-09-12] MEDS: docusate sodium 100 mg Capsule PO (10:05)
--- NOTE | 2021-09-12 11:34 | P.PN_ITS ---
Subjective Subjective: Had a detailed family meeting as case consultant to speak with the family as well Mr. Vallejo has been feeling very motivated and improved, he is happy with his voicebox Continue p.o. vancomycin Brother will not be able to take him home until 09/28 until the will keep trying to find him in a skilled nursing, case consultant has tried [facility] as well We will try [facility] programs in [place] Vitals/I&O/Wt Last Vital Signs Temp 97.4 F L 09/12/21 09:01 Pulse 70 09/12/21 11:30 Resp 16 09/12/21 11:30 BP 107/57 09/12/21 09:01 Pulse Ox 95 09/12/21 11:30 09/11/21 09/12/21 09/12/21 22:59 06:59 14:59 Intake Total 3210 / 3930 1070 / 5000 Output Total 2685 / 3085 1350 / 4435 250 / 250 Balance 525 / 845 -280 / 565 -250 / -250 Physical Exam Narrative: Patient is doing well on cachectic, malnourished Tolerating diet No active secretions noted through trach today Patient is awake and alert very motivated and pleasant Awake and alert Nonfocal neuro exam Abdomen is soft GCS 15 10 L 30% FiO2 Data : 09/11/21 02:40 09/11/21 02:40 A&P Assessment and plan (1) C. 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 difficile diarrhea continue p.o. vancomycin finish 10-day regimen Multiple family meetings conducted in the last 48 hours Continue antidepressants and mirtazapine for anorexia related to depression Patient is stating that he will need high dose of Ativan as he is very claustrophobic and would not tolerate any CT scan or PET scan without any medication Dr. Santoyo planning to see him over this weekend call or contact centre manager updated DNR/DNI Attestations Medical Necessity Statement*: Continue medical management continue medical management Time Spent in Patient Care: 30mins Coding Level of Care Code Acute Blade Aligner for Chg Fwd Diagnoses C. difficile diarrhea A04.72 Anxiety F41.9 Depression F32.A Hypoxia R09.02 Malnourished E46 Need for discharge planning Laryngeal mass J38.7 Electrolyte abnormality E87.[address] Z93.0 SVT (supraventricular tachycardia) I47.1 Amphetamine use disorder, severe, in early remission, dependence F15.21 Alcohol use disorder, mild, in early remission, abuse F10.11
--- NOTE | 2021-09-12 15:48 | PC.RESP ---
Attempted to educate pt on self trach care. Pt unwilling and resistant to any and all education attempts. He states I just can't/won't do it. I want to go somewhere there will be someone to do it for me I tried multiple attempts and did his trach care.
[2021-09-12] MEDS: quetiapine 300 mg Tablet PO (21:00)
[2021-09-12] MEDS: donepezil 5 MG Tablet PO (21:01)
[2021-09-12] MEDS: acetaminophen 325 mg Tablet 650 MG PO (21:01)
[2021-09-12] MEDS: mirtazapine 15 mg Tablet 7.5 MG PO (21:01)
[2021-09-12] MEDS: guaiFENesin-dextromethorphan UDC 10 mL 5 ML PO (21:04)
[2021-09-13] VITALS (10 sets, daily range): BP systolic 111–132; BP diastolic 64–77; PULSE 65–80; RESP 16–20; TEMP 36.4–36.7; O2SAT 94–96
[2021-09-13] MEDS: enoxaparin 40 mg/0.4 mL Syringe SUBCUT (04:15)
--- NOTE | 2021-09-13 08:40 | PM.PN ---
Subjective Subjective: 66 yo wm who underwent tracheotomy and Direct laryngoscopy on 08/26/21 for an obstructing T4 N0 M0 SCCA of the larynx. The patient is admitted awaiting placement. The patient has developed SVT and C. Diff enterocolitis during this admission. He is without c/o. Medications: Reviewed: Yes Vitals/I&O/Wt Last Vital Signs Temp 97.8 F 09/13/21 08:00 Pulse 76 09/13/21 08:00 Resp 18 09/13/21 08:00 BP 112/74 09/13/21 08:00 Pulse Ox 96 09/13/21 08:00 09/12/21 09/13/21 09/13/21 22:59 06:59 14:59 Intake Total 1230 / 1463 Output Total 975 / 1825 550 / 2375 Balance 255 / -362 -550 / -912 Physical Exam Const: COMMON NORMALS: no acute distress and healthy appearing GENERAL APPEARANCE: cooperative HENMT: COMMON NORMALS: normocephalic and atraumatic HEAD & SCALP: normocephalic and atraumatic FACE & SINUS: other (Facial exam unchanged.) MOUTH: Normal oral and palatal mucosa present Eye: COMMON NORMALS: EOMs intact bilaterally, conjunctivae normal and no scleral icterus GENERAL EYE: appearance normal, both eyes and all related structures CONJUNCTIVA: Yes conjunctivae normal SCLERA: sclerae normal Neck/C-Spine: COMMON NORMALS: no lymphadenopathy GENERAL: Yes trachea midline and Yes tracheostomy present (Trach site healing well without erythema. ) Data : 09/11/21 02:40 09/11/21 02:40 A&P Assessment and plan (1) Laryngeal mass: Status: Acute Attestations Medical Necessity Statement*: I was asked to follow the patient's tracheotomy Coding Level of Care Code Acute Energy Efficiency Specialist for [facility] Diagnoses Laryngeal mass J38.7
[2021-09-13] MEDS: metoprolol tartrate 25 mg Tablet 12.5 MG PO ×2 (09:08→20:41)
[2021-09-13] MEDS: guaiFENesin 600 mg Tablet PO ×2 (09:08→18:20)
[2021-09-13] MEDS: thiamine 100 mg Tablet PO (09:10)
[2021-09-13] MEDS: escitalopram 10 mg Tablet 20 MG PO (09:10)
[2021-09-13] MEDS: magnesium oxide 400 mg tablet PO ×2 (09:11→18:20)
--- NOTE | 2021-09-13 13:17 | PM.PN ---
Subjective Subjective: No overnight events, this morning he was watching television Able to tolerate his diet He is stating that his diarrhea has improved to some extent As per the nursing staff it is not liquid anymore We had extensive discussion in last 48 hours in presence of patient case manager, his brother and [id number] Dr. Clarke evaluated him today, I will go ahead and obtain CT scan of spine, chest abdomen pelvis before PET scan outpatient Vitals/I&O/Wt Last Vital Signs Temp 97.8 F 09/13/21 08:00 Pulse 77 09/13/21 12:13 Resp 16 09/13/21 12:13 BP 112/74 09/13/21 08:00 Pulse Ox 96 09/13/21 12:13 09/12/21 09/13/21 09/13/21 22:59 06:59 14:59 Intake Total 1230 / 1463 240 / 240 Output Total 975 / 1825 550 / 2375 600 / 600 Balance 255 / -362 -550 / -912 -360 / -360 Physical Exam Narrative: Patient is cooperative and pleasant Saturating well on 21% FiO2 Diminished breath sounds No crackles Malnourished Cachectic No abdominal pain C. difficile diarrhea improving Nonfocal neuro exam No active secretions noted at trach Data : 09/11/21 02:40 09/11/21 02:40 A&P Assessment and plan (1) C. difficile diarrhea: Status: Acute (2) Depression: Status: Acute (3) Hypoxia: Status: Acute (4) Malnourished: Status: Acute (5) Need for discharge planning: Status: Acute (6) Laryngeal mass: Status: Acute (7) Electrolyte abnormality: Status: Acute (8) Tracheostomy in place: Status: Acute (9) SVT (supraventricular tachycardia): Status: Acute Plan Laryngeal mass, invasive squamous cell cancer status post tracheostomy T4 N0 M0 Awaiting outpatient PET scan I will go ahead and do CT chest abdomen pelvis and C-spine ENT surgeon recommendations reviewed Patient has been able to walk down the sales as per the nursing staff, currently he is on 21% FiO2 Secretions have decreased in quantity, he developed aspiration pneumonitis, he was given Augmentin which caused C. difficile diarrhea, For C. difficile diarrhea he has to finish 10 days of p.o. vancomycin Multiple family meetings conducted in last 48 hours Currently we have tried multiple facilities but we are on able to get him accepted at this point unfortunately, if he keeps making good progress, able to ambulate without assistance, he might not need rehab, we do understand that his brother is leaving for 10 days and he is scared that he will not do well if we leave him alone, case assembler are diligently working on this case, we did try 20+ facilities, no one has accepted him yet, family want people to take care of him until they are back 09/28, I did tell the family that if he is not doing well then I am not going to discharge him from the hospital, we will keep trying to look for another facility, if nothing else works out then living with his brother will be his only option No recurrence of SVT Attestations Medical Necessity Statement*: Awaiting placement Time Spent in Patient Care: 30mins Coding Level of Care Code Acute Weather Strip Installer for g Fwd Diagnoses C. difficile diarrhea A04.72 Depression F32.A Hypoxia R09.02 Malnourished E46 Need for discharge planning Laryngeal mass J38.7 Electrolyte abnormality E87.[address] Z93.0 SVT (supraventricular tachycardia) I47.1
--- NOTE | 2021-09-13 13:19 | CTR_ITS ---
PROCEDURE INFORMATION: Exam: CT Thoracic Spine Without Contrast Exam date and time: 09/13/2021 5:43 PM Age: 66 years old Clinical indication: Mass, lump or swelling; Prior surgery; Surgery date: 1-6 months; Surgery type: Trach; Patient HX: Squamous cell CA - larynx; Additional info: Cancer TECHNIQUE: Imaging protocol: Computed tomography images of the thoracic spine without contrast. Radiation optimization: All CT scans at this facility use at least one of these dose optimization techniques: automated exposure control; mA and/or kV adjustment per patient size (includes targeted exams where dose is matched to clinical indication); or iterative reconstruction. COMPARISON: CT cervical spin wo con* [id number] 09/13/2021 5:40 PM RADIATION DOSE METRICS: Total DLP (mGy-cm): 1353.38 FINDINGS: Vertebrae: No acute fracture. Normal alignment. T1-T2: No significant disc protrusion. No severe spinal canal stenosis. No significant neural foraminal narrowing. T2-T3: No significant disc protrusion. No severe spinal canal stenosis. No significant neural foraminal narrowing. T3-T4: No significant disc protrusion. No severe spinal canal stenosis. No significant neural foraminal narrowing. T4-T5: No significant disc protrusion. No severe spinal canal stenosis. No significant neural foraminal narrowing. T5-T6: No significant disc protrusion. No severe spinal canal stenosis. No significant neural foraminal narrowing. T6-T7: No significant disc protrusion. No severe spinal canal stenosis. No significant neural foraminal narrowing. T7-T8: No significant disc protrusion. No severe spinal canal stenosis. No significant neural foraminal narrowing. T8-T9: No significant disc protrusion. No severe spinal canal stenosis. No significant neural foraminal narrowing. T9-T10: No significant disc protrusion. No severe spinal canal stenosis. No significant neural foraminal narrowing. T10-T11: No significant disc protrusion. No severe spinal canal stenosis. No significant neural foraminal narrowing. T11-T12: No significant disc protrusion. No severe spinal canal stenosis. No significant neural foraminal narrowing. T12-L1: No significant disc protrusion. No severe spinal canal stenosis. No significant neural foraminal narrowing. Other findings: Emphysematous changes. Biapical pleuroparenchymal scarring. CT/CT thoracic spin wo con* [id number] IMPRESSION: Negative for focal bony abnormality, consider further evaluation with whole body nuclear medicine bone scan if concern for metastatic disease exists.
--- NOTE | 2021-09-13 13:19 | CTR_ITS ---
PROCEDURE INFORMATION: Exam: CT Cervical Spine Without Contrast Exam date and time: 09/13/2021 5:40 PM Age: 66 years old Clinical indication: Mass, lump or swelling in neck; Prior surgery; Surgery date: 1-6 months; Surgery type: Trach; Patient HX: Squamous cell CA - larynx; Additional info: Cancer mets TECHNIQUE: Imaging protocol: Computed tomography images of the cervical spine without contrast. Radiation optimization: All CT scans at this facility use at least one of these dose optimization techniques: automated exposure control; mA and/or kV adjustment per patient size (includes targeted exams where dose is matched to clinical indication); or iterative reconstruction. COMPARISON: CT neck w con* [id number] 08/24/2021 10:38 AM RADIATION DOSE METRICS: Total DLP (mGy-cm): 392.85 FINDINGS: Tubes, catheters and devices: Tracheostomy tube partially visualized. Vertebrae: Mild kyphosis of the cervical spine may be related to positioning or muscle spasm. C2-C3: No significant disc protrusion. No severe spinal canal stenosis. No significant neural foraminal narrowing. C3-C4: No significant disc protrusion. No severe spinal canal stenosis. No significant neural foraminal narrowing. C4-C5: No significant disc protrusion. No severe spinal canal stenosis. No significant neural foraminal narrowing. C5-C6: No significant disc protrusion. No severe spinal canal stenosis. No significant neural foraminal narrowing. C6-C7: No significant disc protrusion. No severe spinal canal stenosis. No significant neural foraminal narrowing. C7-T1: No significant disc protrusion. No severe spinal canal stenosis. No significant neural foraminal narrowing. Soft tissues: Unremarkable. Lungs: Biapical pleuroparenchymal scarring partially visualized. CT/CT cervical spin wo con* [id number] IMPRESSION: 1. Negative for fracture or dislocation. 2. Mild kyphosis of the cervical spine may be related to positioning or muscle spasm. 3. Tracheostomy tube partially visualized. 4. Biapical pleuroparenchymal scarring partially visualized.
--- NOTE | 2021-09-13 14:44 | CTR_ITS ---
PROCEDURE INFORMATION: Exam: CT Chest Without Contrast; Diagnostic Exam date and time: 09/13/2021 5:46 PM Age: 66 years old Clinical indication: Abnormal findings; Abnormal lab test; Other abnormal tumor markers; Abnormal diagnostic tests; Prior surgery; Surgery date: 1-6 months; Surgery type: Trach; Patient HX: Squamous cell CA - larynx - ? mets; Additional info: Cancer TECHNIQUE: Imaging protocol: Diagnostic computed tomography of the chest without contrast. Radiation optimization: All CT scans at this facility use at least one of these dose optimization techniques: automated exposure control; mA and/or kV adjustment per patient size (includes targeted exams where dose is matched to clinical indication); or iterative reconstruction. COMPARISON: 1. CT angio chest PE protcl [id number] 08/29/2021 1:[address] thoracic spin wo con* [id number] 09/13/2021 5:43 PM RADIATION DOSE METRICS: Total DLP (mGy-cm): 1200.95 FINDINGS: Tubes, catheters and devices: Tracheostomy tube. Lungs: Emphysematous changes. Biapical pleuroparenchymal scarring. Pleural spaces: Unremarkable. No pneumothorax. No pleural effusion. Heart: Coronary artery atherosclerotic calcifications. Aorta: Unremarkable. No aortic aneurysm. Lymph nodes: Unremarkable. No enlarged lymph nodes. Bones/joints: Unremarkable. No acute fracture. Soft tissues: Unremarkable. PROCEDURE INFORMATION: Exam: CT Abdomen And Pelvis Without Contrast Exam date and time: 09/13/2021 5:46 PM Age: 66 years old Clinical indication: Abnormal findings; Abnormal lab test; Other abnormal tumor markers; Abnormal diagnostic tests; Prior surgery; Surgery date: 1-6 months; Surgery type: Trach; Patient HX: Squamous cell CA - larynx - ? mets; Additional info: Cancer TECHNIQUE: Imaging protocol: Computed tomography of the abdomen and pelvis without contrast. Radiation optimization: All CT scans at this facility use at least one of these dose optimization techniques: automated exposure control; mA and/or kV adjustment per patient size (includes targeted exams where dose is matched to clinical indication); or iterative reconstruction. COMPARISON: 1. CT angio chest PE protcl [id number] 08/29/2021 1:[address] thoracic spin wo con* [id number] 09/13/2021 5:43 PM RADIATION DOSE METRICS: Total DLP (mGy-cm): 1200.95 FINDINGS: Liver: Normal. No mass. Gallbladder and bile ducts: Normal. No calcified stones. No ductal dilation. Pancreas: Normal. No ductal dilation. Spleen: Normal. No splenomegaly. Adrenal glands: Normal. No mass. Kidneys and ureters: Normal. No hydronephrosis. Stomach and bowel: Unremarkable. No obstruction. No mucosal thickening. Appendix: No evidence of appendicitis. Intraperitoneal space: Unremarkable. No free air. No significant fluid collection. Vasculature: Infrarenal fusiform abdominal aortic aneurysm measuring 2.4 cm without findings of rupture. Lymph nodes: Unremarkable. No enlarged lymph nodes. Urinary bladder: Urinary bladder wall thickening may reflect sequelae of chronic outflow obstruction or partial nondistention. Reproductive: Prostate gland enlarged. Bones/joints: Unremarkable. No acute fracture. Soft tissues: Unremarkable. CT/CT chest abd pel wo con IMPRESSION: 1. Emphysematous changes. 2. Biapical pleuroparenchymal scarring. 3. Coronary artery atherosclerotic calcifications. IMPRESSION: 1. Negative for focal mass lesion or concerning adenopathy. 2. Prostate gland enlarged. 3. Urinary bladder wall thickening may reflect sequelae of chronic outflow obstruction or partial nondistention. 4. Infrarenal fusiform abdominal aortic aneurysm measuring 2.4 cm without findings of rupture.
[2021-09-13] MEDS: LORazepam 0.5 mg Tablet PO (16:11)
[2021-09-13] MEDS: quetiapine 300 mg Tablet PO (20:41)
[2021-09-13] MEDS: mirtazapine 15 mg Tablet 7.5 MG PO (20:41)
[2021-09-13] MEDS: donepezil 5 MG Tablet PO (20:41)
[2021-09-13] MEDS: guaiFENesin-dextromethorphan UDC 10 mL 5 ML PO (20:42)
[2021-09-13] MEDS: acetaminophen 325 mg Tablet 650 MG PO (20:42)
[2021-09-14] VITALS (9 sets, daily range): BP systolic 108–128; BP diastolic 62–71; PULSE 67–88; RESP 17–18; TEMP 36.6–36.9; O2SAT 92–97
[2021-09-14] MEDS: enoxaparin 40 mg/0.4 mL Syringe SUBCUT (04:21)
[2021-09-14] MEDS: magnesium oxide 400 mg tablet PO ×2 (08:42→17:20)
[2021-09-14] MEDS: guaiFENesin 600 mg Tablet PO ×2 (08:42→17:20)
[2021-09-14] MEDS: escitalopram 10 mg Tablet 20 MG PO (08:42)
[2021-09-14] MEDS: thiamine 100 mg Tablet PO (08:42)
[2021-09-14] MEDS: metoprolol tartrate 25 mg Tablet 12.5 MG PO ×2 (08:42→20:09)
--- NOTE | 2021-09-14 09:18 | P.PN_ITS ---
Subjective Subjective: CT scan findings were reviewed and Dr. Santoyo updated ENT surgeon recommended transfer to higher level of center/tertiary care for laryngectomy as there is concerned that laryngeal mass invasive squamous cell cancer will get worse if you are not able to place him anywhere and not complete the work-up He has recommended laryngectomy , will need ENT oncology I called him this morning, Dr. Santoyo will get back to me after talking to his colleague in [place] Vitals/I&O/Wt Last Vital Signs Temp 98.5 F 09/14/21 07:26 Pulse 76 09/14/21 08:50 Resp 18 09/14/21 08:50 BP 124/64 09/14/21 07:26 Pulse Ox 92 09/14/21 08:50 09/13/21 09/14/21 09/14/21 22:59 06:59 14:59 Intake Total 120 / 600 Output Total 180 / 780 560 / 1340 400 / 400 Balance -60 / -180 -560 / -740 -400 / -400 Physical Exam Narrative: Patient is laying comfortably in his bed Saturating well on 21% FiO2 Secretions are minimal Abdomen soft Malnourished cachectic No overnight events Abdomen soft No signs of edema Pleasant during my evaluation Nonfocal neuro exam Data : 09/11/21 02:40 09/11/21 02:40 A&P Assessment and plan (1) C. 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 Santoyo will speak to his colleague today and let me know We did talk about his CT scan findings today Patient is on room air C. difficile diarrhea, diarrhea is getting better, to finish 10 days of p.o. vancomycin Avoid any p.o. antibiotics Aspiration pneumonitis: Hypoxia resolved DNR/DNI Dysphagia diet Attestations Medical Necessity Statement*: Will arrange transfer Time Spent in Patient Care: 15mins Coding Level of Care Code Acute Blender Machine Operator for g Fwd Diagnoses C. difficile diarrhea A04.72 Anxiety F41.9 Depression F32.A Hypoxia R09.02 Malnourished E46 Need for discharge planning Laryngeal mass J38.7 Electrolyte abnormality E87.[address] Z93.0 SVT (supraventricular tachycardia) I47.1 Amphetamine use disorder, severe, in early remission, dependence F15.21
[2021-09-14] MEDS: HYDROcodone-acetaminophen 5-325 mg Tablet 1 TAB PO (13:07)
--- NOTE | 2021-09-14 15:33 | PC.NURSE ---
Patient vitals stable. Trach care done by RN. Patient suctioned multiple times this shift. Pain meds given once. Still awaiting placement for patient. Will continue to monitor and give report to night nurse.
[2021-09-14] MEDS: acetaminophen 325 mg Tablet 650 MG PO (19:05)
[2021-09-14] MEDS: mirtazapine 15 mg Tablet 7.5 MG PO (20:07)
[2021-09-14] MEDS: donepezil 5 MG Tablet PO (20:07)
[2021-09-14] MEDS: quetiapine 300 mg Tablet PO (20:07)
[2021-09-15] VITALS (8 sets, daily range): BP systolic 98–147; BP diastolic 59–84; PULSE 59–100; RESP 16–20; TEMP 36.4–36.7; O2SAT 91–97
[2021-09-15] MEDS: enoxaparin 40 mg/0.4 mL Syringe SUBCUT (04:04)
[2021-09-15] MEDS: escitalopram 10 mg Tablet 20 MG PO (08:34)
[2021-09-15] MEDS: guaiFENesin 600 mg Tablet PO ×2 (08:34→17:24)
[2021-09-15] MEDS: magnesium oxide 400 mg tablet PO ×2 (08:34→17:24)
[2021-09-15] MEDS: thiamine 100 mg Tablet PO (08:34)
[2021-09-15] MEDS: metoprolol tartrate 25 mg Tablet 12.5 MG PO ×2 (08:34→21:37)
--- NOTE | 2021-09-15 08:39 | PC.PT ---
Discharge PT Evaluation Order D/T patient viewed by multiple PT and Nursing staff transferring and ambulating safely and independently without difficulty.
--- NOTE | 2021-09-15 10:48 | P.PN_ITS ---
Subjective Subjective: 66 yo wm with an obstructing laryngeal/BOT SCCA who underwent tracheotomy and direct laryngoscopy with biopsy on 08/26/21. The patient has been admitted since that time with post d/c placement having been an issue. The patient is without c/o. Medications: Reviewed: Yes Vitals/I&O/Wt Last Vital Signs Temp 97.8 F 09/15/21 08:00 Pulse 74 09/15/21 08:21 Resp 17 09/15/21 08:21 BP 103/64 09/15/21 08:00 Pulse Ox 96 09/15/21 08:21 09/14/21 09/15/21 09/15/21 22:59 06:59 14:59 Intake Total 960 / 960 Output Total 1360 / 1760 1700 / 3460 Balance -400 / -800 -1700 / -2500 Physical Exam Const: COMMON NORMALS: no acute distress and healthy appearing HENMT: COMMON NORMALS: normocephalic and atraumatic HEAD & SCALP: normocephalic and atraumatic FACE & SINUS: other (Facial exam unchanged.) MOUTH: Normal oral and palatal mucosa present Eye: EYELID: eyelids normal Neck/C-Spine: COMMON NORMALS: no lymphadenopathy and Thyroid normal GENERAL: Yes trachea midline and Yes tracheostomy present (Trach site is healing well without erythema. ) THYROID: Thyroid normal Data : 09/11/21 02:40 09/11/21 02:40 A&P Assessment and plan (1) Laryngeal mass: Status: Acute (2) Tracheostomy in place: Status: Acute Attestations 2 Medical Necessity Statement*: I was asked to assess trachetomy site and facilitate treatment. Coding Level of Care Code Acute Vegetable Inspector for [facility]re[facility] Diagnoses Laryngeal mass J38.[address] Z93.0
--- NOTE | 2021-09-15 13:50 | PM.PN ---
Subjective Subjective: This morning had a detailed family meeting Vbanov-gm-fwu is present in the room I did speak at length with his brother over the phone as well after my rounds Family got very upset after cyanide case hardener had discussion with them before my rounds regarding disposition plan/options which also included homeless senior care as one of the options, this made him very aggravated, both brother and qyqlyg-rl-can left the room, I called him before multidisciplinary rounds, had a meeting after my MDR when [id number] was present No overnight events Patient is afebrile Currently on room air He does use intermittent humidified air Still endorsing diarrhea, to finish 10 days of p.o. vancomycin After family meeting, bwhsjv-cc-wne told me that her home is being renovated and probably around Tuesday she might be able to bring Nima home but she is not sure completely, I called Dr. Clarke to update him regarding the situation, I requested him if he could come see the patient while family is here Vitals/I&O/Wt Last Vital Signs Temp 98.1 F 09/15/21 11:22 Pulse 59 L 09/15/21 11:22 Resp 18 09/15/21 11:22 BP 147/76 09/15/21 11:22 Pulse Ox 97 09/15/21 11:22 09/14/21 09/15/21 09/15/21 22:59 06:59 14:59 Intake Total 960 / 960 Output Total 1360 / 1760 1700 / 3460 Balance -400 / -800 -1700 / -2500 Physical Exam Narrative: Patient is sitting comfortably in his bed He is drinking [employer] coffee He is awake and alert Nonfocal neuro exam Nonlabored breathing Failure to tolerate his diet No active crackles or rhonchi Saturating well on room air Nonfocal neuro exam Malnourished, cachectic Abdomen is soft No signs of edema of legs Data : 09/11/21 02:40 09/11/21 02:40 A&P Assessment and plan (1) C. 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 Santoyo Patient developed aspiration pneumonitis and required oxygen for a while however now he is saturating well on room air, afebrile, Developed C. difficile diarrhea, to finish 10 days of p.o. vancomycin I would recommend against Imodium with active C. difficile diarrhea Dysphagia diet however patient has not been following our recommendations and he has been eating solid food, Histopathological report reviewed Multiple family meetings conducted I have been keeping family and Dr. Clarke updated on a daily basis Talked with machine adjuster leader case trim Nuria as well ENT surgeon evaluate him today, he spoke with Dr. Ko radiation oncologist who will review recent images and will get back to us Please see ENT surgeon note for further details, he has spoken to his colleague surgical oncology who recommended chemo/radiotherapy with surgical salvage Sister is agreeable to take him home as he would need humidified air and suctioning, Patient is able to walk around without assistance, he is able to suction himself as well, tolerating his diet, I am hoping will be able to discharge him to his brothers place by Tuesday meanwhile we are waiting for response from radiation oncologist, I definitely recommend against homeless senior care placement Attestations Medical Necessity Statement*: Continue medical management Time Spent in Patient Care: 30mins Coding Level of Care Code Acute Drill Grinder for Chg Fwd Diagnoses C. difficile diarrhea A04.72 Anxiety F41.9 Depression F32.A Hypoxia R09.02 Malnourished E46 Need for discharge planning Laryngeal mass J38.7 Electrolyte abnormality E87.[address] Z93.0 SVT (supraventricular tachycardia) I47.1
--- NOTE | 2021-09-15 19:23 | PC.NURSE ---
Patient had a great shift with minimal needs. Vitals stable. Patient is set to go to radiation appointment tomorrow at 0800, patient is to be NPO at 0400. Case Management continues to try to find placement for patient. Patient has been taught how to care for trach including cleaning and suctioning. Report give to HANNAH Roach.
[2021-09-15] MEDS: mirtazapine 15 mg Tablet 7.5 MG PO (21:38)
[2021-09-15] MEDS: acetaminophen 325 mg Tablet 650 MG PO (21:38)
[2021-09-15] MEDS: guaiFENesin-dextromethorphan UDC 10 mL 5 ML PO (21:39)
[2021-09-16] VITALS (7 sets, daily range): BP systolic 98–146; BP diastolic 64–80; PULSE 62–76; RESP 14–20; TEMP 36.5–36.6; O2SAT 93–97
--- NOTE | 2021-09-16 | CT_ITS ---
Radiation Therapy Planning CT images; total exam DLP: 923.88 mGy-cm MTDD
[2021-09-16] MEDS: enoxaparin 40 mg/0.4 mL Syringe SUBCUT (04:51)
--- NOTE | 2021-09-16 08:46 | PC.NURSE ---
Patient in radiation. Nurse to start LR in ONC.
[2021-09-16] MEDS: escitalopram 10 mg Tablet 20 MG PO (10:46)
[2021-09-16] MEDS: magnesium oxide 400 mg tablet PO ×2 (10:46→18:32)
[2021-09-16] MEDS: thiamine 100 mg Tablet PO (10:47)
[2021-09-16] MEDS: guaiFENesin 600 mg Tablet PO ×2 (10:47→18:32)
[2021-09-16] MEDS: metoprolol tartrate 25 mg Tablet 12.5 MG PO ×2 (11:08→20:13)
--- NOTE | 2021-09-16 12:29 | PM.PN ---
Subjective Subjective: Status post full session of radiotherapy, please see Dr. Ko detailed note He recommended 7-week course of radiotherapy I examined patient after his radiotherapy session He was saturating well on room air No abdominal pain, he asked me to update his nurse to help him shaving his facial hair Vitals/I&O/Wt Last Vital Signs Temp 97.7 F 09/16/21 11:16 Pulse 71 09/16/21 11:52 Resp 19 H 09/16/21 11:52 BP 129/80 09/16/21 11:16 Pulse Ox 94 09/16/21 11:52 09/15/21 09/16/21 09/16/21 22:59 06:59 14:59 Output Total 375 / 375 Balance -375 / -375 Physical Exam Narrative: Patient is saturating well on room air Sitting comfortably in his bed Watching television Abdomen soft No active neurological deficits noted No active secretions from trach Edema, PERRLA Data : 09/11/21 02:40 09/11/21 02:40 A&P Assessment and plan (1) C. difficile diarrhea: Status: Acute (2) Anxiety: Status: Acute (3) Depression: Status: Acute (4) Hypoxia: Status: Acute (5) Malnourished: Status: Acute (6) Need for discharge planning: Status: Acute (7) Laryngeal mass: Status: Acute (8) Electrolyte abnormality: Status: Acute (9) Tracheostomy in place: Status: Acute (10) SVT (supraventricular tachycardia): Status: Acute (11) Radiotherapy: Status: Acute Plan T4 invasive squamous cell carcinoma Status post tracheostomy 08/26 Prevertebral fascia involvement Started radiotherapy session 09/16 Currently saturating well on room air Depression: Continue mirtazapine and antidepressant Continue dysphagia diet There is plan in place to discharge him home to his brother's place on Tuesday, I have updated correctional case manager and requested to arrange suction, oxygen at home before Tuesday Hypoxia: Resolved Depression without acute exacerbation Electrolyte abnormality resolved No signs of SVT I have discontinued telemetry monitoring Attestations Medical Necessity Statement*: Discharge home on Tuesday Time Spent in Patient Care: 20mins Coding Level of Care Code Acute Sales Service Coordinator for Chg Fwd Diagnoses C. difficile diarrhea A04.72 Anxiety F41.9 Depression F32.A Hypoxia R09.02 Malnourished E46 Need for discharge planning Laryngeal mass J38.7 Electrolyte abnormality E87.[address] Z93.0 SVT (supraventricular tachycardia) I47.1 Radiotherapy Z51.0
[2021-09-16] MEDS: acetaminophen 325 mg Tablet 650 MG PO (18:35)
[2021-09-16] MEDS: mirtazapine 15 mg Tablet 7.5 MG PO (20:13)
[2021-09-16] MEDS: quetiapine 100 mg Tablet PO (21:08)
[2021-09-17] VITALS (8 sets, daily range): BP systolic 95–113; BP diastolic 58–69; PULSE 60–77; RESP 16–22; TEMP 36.3–36.9; O2SAT 92–97
[2021-09-17 01:55] LABS: Basophils # 0.1 10^3/uL (0.0-0.1); Basophils % 0.9 %; Eosinophils # 0.2 10^3/uL (0.0-0.8); Eosinophils % 1.7 %; Lymphocytes # 3.3 10^3/uL (0.8-4.8); Lymphocytes % 37.2 %; Mean Corpuscular HGB Conc 32.4 g/dL (30.0-36.0); Mean Corpuscular Hemoglobin 32.3 pg (28.0-34.0); Mean Corpuscular Volume 99.7 fl (80-94); Mean Platelet Volume 9.2 fL (7.4-10.4); Monocytes % 11.8 %; Neutrophils # 4.16 10^3/uL (1.8-7.7); Neutrophils % 47.7 %; Nucleated Red Blood Cells % 0 %; Platelet Count 488 10^3/cmm (130-400); Red Blood Count 3.71 10^6/uL (4.1-5.3); Red Cell Distribution Width 13.8 % (12.1-15.1); White Blood Count 8.7 10^3/uL (4.0-10.0)
[2021-09-17 02:11] LABS: Anion Gap 14.2 (5-19); Blood Urea Nitrogen 14 mg/dL (8-23); Calcium 9.1 mg/dL (8.5-10.5); Carbon Dioxide 26 mmol/L (22-29); Chloride 100 mmol/L (98-107); Glucose 97 mg/dL (65-115); Magnesium 2.2 mg/dL (1.7-2.3); Osmolality Calculated 282 mOsm/kg (285-295); Potassium 4.2 mmol/L (3.5-5.1); Sodium 136 mmol/L (136-145)
[2021-09-17 02:23] LABS: Creatinine Clr Calc Pharmacy 99.6625
[2021-09-17] MEDS: enoxaparin 40 mg/0.4 mL Syringe SUBCUT (03:15)
--- NOTE | 2021-09-17 06:34 | PC.NURSE ---
Patient AAOx4, no new events over night, VSS, no c/o pain, slept all night. Room clean and clutter free with call light in reach. Patient refusing to get out of bed at this time and wants to sleep longer.
[2021-09-17] MEDS: guaiFENesin 600 mg Tablet PO ×2 (09:11→18:31)
[2021-09-17] MEDS: thiamine 100 mg Tablet PO (09:11)
[2021-09-17] MEDS: magnesium oxide 400 mg tablet PO ×2 (09:11→18:31)
[2021-09-17] MEDS: escitalopram 10 mg Tablet 20 MG PO (09:11)
[2021-09-17] MEDS: metoprolol tartrate 25 mg Tablet 12.5 MG PO ×2 (09:12→21:53)
--- NOTE | 2021-09-17 09:33 | PC.NURSE ---
Patient taken to oncology appointment via wheelchair by this nurse and checked in. Left in the care of oncology team.
--- NOTE | 2021-09-17 11:20 | PC.NURSE ---
Patient back from oncology, ambulating sales and visiting with another patient (family member). No complaints.
--- NOTE | 2021-09-17 12:28 | P.PN_ITS ---
Subjective Subjective: Status post second day of radiotherapy, he did speak with Dr. Kam He is able to tell me that apparently there is a plan for feeding tube placement if he develops complications related to chemoradiotherapy Discussed in detail regarding disposition plan His brother has been admitted to the hospital for management of UTI, plan was discussed with him, [id number] and his brother, I am going to discharge him on same day in order to make transition of care smoke for them, most likely on Tuesday both brothers will be able to go home, [id number] is in agreement home health services, arranged, social work case manager updated me as well Vitals/I&O/Wt Last Vital Signs Temp 97.9 F 09/17/21 07:29 Pulse 71 09/17/21 07:29 Resp 16 09/17/21 07:29 BP 108/68 09/17/21 07:29 Pulse Ox 94 09/17/21 07:29 09/16/21 09/17/21 09/17/21 22:59 06:59 14:59 Intake Total 720 / 1260 440 / 440 Output Total 800 / 800 550 / 1350 225 / 225 Balance -80 / 460 -550 / -90 215 / 215 Physical Exam Narrative: Patient is able to walk around without any assistance Saturating well on room air Cachectic, malnourished Dehydrated Nonfocal neuro exam Abdomen is soft He is in good spirits Able to communicate Data : 09/17/21 01:27 09/17/21 01:27 A&P Assessment and plan (1) Radiotherapy: Status: Acute (2) C. difficile diarrhea: Status: Acute (3) Anxiety: Status: Acute (4) Depression: Status: Acute (5) Hypoxia: Status: Acute (6) Malnourished: Status: Acute (7) Need for discharge planning: Status: Acute (8) Laryngeal mass: Status: Acute (9) Electrolyte abnormality: Status: Acute (10) Tracheostomy in place: Status: Acute (11) SVT (supraventricular tachycardia): Status: Acute (12) Amphetamine use disorder, severe, in early remission, dependence: Status: Acute (13) Alcohol use disorder, mild, in early remission, abuse: Status: Acute Plan Second radiotherapy session today for his invasive squamous cell cancer of larynx T4B4 prevertebral fascia involvement He has spoken with Dr. Kam as well Doing well on room air C. difficile diarrhea improving, patient states that he only had 1 bowel movement in last 24 hours Not abdominal pain Plan to discharge him on Tuesday with his brother from the hospital, [id number] is in agreement Had detailed family meeting today as well Dr. Kam recommended Port-A-Cath placement to facilitate chemotherapy NG tube placement to maintain nutrition and hydration Continue dysphagia diet Hypoxia: Resolved Attestations Medical Necessity Statement*: Continue medical management Time Spent in Patient Care: 30mins Coding Level of Care Code Acute Freelance Graphic Designer for Chg Fwd Diagnoses Radiotherapy Z51.0 C. difficile diarrhea A04.72 Anxiety F41.9 Depression F32.A Hypoxia R09.02 Malnourished E46 Need for discharge planning Laryngeal mass J38.7 Electrolyte abnormality E87.[address] Z93.0 SVT (supraventricular tachycardia) I47.1 Amphetamine use disorder, severe, in early remission, dependence F15.21 Alcohol use disorder, mild, in early remission, abuse F10.11
--- NOTE | 2021-09-17 16:25 | PC.NURSE ---
Report given to HANNAH Peterson.
--- NOTE | 2021-09-17 16:41 | PC.RESP ---
Patient was able to perform trach care with minimal RT assistance. Patient did not want to perform at first, but was able to with some guidance and coaching
[2021-09-17] MEDS: quetiapine 100 mg Tablet PO (20:01)
[2021-09-17] MEDS: mirtazapine 15 mg Tablet 7.5 MG PO (20:01)
[2021-09-17] MEDS: HYDROcodone-acetaminophen 5-325 mg Tablet 1 TAB PO (21:53)
[2021-09-18] VITALS (8 sets, daily range): BP systolic 92–129; BP diastolic 50–65; PULSE 64–95; RESP 17–19; TEMP 36.3–36.7; O2SAT 93–96
[2021-09-18] MEDS: guaiFENesin-dextromethorphan UDC 10 mL 5 ML PO (09:13)
[2021-09-18] MEDS: guaiFENesin 600 mg Tablet PO ×2 (09:14→18:29)
[2021-09-18] MEDS: escitalopram 10 mg Tablet 20 MG PO (09:14)
[2021-09-18] MEDS: magnesium oxide 400 mg tablet PO ×2 (09:14→18:29)
[2021-09-18] MEDS: thiamine 100 mg Tablet PO (09:17)
--- NOTE | 2021-09-18 09:28 | P.PN_ITS ---
Subjective Subjective: Patient is agreeable for Port-A-Cath and PEG tube placement Talk with his brother and [id number] They are all on board with the plan Dr. Lin is planning to do the procedure on Tuesday We will make him n.p.o. No new events on 6 L, he was laying comfortably in his bed We will give him a bolus of fluid Vitals/I&O/Wt Last Vital Signs Temp 97.7 F 09/18/21 08:00 Pulse 64 09/18/21 08:00 Resp 18 09/18/21 08:00 BP 96/61 09/18/21 08:00 Pulse Ox 95 09/18/21 08:00 09/17/21 09/18/21 09/18/21 22:59 06:59 14:59 Intake Total 730 / 1570 Output Total 250 / 475 875 / 1350 Balance 480 / 1095 -875 / 220 Physical Exam Narrative: Cachectic malnourished male Laying supine in his bed Currently on 6 L had Abdomen soft Trach without active secretions Appropriate mood and affect Data : 09/17/21 01:27 09/17/21 01:27 A&P Assessment and plan (1) Radiotherapy: Status: Acute (2) C. difficile diarrhea: Status: Acute (3) Depression: Status: Acute (4) Malnourished: Status: Acute (5) Need for discharge planning: Status: Acute (6) Laryngeal mass: Status: Acute (7) Electrolyte abnormality: Status: Acute (8) Tracheostomy in place: Status: Acute (9) SVT (supraventricular tachycardia): Status: Acute Plan Laryngeal mass, invasive squamous cell carcinoma of larynx Stage T4b Prevertebral fascia involvement Started radiotherapy, plan to start chemotherapy, has started seeing Dr. Kam Status post 2 sessions of radiotherapy Plan for Port-A-Cath placement and PEG tube placement as per Dr. Kam's recommendation, Dr. Lin notified and consulted We will keep him n.p.o. after midnight SVT: No recurrence, discontinue metoprolol, low blood pressure, will give a small bolus today, C. difficile diarrhea: Improved, he will get p.o. vancomycin until the day of discharge No signs of sepsis or bacteremia Hypoxia: Improved, aspiration pneumonitis Requires humidified oxygen sometimes up to 6 L intermittently DNR/DNI Modified diet N.p.o. after midnight Plan for Port-A-Cath placement and PEG tube placement on Tuesday Attestations Medical Necessity Statement*: Continue medical management Time Spent in Patient Care: 30mins Coding Level of Care Code Acute Sales Service Technician for Chg Fwd Diagnoses Radiotherapy Z51.0 C. difficile diarrhea A04.72 Depression F32.A Malnourished E46 Need for discharge planning Laryngeal mass J38.7 Electrolyte abnormality E87.[address] Z93.0 SVT (supraventricular tachycardia) I47.1
[2021-09-18] MEDS: lactated ringers 500 ML 999 ML IV (11:05)
--- NOTE | 2021-09-18 11:54 | PC.RESP ---
trach care was performed by pt, minimal assistance from RT.
[2021-09-18] MEDS: acetaminophen 325 mg Tablet 650 MG PO (14:03)
--- NOTE | 2021-09-18 14:54 | PC.NUTR ---
Pt is scheduled to get a PEG tube Tuesday. While in hospital, recommend bolus feeds of Jevity 1.2, 237 mls x 2, three times a day at breakfast, lunch, and dinner with 60 mls flush before and after each feeding. (Currently Pt is eating soft foods however if he has no PO intake, then an additional 237 mls of Jevity 1.2 can be given at a mealtime or in the evening, with flushes before and after). When Pt is discharged, recommend Jevity 1.5, 2 cartons at breakfast, lunch, and dinner or 6 cartons total/day; with 60 mls flush before and after each feeding. If no risk of aspiration, additional fluids are encouraged as long as they don't cause residual/bloating/fullness. Details in RD assessment.
--- NOTE | 2021-09-18 15:35 | P.CONIM_ITS ---
Providers/Reason For Consult Consulting Physician/Specialty*: Armand Lin MD Reason for Consult*: Port and PEG tube placement Requesting Physician: Dr. Farris Attending Physician: Percy Farris MD History of Present Illness History of Present Illness Chief Complaint: Feeding issue History of present illness: Mr. 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 Patient undergone a tracheotomy back in August 26, 2021. And was evaluated further by oncology service and now the patient is currently in the hospital and already started his radiation treatment. General surgery was consulted for Port-A-Cath and PEG tube placement. Review of Systems General: Reports: 10 or more systems reviewed and unremarkable except in HPI and below Medications/Allergies Home Medications Medication Instructions Recorded Confirmed Last Taken Type tizanidine 4 mg capsule (Zanaflex) 4 mg PO Q8H PRN 02/19/21 08/26/21 08/25/21 History donepezil 5 mg tablet 5 mg PO .morning #30 tab 05/12/21 08/26/21 08/26/21 Rx quetiapine 400 mg tablet (Seroquel) 400 mg PO BEDTIME #30 tab 05/12/21 08/26/21 08/25/21 Rx Allergies Allergy/AdvReac Type Severity Reaction Status Date / Time No Known Allergies Allergy Verified 09/19/21 12:07 Current Medications Generic Name Dose Route Start Last Admin Trade Name Freq PRN Reason Stop Dose Admin Acetaminophen 650 mg 08/29/21 17:01 09/18/21 14:03 Acetaminophen 325 Mg Tablet PO 650 mg Q6H PRN Administration MILD PAIN Hydrocodone Bitart/Acetaminophen 1 tab 09/17/21 21:42 09/17/21 21:53 Hydrocodone-Acetaminophen 5-325 Mg Tablet PO 1 tab Q4H PRN Administration MODERATE PAIN Albuterol/Ipratropium 3 ml 08/31/21 13:47 09/10/21 13:52 Ipratropium-Albuterol 3 Ml Neb INHALATION 3 ml Q4H PRN Administration SHORTNESS OF BREATH Enoxaparin Sodium 40 mg 08/29/21 04:00 09/17/21 03:15 Enoxaparin 40 Mg/0.4 Ml Syringe SUBCUT 40 mg Q24H HENRY Administration Escitalopram Oxalate 20 mg 09/03/21 09:30 09/18/21 09:14 Escitalopram 10 Mg Tablet PO 20 mg DAILY HENRY Administration Guaifenesin 600 mg 09/04/21 18:00 09/18/21 09:14 Guaifenesin 600 Mg Tablet PO 600 mg BID HENRY Administration Guaifenesin/Dextromethorphan 5 ml 09/04/21 10:11 09/18/21 09:13 Guaifenesin-Dextromethorphan Udc 10 Ml PO 5 ml Q4H PRN Administration COUGH Lanolin 1 applic 08/28/21 11:25 08/28/21 11:30 Lanolin Oint 7 Gm TOPICAL 1 applic PRN PRN Administration DRYNESS Magnesium Oxide 400 mg 09/01/21 18:00 09/18/21 09:14 Magnesium Oxide 400 Mg Tablet PO 400 mg BID HENRY Administration Metoprolol Tartrate 12.5 mg 08/29/21 00:40 09/18/21 09:18 Metoprolol Tartrate 25 Mg Tablet PO Not Given BID@0900,2100 HENRY Mirtazapine 7.5 mg 09/05/21 21:00 09/17/21 20:01 Mirtazapine 15 Mg Tablet PO 7.5 mg BEDTIME HENRY Administration Quetiapine Fumarate 100 mg 09/16/21 21:00 09/17/21 20:01 Quetiapine 100 Mg Tablet PO 100 mg BEDTIME HENRY Administration Thiamine Mononitrate 100 mg 09/09/21 09:00 09/18/21 09:17 Thiamine 100 Mg Tablet PO 100 mg DAILY HENRY Administration Vancomycin HCl 125 mg 09/10/21 09:00 09/18/21 14:00 Vancomycin 1,000 Mg Oral Mary Lou (Btl) PO 125 mg QID HENRY Administration PFSH Acute PFSH: Medical History Alcohol use disorder, mild, in early remission, abuse Last use Jul 2020 Amphetamine use disorder, severe, in early remission, dependence Last use Jul 2020 BPH loc w urin obs/LUTS Cannabis dependence Cigarette nicotine dependence Hiatal hernia Lower urinary tract symptoms (LUTS) Major depressive disorder, 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 Social History Smoking and tobacco status: current every day smoker cigarettes Packs smoked per day: 1 Years cigarettes smoked: 40 Quit status (tobacco): not considering quitting Second hand smoke exposure: Yes Smoking risk assessment/counseling performed?: No Reason smoking risk assessment not done: patient refused Alcohol intake: former Marital status: Current occupational status: disabled History of recent travel: No Vitals/I&O/Wt Last Vital Signs Temp 97.3 F L 09/18/21 11:52 Pulse 73 09/18/21 11:54 Resp 19 H 09/18/21 11:54 BP 122/65 09/18/21 11:52 Pulse Ox 93 09/18/21 11:54 09/18/21 09/18/21 09/18/21 06:59 14:59 22:59 Intake Total 900 / 900 Output Total 875 / 1350 Balance -875 / 220 900 / 900 Physical Exam Const: COMMON NORMALS: no acute distress and patient oriented x3 GENERAL APPEARANCE: cooperative ORIENTATION/CONSCIOUSNESS: Yes awake, Yes oriented to person, Yes oriented to place and Yes oriented to time HENMT: COMMON NORMALS: normocephalic HEAD & SCALP: normocephalic OTHER: Tracheotomy in place. Eye: COMMON NORMALS: Equal, round and reactive pupils present and no scleral icterus PUPIL: Yes Equal, round and reactive pupils present Lymph: LYMPHATIC: no lymphadenopathy noted Chest: COMMONS NORMALS: normal inspection of the chest Resp: COMMON NORMALS: normal respiratory effort and clear to auscultation bilaterally AUSCULTATION: clear to auscultation bilaterally Cardio: COMMON NORMALS: S1 normal heart sound present and S2 normal heart sound present; negative for No murmurs present (Cardio) HEART SOUNDS: S1 normal heart sound present and S2 normal heart sound present GI: COMMON NORMALS: Soft to palpation; negative for No hepatosplenomegaly present INSPECTION: Yes normal to inspection PALPATION: Yes Soft to palpation, No Firmness to palpation present (GI), No Tenderness to palpation present (GI), No Guarding due to palpation present (GI), No Rigid due to palpation and No No hepatosplenomegaly present Neuro: COMMON NORMALS: patient oriented x3 SENSORIUM/ORIENTATION: Yes oriented to person, Yes oriented to place and Yes oriented to time Psych: COMMON NORMALS: mental status grossly normal Skin: COMMON NORMALS: no rashes or lesions noted GENERAL SKIN EXAM: no rashes or lesions noted Data : 09/19/21 03:45 09/19/21 03:45 A&P Assessment and plan (1) Cancer of supraglottis: Plan of care; After thorough history physical examination and reviewing the chart and re viweing the images with my personal intrepretation.I counseled the patient for PowerPort and endoscopic guided gastrostomy tube placement, indications, risks including possibility of , stroke, heart attack, major bleeding, infection, pneumonia, organ failure, failure to benefit, prolonged hospital stay, pain after the procedure,pneumothorax that may require Chest tube(s) placement and potential injury of major vascular structures , risk of aspiration, soft tissue injury, perforation of the stomach/esophagus and other potential concomitant complications were explained to the patient in details in the presence of [place] patient's [id number] and nursing staff, the potential need for T horacic and or Abdominal surgery to repair any complications.The patient understood this well and did agree to proceed. Benefits,indications and alternatives were all discussed with the patient, nadia ent understands and is interested to proceed. Rationale was carefully and clearly discussed with the patient.Appropriate informed consent have been reviewed and signed. All questions have been answered and all concerns have been addressed to patient's satisfaction. Status: Acute Consult Attestations Medical Necessity Statement: Per admitting service Time Spent in Patient Care: 16 - 35 minutes Coding Level of Care Code Acute Ssas Developer for [facility] Fwd Diagnoses Cancer of supraglottis C32.1
[2021-09-18] MEDS: mirtazapine 15 mg Tablet 7.5 MG PO (21:14)
[2021-09-18] MEDS: quetiapine 100 mg Tablet PO (21:15)
[2021-09-19] VITALS (20 sets, daily range): BP systolic 99–177; BP diastolic 64–105; PULSE 63–96; RESP 16–20; TEMP 36.1–36.8; O2SAT 92–99
--- NOTE | 2021-09-19 | SCC_ITS ---
Procedure done: 1. Placement of right subclavian vein PowerPort 2. Fluoroscopic guidance and interpretation for placement of catheter 3. Endoscopic guided percutaneous gastrostomy tube placement 21.6 seconds of fluoroscopic guidance, for a cumulative dose of 1.44 mGy, was provided to Dr. Lin by the radiology department. C-arm images of the chest were saved for the patient's permanent record. [facility]
[2021-09-19 04:33] LABS: Basophils # 0.1 10^3/uL (0.0-0.1); Basophils % 0.9 %; Eosinophils # 0.2 10^3/uL (0.0-0.8); Hematocrit 35.4 % (42.0-52.0); Hemoglobin 11.7 g/dL (11.7-16.6); Lymphocytes # 2.8 10^3/uL (0.8-4.8); Lymphocytes % 37.7 %; Mean Corpuscular HGB Conc 33.1 g/dL (30.0-36.0); Mean Corpuscular Hemoglobin 32.5 pg (28.0-34.0); Mean Corpuscular Volume 98.3 fl (80-94); Mean Platelet Volume 9.3 fL (7.4-10.4); Monocytes # 0.9 10^3/uL (0.2-0.9); Neutrophils # 3.48 10^3/uL (1.8-7.7); Nucleated Red Blood Cells % 0 %; Platelet Count 436 10^3/cmm (130-400); Red Cell Distribution Width 13.7 % (12.1-15.1); White Blood Count 7.4 10^3/uL (4.0-10.0)
[2021-09-19 04:44] LABS: INR 0.91 (0.8-1.2)
[2021-09-19 04:45] LABS: Partial Thromboplastin Time 30.7 SECONDS (23.9-36.7)
[2021-09-19 04:49] LABS: Fibrinogen 393 mg/dL (174-498)
[2021-09-19 04:52] LABS: Blood Urea Nitrogen 18 mg/dL (8-23); Calcium 9.3 mg/dL (8.5-10.5); Carbon Dioxide 29 mmol/L (22-29); Chloride 102 mmol/L (98-107); Creatinine Clr Calc Pharmacy 99.6625; Glomerular Filtration Rate 112.1 mL/min (90-130); Glucose 100 mg/dL (65-115); Osmolality Calculated 286 mOsm/kg (285-295); Sodium 137 mmol/L (136-145)
[2021-09-19 04:58] LABS: Platelet Count 436 10^3/cmm (130-400)
--- NOTE | 2021-09-19 07:16 | P.ANESASSM_ITS ---
Pre-Anesthetic Assessment Height/Weight: Height 1.91 m Weight 72.575 kg Temp Pulse Resp BP Pulse Ox 98.0 F 68 16 99/64 94 09/19/21 03:43 09/19/21 03:43 09/19/21 03:43 09/19/21 03:43 09/19/21 03:43 Preop Diagnosis: Laryngeal mass with airway obstruction Operation Date: 08/26/21 14:00 Proposed Procedures p Tracheostomy 22108/[id number](Not Applicable) - Tirso Clarke MD s Direct Laryngoscopy(Not Applicable) - Tirso Clarke MD s Esophagoscopy(Not Applicable) - Tirso Clarke MD Operation Date: 09/19/21 13:00 Proposed Procedures p Portacath Placement(Right) - Armand Lin MD s Laparoscopic PEG Tube Placement(Not Applicable) - Armand Lin MD Familial anesthetic complications: none Was Beta Miriam taken within 24 hours: N/A Was Clonidine taken within 24 hours: N/A Last intake: > 8 h rs Intake Last Liquid Date 08/25/21 Last Liquid Time 23:30 Last Solid Date 08/25/21 Last Solid Time 23:30 Social No alcohol and No tobacco hx ETOH Exam alert, oriented x 3, clear to auscultation bilaterally and regular rate & rhythm Airway Dentition: other (no teeth) Comments: Comments: tracheostomy for supraglottic cancer Pulmonary Chronic Obstructive Pulmonary Disease Anesthetic Plan ASA status: 3 Anesthesia: General Risk of > 500 ml blood loss (7ml/kg in children): No Medications/Allergies Home Medications Medication Instructions Recorded Confirmed Last Taken Type tizanidine 4 mg capsule (Zanaflex) 4 mg PO Q8H PRN 02/19/21 08/26/21 08/25/21 History donepezil 5 mg tablet 5 mg PO .morning #30 tab 05/12/21 08/26/21 08/26/21 Rx quetiapine 400 mg tablet (Seroquel) 400 mg PO BEDTIME #30 tab 05/12/21 08/26/21 08/25/21 Rx Allergies Allergy/AdvReac Type Severity Reaction Status Date / Time No Known Allergies Allergy Verified 07/07/21 14:41 Current Medications Generic Name Dose Route Start Last Admin Trade Name Freq PRN Reason Stop Dose Admin Acetaminophen 650 mg 08/29/21 17:01 09/18/21 14:03 Acetaminophen 325 Mg Tablet PO 650 mg Q6H PRN Administration MILD PAIN Hydrocodone Bitart/Acetaminophen 1 tab 09/17/21 21:42 09/17/21 21:53 Hydrocodone-Acetaminophen 5-325 Mg Tablet PO 1 tab Q4H PRN Administration MODERATE PAIN Albuterol/Ipratropium 3 ml 08/31/21 13:47 09/10/21 13:52 Ipratropium-Albuterol 3 Ml Neb INHALATION 3 ml Q4H PRN Administration SHORTNESS OF BREATH Enoxaparin Sodium 40 mg 08/29/21 04:00 09/17/21 03:15 Enoxaparin 40 Mg/0.4 Ml Syringe SUBCUT 40 mg Q24H HENRY Administration Escitalopram Oxalate 20 mg 09/03/21 09:30 09/18/21 09:14 Escitalopram 10 Mg Tablet PO 20 mg DAILY HENRY Administration Guaifenesin 600 mg 09/04/21 18:00 09/18/21 18:29 Guaifenesin 600 Mg Tablet PO 600 mg BID HENRY Administration Guaifenesin/Dextromethorphan 5 ml 09/04/21 10:11 09/18/21 09:13 Guaifenesin-Dextromethorphan Udc 10 Ml PO 5 ml Q4H PRN Administration COUGH Lanolin 1 applic 08/28/21 11:25 08/28/21 11:30 Lanolin Oint 7 Gm TOPICAL 1 applic PRN PRN Administration DRYNESS Magnesium Oxide 400 mg 09/01/21 18:00 09/18/21 18:29 Magnesium Oxide 400 Mg Tablet PO 400 mg BID HENRY Administration Metoprolol Tartrate 12.5 mg 08/29/21 00:40 09/18/21 09:18 Metoprolol Tartrate 25 Mg Tablet PO Not Given BID@0900,2100 HENRY Mirtazapine 7.5 mg 09/05/21 21:00 09/18/21 21:14 Mirtazapine 15 Mg Tablet PO 7.5 mg BEDTIME HENRY Administration Quetiapine Fumarate 100 mg 09/16/21 21:00 09/18/21 21:15 Quetiapine 100 Mg Tablet PO 100 mg BEDTIME HENRY Administration Thiamine Mononitrate 100 mg 09/09/21 09:00 09/18/21 09:17 Thiamine 100 Mg Tablet PO 100 mg DAILY HENRY Administration Vancomycin HCl 125 mg 09/10/21 09:00 09/18/21 21:15 Vancomycin 1,000 Mg Oral Mary Lou (Btl) PO 125 mg QID HENRY Administration [facility] Anesthesia Medical History Alcohol use disorder, mild, in early remission, abuse Last use Jul 2020 Amphetamine use disorder, severe, in early remission, dependence Last use Jul 2020 BPH loc w urin obs/LUTS Cannabis dependence Cigarette nicotine dependence Hiatal hernia Lower urinary tract symptoms (LUTS) Major depressive disorder, 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 Social History Smoking and tobacco status: current every day smoker cigarettes Packs smoked per day: 1 Years cigarettes smoked: 40 Quit status (tobacco): not considering quitting Second hand smoke exposure: Yes Smoking risk assessment/counseling performed?: No Reason smoking risk assessment not done: patient refused Alcohol intake: former Marital status: Current occupational status: disabled History of recent travel: No Data Anesthesia : 09/19/21 03:45 09/19/21 03:45 Short CBC 09/19/21 09/19/21 Range/Units 03:45 03:45 WBC 7.4 (4.0-10.0) 10^3/uL Hgb 11.7 (11.7-16.6) g/dL Hct 35.4 L (42.0-52.0) % MCV 98.3 H (80-94) fl Plt Count 436 H 436 H (130-400) 10^3/cmm Neut % (Auto) 47.0 % Neut # (Auto) 3.48 (1.8-7.7) 10^3/uL BMP 09/19/21 03:45 Sodium 137 Potassium 4.0 Chloride 102 Carbon Dioxide 29 BUN 18 Creatinine 0.7 Glucose 100 Calcium 9.3 Coags 09/19/21 03:45 PT 12.60 INR 0.91 APTT 30.7 Fibrinogen 393 Cardiac Studies: Echocardiogram 08/29/21
--- NOTE | 2021-09-19 12:15 | SC_ITS ---
WS: [id number] C-ARM RADIOGRAPHS CHEST; 2 IMAGES HISTORY: Power port Placement COMPARISON: 09/02/2021 Intraoperative imaging during RIGHT PowerPort placement. Tip appears in the distal SVC. SC/C-arm FL for CVA [id number] IMPRESSION: Intraoperative imaging during RIGHT PowerPort placement.
[2021-09-19] MEDS: sodium chloride 0.9% 1,000 ML 30 ML IV (12:31)
[2021-09-19] MEDS: lidocaine 2% INJ 20 mL INJECTION (13:39)
[2021-09-19] MEDS: heparin, porcine 1,000 unit/mL INJ 10 mL 10000 UNIT INJECTION (13:43)
--- NOTE | 2021-09-19 13:54 | P.PN_ITS ---
Subjective Subjective: No overnight complaints Patient stable on room air Plan for Port-A-Cath and PEG tube placement Did talk with rifle case repairer that we will probably start tube feeds down the road however not needed right away during this hospitalization, patient is tolerating p.o. diet for now, nurse to teach his family members we will do bolus feeding via tube feeds tomorrow before he is released Vitals/I&O/Wt Last Vital Signs Temp 97.9 F 09/19/21 11:12 Pulse 68 09/19/21 11:12 Resp 18 09/19/21 11:12 BP 108/73 09/19/21 11:12 Pulse Ox 92 09/19/21 11:12 09/18/21 09/19/21 09/19/21 22:59 06:59 14:59 Intake Total 60 / 60 Output Total 1020 / 1020 900 / 1920 Balance -1020 / 240 -900 / -660 60 / 60 Physical Exam Narrative: Patient is able to walk on his own Saturating well on room air EOMI, PERRLA Nonfocal neuro exam Abdomen soft No secretions from trach Patient is in good spirits Appropriate mood and affect No audible stridor or wheezing Data : 09/19/21 03:45 09/19/21 03:45 A&P Assessment and plan (1) Cancer of supraglottis: Status: Acute (2) Radiotherapy: Status: Acute (3) C. difficile diarrhea: Status: Acute (4) Anxiety: Status: Acute (5) Hypoxia: Status: Acute (6) Malnourished: Status: Acute (7) Need for discharge planning: Status: Acute (8) Laryngeal mass: Status: Acute (9) Electrolyte abnormality: Status: Acute (10) Tracheostomy in place: Status: Acute (11) SVT (supraventricular tachycardia): Status: Acute Plan Invasive squamous cell cancer of larynx Status post tracheostomy Patient is scheduled for Port-A-Cath placement and PEG tube placement today Plan for discharge with home health tomorrow We will put instructions for water flushes for the PEG tube however patient is tolerating p.o. diet for now this might change in next few weeks with initiation of chemotherapy he has already started radiotherapy, status post 2 sessions Family is aware manager wind updated C. difficile diarrhea: Last dose of p.o. vancomycin today, SVT: Resolved Electrolyte imbalance Patient will need outpatient PET scan for further evaluation, please see radio/oncology notes Full code Dietary recommendations appreciated Continue Seroquel at bedtime Continue mirtazapine Can start DVT prophylaxis again 6 hours after the procedure Attestations Medical Necessity Statement*: Discharge tomorrow Time Spent in Patient Care: 20min Coding Level of Care Code Acute District Sales Representative for [facility] Fwd Diagnoses Cancer of supraglottis C32.1 Radiotherapy Z51.0 C. difficile diarrhea A04.72 Anxiety F41.9 Hypoxia R09.02 Malnourished E46 Need for discharge planning Laryngeal mass J38.7 Electrolyte abnormality E87.[address] Z93.0 SVT (supraventricular tachycardia) I47.1
--- NOTE | 2021-09-19 14:31 | PM.OP ---
Operative Report Date of procedure: September 19, 2021 Pre-op diagnosis: Preop Diagnosis Supraglottic cancer Preop Diagnosis Laryngeal mass with airway obstruction Post-op diagnosis: The same Procedure done: 1. Placement of right subclavian vein PowerPort 2. Fluoroscopic guidance and interpretation for placement of catheter 3. Endoscopic guided percutaneous gastrostomy tube placement Implants: Right subclavian vein PowerPort Abdominal PEG tube 20 [place] Surgeon: Armand Lin MD Massage Therapy Instructor: civil cadd technician Nuria Cochran Circulating nurse Adriano Anesthesia: General (Via tracheotomy ANKURA MARKETING SALES SUPERVISOR Cale Delgado) Estimated blood loss (mL): 15 Complications: No immediate complication Procedure: Patient was identified in the holding area and taken to the operative room and placed in supine position IV propofol was given by the anesthesia provider, and patient already had the tracheostomy with the Shiley was switched to endotracheal tube #6 by the MARKETING SALES SUPERVISOR and was secured appropriately. Arms were tucked,Time-out was done verifying the patient's name/date of /planned procedure and destination after the procedure, all were in agreement. SCDs confirmed to be functioning, preoperative antibiotics administered per protocol, and beta candelario protocol was confirmed, appropriate positioning of the patient was done by me. Medications were reviewed to assess for anticoagulant usage. Risks and benefits and prevention of central line associated blood stream infection (CLABSI) were discussed with the patient/CPOA, and a consent was obtained. Monitors were in place and monitored throughout the procedure. All necessary supplies were available prior to start. Hand hygiene was completed prior to starting. Maximum barrier technique was utilized including a sterile gown, sterile gloves with a hat and mask. Site was was prepped with [chlorhexidine] and a full body drape was placed. 5 mL of 2% lidocaine was injected into the skin with a 25 gauge needle. Prep& drape was done under the usual sterile technique, lidocaine 2% was injected at the site of the stick, started by right sub-clavian vein stick that retrieved venous blood was obtained from the first stick, a guide wire was then threaded and under the guidance of fluoroscopy position was confirmed to be in the IVC and my interpretation, there were no PVC changes, at that point the guide wire was secured to the drapes with a hemostat and the needle was taken out, attention was then deviated towards creation of a pocket for the port were lidocaine 2% was injected using an 15 blade knife skin incision was created dissection using the Bovie to create a pocket for the Power Port to be accommodated. Hemostasis was secured, after the port being appropriately flushed it was inserted into the pocket and a tunneler was used to accommodate the catheter of the port catheter to be delivered through the incision first created at the site of the stick, at that point under fluoroscopy an estimated length was measured for the catheter and was cut at the designed level, followed by that a dilator with the sheath introduced onto the guide wire the dilator and the wire were retrieved and the catheter of the port was introduced via the sheath where it was peeled off and the catheter maintained to be in the SVC that was confirmed with fluoroscopy, and the fluoroscopy interpretation was done by me throughout the entire procedure. The port was kept in its pocket,3-0 Vicryl deep subdermal interrupted sutures, skin was then closed by 4-0 Monocryl as subcuticular closure.The port was appropriately flushed with heparin and venous blood was withdrawn without difficulty.The stick site was closed by 4-0 Monocryl and Dermabond was used followed by dressing.Count was correct at the end of the procedure. Attention now was deviated towards the PEG placement started by introducing the EGD via the mouth under direct visualization, the patient was continuously monitored via pvc monitor, I was able to assess the esophagus stomach and duodenum till the second part. GE junction at 40 cm from the incisors,the remaining of the examination was unremarkable. I was able to identify a good light reflex through the anterior abdominal wall, corresponding to appropriate indentation of the examining finger At this point prep and?drape of the anterior abdominal wall was done under the usual sterile technique, sterile gowns and gloves were used, lidocaine was infiltrated at the site of the needle insertion, my assistant professor of spanish held onto the EGD,? under direct visualization a needle with the sheath was inserted by me that come with the PEG kit, but I could not visualize it appropriately so I had to take the needle out and reintroduce it in a different spot coinciding again with the light. Once the needle and catheter were inserted into the inflated stomach, a needle was taken out, and through the catheter the blue loop wire introduced through the catheter, and via the working channel of the EGD, the retrieval device was inserted under direct visualization, the blue loop was caught by the retrieval device, at this point the scope was taken out and a firm sample shoe inspector and reworker was continued to be applied onto the blue loop wire, the blue loop was then released and the PEG tube was tightened to it outside the patient's mouth, and with the remaining of the blue loop wire was Outside the abdominal wall, I was able to pull the PEG down all the way to the stomach, and have it placed in a good position at the level of 4 cm at the skin. The EGD was reintroduced by me, there was no evidence of bleeding, good spinning of the PEG tube was witnessed The scope was then retrieved The scope was retrieved under direct visualization and gas was deflated,no biopsies were obtained at that point. The PEG tube base and clamp were applied and the PEG tube was connected to gravity Patient tolerated the procedure well and was taken to the recovery area I was present for the whole entire procedure.
[2021-09-19] MEDS: acetaminophen 325 mg Tablet 650 MG PO (16:01)
[2021-09-19] MEDS: guaiFENesin 600 mg Tablet PO (18:27)
[2021-09-19] MEDS: HYDROcodone-acetaminophen 5-325 mg Tablet 1 TAB PO (18:27)
[2021-09-19] MEDS: quetiapine 100 mg Tablet PO (21:08)
[2021-09-19] MEDS: metoprolol tartrate 25 mg Tablet 12.5 MG PO (21:08)
[2021-09-19] MEDS: mirtazapine 15 mg Tablet 7.5 MG PO (21:08)
[2021-09-20 03:53] LABS: Basophils # 0.1 10^3/uL (0.0-0.1); Basophils % 0.6 %; Eosinophils # 0.1 10^3/uL (0.0-0.8); Eosinophils % 0.6 %; Hematocrit 35.4 % (42.0-52.0); Hemoglobin 11.7 g/dL (11.7-16.6); Lymphocytes # 1.9 10^3/uL (0.8-4.8); Lymphocytes % 15.3 %; Mean Corpuscular HGB Conc 33.1 g/dL (30.0-36.0); Mean Corpuscular Hemoglobin 32.3 pg (28.0-34.0); Mean Corpuscular Volume 97.8 fl (80-94); Mean Platelet Volume 9.5 fL (7.4-10.4); Monocytes % 7.8 %; Neutrophils % 75.2 %; Nucleated Red Blood Cells % 0 %; Platelet Count 386 10^3/cmm (130-400); Red Blood Count 3.62 10^6/uL (4.1-5.3); Red Cell Distribution Width 13.9 % (12.1-15.1); White Blood Count 12.4 10^3/uL (4.0-10.0)
[2021-09-20 04:00] VITALS: BP 100/60; PULSE 72; RESP 16; TEMP 36.8; O2SAT 95
[2021-09-20 04:22] LABS: Blood Urea Nitrogen 14 mg/dL (8-23); Carbon Dioxide 26 mmol/L (22-29); Chloride 103 mmol/L (98-107); Glomerular Filtration Rate 165.4 mL/min (90-130); Glucose 107 mg/dL (65-115); Osmolality Calculated 291 mOsm/kg (285-295); Sodium 140 mmol/L (136-145)
[2021-09-20 04:29] LABS: Anion Gap 15.5 (5-19); Creatinine Clr Calc Pharmacy 99.6625; Potassium 4.5 mmol/L (3.5-5.1)
[2021-09-20] MEDS: HYDROcodone-acetaminophen 5-325 mg Tablet 1 TAB PO (06:35)
--- NOTE | 2021-09-20 06:44 | PC.NURSE ---
SHIFT NOTE Rested well. Dr Lin here this am to check PEG tube and PAC sites. Area around PEG tube cleansed with Chloraprep swab to remove small amt of dried blood around site per Dr Lin instructions. Medicated this am with po Hydrocodone for abd pain
--- NOTE | 2021-09-20 06:53 | PM.PN ---
Subjective Subjective: Patient was seen and examined. He feels sore at the insertion of the PEG tube. Otherwise tolerating p.o. intake. Medications: Reviewed: Yes Vitals/I&O/Wt Last Vital Signs Temp 98.3 F 09/20/21 04:00 Pulse 72 09/20/21 04:00 Resp 16 09/20/21 04:00 BP 100/60 09/20/21 04:00 Pulse Ox 95 09/20/21 04:00 09/19/21 09/19/21 09/20/21 14:59 22:59 06:59 Intake Total 1720 / 1780 120 / 1900 Output Total 350 / 352 650 / 1002 Balance 58 / 58 1370 / 1428 -530 / 898 Physical Exam Narrative: Patient is conscious alert oriented X3 No apparent distress BMI 20 Head and neck examination PERRLA no masses no cervical lymphadenopathy no jaundice Tracheotomy in Abdomen nontender except at the PEG tube insertion. Nondistended soft no organomegaly guarding or rigidity/no signs of peritonitis PEG tube in place at 4 cm skin level Data : 09/20/21 02:52 09/20/21 02:52 A&P Assessment and plan (1) Status post insertion of percutaneous endoscopic gastrostomy (PEG) tube: Assessment 66 years old gentleman status post right upper chest PowerPort and PEG tube insertion 09/19/21 Plan Port care education Avoid heavy lifting PEG tube flushing daily at least with 50 mL of saline to maintain patency Daily skin care around the insertion site of the PEG Abdominal binder for comfort Assurance and education All questions have been answered and all concerns have been addressed to patient's satisfaction. Status: Acute Attestations Medical Necessity Statement*: Per admitting service Coding Level of Care Code Acute Etiquette Teacher for Chg Fwd Diagnoses Status post insertion of percutaneous endoscopic gastrostomy (PEG) tube Z93.1
[2021-09-20 07:25] VITALS: BP 101/63; PULSE 70; RESP 16; TEMP 36.3; O2SAT 93
[2021-09-20 07:54] VITALS: PULSE 79; RESP 18; O2SAT 96
[2021-09-20] MEDS: metoprolol tartrate 25 mg Tablet 12.5 MG PO (09:29)
[2021-09-20] MEDS: guaiFENesin 600 mg Tablet PO (09:29)
[2021-09-20] MEDS: thiamine 100 mg Tablet PO (09:29)
[2021-09-20] MEDS: escitalopram 10 mg Tablet 20 MG PO (09:30)
--- NOTE | 2021-09-20 10:13 | P.DS_ITS ---
Discharge Providers Date of Admission: 08/26/21 15:08 Date of Discharge: September 20, 2021 Attending Provider at Admission: Percy Farris MD Attending Provider at Discharge: Percy Farris MD Diagnoses at Discharge Discharge Diagnosis (1) Status post insertion of percutaneous endoscopic gastrostomy (PEG) tube: Status: Acute Reason for Visit Reason for Visit: supraglottic mass Hospital Course Hospital Course 66-year-old gentleman who was evaluated for progressive dysphagia, neck and throat pain, underwent CT scan of neck 08/24 which confirmed 3 x 3 x 4 mass at the base of tongue, status post tracheostomy by Dr. Clarke 08/26. Subcutaneous emphysema after tracheostomy noted however no worsening. He does have severe COPD and pulmonary fibrosis. Multiple pulmonary nodules largest is 4.8 mm, he has history of cannabis use alcohol abuse major depressive disorder as well. His hospitalization was notable for a lot of thick mucoid secretions, aspiration pneumonitis, he required room air with humidification, hypoxia improved after secretions dried, after tracheostomy he was put on Augmentin for aspiration pne umonitis coverage which caused C. difficile diarrhea. He finished 10 days of p.o. vancomycin in the hospital. We struggled to find appropriate senior care for him because of his trach care. However he was doing well on room air, was able to walk around without any assistance. After multiple family meetings decision was made to send him home with his brother, [id number] is willing to take care of him. We have arranged suction and HAG. He will need humidified air to avoid dry secretions that can cause obstructive pneumonia. I try to arrange PET scan while he was hospitalized, was not able to do so because of his inpatient status. He started radiotherapy, status post 2 sessions, Dr. Kam also evaluated him and recommended Port-A-Cath and PEG tube placement. Dr. Lin placed Port-A-Cath and PEG tube on 09/19. He will need 50 mL tap water or normal saline flush of PEG tube on daily basis to keep patency of the tube. Right now he is tolerating his oral diet. We have placed PEG tube in anticipation of further worsening related to chemotherapy and radiotherapy. Patient will be discharged home with his brother and [id number] is willing to take care of him, trach care teaching done during hospitalization. Home health services arranged, once he starts using his PEG tube he will need another evaluation by dietitian for now we have recommended Jevity 1.22 cans with every meals and 60 mL water flushes before and after feeding. Patient is still due for a PET scan outpatient. Dr. Clarke will see him in his clinic on 09/25. I will prescribe opioids, bowel regimen and mirtazapine for anorexia. Physical Exam Narrative: Patient is able to walk on his own Saturating well on room air EOMI, PERRLA Nonfocal neuro exam Abdomen soft No secretions from trach Patient is in good spirits Appropriate mood and affect No audible stridor or wheezing Discharge Data Studies Completed and Pending Completed Studies During Hospitalization Category Date Time Status CT RTP [CT guided radtherapyplan 00599] Routine Cat Scan 09/16/21 08:[address] cervical spine wo con [CT cervical spin wo con* Cat Scan 09/13/21 13:19 Completed [id number]] Routine CT chest abd pel wo con Routine Cat Scan 09/13/21 14:[address] thoracic spine wo con [CT thoracic spin wo con* Cat Scan 09/13/21 13:19 Completed [id number]] Routine CTA chest [CT angio chest PE protcl 35659] Routine Cat Scan 08/29/21 01:10 Completed CXRP [XR chest 1V portable [id number]] Stat Exams 08/29/21 00:08 Completed XR chest 1V portable [id number] Routine Exams 08/27/21 05:19 Completed XR chest 1V portable [id number] Routine Exams 09/01/21 21:35 Completed XR chest 1V portable [id number] Routine Exams 09/02/21 08:37 Completed Pathology: Surgical [PTH] Routine Pth 08/26/21 15:22 Completed CV. echo complete* [id number] Routine Ultrasound 08/29/21 00:37 Completed Pending at discharge Category Date Time Status C-arm Fluoroscopy [id number] Routine Exams 09/19/21 12:15 Taken Radiology Impressions Chest CTA 08/29/21 01:10 IMPRESSION: 1. There is no evidence for pulmonary emboli. 2. Pneumomediastinum possibly related to the patient's esophageal cancer or perhaps secondary to the tracheostomy. 3. Subcutaneous emphysema seen in the neck base bilaterally again possibly related to the patient's tracheostomy. 4. Severe bullous emphysematous changes and pulmonary fibrosis seen. 5. Multiple small pulmonary nodularities seen in the left hemithorax, the largest measuring 4.8 mm. Fleischner Society follow up recommendations for incidental nodules are not indicated. Follow up per the patient's medical condition. Chest X-Ray 09/02/21 08:37 IMPRESSION: 1. Hyperinflation with prominent interstitial markings suggesting COPD changes. 2. No acute cardiopulmonary process. 3. Subcutaneous emphysema present in the lower neck and left axilla similar to prior exam. Cervical Spine CT 09/13/21 13:19 IMPRESSION: 1. Negative for fracture or dislocation. 2. Mild kyphosis of the cervical spine may be related to positioning or muscle spasm. 3. Tracheostomy tube partially visualized. 4. Biapical pleuroparenchymal scarring partially visualized. Thoracic Spine CT 09/13/21 13:19 IMPRESSION: Negative for focal bony abnormality, consider further evaluation with whole body nuclear medicine bone scan if concern for metastatic disease exists. Chest/Abdomen/Pelvis CT 09/13/21 14:44 IMPRESSION: 1. Emphysematous changes. 2. Biapical pleuroparenchymal scarring. 3. Coronary artery atherosclerotic calcifications. IMPRESSION: 1. Negative for focal mass lesion or concerning adenopathy. 2. Prostate gland enlarged. 3. Urinary bladder wall thickening may reflect sequelae of chronic outflow obstruction or partial nondistention. 4. Infrarenal fusiform abdominal aortic aneurysm measuring 2.4 cm without findings of rupture. Laboratory Results WBC 12.4 10^3/uL (4.0-10.0) H 09/20/21 02:52 RBC 3.62 10^6/uL (4.1-5.3) L 09/20/21 02:52 Hgb 11.7 g/dL (11.7-16.6) 09/20/21 02:52 Hct 35.4 % (42.0-52.0) L 09/20/21 02:52 MCV 97.8 fl (80-94) H 09/20/21 02:52 MCH 32.3 pg (28.0-34.0) 09/20/21 02:52 MCHC 33.1 g/dL (30.0-36.0) 09/20/21 02:52 RDW 13.9 % (12.1-15.1) 09/20/21 02:52 Plt Count 386 10^3/cmm (130-400) 09/20/21 02:52 MPV 9.5 fL (7.4-10.4) 09/20/21 02:52 Neut % (Auto) 75.2 % 09/20/21 02:52 Lymph % (Auto) 15.3 % 09/20/21 02:52 Creek % (Auto) 7.8 % 09/20/21 02:52 Eos % (Auto) 0.6 % 09/20/21 02:52 Baso % (Auto) 0.6 % 09/20/21 02:52 Neut # (Auto) 9.30 10^3/uL (1.8-7.7) H 09/20/21 02:52 Lymph # (Auto) 1.9 10^3/uL (0.8-4.8) 09/20/21 02:52 Creek # (Auto) 1.0 10^3/uL (0.2-0.9) H 09/20/21 02:52 Eos # (Auto) 0.1 10^3/uL (0.0-0.8) 09/20/21 02:52 Baso # (Auto) 0.1 10^3/uL (0.0-0.1) 09/20/21 02:52 Nucleated RBC % (auto) 0 % 09/20/21 02:52 Nucleated RBCs # 0.0 /100WBC 09/20/21 02:52 PT 12.60 SECONDS (12.1-14.9) 09/19/21 03:45 INR 0.91 (0.8-1.2) 09/19/21 03:45 APTT 30.7 SECONDS (23.9-36.7) 09/19/21 03:45 Fibrinogen 393 mg/dL (174-498) 09/19/21 03:45 D-Dimer 1.04 ug/mIFEU (0-0.59) H 08/29/21 00:24 Specimen Type Arterial 09/01/21 22:15 Sample Site Radial, left 09/01/21 22:15 ABG pH 7.45 (7.35-7.45) 09/01/21 22:15 ABG pCO2 41.3 mmHg (35-45) 09/01/21 22:15 ABG pO2 66.3 mmHg (80.0-100.0) L 09/01/21 22:15 ABG HCO3 28.7 mmol/L (22-26) H 09/01/21 22:15 ABG Base Excess 4.3 mmol/L (-2.0-2.0) H 09/01/21 22:15 Joao Test Pos 09/01/21 22:15 Hematocrit 40.9 % (42-52) L 09/01/21 22:15 O2 Delivery Device Hag 09/01/21 22:15 O2 Liters/Min 10.0 % 09/01/21 22:15 FiO2 50.0 % 09/01/21 22:15 Ground Intelligence Officer ID Hensa 09/01/21 22:15 Sodium 140 mmol/L (136-145) 09/20/21 02:52 Potassium 4.5 mmol/L (3.5-5.1) 09/20/21 02:52 Chloride 103 mmol/L (98-107) 09/20/21 02:52 Carbon Dioxide 26 mmol/L (22-29) 09/20/21 02:52 Anion Gap 15.5 (5-19) 09/20/21 02:52 BUN 14 mg/dL (8-23) 09/20/21 02:52 Creatinine 0.5 mg/dL (0.7-1.2) L 09/20/21 02:52 GFR Calculation 165.4 mL/min (90-130) H 09/20/21 02:52 Glucose 107 mg/dL (65-115) 09/20/21 02:52 Calculated Osmolality 291 mOsm/kg (285-295) 09/20/21 02:52 Calcium 9.0 mg/dL (8.5-10.5) 09/20/21 02:52 Magnesium 2.2 mg/dL (1.7-2.3) 09/17/21 01:27 Total Bilirubin 0.5 mg/dL (0.15-1.2) 08/29/21 00:24 AST 13 U/L (0-40) 08/29/21 00:24 ALT 7 U/L (0-41) 08/29/21 00:24 Alkaline Phosphatase 115 IU/L (40-130) 08/29/21 00:24 Troponin T Baseline 14 ng/L (0-15) 09/01/21 22:16 Troponin T 120 Minute 11.47 ng/L (0-15) 08/29/21 02:40 Delta Troponin T Not Reportable 08/29/21 02:40 Troponin T Hi Sens 6Hr 9.67 ng/L (0-15) 09/02/21 04:17 Troponin T Hi Sens 6Hr Delta -4.33 ng/L (0-12) L 09/02/21 04:17 NT-Pro-B Natriuret Pep 146 pg/mL (0-125) H 09/01/21 22:16 Total Protein 6.5 g/dL (6.6-8.7) L 08/29/21 00:24 Albumin 4.1 g/dL (3.5-5.2) 08/29/21 00:24 Globulin 2.4 g/dL (1.3-4.6) 08/29/21 00:24 TSH 5.57 uIU/mL (0.27-4.20) H 08/29/21 00:24 Free T4 1.54 ng/dL (0.82-1.77) 08/29/21 02:40 Coronavirus 229E (PCR) Not detected (NOT DETECT) 08/26/21 12:46 SARS-CoV-2 (PCR) Not detected (NOT DETECT) 08/26/21 12:46 Vitals Last Vital Signs Temp 97.4 F L 09/20/21 07:25 Pulse 79 09/20/21 07:54 Resp 18 09/20/21 07:54 BP 101/63 09/20/21 07:25 Pulse Ox 96 09/20/21 07:54 Discharge Plan Discharge Patient Disposition: Home Condition: Stable Prescriptions: New mirtazapine 15 mg Tablet 7.5 mg PO BEDTIME Qty: 60 3RF Mucinex 600 mg Tablet Extended Release 12hr 600 mg PO BID Qty: 60 2RF Senna-S 8.6-50 mg tablet 1 tab-cap PO DAILY Qty: 30 0RF oxycodone 10 mg tablet 10 mg PO BID PRN (Reason: pain) Qty: 20 0RF Changed Seroquel 400 mg tablet 100 mg PO BEDTIME Qty: 30 6RF Rx Instructions: Take one tablet at bedtime Discontinued tizanidine [Zanaflex] 4 mg capsule 4 mg PO Q8H PRN (Reason: Muscle Spasticity) 0RF donepezil 5 mg tablet 5 mg PO .morning Qty: 30 6RF Rx Instructions: Take one tablet every morning Discharge Orders: Discharge Order (Routine); Ordered 09/20/21 Ordered By: Percy Farris Other Ambulatory Orders: DME: Miscellaneous (Order) Location: None Selected Ordered By: Tirso Clarke DME: Miscellaneous (Order) Location: None Selected Ordered By: Tirso Clarke DME: Miscellaneous (Order) Location: None Selected Ordered By: Tirso Clarke DME: Miscellaneous (Order) Location: None Selected Ordered By: Tirso Clarke DME: Miscellaneous (Order) Location: None Selected Ordered By: Tirso Clarke DME: Miscellaneous (Order) Location: None Selected Ordered By: Tirso Clarke Referrals: [facility] [place] [Outside] [facility] Home Care ([facility]) [Outside] Tirso Clarke MD [Physician] - 09/25/21 10:45 am Kye Kam MD [Staff Physician] - 4-7 days Discharge Diet: GI Soft Discharge Activity: Increase activity as tolerated Patient Instructions: Opioid Safety Activity Restrictions/Additional Instructions: APPOINTMENT FOR PET SCAN ON TuesdaySEPTEMBER 26 AT 09;00 AM AT [facility] Please follow-up with ENT, Dr. Kam and Dr. Ko I have prescribed you opioids for further opioids refill need to call your primary care physician or ENT surgeon You have finished your p.o. vancomycin for C. difficile diarrhea, no need to continue at this point, Would recommend using bleach to wash toilet at home Please flush your PEG tube with 50 mL of tap water or normal saline once every day to keep the patency Once you start using PEG tube you will need to have another evaluation by dietitian in order to get adequate calories Discharge Attestations Time Spent in Discharge Care*: less than 30 min Quality Metrics Clinical Quality Measures [ No reported AMI, CVA or VTE this stay] Coding Level of Care Code Acute Chg FW DC note Diagnoses Status post insertion of percutaneous endoscopic gastrostomy (PEG) tube Z93.1
--- NOTE | 2021-09-20 12:06 | PC.NURSE ---
Discharge Note Patient discharged to private vehicle via ambulation accompanied by family. Discharge instructions reviewed with patient and family, all verbalized understanding. Prescriptions sent to pharmacy for slate picker. Belongings sent home with patient.
[2021-09-20 12:08] VITALS: BP 101/63; PULSE 70; RESP 16; TEMP 36.3; O2SAT 93
== END 2021-09-20 12:00 | disposition home health service (06) | DRG 11 ==
LOC: ICU 15:20 → MEDSURG 08-29 17:44
PROVIDERS: Family Medicine; Internal Medicine; Specialist; Surgery; Admitting Provider Internal Medicine; Visit Provider Internal Medicine
PROC: 0B110F4 Bypass Trachea to Cutaneous with Tracheostomy Device, Open Approach (ICD-10-PCS; principal; 2021-08-26 14:00)
PROC: 0CJS8ZZ Inspection of Larynx, Via Natural or Artificial Opening Endoscopic (ICD-10-PCS; 2021-08-26 14:00)
PROC: 0DJ08ZZ Inspection of Upper Intestinal Tract, Via Natural or Artificial Opening Endoscopic (ICD-10-PCS; 2021-08-26 14:00)
PROC: 0DJ08ZZ Inspection of Upper Intestinal Tract, Via Natural or Artificial Opening Endoscopic (ICD-10-PCS; CPT 43235; 2021-08-26 14:00)
PROC: 02HV33Z Insertion of Infusion Device into Superior Vena Cava, Percutaneous Approach (ICD-10-PCS; principal; 2021-09-19 12:40)
PROC: 0DH63UZ Insertion of Feeding Device into Stomach, Percutaneous Approach (ICD-10-PCS; CPT 43246; 2021-09-19 12:40)
DX: C32.1 Malignant neoplasm of supraglottis (principal); J69.0 Pneumonitis due to inhalation of food and vomit; I97.191 Other postprocedural cardiac functional disturbances following other surgery; I47.1 Supraventricular tachycardia; E46 Unspecified protein-calorie malnutrition; R45.851 Suicidal ideations; A04.72 Enterocolitis due to Clostridium difficile, not specified as recurrent; F17.210 Nicotine dependence, cigarettes, uncomplicated; F10.21 Alcohol dependence, in remission; F15.21 Other stimulant dependence, in remission; F32.A Depression, unspecified; F41.9 Anxiety disorder, unspecified; N40.1 Benign prostatic hyperplasia with lower urinary tract symptoms; R41.9 Unspecified symptoms and signs involving cognitive functions and awareness; E87.6 Hypokalemia; Z68.20 Body mass index [BMI] 20.0-20.9, adult; Z66 Do not resuscitate; Z91.14 Patient's other noncompliance with medication regimen; Z59.01 Sheltered homelessness; F40.240 Claustrophobia; Z51.0 Encounter for antineoplastic radiation therapy; T81.82XA Emphysema (subcutaneous) resulting from a procedure, initial encounter; Y81.8 Miscellaneous general- and plastic-surgery devices associated with adverse incidents, not elsewhere classified; J44.9 Chronic obstructive pulmonary disease, unspecified; J84.10 Pulmonary fibrosis, unspecified; R91.8 Other nonspecific abnormal finding of lung field
CPT/HCPCS: 12345; 36415; 36600; 71045; 71250; 71275; 72125; 72128; 74176; 76000; 77001; 80048; 80053; 82803; 83735; 83880; 84439; 84443; 84484; 85025; 85049; 85378; 85384; 85610; 85730; 87493; 87635; 88305; 88307; 88342; 92507; 92523; 92526; 92610; 93005; 93306; 94640; 94664; 94799; 96372; C1788; J0153; J0171; J0690; J1200; J1644; J1650; J2405; J2704; J2710; J3010; J3370; J3411; J3475; J3480; J3490; J7030; Q9967

== ENCOUNTER 2021-10-09 06:37 | Outpatient (RCR) | payer MEDICAID, SELFPAY ==
--- NOTE | 2021-09-16 08:33 | N.ONRAD NP_ITS ---
Radiation Oncology Consultation Patient Name: Nima Vallejo Date of : 1955 Date of Service: 09/16/2021 Attending Physician: Dutch Ko M.D. Nima Vallejo was seen in consultation this morning at the request of Tirso Clarke M.D. for consideration of head and neck radiotherapy for the management of a recently diagnosed supraglottic laryngeal cancer. He was evaluated at the [facility] Emergency Department on August 24, [address] scan of the neck (independently reviewed in [facility]) demonstrated a 3 cm x 3 cm x 4 cm epiglottic mass extending posteriorly to the fourth cervical vertebral body. No cervical adenopathy was present. The patient was admitted for further management. A microdirect laryngoscopy tracheotomy was performed by Tirso Clarke M.D. on August 26, 2021. Intraoperative findings and obstructing mass of the surgical surface of the epiglottis. Biopsies diagnosed a moderately differentiated, nonkeratinizing, invasive squamous cell carcinoma. The patient's hospital admission has been complicated supraventricular tachycardia, C. difficile diarrhea, and depression. He is currently awaiting senior living placement. A thoracoabdominopelvic CT scan ordered on September 13, 2021 described emphysematous changes and an infrarenal abdominal aortic aneurysm measuring 2.4 cm without evidence of metastatic disease. He was evaluated for concomitant chemoradiotherapy. I discussed with Mr. Vallejo the [place] [employer] on [employer] Staging and specifically the patient's probable clinical stage IVB (T4bN0) supraglottic laryngeal cancer and the National Comprehensive Cancer Network Guidelines endorsing concurrent chemoradiation. The T4b annotation is a consequence of likely prevertebral space involvement. I also reviewed the classic [facility] Laryngeal Cancer Study Group Trial that established induction chemotherapy with definitive radiotherapy was effective in laryngeal preservation and the RTOG 91???11 study that randomized patients with locally advanced laryngeal cancer to RT alone, induction chemotherapy, or concurrent chemoradiotherapy. The RTOG trial affirmed laryngectomy free survival was significantly improved in the concurrent chemoradiotherapy arm. I would recommend a seven week course of radiotherapy. A CT scan with contrast for radiotherapy planning scan in the treatment position will be acquired identify the gross tumor volumes. The potential toxicities of head and neck radiotherapy were reviewed. He has verbalized understanding would like to proceed as recommended. The patient's medical treatment plan has been discussed with Tirso Clarke M.D. Signed by: Dr. Dutch Ko 09/16/2021 8:31:53 AM
--- NOTE | 2021-09-17 10:44 | ONC CON_ITS ---
Dr. Kam New Patient Note Patient: Nima Vallejo Unit #: [id number]: 1955 Dicatated By: Kye Kam M.D.Date of Visit: Sep 17, 2021 Onc MED New Patient/Consult Referring Physician: Dr. Tirso Clarke M.D. History of Present Illness: Mr. Nima Vallejo, is a 66-year-old gentleman with a history of progressive dysphagia, throat/neck pain, underwent CT scan of neck on August 24, 2021 which confirmed 3 x 3 x 4 cm mass at the base of tongue/epiglottis,Lesion extends posteriorly to the left anterior margin of C4 vertebral body without definite invasion, no cervical lymphadenopathy patient was referred to Dr. Clarke, ENT and on August 26, 2021 patient underwent tracheostomy, MicroDirect endoscopy with biopsy and flexible esophagoscopy with biopsy and pathology report came back moderately differentiated invasive squamous cell carcinoma, nonkeratinizing., Patient developed shortness of breath for which he underwent CT angiogram chest on August 29, 2021 which showed no evidence of pulmonary embolism. Pneumomediastinum possibly related to tracheostomy. Subcutaneous emphysema seen in the neck base bilaterally possibly related to tracheostomy. Severe bullous emphysematous changes and pulmonary fibrosis. Multiple small pulmonary nodules seen in left hemithorax, largest is4.8mm Past medical history significant for history of alcohol abuse, cannabis dependence, chronic smoking, major depressive disorder. Patient denies any fever or chills, denies any nausea or vomiting, denies any diarrhea constipation, denies any problem with swallowing, status post tracheostomy. Past Medical History: Mr. Vallejo's medical history consists of alcohol abuse, BPH w/LUTS, depression, hiatal hernia, major neurocognitive disorder, and substance abuse. Past Surgical History: Mr. Vallejo's surgical/procedural history consists of hernia repair. Medications: Donepezil HCl 1 Tablet (of 5 mg) Oral daily, Lyrica 1 (75 mg) Capsule Oral b.i.d., QUEtiapine Fumarate 1 Tablet (of 400 mg) Oral at bedtime, Tamsulosin HCl 1 Capsule (of 0.4 mg) Oral b.i.d., tiZANidine HCl 1 Tablet (of 4 mg) Oral q 8 hours PRN Allergies: Morphine Sulfate Social History: Mr. Vallejo is single. He is a daily smoker who has smoked 2.0 packs/day for 40 years. He is a former drinker. He has indicated exposure to the following products: cigarettes, recreational drug use, cannabis use, and former amphetamine abuse. Family History: Mr. Vallejo's mother at age 67: Cancer. Mr. Vallejo's father at age 80. Review Of Symptoms: Review of Systems is not available for this patient. Vital Signs: Performed on Sep 17, 2021 10:15: 8, 8, 19.02, 1.95 sq.m, 75.00 in, 96 %, 86 /min, 18 /min, 153/83 mm(hg) (HIGH), 97.8 F (LOW), and 152.2 lbs (LOW). Performance Status: 0 - Fully active, able to carry on all predisease activities without restrictions. (ECOG) Physical Examination: ENMT - No mouth sores, no thrush, status post tracheostomy, site is clear without discharge, no cervical lymphadenopathy, Respiratory - Poor air entry otherwise clear, Cardiovascular - Regular rate and rhythm of heart, Abdomen - Soft, bowel sounds present, Extremities - No visible edema. Lab/Imaging: Most recent lab results are not available for this patient. Impression: Moderately differentiated invasive squamous cell carcinoma, nonkeratinizing per MicroDirect laryngoscopy with biopsy done on August 26, 2021 CT scan of neck done on August 24, 2021 showed 3 x 3 x 4 cm mass in the base of tongue/epiglottis with obliteration of left vallecula, the lesion extends posteriorly to the left anterior margin of C4 vertebral body without definite invasion, ?T4b, no cervical lymphadenopathy seen, N0, MX Status post tracheostomy done on August 26, 2021 Chronic smoking, Plan: Discussed with patient regarding his disease status and treatment options,, as his CT scan of neck shows e.g. T4b, as per ENT evaluation, patient is not a candidate for upfront surgery, so combined chemoradiation with high-dose cisplatin is under consideration, patient has already seen radiation oncology. Based on NCCN guidelines, will recommend high-dose cisplatin, 100 mg per metered square on day 1, 22 and 43 concurrent with radiation therapy. All the side effect, possible benefits associated with chemotherapy including but not limited to nausea vomiting, hair loss, bone marrow suppression, mitchell/nephro toxicity were mentioned, patient expressed full understanding. We will also request Port-A-Cath placement to facilitate chemotherapy and G-tube placement to maintain nutrition and hydration. He will return to clinic 1 week after chemoradiation with high-dose cisplatin, with CBC CMP Signed By: Kye Kam M.D. <<Signature on File>>
[2021-09-24 08:33] LABS: Basophils # 0.1 10^3/uL (0.0-0.1); Basophils % 0.7 %; Eosinophils # 0.1 10^3/uL (0.0-0.8); Eosinophils % 1.3 %; Hematocrit 34.7 % (42.0-52.0); Hemoglobin 11.2 g/dL (11.7-16.6); Lymphocytes # 1.6 10^3/uL (0.8-4.8); Lymphocytes % 15.8 %; Mean Corpuscular HGB Conc 32.3 g/dL (30.0-36.0); Mean Corpuscular Hemoglobin 31.7 pg (28.0-34.0); Mean Corpuscular Volume 98.3 fl (80-94); Mean Platelet Volume 9.3 fL (7.4-10.4); Monocytes # 0.9 10^3/uL (0.2-0.9); Monocytes % 8.8 %; Neutrophils # 7.15 10^3/uL (1.8-7.7); Nucleated Red Blood Cells % 0 %; Platelet Count 322 10^3/cmm (130-400); Red Blood Count 3.53 10^6/uL (4.1-5.3); Red Cell Distribution Width 13.9 % (12.1-15.1); White Blood Count 9.8 10^3/uL (4.0-10.0)
[2021-09-24 09:11] LABS: Alanine Aminotransferase 30 U/L (0-41); Albumin Level 3.7 g/dL (3.5-5.2); Alkaline Phosphatase 122 IU/L (40-130); Anion Gap 12.3 (5-19); Aspartate Amino Transferase 17 U/L (0-40); Blood Urea Nitrogen 10 mg/dL (8-23); Carbon Dioxide 29 mmol/L (22-29); Chloride 99 mmol/L (98-107); Globulin 3.5 g/dL (1.3-4.6); Glomerular Filtration Rate 165.4 mL/min (90-130); Glucose 110 mg/dL (65-115); Osmolality Calculated 282 mOsm/kg (285-295); Potassium 4.3 mmol/L (3.5-5.1); Sodium 136 mmol/L (136-145); Total Bilirubin 0.3 mg/dL (0.15-1.2); Total Protein 7.2 g/dL (6.6-8.7)
--- NOTE | 2021-09-24 10:03 | ONC FU_ITS ---
Mariel Lane Progress Note Patient: Nima Vallejo Unit #: [id number]: [id number] Dicatated By: Mariel Lane N.P.Date of Visit:Sep 24, 2021 Onc MED Follow-up/Prog Note Chief Complaint: , Laryngeal carcinoma History of Present Illness: Mr. Nima Vallejo, is a 66-year-old gentleman with a history of progressive dysphagia, throat/neck pain, underwent CT scan of neck on August 24, 2021 which confirmed 3 x 3 x 4 cm mass at the base of tongue/epiglottis,Lesion extends posteriorly to the left anterior margin of C4 vertebral body without definite invasion, no cervical lymphadenopathy patient was referred to Dr. Clarke, ENT and on August 26, 2021 patient underwent tracheostomy, MicroDirect endoscopy with biopsy and flexible esophagoscopy with biopsy and pathology report came back moderately differentiated invasive squamous cell carcinoma, nonkeratinizing., Patient developed shortness of breath for which he underwent CT angiogram chest on August 29, 2021 which showed no evidence of pulmonary embolism. Pneumomediastinum possibly related to tracheostomy. Subcutaneous emphysema seen in the neck base bilaterally possibly related to tracheostomy. Severe bullous emphysematous changes and pulmonary fibrosis. Multiple small pulmonary nodules seen in left hemithorax, largest is4.8mm Past medical history significant for history of alcohol abuse, cannabis dependence, chronic smoking, major depressive disorder. Patient presents today for follow-up. He has started radiation therapy today. And is here for education on cisplatin to be given concurrently with radiation therapy. He denies weakness but does experience some fatigue. His appetite has been good. He has no trouble swallowing but he does have a PEG tube in place in case it is needed. He denies fever, chills, night sweats. No sinus drainage or mouth sores. No shortness of breath. He does have occasional cough. No chest pain. No nausea or vomiting. No diarrhea constipation. He denies joint or bone pain. No headaches or dizziness. Review Of Symptoms: See above. Past Medical History: Alcohol abuse BPH w/LUTS Depression Hiatal hernia Major neurocognitive disorder Substance abuse Past Surgical History: Hernia repair Allergies: Morphine Sulfate Medications: Donepezil HCl 1 Tablet (of 5 mg) Oral daily Lyrica 1 (75 mg) Capsule Oral b.i.d. QUEtiapine Fumarate 1 Tablet (of 400 mg) Oral at bedtime Tamsulosin HCl 1 Capsule (of 0.4 mg) Oral b.i.d. tiZANidine HCl 1 Tablet (of 4 mg) Oral q 8 hours PRN Family History: Mr. Vallejo's mother at age 67: Cancer. Mr. Vallejo's father at age 80. Social History: Mr. Vallejo is single. Mr. Vallejo no longer smokes but had smoked 2.0 packs/day for 40 years. He is a former drinker. He has indicated exposure to the following products: cigarettes, recreational drug use, cannabis use, and former amphetamine abuse. Physical Examination: Performed on Sep 24, 2021 09:16: Height - 75.00 in, Weight - 160.2 lbs (HIGH), BSA - 2.00 sq.m, BMI - 20.02, Temperature - 97.8 F (LOW), Pulse - 84 /min, Respiration - 16 /min, BP - 127/73 mm(hg), O2 Sat - 98 %, Pain - 8, and Fatigue - 8. Performance Status: 0 - Fully active, able to carry on all predisease activities without restrictions. (ECOG) Constitutional Alert, cooperative, oriented. Mood and affect appropriate. Appears close to chronological age. Well nourished. Well developed. Respiratory Lungs are clear to auscultation without rhonchi or wheezing. Tracheostomy intact Cardiovascular Regular rate and rhythm of heart without murmurs, gallops or rubs. Abdomen Non-tender, non-distended, no masses, ascites or hepatosplenomegaly. Good bowel sounds. No guarding or rebound tenderness. Feeding tube intact Musculoskeletal No tenderness or swelling, normal range of motion without obvious weakness. Psychiatric Alert and oriented times three. Coherent speech. Verbalizes understanding of our discussions today. Laboratory: Test performed on Sep 24, 2021 08:25 Sodium 136 mmol/L Potassium 4.3 mmol/L Chloride 99 mmol/L CO2 29 mmol/L Anion Gap 12.3 BUN 10 mg/dL Creatinine 0.5 mg/dL Cr Clearance (Est) 145.33 mL/min eGFR 165.4 mL/min Glucose 110 mg/dL Osmolality - Calculated 282 mOsm/kg Calcium 9.0 mg/dL Protein, Total 7.2 g/dL Albumin 3.7 g/dL Globulin 3.5 g/dL Bilirubin, Total 0.3 mg/dL ALT (SGPT) 30 U/L AST (SGOT) 17 U/L Alkaline Phosphatase 122 IU/L WBC 9.8 10 3/uL RBC 3.53 10 6/uL HGB 11.2 g/dL HCT 34.7 % MCV 98.3 fl MCH 31.7 pg MCHC 32.3 g/dL RDW 13.9 % Platelet Count 322 10 3/cmm MPV 9.3 fL Neutrophils 7.15 10 3/uL Lymphocytes 1.6 10 3/uL Monocytes 0.9 10 3/uL Eosinophils 0.1 10 3/uL Basophils 0.1 10 3/uL Neutrophil % 73.0 % Lymphocyte % 15.8 % Monocyte % 8.8 % Eosinophil % 1.3 % Basophils % 0.7 % NRBC % 0 % Impression: Moderately differentiated invasive squamous cell carcinoma, nonkeratinizing per MicroDirect laryngoscopy with biopsy done on August 26, 2021 CT scan of neck done on August 24, 2021 showed 3 x 3 x 4 cm mass in the base of tongue/epiglottis with obliteration of left vallecula, the lesion extends posteriorly to the left anterior margin of C4 vertebral body without definite invasion, ?T4b, no cervical lymphadenopathy seen, N0, MX Status post tracheostomy done on August 26, 2021 Lab work-up done on September 11, 2021 showed creatinine 0.5, hemoglobin 12.2 hematocrit 36 6 platelets 526,000 white blood count 7.4 Chronic smoking, Plan: Discussed with patient regarding his disease status and treatment options,, as his CT scan of neck shows e.g. T4b, as per ENT evaluation, patient is not a candidate for upfront surgery, so combined chemoradiation with high-dose cisplatin is under consideration, patient has already seen radiation oncology. Based on NCCN guidelines, will recommend high-dose cisplatin, 100 mg per metered square on day 1, 22 and 43 concurrent with radiation therapy. Patient presents today for education on cisplatin. Handouts were provided along with discussion of side effects including nausea, vomiting, pancytopenia and fatigue. Patient denies any questions or concerns. He will start first dose of cisplatin today and return to clinic in 1 week for toxicity check with CBC and CMP. Signed By: Mariel Lane NAlice. <<Signature on File>>
[2021-09-24] MEDS: fosaprepitant 150 MG in sodium chloride 0.9% 150 ML 300 MG IV (11:55)
[2021-09-24] MEDS: palonosetron 0.25 mg/5 mL SDV IV (12:20)
[2021-09-24] MEDS: sodium chlor 0.9% + KCl 20 mEq 20 MEQ/1,000 ML BAG 500 MEQ IV (12:20)
[2021-09-24] MEDS: FUROsemide 10 mg/mL SDV 2mL 20 MG IV (13:55)
[2021-09-24] MEDS: sodium chloride 0.9% 250 ML 999 ML IV (13:58)
--- NOTE | 2021-09-28 11:40 | ONCRAD TMN_ITS ---
Radiation Oncology Treatment Management Note Patient Name: Nima Vallejo Date of : 1955 Date of Service: 09/28/2021 Attending Physician: Dutch Ko M.D. 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 The T4b annotation is a consequence of likely prevertebral space involvement. He was evaluated at the [facility] Emergency Department on August 24, [address] scan of the neck no 5 a 3 cm x 3 cm x 4 cm epiglottic mass extending posteriorly to the fourth cervical vertebral body. No cervical adenopathy was present. The patient was admitted for further management. A microdirect laryngoscopy tracheotomy was performed by Tirso Clarke M.D. on August 26, 2021. Intraoperative findings and obstructing mass of the surgical surface of the epiglottis. Biopsies diagnosed a moderately differentiated, nonkeratinizing, invasive squamous cell carcinoma. A thoracoabdominopelvic CT scan ordered on September 13, 2021 described emphysematous changes and an infrarenal abdominal aortic aneurysm measuring 2.4 cm without evidence of metastatic disease. The patient has received 6 Gy of a prescribed 50 Tapia with an intensity modulated radiotherapy plan utilizing a step and shoot treatment technique. An additional 20 Gy will be delivered to the gross tumor volume and high risk cervical lymph nodes subsequent to the initial treatment plan. He has been prescribed cisplatin (100 mg/m2) every 21 days. Upon review of systems, he denied any complaints related to radiotherapy. On physical examination, the patient weighed 156 lbs. His temperature was 98.1 ???F and the blood pressure was 111/86 mmHg. His pulse was 76 bpm and the respiratory rate was 16. There was no erythema within the treatment gilmore. Continue head and neck radiotherapy as prescribed. Signed by: Dutch Ko 09/28/2021 11:38:40 AM
[2021-09-30] MEDS: LORazepam 0.5 mg Tablet 1 MG PO (08:48)
[2021-09-30 09:21] LABS: Basophils % 0.4 %; Eosinophils # 0.1 10^3/uL (0.0-0.8); Eosinophils % 0.9 %; Hematocrit 38.8 % (42.0-52.0); Lymphocytes # 1.4 10^3/uL (0.8-4.8); Mean Corpuscular HGB Conc 33.5 g/dL (30.0-36.0); Mean Corpuscular Hemoglobin 31.9 pg (28.0-34.0); Mean Corpuscular Volume 95.3 fl (80-94); Mean Platelet Volume 9.4 fL (7.4-10.4); Monocytes # 0.8 10^3/uL (0.2-0.9); Monocytes % 8.9 %; Neutrophils # 6.67 10^3/uL (1.8-7.7); Neutrophils % 74.2 %; Nucleated Red Blood Cells % 0 %; Platelet Count 339 10^3/cmm (130-400); Red Blood Count 4.07 10^6/uL (4.1-5.3); Red Cell Distribution Width 13.7 % (12.1-15.1)
[2021-09-30 09:32] LABS: Alanine Aminotransferase 25 U/L (0-41); Alkaline Phosphatase 135 IU/L (40-130); Anion Gap 16.1 (5-19); Aspartate Amino Transferase 15 U/L (0-40); Blood Urea Nitrogen 18 mg/dL (8-23); Calcium 9.6 mg/dL (8.5-10.5); Carbon Dioxide 28 mmol/L (22-29); Chloride 97 mmol/L (98-107); Globulin 3.5 g/dL (1.3-4.6); Glucose 137 mg/dL (65-115); Osmolality Calculated 288 mOsm/kg (285-295); Potassium 4.1 mmol/L (3.5-5.1); Sodium 137 mmol/L (136-145); Total Bilirubin 0.3 mg/dL (0.15-1.2); Total Protein 7.5 g/dL (6.6-8.7)
--- NOTE | 2021-10-01 16:57 | ONC FU_ITS ---
Dr. Kam follow up note Patient: Nima Vallejo Unit #: [id number]: 1955 Dicatated By: Kye Kam M.D.Date of Visit:Oct 01, 2021 Onc Med Follow-up/Prog Note History of Present Illness: Mr. Nima Vallejo, is a 66-year-old gentleman with a history of progressive dysphagia, throat/neck pain, underwent CT scan of neck on August 24, 2021 which confirmed 3 x 3 x 4 cm mass at the base of tongue/epiglottis,Lesion extends posteriorly to the left anterior margin of C4 vertebral body without definite invasion, no cervical lymphadenopathy patient was referred to Dr. Clarke, ENT and on August 26, 2021 patient underwent tracheostomy, MicroDirect endoscopy with biopsy and flexible esophagoscopy with biopsy and pathology report came back moderately differentiated invasive squamous cell carcinoma, nonkeratinizing., Patient developed shortness of breath for which he underwent CT angiogram chest on August 29, 2021 which showed no evidence of pulmonary embolism. Pneumomediastinum possibly related to tracheostomy. Subcutaneous emphysema seen in the neck base bilaterally possibly related to tracheostomy. Severe bullous emphysematous changes and pulmonary fibrosis. Multiple small pulmonary nodules seen in left hemithorax, largest is4.8mm Past medical history significant for history of alcohol abuse, cannabis dependence, chronic smoking, major depressive disorder. Started on combined chemoradiation with high-dose cisplatin on September 18, 2021 CT PET scan done on September 26, 2021 showed at the left epiglottis there is 2.5 x 1.8 cm ulcerated mass with SUV 15.8. Scattered jugulodigastric nodes are FDG negative and radiographically benign. No evidence of metastatic disease. Came for follow-up, denies any specific complaints except mild nausea, patient is consuming spicy food and Coke. But no vomiting, no hemoptysis or hematemesis, no fever chills, no no diarrhea or constipation, no new bony pains, no abdominal pain mild sore throat under control with current pain medication, tolerating combined chemoradiation with high-dose cisplatin well otherwise Medications: Donepezil HCl 1 Tablet (of 5 mg) Oral daily, Lyrica 1 (75 mg) Capsule Oral b.i.d., oxyCODONE HCl 1 Tablet (of 10 mg) Oral b.i.d. PRN, Prochlorperazine Maleate 1 Tablet (of 10 mg) Oral q 4 hours PRN, QUEtiapine Fumarate 1 Tablet (of 400 mg) Oral at bedtime, Tamsulosin HCl 1 Capsule (of 0.4 mg) Oral b.i.d., tiZANidine HCl 1 Tablet (of 4 mg) Oral q 8 hours PRN Allergies: Morphine Sulfate Review of Systems: Review of Systems is not available for this patient. Vital Signs: Performed on Oct 01, 2021 09:35 Height - 75 in Weight - 151.0 lbs (LOW) BSA - 1.95 sq.m BMI - 18.87 Temperature - 97.8 F (LOW) Pulse - 89 /min Respiration - 16 /min BP - 128/82 mm(hg) O2 Sat - 97 % Pain - 0 Fatigue - 8 Performance Status: 0 - Fully active, able to carry on all predisease activities without restrictions. (ECOG) Physical Examination: ENMT - No mouth sores, no thrush, trach site clear, Respiratory - Lungs are clear to auscultation, Cardiovascular - Regular rate and rhythm of heart, Abdomen - Soft, bowel sounds present, G-tube site clean, Extremities - No visible edema. Lab/Imaging: Test performed on Sep 24, 2021 08:25 Sodium 136 mmol/L Potassium 4.3 mmol/L Chloride 99 mmol/L CO2 29 mmol/L Anion Gap 12.3 BUN 10 mg/dL Creatinine 0.5 mg/dL Cr Clearance (Est) 145.33 mL/min eGFR 165.4 mL/min Glucose 110 mg/dL Osmolality - Calculated 282 mOsm/kg Calcium 9.0 mg/dL Protein, Total 7.2 g/dL Albumin 3.7 g/dL Globulin 3.5 g/dL Bilirubin, Total 0.3 mg/dL ALT (SGPT) 30 U/L AST (SGOT) 17 U/L Alkaline Phosphatase 122 IU/L WBC 9.8 10 3/uL RBC 3.53 10 6/uL HGB 11.2 g/dL HCT 34.7 % MCV 98.3 fl MCH 31.7 pg MCHC 32.3 g/dL RDW 13.9 % Platelet Count 322 10 3/cmm MPV 9.3 fL Neutrophils 7.15 10 3/uL Lymphocytes 1.6 10 3/uL Monocytes 0.9 10 3/uL Eosinophils 0.1 10 3/uL Basophils 0.1 10 3/uL Neutrophil % 73.0 % Lymphocyte % 15.8 % Monocyte % 8.8 % Eosinophil % 1.3 % Basophils % 0.7 % NRBC % 0 % Impression: Moderately differentiated invasive squamous cell carcinoma, nonkeratinizing per MicroDirect laryngoscopy with biopsy done on August 26, 2021 CT scan of neck done on August 24, 2021 showed 3 x 3 x 4 cm mass in the base of tongue/epiglottis with obliteration of left vallecula, the lesion extends posteriorly to the left anterior margin of C4 vertebral body without definite invasion, ?T4b, no cervical lymphadenopathy seen, N0, MX Status post tracheostomy done on August 26, 2021 Lab work-up done on September 11, 2021 showed creatinine 0.5, hemoglobin 12.2 hematocrit 36 6 platelets 526,000 white blood count 7.4 Chronic smoking, Plan: 9Discussed with patient regarding his labs white blood count hemoglobin 13 hematocrit 38.8 platelets 339,000 CMP within normal limits And staging CT PET scan which was done on September 26, 2021, because of his insurance status which showed localized lesion in the left epiglottic area no lymphadenopathy or distant mets. Clinically, doing well, tolerating combined chemoradiation with high-dose cisplatin well but with expected side effects. Mild nausea could be multifactorial including due to spicy food or carbonated drinks, patient was advised to avoid spicy food and Coke and take antiemetics as prescribed. He will return to clinic in 1 week with CBC CMP, if reasonable, day 22 chemotherapy with cisplatin concurrent with radiation therapy. Signed By: Kye Kam M.D. <<Signature on File>>
--- NOTE | 2021-10-05 11:03 | ONCRAD TMN_ITS ---
Radiation Oncology Treatment Management Note Patient Name: Nima Vallejo Date of : 1955 Date of Service: 10/05/2021 Attending Physician: Dutch Ko M.D. 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 The T4b annotation is a consequence of likely prevertebral space involvement. He was evaluated at the [facility] on August 24, [address] scan of the neck no 5 a 3 cm x 3 cm x 4 cm epiglottic mass extending posteriorly to the fourth cervical vertebral body. No cervical adenopathy was present. The patient was admitted for further management. A microdirect laryngoscopy tracheotomy was performed by Tirso Clarke M.D. on August 26, 2021. Intraoperative findings and obstructing mass of the surgical surface of the epiglottis. Biopsies diagnosed a moderately differentiated, nonkeratinizing, invasive squamous cell carcinoma. A thoracoabdominopelvic CT scan ordered on September 13, 2021 described emphysematous changes and an infrarenal abdominal aortic aneurysm measuring 2.4 cm without evidence of metastatic disease. The patient has received 14 Gy of a prescribed 54 Tapia with an intensity modulated radiotherapy plan utilizing a step and shoot treatment technique. An additional 16 Gy will be delivered to the gross tumor volume and high risk cervical lymph nodes subsequent to the initial treatment plan. He has been prescribed cisplatin (100 mg/m2) every 21 days. Upon review of systems, he denied any complaints related to radiotherapy. He reported an improvement in his voice and swallowing. On physical examination, the patient weighed 155 lbs. His temperature was 97.4 ???F and the blood pressure was 100/72 mmHg. His pulse was 82 bpm and the respiratory rate was 16. There was no erythema within the treatment gilmore. Continue head and neck radiotherapy as planned. I will refill his pain medication (oxycodone elixir 5 mg/5mL). Signed by: Dutch Ko 10/05/2021 11:01:23 AM
[2021-10-06 11:40] LABS: Basophils % 0.5 %; Eosinophils # 0.1 10^3/uL (0.0-0.8); Eosinophils % 0.8 %; Hemoglobin 12.1 g/dL (11.7-16.6); Lymphocytes # 1.4 10^3/uL (0.8-4.8); Lymphocytes % 18.3 %; Mean Corpuscular HGB Conc 33.6 g/dL (30.0-36.0); Mean Corpuscular Hemoglobin 32.5 pg (28.0-34.0); Mean Corpuscular Volume 96.8 fl (80-94); Mean Platelet Volume 9.3 fL (7.4-10.4); Monocytes # 0.5 10^3/uL (0.2-0.9); Monocytes % 6.2 %; Neutrophils # 5.79 10^3/uL (1.8-7.7); Neutrophils % 73.8 %; Nucleated Red Blood Cells % 0 %; Platelet Count 209 10^3/cmm (130-400); Red Blood Count 3.72 10^6/uL (4.1-5.3); White Blood Count 7.9 10^3/uL (4.0-10.0)
[2021-10-06 12:13] LABS: Alanine Aminotransferase 11 U/L (0-41); Albumin Level 3.9 g/dL (3.5-5.2); Alkaline Phosphatase 123 IU/L (40-130); Anion Gap 14.2 (5-19); Aspartate Amino Transferase 12 U/L (0-40); Blood Urea Nitrogen 18 mg/dL (8-23); Calcium 8.6 mg/dL (8.5-10.5); Carbon Dioxide 28 mmol/L (22-29); Chloride 100 mmol/L (98-107); Globulin 3.5 g/dL (1.3-4.6); Glucose 72 mg/dL (65-115); Osmolality Calculated 286 mOsm/kg (285-295); Potassium 4.2 mmol/L (3.5-5.1); Sodium 138 mmol/L (136-145); Total Bilirubin 0.3 mg/dL (0.15-1.2); Total Protein 7.4 g/dL (6.6-8.7)
--- NOTE | 2021-10-07 09:34 | ONC FU_ITS ---
Dr. Kam follow up note Patient: Nima Vallejo Unit #: [id number]: 1955 Dicatated By: Kye Kam M.D.Date of Visit:Oct 07, 2021 Onc Med Follow-up/Prog Note History of Present Illness: Mr. Nima Vallejo, is a 66-year-old gentleman with a history of progressive dysphagia, throat/neck pain, underwent CT scan of neck on August 24, 2021 which confirmed 3 x 3 x 4 cm mass at the base of tongue/epiglottis,Lesion extends posteriorly to the left anterior margin of C4 vertebral body without definite invasion, no cervical lymphadenopathy patient was referred to Dr. Clarke, ENT and on August 26, 2021 patient underwent tracheostomy, MicroDirect endoscopy with biopsy and flexible esophagoscopy with biopsy and pathology report came back moderately differentiated invasive squamous cell carcinoma, nonkeratinizing., Patient developed shortness of breath for which he underwent CT angiogram chest on August 29, 2021 which showed no evidence of pulmonary embolism. Pneumomediastinum possibly related to tracheostomy. Subcutaneous emphysema seen in the neck base bilaterally possibly related to tracheostomy. Severe bullous emphysematous changes and pulmonary fibrosis. Multiple small pulmonary nodules seen in left hemithorax, largest is4.8mm Past medical history significant for history of alcohol abuse, cannabis dependence, chronic smoking, major depressive disorder. Started on combined chemoradiation with high-dose cisplatin on September 18, 2021 CT PET scan done on September 26, 2021 showed at the left epiglottis there is 2.5 x 1.8 cm ulcerated mass with SUV 15.8. Scattered jugulodigastric nodes are FDG negative and radiographically benign. No evidence of metastatic disease. came For follow-up, denies any specific complaints, no fever or chills, no nausea or vomiting, no diarrhea or constipation, no hemoptysis or hematemesis, tolerating combined chemoradiation with high-dose cisplatin well Medications: Donepezil HCl 1 Tablet (of 5 mg) Oral daily, Lyrica 1 (75 mg) Capsule Oral b.i.d., oxyCODONE HCl 1 Tablet (of 10 mg) Oral b.i.d. PRN, Prochlorperazine Maleate 1 Tablet (of 10 mg) Oral q 4 hours PRN, QUEtiapine Fumarate 1 Tablet (of 400 mg) Oral at bedtime, Tamsulosin HCl 1 Capsule (of 0.4 mg) Oral b.i.d., tiZANidine HCl 1 Tablet (of 4 mg) Oral q 8 hours PRN Allergies: Morphine Sulfate Review of Systems: Review of Systems is not available for this patient. Vital Signs: Performed on Oct 07, 2021 09:04 Height - 75.00 in Weight - 155 lbs (LOW) BSA - 1.97 sq.m BMI - 19.37 Temperature - 97.3 F (LOW) Pulse - 97 /min Respiration - 16 /min BP - 135/82 mm(hg) O2 Sat - 97 % Pain - 7 Fatigue - 7 Performance Status: 0 - Fully active, able to carry on all predisease activities without restrictions. (ECOG) Physical Examination: ENMT - No mouth sores, poor oral hygiene, mild pharyngeal erythema, trach site no purulent discharge, Respiratory - Lungs are clear to auscultation, Cardiovascular - Regular rate and rhythm of heart, Abdomen - Soft, bowel sounds present, Extremities - No visible edema. Lab/Imaging: Test performed on Sep 24, 2021 08:25 Sodium 136 mmol/L Potassium 4.3 mmol/L Chloride 99 mmol/L CO2 29 mmol/L Anion Gap 12.3 BUN 10 mg/dL Creatinine 0.5 mg/dL Cr Clearance (Est) 145.33 mL/min eGFR 165.4 mL/min Glucose 110 mg/dL Osmolality - Calculated 282 mOsm/kg Calcium 9.0 mg/dL Protein, Total 7.2 g/dL Albumin 3.7 g/dL Globulin 3.5 g/dL Bilirubin, Total 0.3 mg/dL ALT (SGPT) 30 U/L AST (SGOT) 17 U/L Alkaline Phosphatase 122 IU/L WBC 9.8 10 3/uL RBC 3.53 10 6/uL HGB 11.2 g/dL HCT 34.7 % MCV 98.3 fl MCH 31.7 pg MCHC 32.3 g/dL RDW 13.9 % Platelet Count 322 10 3/cmm MPV 9.3 fL Neutrophils 7.15 10 3/uL Lymphocytes 1.6 10 3/uL Monocytes 0.9 10 3/uL Eosinophils 0.1 10 3/uL Basophils 0.1 10 3/uL Neutrophil % 73.0 % Lymphocyte % 15.8 % Monocyte % 8.8 % Eosinophil % 1.3 % Basophils % 0.7 % NRBC % 0 % Impression: Moderately differentiated invasive squamous cell carcinoma, nonkeratinizing per MicroDirect laryngoscopy with biopsy done on August 26, 2021 CT scan of neck done on August 24, 2021 showed 3 x 3 x 4 cm mass in the base of tongue/epiglottis with obliteration of left vallecula, the lesion extends posteriorly to the left anterior margin of C4 vertebral body without definite invasion, ?T4b, no cervical lymphadenopathy seen, N0, MX Status post tracheostomy done on August 26, 2021 Started on combined chemoradiation with high-dose cisplatin on September 18, 2021 Lab work-up done on September 11, 2021 showed creatinine 0.5, hemoglobin 12.2 hematocrit 36 6 platelets 526,000 white blood count 7.4 Chronic smoking, Plan: Discussed with patient regarding his labs white blood count 7.9 hemoglobin 12.1 g hematocrit 36 platelets 209,000 CMP within normal limits Clinically, patient doing well with no new signs symptoms suggestive of disease progression, tolerating combined chemoradiation with high-dose cisplatin well but with expected side effects. We will proceed with next dose of cisplatin e.g. day 22, concurrent with radiation therapy at today and then he will return to clinic in 1 week with CBC CMP. Signed By: Kye Kam M.D. <<Signature on File>>
[2021-10-07] MEDS: palonosetron 0.25 mg/5 mL SDV IV (11:20)
[2021-10-07] MEDS: sodium chloride 0.9% 250 ML 75 ML IV (12:08)
[2021-10-07] MEDS: fosaprepitant 150 MG in sodium chloride 0.9% 150 ML 300 MG IV (12:08)
[2021-10-07] MEDS: FUROsemide 10 mg/mL SDV 2mL 20 MG IV (14:00)
[2021-10-07] MEDS: potassium chloride 20 MEQ in sodium chloride 0.9% 500 ML 999 MEQ IV (14:03)
== END 2021-10-10 23:59 | disposition home or self-care (01) ==
LOC: ONCMED 06:37
PROVIDERS: Nurse Practitioner Family; Absent Provider Internal Medicine Hematology & Oncology; Visit Provider Radiology Radiation Oncology
DX: Z51.0 Encounter for antineoplastic radiation therapy (principal); Z51.11 Encounter for antineoplastic chemotherapy; C32.8 Malignant neoplasm of overlapping sites of larynx; Z93.0 Tracheostomy status; Z92.21 Personal history of antineoplastic chemotherapy; F17.210 Nicotine dependence, cigarettes, uncomplicated; Z79.899 Other long term (current) drug therapy
CPT/HCPCS: 36591; 77300; 77301; 77334; 77336; 77338; 77386; 77470; 80053; 85025; 96360; 96366; 96367; 96375; 96413; 99205; 99215; J1100; J1453; J1940; J2469; J3475; J3480; J7030; J7040; J7050; J9060

== ENCOUNTER 2021-10-12 08:34 | Oncology outpatient (recurring) (ONCR) | payer MEDICAID, SELFPAY ==
--- NOTE | 2021-10-12 11:21 | ONCRAD TMN_ITS ---
Radiation Oncology Treatment Management Note Patient Name: Nima Vallejo Date of : 1955 Date of Service: 10/12/2021 Attending Physician: Dutch Ko M.D. 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 The T4b annotation is a consequence of likely prevertebral space involvement. He was evaluated at the [facility] on August 24, [address] scan of the neck identified a 3 cm x 3 cm x 4 cm epiglottic mass extending posteriorly to the fourth cervical vertebral body. No cervical adenopathy was present. The patient was admitted for further management. A microdirect laryngoscopy tracheotomy was performed by Tirso Clarke M.D. on August 26, 2021. Intraoperative findings and obstructing mass of the surgical surface of the epiglottis. Biopsies diagnosed a moderately differentiated, nonkeratinizing, invasive squamous cell carcinoma. A thoracoabdominopelvic CT scan ordered on September 13, 2021 described emphysematous changes and an infrarenal abdominal aortic aneurysm measuring 2.4 cm without evidence of metastatic disease. The patient has received 24 Gy of a prescribed 54 Tapia with an intensity modulated radiotherapy plan utilizing a step and shoot treatment technique. An additional 16 Gy will be delivered to the gross tumor volume and high risk cervical lymph nodes subsequent to the initial treatment plan. He has been prescribed cisplatin (100 mg/m2) every 21 days. Upon review of systems, he denied any complaints related to radiotherapy. On physical examination, the patient weighed 158 lbs. His temperature was 96.9 ???F and the blood pressure was 129/84 mmHg. His pulse was 82 bpm and the respiratory rate was 20. There was no erythema within the treatment gilmore. Continue head and neck radiotherapy as prescribed. Signed by: Dutch Ko 10/12/2021 11:20:33 AM
--- NOTE | 2021-10-19 11:24 | ONCRAD TMN_ITS ---
Radiation Oncology Treatment Management Note Patient Name: Nima Vallejo Date of : 1955 Date of Service: 10/19/2021 Attending Physician: Dutch Ko M.D. 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 The T4b annotation is a consequence of likely prevertebral space involvement. He was evaluated at the [facility] Department on August 24, [address] scan of the neck identified a 3 cm x 3 cm x 4 cm epiglottic mass extending posteriorly to the fourth cervical vertebral body. No cervical adenopathy was present. The patient was admitted for further management. A microdirect laryngoscopy tracheotomy was performed by Tirso Clarke M.D. on August 26, 2021. Intraoperative findings and obstructing mass of the surgical surface of the epiglottis. Biopsies diagnosed a moderately differentiated, nonkeratinizing, invasive squamous cell carcinoma. A thoracoabdominopelvic CT scan ordered on September 13, 2021 described emphysematous changes and an infrarenal abdominal aortic aneurysm measuring 2.4 cm without evidence of metastatic disease. The patient has received 34 Gy of a prescribed 54 Tapia with an intensity modulated radiotherapy plan utilizing a step and shoot treatment technique. An additional 16 Gy will be delivered to the gross tumor volume and high risk cervical lymph nodes subsequent to the initial treatment plan. He has been prescribed cisplatin (100 mg/m2) every 21 days. Upon review of systems, he reports improvement in his voice and dysphagia. On physical examination, the patient weighed 152 lbs. His temperature was 97 ???F and the blood pressure was 111/75 mmHg. His pulse was 82 bpm and the respiratory rate was 18. There was no erythema within the treatment gilmore. Continue head and neck radiotherapy as planned. Signed by: Dutch Ko 10/19/2021 11:23:04 AM
== END 2021-10-20 09:01 | disposition home or self-care (01) ==
PROVIDERS: Visit Provider Radiology Radiation Oncology
DX: Z51.0 Encounter for antineoplastic radiation therapy (principal); C32.1 Malignant neoplasm of supraglottis; C79.51 Secondary malignant neoplasm of bone; R13.19 Other dysphagia; J43.9 Emphysema, unspecified; I71.4 Abdominal aortic aneurysm, without rupture; Z79.899 Other long term (current) drug therapy
CPT/HCPCS: 77014; 77336; 77386; 77427; 99215

== ENCOUNTER 2021-10-26 12:51 | Emergency (ER) | payer MEDICAID, SELFPAY ==
[2021-10-26 13:04] VITALS: BP 124/80; PULSE 76; RESP 18; TEMP 36.7; O2SAT 97; BMI 20.1
--- NOTE | 2021-10-26 13:04 | XRR_ITS ---
PROCEDURE INFORMATION: Exam: XR Chest Exam date and time: 10/26/2021 1:15 PM Age: 66 years old Clinical indication: Angina pectoris; Patient HX: Chest pain x 6 months, history of throat cancer TECHNIQUE: Imaging protocol: XR of the chest. Views: 1 view. COMPARISON: CT chest abd pel wo con 09/13/2021 5:46 PM FINDINGS: Tubes, catheters and devices: A tracheostomy tube projects in satisfactory position. A MediPort catheter is present with the tip projecting in the SVC. Lungs: The lungs are overinflated consistent with emphysema. No acute pulmonary infiltrates. Pleural spaces: Unremarkable. No pleural effusion. No pneumothorax. Heart/Mediastinum: Unremarkable. No cardiomegaly. Bones/joints: Unremarkable. XR/XR chest 1V portable [id number] IMPRESSION: 1. Pulmonary emphysema. 2. No acute abnormality.
== END 2021-10-26 13:59 | disposition left against medical advice (07) ==
LOC: ER 13:00
PROVIDERS: Emergency Provider Family Medicine
DX: Z53.21 Procedure and treatment not carried out due to patient leaving prior to being seen by health care provider (principal)
CPT/HCPCS: 71045

== ENCOUNTER 2021-11-06 10:17 | Oncology outpatient (recurring) (ONCR) | payer MEDICAID, SELFPAY ==
[2021-10-14 12:00] LABS: Basophils % 0.4 %; Eosinophils % 1.3 %; Hemoglobin 11.8 g/dL (11.7-16.6); Lymphocytes % 44.3 %; Mean Corpuscular HGB Conc 33.7 g/dL (30.0-36.0); Mean Corpuscular Hemoglobin 32.7 pg (28.0-34.0); Mean Platelet Volume 9.6 fL (7.4-10.4); Monocytes # 0.4 10^3/uL (0.2-0.9); Monocytes % 17.8 %; Neutrophils % 35.8 %; Nucleated Red Blood Cells % 0 %; Platelet Count 170 10^3/cmm (130-400); Red Blood Count 3.61 10^6/uL (4.1-5.3); Red Cell Distribution Width 13.6 % (12.1-15.1); White Blood Count 2.3 10^3/uL (4.0-10.0)
[2021-10-14 12:18] LABS: Alanine Aminotransferase 27 U/L (0-41); Albumin Level 3.8 g/dL (3.5-5.2); Alkaline Phosphatase 133 IU/L (40-130); Anion Gap 13.2 (5-19); Aspartate Amino Transferase 19 U/L (0-40); Blood Urea Nitrogen 13 mg/dL (8-23); Carbon Dioxide 26 mmol/L (22-29); Chloride 103 mmol/L (98-107); Glomerular Filtration Rate 165.4 mL/min (90-130); Glucose 74 mg/dL (65-115); Osmolality Calculated 285 mOsm/kg (285-295); Potassium 4.2 mmol/L (3.5-5.1); Sodium 138 mmol/L (136-145); Total Bilirubin 0.2 mg/dL (0.15-1.2); Total Protein 6.8 g/dL (6.6-8.7)
[2021-10-14 12:19] LABS: Creatinine Clr Calc Pharmacy 99.6625
[2021-10-14 12:38] LABS: Neutrophils # 0.82 10^3/uL (1.8-7.7)
[2021-10-21] MEDS: LORazepam 0.5 mg Tablet 1 MG PO (11:37)
[2021-10-21 12:11] LABS: Eosinophils # 0.1 10^3/uL (0.0-0.8); Eosinophils % 1.9 %; Hematocrit 34.5 % (42.0-52.0); Hemoglobin 11.6 g/dL (11.7-16.6); Lymphocytes % 32.5 %; Mean Corpuscular HGB Conc 33.6 g/dL (30.0-36.0); Mean Corpuscular Hemoglobin 32.5 pg (28.0-34.0); Mean Corpuscular Volume 96.6 fl (80-94); Mean Platelet Volume 9.8 fL (7.4-10.4); Monocytes # 0.5 10^3/uL (0.2-0.9); Monocytes % 14.9 %; Neutrophils # 1.52 10^3/uL (1.8-7.7); Neutrophils % 49.4 %; Nucleated Red Blood Cells % 0 %; Platelet Count 113 10^3/cmm (130-400); Red Blood Count 3.57 10^6/uL (4.1-5.3); Red Cell Distribution Width 14.2 % (12.1-15.1); White Blood Count 3.1 10^3/uL (4.0-10.0)
[2021-10-21 12:23] LABS: Alanine Aminotransferase 12 U/L (0-41); Albumin Level 3.8 g/dL (3.5-5.2); Alkaline Phosphatase 128 IU/L (40-130); Anion Gap 11.7 (5-19); Aspartate Amino Transferase 14 U/L (0-40); Blood Urea Nitrogen 12 mg/dL (8-23); Calcium 9.2 mg/dL (8.5-10.5); Carbon Dioxide 27 mmol/L (22-29); Chloride 102 mmol/L (98-107); Creatinine Clr Calc Pharmacy 85.8288; Glomerular Filtration Rate 112.1 mL/min (90-130); Glucose 95 mg/dL (65-115); Osmolality Calculated 284 mOsm/kg (285-295); Potassium 3.7 mmol/L (3.5-5.1); Sodium 137 mmol/L (136-145); Total Bilirubin 0.3 mg/dL (0.15-1.2); Total Protein 6.8 g/dL (6.6-8.7)
[2021-10-22] MEDS: LORazepam 0.5 mg Tablet 1 MG PO (11:13)
--- NOTE | 2021-10-26 11:02 | ONCRAD TMN_ITS ---
Radiation Oncology Treatment Management Note Patient Name: Nima Vallejo Date of : 1955 Date of Service: 10/26/2021 Attending Physician: Dutch Ko M.D. 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 The T4b annotation is a consequence of likely prevertebral space involvement. He was evaluated at the [facility] Department on August 24, [address] scan of the neck identified a 3 cm x 3 cm x 4 cm epiglottic mass extending posteriorly to the fourth cervical vertebral body. No cervical adenopathy was present. The patient was admitted for further management. A microdirect laryngoscopy and tracheotomy was performed by Tirso Clarke M.D. on August 26, 2021. Intraoperative findings described an obstructing mass of the surgical surface of the epiglottis. Biopsies diagnosed a moderately differentiated, nonkeratinizing, invasive squamous cell carcinoma. A thoracoabdominopelvic CT scan ordered on September 13, 2021 described emphysematous changes and an infrarenal abdominal aortic aneurysm measuring 2.4 cm without evidence of metastatic disease. The patient has received 42 Gy of a prescribed 54 Tapia with an intensity modulated radiotherapy plan utilizing a step and shoot treatment technique. An additional 16 Gy will be delivered to the gross tumor volume subsequent to the initial treatment plan. He has been prescribed cisplatin (100 mg/m2) every 21 days. Upon review of systems, he did not report any significant changes. On physical examination, the patient weighed 155 lbs. His temperature was 96.9 ???F and the blood pressure was 123/82 mmHg. His pulse was 77 bpm and the respiratory rate was 16. There was no erythema within the treatment gilmore. Continue head and neck radiotherapy as prescribed. I will refill the oxycodone prescription. Signed by: Dutch Ko 10/26/2021 1:57:12 PM
[2021-10-28 11:29] LABS: Basophils % 0.4 %; Eosinophils # 0.1 10^3/uL (0.0-0.8); Eosinophils % 2.4 %; Hematocrit 32.8 % (42.0-52.0); Hemoglobin 11.1 g/dL (11.7-16.6); Lymphocytes # 0.7 10^3/uL (0.8-4.8); Lymphocytes % 27.6 %; Mean Corpuscular HGB Conc 33.8 g/dL (30.0-36.0); Mean Corpuscular Volume 97.6 fl (80-94); Mean Platelet Volume 9.9 fL (7.4-10.4); Monocytes # 0.5 10^3/uL (0.2-0.9); Monocytes % 18.9 %; Neutrophils # 1.27 10^3/uL (1.8-7.7); Neutrophils % 49.9 %; Nucleated Red Blood Cells % 0 %; Platelet Count 136 10^3/cmm (130-400); Red Blood Count 3.36 10^6/uL (4.1-5.3); White Blood Count 2.5 10^3/uL (4.0-10.0)
[2021-10-28 11:46] LABS: Alanine Aminotransferase 6 U/L (0-41); Albumin Level 3.9 g/dL (3.5-5.2); Alkaline Phosphatase 123 IU/L (40-130); Aspartate Amino Transferase 10 U/L (0-40); Blood Urea Nitrogen 11 mg/dL (8-23); Calcium 8.3 mg/dL (8.5-10.5); Carbon Dioxide 27 mmol/L (22-29); Chloride 101 mmol/L (98-107); Globulin 2.5 g/dL (1.3-4.6); Glucose 92 mg/dL (65-115); Osmolality Calculated 285 mOsm/kg (285-295); Sodium 138 mmol/L (136-145); Total Bilirubin 0.2 mg/dL (0.15-1.2); Total Protein 6.4 g/dL (6.6-8.7)
[2021-10-28 11:48] LABS: Creatinine Clr Calc Pharmacy 85.8288
--- NOTE | 2021-11-02 12:10 | ONCRAD TMN_ITS ---
Radiation Oncology Weekly Treatment Management Patient: Yoni Stanley MR#: [id number] : 1955> Attending Physician: Dr. Ramirez Moura Date of Service: 11/02/2021 Referring Physician(s) : Kye Kam Diagnosis: C32.1 - Malignant neoplasm of supraglottis, Diagnosed 08/26/2021 (Active) Stage IVB, T4b, N0, M0 Radiotherapy to date: Course: Head & Neck 2021, Treatment Site: Supraglottic Ca ??? Initial, Ref. ID: [id number], Energy: 6X, Dose/Fx (cGy): 200, #Fx: / , Dose Correction (cGy): 0, Total Dose (cGy): 5,200, Start Date: 09/24/2021, Elapsed Days: 39 Reason for visit: The patient is being seen today as part of their regularly scheduled weekly on treatment visits to assess for acute toxicities from radiotherapy. Review of Systems: Mr. Vallejo is depressed related to his tracheostomy, diagnosis, and treatment side effects. He told one of the therapists that sometimes he would like to take a nap and not wake up. That led to an interview with our chief therapist. He was offered counseling but declined. When I saw him I specifically asked him if he was planning to kill himself. He said no and that he had not even thought about it. He confirmed that he declines counseling. I discussed with him that many patients feel this way as they progress deeper into treatment. They have side effects from the cancer that are bad enough but then may also have side effects from the treatment, and it gets very discouraging. He has dry mouth, altered taste, and sore throat. He has medication. Vital Signs: Performed on 11/02/2021 11:24 AM BMI - 18.924 kg/m2, Height - 75 in, Weight - 151.4 lbs, Temperature - 97 f, Pulse - 74 /min, Respiration - 20 /min, O2 Sat - 97 %, Pain - 7, Fatigue - 9 and BP - 125/ 71 mm(hg). Physical Exam: He appears chronically ill. No respiratory distress. No cervical or supraclavicular lymphadenopathy. Tracheostomy appears to be in stable position and there is no surrounding inflammation. Oral cavity shows dry mucous membranes. No yeast. Mild mucositis. Imaging: Radiation therapy imaging related to accurate target localization (i.e. KV, MV and CBCT) was reviewed. Appropriate changes, if any, were made to ensure treatment accuracy. Plan: Continue oxycodone for pain. Continue radiation according to treatment plan. We will continue to monitor him for any signs that he might consider self-harm. Signed by: Dr. Ramirez Moura 11/02/2021 12:08:38 PM
[2021-11-04 11:32] LABS: Basophils % 1.1 %; Eosinophils % 1.1 %; Hematocrit 37.8 % (42.0-52.0); Hemoglobin 13.1 g/dL (11.7-16.6); Lymphocytes # 0.8 10^3/uL (0.8-4.8); Lymphocytes % 21.5 %; Mean Corpuscular HGB Conc 34.7 g/dL (30.0-36.0); Mean Corpuscular Hemoglobin 33.6 pg (28.0-34.0); Mean Corpuscular Volume 96.9 fl (80-94); Mean Platelet Volume 9.1 fL (7.4-10.4); Monocytes # 0.5 10^3/uL (0.2-0.9); Monocytes % 13.4 %; Neutrophils # 2.24 10^3/uL (1.8-7.7); Neutrophils % 62.6 %; Nucleated Red Blood Cells % 0 %; Platelet Count 313 10^3/cmm (130-400); Red Cell Distribution Width 15.9 % (12.1-15.1); White Blood Count 3.6 10^3/uL (4.0-10.0)
[2021-11-04 11:54] LABS: Alanine Aminotransferase < 5 U/L (0-41); Albumin Level 4.4 g/dL (3.5-5.2); Alkaline Phosphatase 135 IU/L (40-130); Anion Gap 18.1 (5-19); Aspartate Amino Transferase 12 U/L (0-40); Blood Urea Nitrogen 13 mg/dL (8-23); Calcium 9.8 mg/dL (8.5-10.5); Carbon Dioxide 27 mmol/L (22-29); Chloride 98 mmol/L (98-107); Globulin 2.9 g/dL (1.3-4.6); Glomerular Filtration Rate 96.1 mL/min (90-130); Glucose 122 mg/dL (65-115); Osmolality Calculated 289 mOsm/kg (285-295); Potassium 4.1 mmol/L (3.5-5.1); Sodium 139 mmol/L (136-145); Total Bilirubin 0.2 mg/dL (0.15-1.2); Total Protein 7.3 g/dL (6.6-8.7)
[2021-11-05] MEDS: LORazepam 0.5 mg Tablet 1 MG PO (10:11)
[2021-11-05] MEDS: fosaprepitant 150 MG in sodium chloride 0.9% 150 ML 300 MG IV (12:38)
[2021-11-05] MEDS: sodium chloride 0.9% 250 ML 100 ML IV (12:38)
[2021-11-05] MEDS: palonosetron 0.25 mg/5 mL SDV IVP (13:16)
[2021-11-05] MEDS: FUROsemide 10 mg/mL SDV 2mL 20 MG IVP (15:25)
[2021-11-05] MEDS: potassium chloride 20 MEQ in sodium chloride 0.9% 500 ML 500 MEQ IV (15:28)
[2021-11-05 16:13] VITALS: BP 119/76; PULSE 70; RESP 18; TEMP 36.7; O2SAT 95
== END 2021-11-10 23:59 | disposition home or self-care (01) ==
PROVIDERS: Internal Medicine Hematology & Oncology; Internal Medicine Medical Oncology; Nurse Practitioner Family; Visit Provider Specialist
DX: Z51.0 Encounter for antineoplastic radiation therapy (principal); C32.1 Malignant neoplasm of supraglottis; D70.1 Agranulocytosis secondary to cancer chemotherapy; T45.1X5A Adverse effect of antineoplastic and immunosuppressive drugs, initial encounter; Z87.891 Personal history of nicotine dependence; Z93.1 Gastrostomy status; Z79.899 Other long term (current) drug therapy
CPT/HCPCS: 36591; 77014; 77300; 77336; 77338; 77386; 80053; 85025; 96366; 96367; 96375; 96413; 96415; 99214; 99215; 99999; J1100; J1453; J1940; J2469; J3475; J3480; J7030; J7040; J7050; J9060

== ENCOUNTER 2021-11-09 14:44 | Inpatient (IN) | payer MEDICAID, SELFPAY ==
[2021-11-09] VITALS (12 sets, daily range): BP systolic 117–149; BP diastolic 69–92; PULSE 58–80; RESP 16–20; TEMP 36.2; O2SAT 95–97; BMI 18.6
--- NOTE | 2021-11-09 15:29 | ED_ITS ---
Documented by User: Tirso Garcia MD 11/09/21 17:57 HPI - Abdominal Pain General: Chief Complaint: Abdominal Pain Stated Complaint: ABDOMINAL & BACK PAIN Time Seen by Provider: 11/09/21 14:55 History of Present Illness: Patient comes in with abdominal pain and suicidal ideation. States that his abdominal pain is epigastric, dull, constant, associated with nausea, started a few months ago and has been there since starting chemotherapy. States was recently diagnosed with throat cancer. States he is really here today because he is suicidal and is planning on stepping out in front of a truck. States he is unhappy about having a tracheostomy and is frustrated with the situation. Associated Symptoms: Reports nausea; Denies dysuria, fever(s) and vomiting Review of Systems Const: Denies: fever(s) or body aches Eyes: Denies: change in vision or blurry vision ENMT: Denies: throat pain or odynophagia Card: Denies: chest pain or palpitations Resp: Denies: dyspnea or productive cough GI: Reports: abdominal pain and nausea; Denies: vomiting : Denies: flank pain or dysuria Musc: Denies: neck pain or back pain Skin/Breast: Denies: rash or pruritus Neuro: Denies: headache(s) or numbness in extremities Psych: Denies: anxiety or change in appetite Endo: Denies: polyuria or excessive sweating PFSH ED PFSH: Medical History Alcohol use disorder, mild, in early remission, abuse Last use Jul 2020 Amphetamine use disorder, severe, in early remission, dependence Last use Jul 2020 BPH loc w urin obs/LUTS Cannabis dependence Cigarette nicotine dependence DDD (degenerative disc disease), lumbosacral Hiatal hernia Lower urinary tract symptoms (LUTS) Major depressive disorder, recurrent severe without psychotic features 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 (Alzheimer/substance use), mild to moderate Need for discharge planning Prostate induration Psychiatric care Spinal stenosis, lumbar region, with neurogenic claudication Surgical History S/P hernia repair abdominal Status post skin graft Family History Mother , at 67 Cancer Father , at age 80 No problems noted. Daughter No problems noted. Brother Diabetes Denies family history of CAD (coronary artery disease) Clotting disorder Dementia Hyperlipidemia Psychiatric illness Chronic kidney disease (CKD) Suicide Anesthesia complication Bleeding disorder Lung disease Hypertension Stroke Social History Smoking and tobacco status: former smoker Quit status (tobacco): not considering quitting Second hand smoke exposure: Yes Smoking risk assessment/counseling performed?: No Reason smoking risk assessment not done: patient refused Alcohol intake: former Marital status: Current occupational status: disabled History of recent travel: No Physical Exam Const: COMMON NORMALS: no acute distress, patient oriented x3 and alert OTHER: Ill-appearing HENMT: COMMON NORMALS: normocephalic and atraumatic HEAD & SCALP: normocephalic and atraumatic Eye: COMMON NORMALS: Equal, round and reactive pupils present and EOMs intact bilaterally PUPIL: Yes Equal, round and reactive pupils present Neck/C-Spine: COMMON NORMALS: full ROM and supple OTHER: Tracheostomy in place Resp: COMMON NORMALS: normal respiratory effort, No retractions and No use of accessory muscles Cardio: COMMON NORMALS: regular rate and regular rhythm RATE: regular rate RHYTHM: regular rhythm GI: COMMON NORMALS: Soft to palpation PALPATION: Yes Soft to palpation OTHER: G-tube in place, generalized mild tenderness to palpation Back/Pelvis: COMMON NORMALS: thoracic and lumbar spine normal to inspection and no thoracic nor lumbar tenderness Extremity: COMMON NORMALS: normal to inspection and full ROM Neuro: COMMON NORMALS: patient oriented x3 SENSORIUM/ORIENTATION: Yes alert Psych: COMMON NORMALS: mental status grossly normal and cooperative Skin: COMMON NORMALS: no rashes or lesions noted and no wounds GENERAL SKIN EXAM: no rashes or lesions noted Course Vital Signs: Vital signs: Vital Signs Temperature 97.1 F L 11/09/21 14:53 Pulse Rate 69 11/09/21 15:39 Respiratory Rate 16 11/09/21 15:39 Blood Pressure 142/89 11/09/21 15:39 Pulse Oximetry 97 11/09/21 15:39 MDM - Abdominal Pain Medical Decision Making Patient comes in with abdominal pain and suicidal ideation. States that his abdominal pain is epigastric, dull, constant, associated with nausea, started a few months ago and has been there since starting chemotherapy. was recently diagnosed with throat cancer. States he is really here today because he is suicidal and is planning on stepping out in front of a truck. States he is unhappy about having a tracheostomy and is frustrated with the situation. On physical exam he has a trach in place, he has a G-tube in place, his abdomen is soft, nondistended, with mild generalized tenderness to palpation. Will check labs, treat pain with IV morphine, treat nausea with IV Zofran, give IV fluids, consult psychiatry, and reassess. Lab Data : 11/09/21 16:05 11/09/21 16:33 Labs/Radiology: Laboratory Results WBC 4.1 10^3/uL (4.0-10.0) 11/09/21 16:05 RBC 3.82 10^6/uL (4.1-5.3) L 11/09/21 16:05 Hgb 12.8 g/dL (11.7-16.6) 11/09/21 16:05 Hct 36.0 % (42.0-52.0) L 11/09/21 16:05 MCV 94.2 fl (80-94) H 11/09/21 16:05 MCH 33.5 pg (28.0-34.0) 11/09/21 16:05 MCHC 35.6 g/dL (30.0-36.0) 11/09/21 16:05 RDW 15.6 % (12.1-15.1) H 11/09/21 16:05 Plt Count 270 10^3/cmm (130-400) 11/09/21 16:05 MPV 9.5 fL (7.4-10.4) 11/09/21 16:05 Neut % (Auto) 73.8 % 11/09/21 16:05 Lymph % (Auto) 13.4 % 11/09/21 16:05 [place] % (Auto) 11.4 % 11/09/21 16:05 Eos % (Auto) 0.7 % 11/09/21 16:05 Baso % (Auto) 0.5 % 11/09/21 16:05 Neut # (Auto) 3.03 10^3/uL (1.8-7.7) 11/09/21 16:05 Lymph # (Auto) 0.6 10^3/uL (0.8-4.8) L 11/09/21 16:05 [place] # (Auto) 0.5 10^3/uL (0.2-0.9) 11/09/21 16:05 Eos # (Auto) 0.0 10^3/uL (0.0-0.8) 11/09/21 16:05 Baso # (Auto) 0.0 10^3/uL (0.0-0.1) 11/09/21 16:05 Nucleated RBC % (auto) 0 % 11/09/21 16:05 Nucleated RBCs # 0.0 /100WBC 11/09/21 16:05 Sodium 139 mmol/L (136-145) 11/09/21 16:33 Potassium 4.2 mmol/L (3.5-5.1) 11/09/21 16:33 Chloride 99 mmol/L (98-107) 11/09/21 16:33 Carbon Dioxide 31 mmol/L (22-29) H 11/09/21 16:33 Anion Gap 13.2 (5-19) 11/09/21 16:33 BUN 23 mg/dL (8-23) 11/09/21 16:33 Creatinine 1.0 mg/dL (0.7-1.2) 11/09/21 16:33 GFR Calculation 74.3 mL/min (90-130) L 11/09/21 16:33 Glucose 93 mg/dL (65-115) 11/09/21 16:33 Calculated Osmolality 291 mOsm/kg (285-295) 11/09/21 16:33 Calcium 8.7 mg/dL (8.5-10.5) 11/09/21 16:33 Total Bilirubin 0.3 mg/dL (0.15-1.2) 11/09/21 16:33 AST 17 U/L (0-40) 11/09/21 16:33 ALT 22 U/L (0-41) 11/09/21 16:33 Alkaline Phosphatase 109 IU/L (40-130) 11/09/21 16:33 Total Protein 6.5 g/dL (6.6-8.7) L 11/09/21 16:33 Albumin 4.0 g/dL (3.5-5.2) 11/09/21 16:33 Globulin 2.5 g/dL (1.3-4.6) 11/09/21 16:33 Lipase 85 U/L (13-60) H 11/09/21 16:33 Salicylates < 0.3 mg/dL (3-10) L 11/09/21 16:33 Urine Opiates Screen Positive ng/mL (Negative) H 11/09/21 16:33 Acetaminophen 18.2 ug/mL (10-30) 11/09/21 16:33 Ur Barbiturates Screen Negative ng/mL (Negative) 11/09/21 16:33 Ur Phencyclidine Scrn Negative ng/mL (Negative) 11/09/21 16:33 Ur Amphetamines Screen Negative ng/mL (Negative) 11/09/21 16:33 U Benzodiazepines Scrn Positive ng/mL (Negative) H 11/09/21 16:33 Urine Cocaine Screen Negative ng/mL (Negative) 11/09/21 16:33 U Marijuana (THC) Screen Positive ng/mL (Negative) H 11/09/21 16:33 Discharge Plan Discharge Condition: Stable Prescriptions: No Action donepezil 5 mg tablet 5 mg PO DAILY 0RF pregabalin [Lyrica] 75 mg capsule 75 mg PO BID 0RF tamsulosin 0.4 mg capsule 0.4 mg PO BID 0RF tizanidine 4 mg capsule 4 mg PO Q8H PRN0RF prochlorperazine maleate 10 mg tablet 10 mg PO Q4H PRN (Reason: nausea and vomiting) Qty: 60 3RF lorazepam [Ativan] 1 mg tablet 1 mg PO BID PRN (Reason: anxiety) 30 Days Qty: 60 0RF oxycodone 5 mg/5 mL solution 5 mg PO Q4H PRN (Reason: pain) 10 Days Qty: 250 0RF Seroquel 400 mg tablet 100 mg PO BEDTIME Qty: 30 6RF Rx Instructions: Take one tablet at bedtime oxycodone 10 mg tablet 10 mg PO BID PRN (Reason: pain) Qty: 20 0RF Coding Level of Care Code ED Automation And Controls Instructor for Chg Fwd Exam Comprehensive Documented by User: Roman Jin MD 11/09/21 18:30 HPI - Abdominal Pain General: Chief Complaint: Abdominal Pain Stated Complaint: ABDOMINAL & BACK PAIN Time Seen by Provider: 11/09/21 14:55 PFSH ED PFSH: Medical History Alcohol use disorder, mild, in early remission, abuse Last use Jul 2020 Amphetamine use disorder, severe, in early remission, dependence Last use Jul 2020 BPH loc w urin obs/LUTS Cannabis dependence Cigarette nicotine dependence DDD (degenerative disc disease), lumbosacral Hiatal hernia Lower urinary tract symptoms (LUTS) Major depressive disorder, recurrent severe without psychotic features 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 (Alzheimer/substance use), mild to moderate Need for discharge planning Prostate induration Psychiatric care Spinal stenosis, lumbar region, with neurogenic claudication Surgical History S/P hernia repair abdominal Status post skin graft Family History Mother , at 67 Cancer Father , at age 80 No problems noted. Daughter No problems noted. Brother Diabetes Denies family history of CAD (coronary artery disease) Clotting disorder Dementia Hyperlipidemia Psychiatric illness Chronic kidney disease (CKD) Suicide Anesthesia complication Bleeding disorder Lung disease Hypertension Stroke Social History Smoking and tobacco status: former smoker Quit status (tobacco): not considering quitting Second hand smoke exposure: Yes Smoking risk assessment/counseling performed?: No Reason smoking risk assess ment not done: patient refused Alcohol intake: former Marital status: Current occupational status: disabled History of recent travel: No Course Vital Signs: Vital signs: Vital Signs Temperature 97.1 F L 11/09/21 14:53 Pulse Rate 69 11/09/21 15:39 Respiratory Rate 16 11/09/21 15:39 Blood Pressure 142/89 11/09/21 15:39 Pulse Oximetry 97 11/09/21 15:39 MDM - Abdominal Pain Lab Data : 11/09/21 16:05 11/09/21 16:33 Labs/Radiology: Laboratory Results WBC 4.1 10^3/uL (4.0-10.0) 11/09/21 16:05 RBC 3.82 10^6/uL (4.1-5.3) L 11/09/21 16:05 Hgb 12.8 g/dL (11.7-16.6) 11/09/21 16:05 Hct 36.0 % (42.0-52.0) L 11/09/21 16:05 MCV 94.2 fl (80-94) H 11/09/21 16:05 MCH 33.5 pg (28.0-34.0) 11/09/21 16:05 MCHC 35.6 g/dL (30.0-36.0) 11/09/21 16:05 RDW 15.6 % (12.1-15.1) H 11/09/21 16:05 Plt Count 270 10^3/cmm (130-400) 11/09/21 16:05 MPV 9.5 fL (7.4-10.4) 11/09/21 16:05 Neut % (Auto) 73.8 % 11/09/21 16:05 Lymph % (Auto) 13.4 % 11/09/21 16:05 [place] % (Auto) 11.4 % 11/09/21 16:05 Eos % (Auto) 0.7 % 11/09/21 16:05 Baso % (Auto) 0.5 % 11/09/21 16:05 Neut # (Auto) 3.03 10^3/uL (1.8-7.7) 11/09/21 16:05 Lymph # (Auto) 0.6 10^3/uL (0.8-4.8) L 11/09/21 16:05 [place] # (Auto) 0.5 10^3/uL (0.2-0.9) 11/09/21 16:05 Eos # (Auto) 0.0 10^3/uL (0.0-0.8) 11/09/21 16:05 Baso # (Auto) 0.0 10^3/uL (0.0-0.1) 11/09/21 16:05 Nucleated RBC % (auto) 0 % 11/09/21 16:05 Nucleated RBCs # 0.0 /100WBC 11/09/21 16:05 Sodium 139 mmol/L (136-145) 11/09/21 16:33 Potassium 4.2 mmol/L (3.5-5.1) 11/09/21 16:33 Chloride 99 mmol/L (98-107) 11/09/21 16:33 Carbon Dioxide 31 mmol/L (22-29) H 11/09/21 16:33 Anion Gap 13.2 (5-19) 11/09/21 16:33 BUN 23 mg/dL (8-23) 11/09/21 16:33 Creatinine 1.0 mg/dL (0.7-1.2) 11/09/21 16:33 GFR Calculation 74.3 mL/min (90-130) L 11/09/21 16:33 Glucose 93 mg/dL (65-115) 11/09/21 16:33 Calculated Osmolality 291 mOsm/kg (285-295) 11/09/21 16:33 Calcium 8.7 mg/dL (8.5-10.5) 11/09/21 16:33 Total Bilirubin 0.3 mg/dL (0.15-1.2) 11/09/21 16:33 AST 17 U/L (0-40) 11/09/21 16:33 ALT 22 U/L (0-41) 11/09/21 16:33 Alkaline Phosphatase 109 IU/L (40-130) 11/09/21 16:33 Total Protein 6.5 g/dL (6.6-8.7) L 11/09/21 16:33 Albumin 4.0 g/dL (3.5-5.2) 11/09/21 16:33 Globulin 2.5 g/dL (1.3-4.6) 11/09/21 16:33 Lipase 85 U/L (13-60) H 11/09/21 16:33 Salicylates < 0.3 mg/dL (3-10) L 11/09/21 16:33 Urine Opiates Screen Positive ng/mL (Negative) H 11/09/21 16:33 Acetaminophen 18.2 ug/mL (10-30) 11/09/21 16:33 Ur Barbiturates Screen Negative ng/mL (Negative) 11/09/21 16:33 Ur Phencyclidine Scrn Negative ng/mL (Negative) 11/09/21 16:33 Ur Amphetamines Screen Negative ng/mL (Negative) 11/09/21 16:33 U Benzodiazepines Scrn Positive ng/mL (Negative) H 11/09/21 16:33 Urine Cocaine Screen Negative ng/mL (Negative) 11/09/21 16:33 U Marijuana (THC) Screen Positive ng/mL (Negative) H 11/09/21 16:33 EKG Data EKG 1: I personally reviewed and interpreted this EKG as follows: EKG interpretation date: 11/09/21 EKG interpretation time: 18:27 Interpretation: nsr ht [address] or t wave abnormalities qrs 83 qtc 430 Discharge Plan Discharge Condition: Stable Prescriptions: No Action donepezil 5 mg tablet 5 mg PO DAILY 0RF pregabalin [Lyrica] 75 mg capsule 75 mg PO BID 0RF tamsulosin 0.4 mg capsule 0.4 mg PO BID 0RF tizanidine 4 mg capsule 4 mg PO Q8H PRN0RF prochlorperazine maleate 10 mg tablet 10 mg PO Q4H PRN (Reason: nausea and vomiting) Qty: 60 3RF lorazepam [Ativan] 1 mg tablet 1 mg PO BID PRN (Reason: anxiety) 30 Days Qty: 60 0RF oxycodone 5 mg/5 mL solution 5 mg PO Q4H PRN (Reason: pain) 10 Days Qty: 250 0RF Seroquel 400 mg tablet 100 mg PO BEDTIME Qty: 30 6RF Rx Instructions: Take one tablet at bedtime oxycodone 10 mg tablet 10 mg PO BID PRN (Reason: pain) Qty: 20 0RF Coding Level of Care Code ED Automation And Controls Instructor for Chg Fwd Exam Comprehensive
[2021-11-09] MEDS: morphine 4 mg/mL SDV 1 mL IVP (15:34)
[2021-11-09] MEDS: ondansetron 2 mg/ML SDV 2 mL 4 MG IVP (15:34)
[2021-11-09] MEDS: sodium chloride 0.9% 1,000 ML 999 ML IV (15:34)
[2021-11-09 16:11] LABS: Basophils % 0.5 %; Eosinophils % 0.7 %; Hemoglobin 12.8 g/dL (11.7-16.6); Lymphocytes # 0.6 10^3/uL (0.8-4.8); Lymphocytes % 13.4 %; Mean Corpuscular HGB Conc 35.6 g/dL (30.0-36.0); Mean Corpuscular Hemoglobin 33.5 pg (28.0-34.0); Mean Corpuscular Volume 94.2 fl (80-94); Mean Platelet Volume 9.5 fL (7.4-10.4); Monocytes # 0.5 10^3/uL (0.2-0.9); Monocytes % 11.4 %; Neutrophils # 3.03 10^3/uL (1.8-7.7); Neutrophils % 73.8 %; Nucleated Red Blood Cells % 0 %; Platelet Count 270 10^3/cmm (130-400); Red Blood Count 3.82 10^6/uL (4.1-5.3); Red Cell Distribution Width 15.6 % (12.1-15.1); White Blood Count 4.1 10^3/uL (4.0-10.0)
[2021-11-09 17:05] LABS: Acetaminophen 18.2 ug/mL (10-30); Alanine Aminotransferase 22 U/L (0-41); Alkaline Phosphatase 109 IU/L (40-130); Anion Gap 13.2 (5-19); Aspartate Amino Transferase 17 U/L (0-40); Blood Urea Nitrogen 23 mg/dL (8-23); Calcium 8.7 mg/dL (8.5-10.5); Carbon Dioxide 31 mmol/L (22-29); Chloride 99 mmol/L (98-107); Globulin 2.5 g/dL (1.3-4.6); Glomerular Filtration Rate 74.3 mL/min (90-130); Glucose 93 mg/dL (65-115); Lipase 85 U/L (13-60); Osmolality Calculated 291 mOsm/kg (285-295); Potassium 4.2 mmol/L (3.5-5.1); Sodium 139 mmol/L (136-145); Total Bilirubin 0.3 mg/dL (0.15-1.2); Total Protein 6.5 g/dL (6.6-8.7)
[2021-11-09 17:07] LABS: Salicylate < 0.3 mg/dL (3-10)
[2021-11-09 17:10] LABS: Amphetamines Screen Urine Negative (Negative); Barbiturates Screen Urine Negative (Negative); Benzodiazepines Screen Urine Positive (Negative); Cocaine Screen Urine Negative (Negative); Opiate Screen Urine Positive (Negative); PCP Screen Urine Negative (Negative); THC Screen Urine Positive (Negative)
--- NOTE | 2021-11-09 18:20 | ECG_ITS ---
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 Measurements Intervals [place] Rate: 64 P: 80 [place]: 182 QRS: 76 QRSD: 83 T: 75 QT: 420 QTc: 436 Interpretive Statements SINUS RHYTHM SEPTAL MYOCARDIAL INFARCTION , OF INDETERMINATE AGE [40+ ms Q WAVE IN V1/V2] Compared to ECG 09/02/2021 17:44:24 Poor R-wave progression no longer present Myocardial infarct finding still present Electronically Signed On 11-09-2021 19:40:05 CDT by Jonathon Pedro M.D. [id number]
[2021-11-09] MEDS: acetaminophen 500 mg Tablet PO (18:39)
[2021-11-09 18:44] LABS: Alcohol Level < 10 mg/dL (0-10)
[2021-11-09 22:33] LABS: Adenovirus Not Detected (NOT DETECT); Chlamydia Pneumoniae Not Detected (NOT DETECT); Coronavirus 229E,HKU1,NL63,OC4 Not Detected (NOT DETECT); Human Metapneumovirus Not Detected (NOT DETECT); Human Rhinovirus/Enterovirus Not Detected (NOT DETECT); Influenza A Not Detected (NOT DETECT); Influenza A H1 Not Detected (NOT DETECT); Influenza A H1-2009 Not Detected (NOT DETECT); Influenza A H3 Not Detected (NOT DETECT); Influenza B Not Detected (NOT DETECT); Mycoplasma Pneumoniae Not Detected (NOT DETECT); Parainfluenza Virus Type 1 Not Detected (NOT DETECT); Parainfluenza Virus Type 2 Not Detected (NOT DETECT); Parainfluenza Virus Type 3 Not Detected (NOT DETECT); Parainfluenza Virus Type 4 Not Detected (NOT DETECT); Respiratory Syncytial Virus A Not Detected (NOT DETECT); Respiratory Syncytial Virus B Not Detected (NOT DETECT); SARS-COV-2 Not Detected (NOT DETECT)
[2021-11-10] VITALS (21 sets, daily range): BP systolic 123–152; BP diastolic 65–103; PULSE 52–77; RESP 14–18; TEMP 36.6; O2SAT 94–99
[2021-11-10] MEDS: ondansetron 2 mg/ML SDV 2 mL 4 MG IVP ×2 (03:26→08:02)
[2021-11-10] MEDS: acetaminophen 325 mg Tablet 650 MG PO (11:39)
[2021-11-10] MEDS: acetaminophen 325 mg Tablet 650 MG XX (21:10)
[2021-11-10] MEDS: ondansetron 4 MG Tablet PEG-TUBE (21:11)
--- NOTE | 2021-11-10 21:43 | PC.NUTR ---
Has G tube R/T throat Cancer.
[2021-11-10] MEDS: quetiapine 300 mg Tablet PEG-TUBE (22:10)
[2021-11-10] MEDS: quetiapine 100 mg Tablet PEG-TUBE (22:10)
[2021-11-10] MEDS: mirtazapine 15 mg Tablet 7.5 MG PEG-TUBE (22:10)
[2021-11-10] MEDS: pregabalin 75 mg Capsule PEG-TUBE (22:10)
[2021-11-10] MEDS: tamsulosin 0.4 mg Capsule PEG-TUBE (22:10)
[2021-11-11 06:00] VITALS: BP 94/69; PULSE 87; RESP 18; TEMP 36.5; O2SAT 92
--- NOTE | 2021-11-11 08:40 | PC.NURSE ---
IN BED AROUSES TO VOICE. TRACH APPEARS MIDLINE WITH MINIMAL SECREATIONS NOTED AROUND TRACH SITE. TRACH SITE WITH NO S/SX OF INFECTION, APPEARS MOIST AND PINK. REPORTS STOMACH PAIN 9/10 MED NURSE TO ADMINISTER ZOFRAN AND OXYCODONE ORDERED. C/O OF ANXIETY MED NURSE NOTIFIED TO GIVE ANTI-ANXIETY MED ORDERED. DENIES HI AND AVH AT THIS TIME. DOES ENDORSE SI. PT STATES I ALWAYS HAVE THOUGHTS OF KILLING MYSELF AND I WILL KILL MYSELF WHENEVER AN HOWEVER I CAN. WHEN ASKED IF HE HAS A PLAN STATES, NO NOT WHEN I'M IN HERE, I WON'T BE ABLE TO DO IT. PT CONTRACTED FOR SAFETY AND VERBALIZES UNDERSTANDING OF COMING TO STAFF WITH INTRUSIVE SUICIDAL THOUGHTS. PT HAS PEG TUBE ABOVE UMBILICUS. AREA IS CLEAN WITH S/SSX OF INFECTION NOTED. PT REPORTS TO THIS RN AND RD HE HAS NOT USED HIS PEG TUBE IN MONTHS AND CAN NOT REMEMBER WHAT TUBE FEED HE USED PRIOR. PT IS EATING WITHOUT DIFFICULTY. CONSUMED 75% OF BREAKFAST. CURRENTLY RESTING, BY NURSES STATION FOR CLOSE OBSERVATION. COUGH IS NOTED INTERMITTENTLY WITH CLEAR SECRETIONS NOTED. STAFF REPORTED TO THIS RN THAT PT TAKES CARE OF HIS OWN TRACH. NO SUPPLIES NOTED TO BE AT BEDSIDE AT THIS TIME.
[2021-11-11 09:26] VITALS: RESP 17
[2021-11-11] MEDS: pregabalin 75 mg Capsule PEG-TUBE ×2 (09:26→20:45)
[2021-11-11] MEDS: donepezil 5 MG Tablet PEG-TUBE (09:26)
[2021-11-11] MEDS: ondansetron 4 MG Tablet PEG-TUBE (09:26)
[2021-11-11] MEDS: oxyCODONE 5 mg IR Tab/Cap PEG-TUBE (09:26)
[2021-11-11] MEDS: tamsulosin 0.4 mg Capsule PEG-TUBE (09:26)
[2021-11-11] MEDS: hyDROXYzine 25 mg Capsule 50 MG PEG-TUBE (09:27)
--- NOTE | 2021-11-11 09:27 | PC.NURSE ---
PRN VISTARIL & ZOFRAN VISTARIL 50 MG GIVEN PO PER C/O ANXIETY, ZOFRAN 4 MG GIVEN PO PER C/O NAUSEA.
--- NOTE | 2021-11-11 11:02 | PC.NURSE ---
off unit for Radiology, accompanied by security and FLITCH HANGER
--- NOTE | 2021-11-11 11:16 | PC.NURSE ---
NEW ORDERS NOTIFIED DR. EDWARD IN AM MEETING THAT ORDERS WERE NEEDED FOR TRACH MANAGEMENT AND PEG TUBE MANAGEMENT. NEW ORDERS RECEIVED FOR RT TO ASSESS AND TREAT BID UNTIL RT RECOMMENDATIONS ARE MADE BY RT. NEW ORDERS FOR PEG TUBE MANAGEMENT Q SHIFT. ORDERS PLACED ON COMPUTER.
--- NOTE | 2021-11-11 11:28 | ONCRAD TMN_ITS ---
Radiation Oncology Treatment Management Note Patient Name: Nima Vallejo Date of : 1955 Date of Service: 11/11/2021 Attending Physician: Dutch Ko M.D. 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 The T4b annotation is a consequence of likely prevertebral space involvement. He was evaluated at the [facility] on August 24, [address] scan of the neck identified a 3 cm x 3 cm x 4 cm epiglottic mass extending posteriorly to the fourth cervical vertebral body. No cervical adenopathy was present. The patient was admitted for further management. A microdirect laryngoscopy and tracheotomy was performed by Tirso Clarke M.D. on August 26, 2021. Intraoperative findings described an obstructing mass of the surgical surface of the epiglottis. Biopsies diagnosed a moderately differentiated, nonkeratinizing, invasive squamous cell carcinoma. A thoracoabdominopelvic CT scan ordered on September 13, 2021 described emphysematous changes and an infrarenal abdominal aortic aneurysm measuring 2.4 cm without evidence of metastatic disease. The patient has received 60 Gy of a prescribed 54 [place] with an intensity modulated radiotherapy plan utilizing a step and shoot treatment technique. An additional 16 Gy will be delivered to the gross tumor volume subsequent to the initial treatment plan. He has been prescribed cisplatin (100 mg/m2) every 21 days. Upon review of systems, he did not report any significant changes. On physical examination, the patient weighed 148 lbs. His temperature was 96.3 ???F and the blood pressure was 94/63 mmHg. His pulse was 87 bpm and the respiratory rate was 20. There was no erythema within the treatment [place]. Continue head and neck radiotherapy as planned. Signed by: Dr. Dutch Ko 11/11/2021 11:27:24 AM
--- NOTE | 2021-11-11 11:41 | PC.NURSE ---
BACK FROM RADIOLOGY BACK TO NPU. CURRENTLY IN DAY AREA EATING NO DISTRESS NOTED. TOLERATED LEAVING UNIT.
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
[2021-11-11 14:00] VITALS: BP 102/60; PULSE 86; RESP 18; TEMP 36.8; O2SAT 96
[2021-11-11] MEDS: prochlorperazine 10 mg Tablet PEG-TUBE (14:16)
[2021-11-11 16:10] VITALS: O2SAT 95
[2021-11-11 19:58] VITALS: BP 121/82; PULSE 113; RESP 18; TEMP 36.7; O2SAT 97
[2021-11-11] MEDS: quetiapine 300 mg Tablet PEG-TUBE (20:44)
[2021-11-11] MEDS: quetiapine 100 mg Tablet PEG-TUBE (20:44)
[2021-11-11] MEDS: mirtazapine 15 mg Tablet 7.5 MG PEG-TUBE (20:45)
[2021-11-12 06:00] VITALS: BP 97/66; PULSE 68; RESP 18; TEMP 36.7; O2SAT 96
--- NOTE | 2021-11-12 08:17 | PC.NURSE ---
PT REPORTS STOMACH PAIN 02/20 REQUESTING ZOFRAN AND OXYCODONE. MED NURSE TO ADMINISTER MEDICATIONS ORDERED. TRACH APPEARS MIDLINE, PINK AND MOIST. RT TO MANAGE TRACH ORDERED. PEG TUBE SECURED AND IN PLACE ABOVE UMBILICUS. DENIES SI/HI AND AVH AT THIS TIME. APT CONFIRMED TO GO TO ONCOLOGY AT 1100 WITH SECURITY AND STAFF. PT TO HAVE ATIVAN PRIOR TO ONCOLOGY VISIT AT 1100.
[2021-11-12] MEDS: pregabalin 75 mg Capsule PEG-TUBE ×2 (08:19→21:07)
[2021-11-12 08:20] VITALS: RESP 16; O2SAT 98
[2021-11-12] MEDS: oxyCODONE 5 mg IR Tab/Cap PEG-TUBE (08:20)
[2021-11-12] MEDS: donepezil 5 MG Tablet PEG-TUBE (08:20)
[2021-11-12] MEDS: ondansetron 4 MG Tablet PO (08:20)
[2021-11-12] MEDS: LORazepam 1 mg Tablet PO (10:16)
--- NOTE | 2021-11-12 10:17 | PC.NURSE ---
Administered 1mg Ativan for pt getting radiation treatment within the hour for anxiety.
--- NOTE | 2021-11-12 11:59 | PC.NURSE ---
RT HERE TO COMPLETE TRACH CARE, SEE RT NOTES.
[2021-11-12 14:00] VITALS: BP 87/54; PULSE 70; RESP 16; TEMP 36.4; O2SAT 97
--- NOTE | 2021-11-12 16:42 | W.PM.NPUPNS ---
Subjective NPU Subjective: He says that he is feeling somewhat better since finding out that his radiation treatment will be done soon. He continues to have some wishes for but also more hopeful. Mental Status Exam MSE Comments: This is a tall underweight appearing white male with signs of hughes around his face looking older than his stated age in hospital scrubs with adequate grooming but adequate eye contact. No abnormal movements except for mild psychomotor rotation. Cooperative with exam in no acute distress. Speech normal rate and slightly decreased volume due to trach. Mood described as a little better than yesterday, affect congruent. Thought process, organized. Thought content: patient denies any homicidal but has been suicidal ideation, no delusions reported or noted, and denies any auditory or visual hallucinations. Attention and concentration are intact and memory is reliable but none were formally tested. He is alert and oriented three times. Insight and judgment appear fair. Impulse control is limited. Cognition: Patient Appearance: Disheveled/Poor Hygiene Level of Consciousness: Awake, Alert, Appropriate and Follows Commands Patient Cognition Impaired: No Ability to Follow Directions: Good Patient Orientation (long list): Person, Place, Time and Name Comprehension Ability: No Impairment Hallucination Type: None Delusion Description: Not Present Thought Process: Disorganized and Indecisive Affect: Mood Description: Appropriate Affect Description: Calm and Flat Behavior: Patient Behavior: Cooperative and Withdrawn Speech Pattern: Clear Vitals/I&O/Wt Last Vital Signs Temp 97.5 F L 11/12/21 14:00 Pulse 70 11/12/21 14:00 Resp 16 11/12/21 14:00 BP 87/54 11/12/21 14:00 Pulse Ox 97 11/12/21 14:00 Data NPU : 11/09/21 16:05 11/09/21 16:33 A&P Assessment and plan (1) Status post insertion of percutaneous endoscopic gastrostomy (PEG) tube: Status: Acute (2) Cancer of supraglottis: Status: Acute (3) Radiotherapy: Status: Acute (4) Malnourished: Status: Acute (5) Tracheostomy in place: Status: Acute (6) Suicidal ideation: Status: Acute (7) Major depressive disorder, recurrent: Status: Acute (8) Adjustment disorder with mixed disturbance of emotions and conduct: Status: Acute Plan This is a 66 year old white male with a long history of alcohol dependence with significant nicotine/cigarette smoking history, depression and anxiety who presents after recent discovery of a lorengal mass for which she has been getting radiation treatment currently having a increase in depression and suicidal thinking. 1. Continue current medication. Consider increasing his Remeron from 7.5 mg nightly to 15 mg. 2. Continue every 15 minute checks for safety. 3. Encourage individual, group and milieu therapies. 4. Encourage sober living treatment after discharge at the highest level of care to which he is willing to commit. 5. We will work with social work team to see if there are resources or assisted living/longterm options during his cancer treatment. Involuntary Hold Information 96 Hour Hold: 96 Hour Involuntary Admission: No Attestations NPU Medical Necessity Statement*: Inpatient hospitalization is medically necessary and the clinically appropriate intervention at this time. We will initiate medications and make changes as indicated. Coding Level of Care Code Acute Medical Practice Administrator for Nereida Martinez Diagnoses Status post insertion of percutaneous endoscopic gastrostomy (PEG) tube Z93.1 Cancer of supraglottis C32.1 Radiotherapy Z51.0 Malnourished E46 [address] Z93.0 Suicidal ideation R45.851 Major depressive disorder, recurrent F33.9 Adjustment disorder with mixed disturbance of emotions and conduct F43.25
[2021-11-12] MEDS: mirtazapine 15 mg Tablet 7.5 MG PEG-TUBE (20:40)
[2021-11-12] MEDS: quetiapine 100 mg Tablet PEG-TUBE (20:41)
[2021-11-12] MEDS: quetiapine 300 mg Tablet PEG-TUBE (20:41)
[2021-11-12 21:37] VITALS: BP 124/72; PULSE 77; RESP 18; TEMP 36.6; O2SAT 95
[2021-11-12 22:00] VITALS: BP 124/72; PULSE 77; RESP 18; TEMP 36.6; O2SAT 95
--- NOTE | 2021-11-12 22:38 | PC.RESP ---
rt attemted to have pt perform trach care.. however, pt refused at this time stating he had trach care earlier today. pt stated he will have trach care performed tomorrow.
[2021-11-13 06:30] VITALS: BP 94/60; PULSE 62; RESP 16; TEMP 36.4; O2SAT 96
[2021-11-13 09:44] VITALS: RESP 14; O2SAT 97
[2021-11-13] MEDS: oxyCODONE 5 mg IR Tab/Cap PEG-TUBE (09:44)
[2021-11-13] MEDS: donepezil 5 MG Tablet PEG-TUBE (09:45)
[2021-11-13] MEDS: pregabalin 75 mg Capsule PEG-TUBE (09:45)
[2021-11-13] MEDS: LORazepam 1 mg Tablet PO (10:04)
--- NOTE | 2021-11-13 13:19 | W.PM.NPUPNS ---
Subjective NPU Subjective: He said that he is feeling somewhat amnestic now that he knows he only has 3 more treatments of radiation. He says the radiation makes him sick when he eats. He says that it is a little light at the end of the tunnel. It is still hard. He had received the Ativan prior to his radiation treatment approximately 2 hours ago and did not really feel like talking at this time. Mental Status Exam MSE Comments: This is a tall underweight appearing white male with signs of hughes around his face looking older than his stated age in hospital scrubs with adequate grooming but adequate eye contact. No abnormal movements except for mild psychomotor retardation. Cooperative with exam in no acute distress. Speech normal rate and slightly decreased volume due to trach. Mood described as a depressed and still fairly hopeless, affect congruent. Thought process, organized. Thought content: patient denies any homicidal but has been suicidal ideation, no delusions reported or noted, and denies any auditory or visual hallucinations. Attention and concentration are intact and memory is reliable but none were formally tested. He is alert and oriented three times. Insight and judgment appear fair. Impulse control is limited. Cognition: Patient Appearance: Disheveled/Poor Hygiene Level of Consciousness: Awake, Alert, Appropriate and Follows Commands Patient Cognition Impaired: No Ability to Follow Directions: Good Patient Orientation (long list): Person, Place, Time, Name, Age, Birthday, Month and Year Comprehension Ability: No Impairment Hallucination Type: None Delusion Description: Not Present Thought Process: Appropriate Affect: Mood Description: Appropriate Affect Description: Depressed Behavior: Patient Behavior: Appropriate and Cooperative Speech Pattern: Appropriate and Clear Vitals/I&O/Wt Last Vital Signs Temp 97.6 F 11/13/21 06:30 Pulse 62 11/13/21 06:30 Resp 14 11/13/21 09:44 BP 94/60 11/13/21 06:30 Pulse Ox 97 11/13/21 09:44 Data NPU : 11/09/21 16:05 11/09/21 16:33 A&P Assessment and plan (1) Status post insertion of percutaneous endoscopic gastrostomy (PEG) tube: Status: Acute (2) Cancer of supraglottis: Status: Acute (3) Radiotherapy: Status: Acute (4) Malnourished: Status: Acute (5) Tracheostomy in place: Status: Acute (6) Suicidal ideation: Status: Acute (7) Major depressive disorder, recurrent: Status: Acute (8) Adjustment disorder with mixed disturbance of emotions and conduct: Status: Acute Plan This is a 66 year old white male with a long history of alcohol dependence with significant nicotine/cigarette smoking history, depression and anxiety who presents after recent discovery of a lorengal mass for which she has been getting radiation treatment currently having a increase in depression and suicidal thinking. 1. Continue current medication. Consider increasing his Remeron from 7.5 mg nightly to 15 mg. 2. Continue every 15 minute checks for safety. 3. Encourage individual, group and milieu therapies. 4. Encourage sober living treatment after discharge at the highest level of care to which he is willing to commit. 5. We will work with social work team to see if there are resources or assisted living/long term options during his cancer treatment. Involuntary Hold Information 96 Hour Hold: 96 Hour Involuntary Admission: No Attestations NPU Medical Necessity Statement*: Inpatient hospitalization is medically necessary and the clinically appropriate intervention at this time. We will initiate medications and make changes as indicated. Coding Level of Care Code Acute Eyeletter for Nereida Fwmega Diagnoses Status post insertion of percutaneous endoscopic gastrostomy (PEG) tube Z93.1 Cancer of supraglottis C32.1 Radiotherapy Z51.0 Malnourished E[address] Z93.0 Suicidal ideation R45.851 Major depressive disorder, recurrent F33.9 Adjustment disorder with mixed disturbance of emotions and conduct F43.25
[2021-11-13 14:00] VITALS: BP 119/73; PULSE 66; RESP 18; TEMP 36.7; O2SAT 98
--- NOTE | 2021-11-13 14:19 | PC.RESP ---
pt refused trach care at this time, pt stated that he was sleeping and that he had to do his own trach care yesterday. RT tried to teach him the importance on cleaning his trach, pt grumbled and pulled the blankets up so he was not listening
[2021-11-13 19:26] VITALS: BP 107/70; PULSE 82; RESP 18; TEMP 36.6; O2SAT 95
[2021-11-13] MEDS: quetiapine 300 mg Tablet PEG-TUBE (20:52)
[2021-11-13] MEDS: mirtazapine 15 mg Tablet 7.5 MG PEG-TUBE (20:53)
[2021-11-13] MEDS: quetiapine 100 mg Tablet PEG-TUBE (20:53)
[2021-11-14 06:00] VITALS: BP 121/77; PULSE 64; RESP 18; TEMP 36.5; O2SAT 98
--- NOTE | 2021-11-14 08:50 | PC.NURSE ---
PT REPORTS PAIN 7/10 IN STOMACH. MED NURSE TO ADMINISTER ZOFRAN AND PERCOCET ORDERED. PT DENIES HI AND AVH AT THIS TIME. DOES ENDORSE CHRONIC SI, STATES HE WANTS TO JUMP OUT IN FRONT OF A CAR OR FIND A GUN. PT WAS CONTRACTED FOR SAFETY. PT STATES I'M NOT GOING TO HURT MYSELF OR ANYONE ELSE IN HERE, IT'S WHEN I'M OUTSIDE OF HERE. PT WAS ENCOURAGED AND REMINDED THAT HIS RADIATION WOULD BE COMPLETE ON TUESDAY. PT DID APPEAR GLAD ABOUT THAT. STATES, HE WISH HIS PAIN COULD BE CONTROLLED AND HE DID'NT HAVE CANCER. SUPPORT VOICED.
[2021-11-14 08:54] VITALS: RESP 14; O2SAT 98
[2021-11-14] MEDS: oxyCODONE 5 mg IR Tab/Cap PEG-TUBE ×2 (08:54→15:15)
[2021-11-14] MEDS: ondansetron 4 MG Tablet PO (08:54)
[2021-11-14] MEDS: donepezil 5 MG Tablet PEG-TUBE (08:54)
[2021-11-14] MEDS: pregabalin 75 mg Capsule PEG-TUBE ×2 (08:54→20:42)
[2021-11-14] MEDS: tizanidine 4 mg Tablet PEG-TUBE ×2 (08:54→15:15)
--- NOTE | 2021-11-14 11:36 | P.NPUPN_ITS ---
Subjective NPU Subjective: He says that he is happy that the radiation is almost over. It makes him very sick. He agreed to increase the Remeron to 15 mg and is hoping that it will increase his appetite more. He has lost a lot of weight this year. He is still leery about whether or not the cancer is gone. He thinks he has a place to live when he leaves here but he is not completely sure. He has an apartment at a motel that has been converted into apartments. He hopes that they have held it for him while he has been here. Mental Status Exam MSE Comments: This is a tall underweight appearing white male with signs of hughes around his face looking older than his stated age in hospital scrubs with adequate grooming but adequate eye contact. No abnormal movements. Psychomotor activity is normal. Cooperative with exam in no acute distress. Speech normal rate and slightly decreased volume due to trach. Mood described as a depressed and still fairly hopeless, affect congruent. Thought process, organized. Thought content: patient denies any homicidal. He denies any current suicidal ideation, no delusions reported or noted, and denies any auditory or visual hallucinations. Attention and concentration are intact and memory is reliable but none were formally tested. He is alert and oriented three times. Insight and judgment appear fair. Impulse control is fair. Cognition: Patient Appearance: Appears Older than Age and Disheveled/Poor Hygiene Level of Consciousness: Awake, Alert, Appropriate and Follows Commands Patient Cognition Impaired: No Ability to Follow Directions: Good Patient Orientation (long list): Person, Place, Time, Name, Age, Birthday, Month and Year Comprehension Ability: No Impairment Hallucination Type: None Delusion Description: Not Present Thought Process: Appropriate Affect: Mood Description: Appropriate Affect Description: Calm, Depressed, Flat and Guarded Behavior: Patient Behavior: Appropriate and Cooperative Speech Pattern: Appropriate and Clear Vitals/I&O/Wt Last Vital Signs Temp 97.7 F 11/14/21 06:00 Pulse 64 11/14/21 06:00 Resp 14 11/14/21 08:54 BP 121/77 11/14/21 06:00 Pulse Ox 98 11/14/21 08:54 Data NPU : 11/09/21 16:05 11/09/21 16:33 A&P Assessment and plan (1) Status post insertion of percutaneous endoscopic gastrostomy (PEG) tube: Status: Acute (2) Cancer of supraglottis: Status: Acute (3) Radiotherapy: Status: Acute (4) Malnourished: Status: Acute (5) Tracheostomy in place: Status: Acute (6) Suicidal ideation: Status: Acute (7) Major depressive disorder, recurrent: Status: Acute (8) Adjustment disorder with mixed disturbance of emotions and conduct: Status: Acute Plan This is a 66 year old white male with a long history of alcohol dependence with significant nicotine/cigarette smoking history, depression and anxiety who presents after recent discovery of a lorengal mass for which she has been getting radiation treatment currently having a increase in depression and suic idal thinking. 1. Continue current medication. Remeron increased to 15 mg daily. 2. Continue every 15 minute checks for safety. 3. Encourage individual, group and milieu therapies. 4. Encourage sober living treatment after discharge at the highest level of care to which he is willing to commit. 5. We will work with social work team to see if there are resources or assisted living/[place] options during his cancer treatment. Involuntary Hold Information 96 Hour Hold: 96 Hour Involuntary Admission: No Attestations NPU Medical Necessity Statement*: Inpatient hospitalization is medically necessary and the clinically appropriate intervention at this time. We will initiate medications and make changes as indicated. Coding Level of Care Code Acute Portable Grinding Machine Operator for Nereida Martinez Diagnoses Status post insertion of percutaneous endoscopic gastrostomy (PEG) tube Z93.1 Cancer of supraglottis C32.1 Radiotherapy Z51.0 Malnourished E[address] Z93.0 Suicidal ideation R45.851 Major depressive disorder, recurrent F33.9 Adjustment disorder with mixed disturbance of emotions and conduct F43.25
[2021-11-14] MEDS: blistex lip oint 7 gm Tube 1 APPLIC TOPICAL (12:29)
[2021-11-14 14:00] VITALS: BP 88/59; PULSE 67; RESP 16; TEMP 36.4; O2SAT 99
[2021-11-14 15:15] VITALS: RESP 14; O2SAT 98
[2021-11-14] MEDS: prochlorperazine 10 mg Tablet PEG-TUBE (15:15)
[2021-11-14 19:54] VITALS: BP 99/64; PULSE 73; RESP 18; TEMP 36.6; O2SAT 95
[2021-11-14] MEDS: quetiapine 300 mg Tablet PEG-TUBE (20:42)
[2021-11-14] MEDS: quetiapine 100 mg Tablet PEG-TUBE (20:42)
[2021-11-14] MEDS: mirtazapine 15 mg Tablet PEG-TUBE (20:42)
[2021-11-15 06:00] VITALS: BP 118/78; PULSE 60; RESP 20; TEMP 36.6; O2SAT 97
[2021-11-15] MEDS: tizanidine 4 mg Tablet PEG-TUBE (08:23)
[2021-11-15] MEDS: ondansetron 4 MG Tablet PO (08:23)
[2021-11-15] MEDS: pregabalin 75 mg Capsule PEG-TUBE (08:23)
[2021-11-15] MEDS: donepezil 5 MG Tablet PEG-TUBE (08:23)
--- NOTE | 2021-11-15 10:39 | P.NPUPN_ITS ---
Subjective NPU Subjective: He has not noticed anything from the increased Remeron to 15 mg last night. He has 3 more radiation treatments to go which will be finished on Tuesday. He is fairly confident that he will have an apartment at the complex where we discussed yesterday. He has money to pay for as long as his disability payment was made on time by the government. Anticipate discharge toward the end of the week after his radiation treatments are completed. Mental Status Exam MSE Comments: This is a tall underweight appearing white male with signs of hughes around his face looking older than his stated age in hospital scrubs with adequate grooming but adequate eye contact. No abnormal movements. Psychomotor activity is normal. Cooperative with exam in no acute distress. Speech normal rate and slightly decreased volume due to trach. Mood described as a depressed and still fairly hopeless, affect congruent. Thought process, organized. Thought content: patient denies any homicidal. He denies any current suicidal ideation, no delusions reported or noted, and denies any auditory or visual hallucinations . Attention and concentration are intact and memory is reliable but none were formally tested. He is alert and oriented three times. Insight and judgment appear fair. Impulse control is fair. Cognition: Patient Appearance: Appears Older than Age and Disheveled/Poor Hygiene Level of Consciousness: Awake, Alert, Appropriate and Follows Commands Patient Cognition Impaired: No Ability to Follow Directions: Good Patient Orientation (long list): Person, Place, Time, Name, Age, Birthday, Month and Year Comprehension Ability: No Impairment Hallucination Type: None Delusion Description: Not Present Thought Process: Appropriate Affect: Mood Description: Appropriate Affect Description: Calm, Depressed, Flat and Guarded Behavior: Patient Behavior: Appropriate and Cooperative Speech Pattern: Appropriate and Clear Vitals/I&O/Wt Last Vital Signs Temp 98 F 11/15/21 06:00 Pulse 60 11/15/21 06:00 Resp 20 H 11/15/21 06:00 BP 118/78 11/15/21 06:00 Pulse Ox 97 11/15/21 06:00 Data NPU : 11/09/21 16:05 11/09/21 16:33 A&P Assessment and plan (1) Status post insertion of percutaneous endoscopic gastrostomy (PEG) tube: Status: Acute (2) Cancer of supraglottis: Status: Acute (3) Radiotherapy: Status: Acute (4) Malnourished: Status: Acute (5) Tracheostomy in place: Status: Acute (6) Suicidal ideation: Status: Acute (7) Major depressive disorder, recurrent: Status: Acute (8) Adjustment disorder with mixed disturbance of emotions and conduct: Status: Acute Plan This is a 66 year old white male with a long history of alcohol dependence with significant nicotine/cigarette smoking history, depression and anxiety who presents after recent discovery of a lorengal mass for which she has been getting radiation treatment currently having a increase in depression and suicidal thinking. 1. Continue current medication. Remeron increased to 15 mg daily. 2. Continue every 15 minute checks for safety. 3. Encourage individual, group and milieu therapies. 4. Encourage sober living treatment after discharge at the highest level of care to which he is willing to commit. 5. We will work with social work team to see if there are resources or assisted living/skilled nursing options during his cancer treatment. Involuntary Hold Information 96 Hour Hold: 96 Hour Involuntary Admission: No Attestations NPU Medical Necessity Statement*: Inpatient hospitalization is medically necessary and the clinically appropriate intervention at this time. We will initiate medications and make changes as indicated. Coding Level of Care Code Acute Hearing Instrument Specialist for Lonig Fwd Diagnoses Status post insertion of percutaneous endoscopic gastrostomy (PEG) tube Z93.1 Cancer of supraglottis C32.1 Radiotherapy Z51.0 Malnourished E[address] Z93.0 Suicidal ideation R45.851 Major depressive disorder, recurrent F33.9 Adjustment disorder with mixed disturbance of emotions and conduct F43.25
[2021-11-15 14:00] VITALS: BP 109/69; PULSE 72; RESP 17; TEMP 36.3; O2SAT 96
[2021-11-15 15:31] VITALS: RESP 14
[2021-11-15] MEDS: oxyCODONE 5 mg IR Tab/Cap PO ×2 (15:31→19:50)
--- NOTE | 2021-11-15 18:46 | PC.NURSE ---
PRN MEDICATIONS PT C/O PAIN AND NAUSEA. TIZANADINE, ZOFRAN AND OXYCODONE GIVEN.
[2021-11-15 19:50] VITALS: RESP 20
[2021-11-15] MEDS: quetiapine 100 mg Tablet PEG-TUBE (19:50)
[2021-11-15] MEDS: mirtazapine 15 mg Tablet PEG-TUBE (19:50)
[2021-11-15] MEDS: quetiapine 300 mg Tablet PEG-TUBE (19:51)
[2021-11-15 20:54] VITALS: BP 114/66; PULSE 74; RESP 17; TEMP 36.9; O2SAT 97
--- NOTE | 2021-11-15 22:07 | PC.RESP ---
pt has refused trach care at this time, pt stated he had trach care earlier in the day
[2021-11-16 06:00] VITALS: BP 119/79; PULSE 70; RESP 18; TEMP 36.7; O2SAT 99
[2021-11-16 08:12] VITALS: RESP 17
[2021-11-16] MEDS: donepezil 5 MG Tablet PEG-TUBE (08:12)
[2021-11-16] MEDS: oxyCODONE 5 mg IR Tab/Cap PO ×2 (08:12→20:15)
[2021-11-16] MEDS: LORazepam 1 mg Tablet PO (10:13)
--- NOTE | 2021-11-16 10:20 | PC.NURSE ---
Patient given Lorazepam 1 mg po for premed radiation procedure scheduled at 1100.
--- NOTE | 2021-11-16 10:59 | PC.NURSE ---
off unit for Radiology, accompanied by HAND SPRING REPAIRER HELPER & security
--- NOTE | 2021-11-16 11:13 | P.NPUPN_ITS ---
Subjective NPU Subjective: He has not noticed anything from the increased Remeron to 15 mg at night. He has 3 more radiation treatments to go which will be finished on Tuesday. He is fairly confident that he will have an apartment at the complex where we discussed yesterday. He has money to pay for as long as his disability payment was made on time by the government. Anticipate discharge toward the end of the week after his radiation treatments are completed. Mental Status Exam MSE Comments: This is a tall underweight appearing white male with signs of hughes around his face looking older than his stated age in hospital scrubs with adequate grooming but adequate eye contact. No abnormal movements. Psychomotor activity is normal. Cooperative with exam in no acute distress. Speech normal rate and slightly decreased volume due to trach. Mood described as a depressed and still fairly hopeless, affect congruent. Thought process, organized. Thought content: patient denies any homicidal. He denies any current suicidal ideation, no delusions reported or noted, and denies any auditory or visual hallucinations. Attention and concentration are intact and memory is reliable but none were formally tested. He is alert and oriented three times. Insight and judgment appear fair. Impulse control is fair. Cognition: Patient Appearance: Appears Older than Age and Disheveled/Poor Hygiene Level of Consciousness: Awake, Alert, Appropriate and Follows Commands Patient Cognition Impaired: No Ability to Follow Directions: Good Patient Orientation (long list): Person, Place, Time, Name, Age, Birthday, Month and Year Comprehension Ability: No Impairment Hallucination Type: None Delusion Description: Not Present Thought Process: Appropriate Affect: Mood Description: Appropriate Affect Description: Calm Behavior: Patient Behavior: Appropriate and Cooperative Speech Pattern: Appropriate and Clear Vitals/I&O/Wt Last Vital Signs Temp 98.1 F 11/16/21 06:00 Pulse 70 11/16/21 06:00 Resp 17 11/16/21 08:12 BP 119/79 11/16/21 06:00 Pulse Ox 99 11/16/21 06:00 Data NPU : 11/09/21 16:05 11/09/21 16:33 A&P Assessment and plan (1) Status post insertion of percutaneous endoscopic gastrostomy (PEG) tube: Status: Acute (2) Cancer of supraglottis: Status: Acute (3) Radiotherapy: Status: Acute (4) Malnourished: Status: Acute (5) Tracheostomy in place: Status: Acute (6) Suicidal ideation: Status: Acute (7) Major depressive disorder, recurrent: Status: Acute (8) Adjustment disorder with mixed disturbance of emotions and conduct: Status: Acute Plan This is a 66 year old white male with a long history of alcohol dependence with significant nicotine/cigarette smoking history, depression and anxiety who presents after recent discovery of a lorengal mass for which she has been getting radiation treatment currently having a increase in depression and suicidal thinking. 1. Continue current medication. Remeron increased to 15 mg daily. 2. Continue every 15 minute checks for safety. 3. Encourage individual, group and milieu therapies. 4. Encourage sober living treatment after discharge at the highest level of care to which he is willing to commit. 5. We will work with social work team to see if there are resources or assisted living/long term options during his cancer treatment. Involuntary Hold Information 96 Hour Hold: 96 Hour Involuntary Admission: No Attestations NPU Medical Necessity Statement*: Inpatient hospitalization is medically necessary and the clinically appropriate intervention at this time. We will initiate medications and make changes as indicated. Coding Level of Care Code Acute Double Cutter for Nereida Fwd Diagnoses Status post insertion of percutaneous endoscopic gastrostomy (PEG) tube Z93.1 Cancer of supraglottis C32.1 Radiotherapy Z51.0 Malnourished E[address] Z93.0 Suicidal ideation R45.851 Major depressive disorder, recurrent F33.9 Adjustment disorder with mixed disturbance of emotions and conduct F43.25
--- NOTE | 2021-11-16 11:23 | ONCRAD TMN_ITS ---
Radiation Oncology Treatment Management Note Patient Name: Nima Vallejo Date of : 1955 Date of Service: 11/16/2021 Attending Physician: Dutch Ko M.D. 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 The T4b annotation is a consequence of likely prevertebral space involvement. He was evaluated at the [facility] Emergency Department on August 24, [address] scan of the neck identified a 3 cm x 3 cm x 4 cm epiglottic mass extending posteriorly to the fourth cervical vertebral body. No cervical adenopathy was present. The patient was admitted for further management. A microdirect laryngoscopy and tracheotomy was performed by Tirso Clarke M.D. on August 26, 2021. Intraoperative findings described an obstructing mass of the surgical surface of the epiglottis. Biopsies diagnosed a moderately differentiated, nonkeratinizing, invasive squamous cell carcinoma. A thoracoabdominopelvic CT scan ordered on September 13, 2021 described emphysematous changes and an infrarenal abdominal aortic aneurysm measuring 2.4 cm without evidence of metastatic disease. The patient has received 66 Gy of a prescribed 70 Tapia with an intensity modulated radiotherapy plan utilizing a step and shoot treatment technique. An additional 16 Gy will be delivered to the gross tumor volume subsequent to the initial treatment plan. He has been prescribed cisplatin (100 mg/m2) every 21 days. Upon review of systems, he did not report any significant changes. On physical examination, the patient weighed 151 lbs. His temperature was 98.1 ???F and the blood pressure was 119/79 mmHg. His pulse was 70 bpm and the respiratory rate was 18. There was hyperpigmentation within the treatment [place]. Continue head and neck radiotherapy as prescribed. Signed by: Dr. Dutch Ko 11/16/2021 11:22:51 AM
--- NOTE | 2021-11-16 11:33 | PC.NURSE ---
return to unit from Radiology
[2021-11-16 14:00] VITALS: BP 112/71; PULSE 84; RESP 18; TEMP 36.4; O2SAT 92
--- NOTE | 2021-11-16 14:07 | PC.RESP ---
Pt was asked to clean trach. Pt stated it doesnt need cleaned. it was cleaned yesterday. Therapist asked again to clean trach and pt refused no respiratory distress noted at this time.
[2021-11-16 14:09] VITALS: PULSE 74; RESP 17; O2SAT 95
[2021-11-16 19:35] VITALS: BP 118/52; PULSE 71; RESP 16; TEMP 36.7; O2SAT 97
[2021-11-16] MEDS: blistex lip oint 7 gm Tube 1 APPLIC TOPICAL (20:14)
[2021-11-16 20:15] VITALS: RESP 22
[2021-11-16] MEDS: mirtazapine 15 mg Tablet PEG-TUBE (20:15)
[2021-11-16] MEDS: quetiapine 100 mg Tablet PEG-TUBE (20:15)
[2021-11-16] MEDS: ondansetron 4 MG Tablet PO (20:15)
[2021-11-16] MEDS: quetiapine 300 mg Tablet PEG-TUBE (20:16)
--- NOTE | 2021-11-16 22:09 | PC.RESP ---
PT HAS REFUSED TRACH CARE AT THIS TIME, STATING TRACH CARE WAS PERFORMED EARLIER IN THE DAY
[2021-11-17 06:00] VITALS: BP 102/67; PULSE 86; RESP 20; TEMP 36.7; O2SAT 97
[2021-11-17] MEDS: donepezil 5 MG Tablet PEG-TUBE (10:05)
[2021-11-17] MEDS: LORazepam 1 mg Tablet PO (10:05)
--- NOTE | 2021-11-17 10:08 | W.PM.NPUPNS ---
Subjective NPU Subjective: He has not noticed anything from the increased Remeron to 15 mg at night. He has 2 more radiation treatments to go which will be finished on Tuesday. He continues to plan on going to his apartment when he leaves Anticipate discharge toward the end of the week after his radiation treatments are completed. Mental Status Exam MSE Comments: This is a tall underweight appearing white male with signs of hughes around his face looking older than his stated age in hospital scrubs with adequate grooming but adequate eye contact. No abnormal movements. Psychomotor activity is normal. Cooperative with exam in no acute distress. Speech normal rate and slightly decreased volume due to trach. Mood described as a depressed and still fairly hopeless, affect congruent. Thought process, organized. Thought content: patient denies any homicidal. He denies any current suicidal ideation, no delusions reported or noted, and denies any auditory or visual hallucinations. Attention and concentration are intact and memory is reliable but none were formally tested. He is alert and oriented three times. Insight and judgment appear fair. Impulse control is fair. Cognition: Patient Appearance: Appropriate Level of Consciousness: Awake, Alert, Appropriate and Follows Commands Patient Cognition Impaired: No Ability to Follow Directions: Good Patient Orientation (long list): Person, Place, Time, Name, Age, Birthday, Month and Year Comprehension Ability: No Impairment Hallucination Type: None Delusion Description: Not Present Thought Process: Appropriate Affect: Mood Description: Appropriate Affect Description: Appropriate Behavior: Patient Behavior: Appropriate Speech Pattern: Appropriate Vitals/I&O/Wt Last Vital Signs Temp 97.8 F 11/18/21 06:00 Pulse 88 11/18/21 06:00 Resp 16 11/18/21 08:42 BP 95/56 11/18/21 06:00 Pulse Ox 98 11/18/21 08:42 Data NPU : 11/09/21 16:05 11/09/21 16:33 A&P Assessment and plan (1) Status post insertion of percutaneous endoscopic gastrostomy (PEG) tube: Status: Acute (2) Cancer of supraglottis: Status: Acute (3) Radiotherapy: Status: Acute (4) Malnourished: Status: Acute (5) Tracheostomy in place: Status: Acute (6) Suicidal ideation: Status: Acute (7) Major depressive disorder, recurrent: Status: Acute (8) Adjustment disorder with mixed disturbance of emotions and conduct: Status: Acute Plan This is a 66 year old white male with a long history of alcohol dependence with significant nicotine/cigarette smoking history, depression and anxiety who presents after recent discovery of a lorengal mass for which she has been getting radiation treatment currently having a increase in depression and suicidal thinking. 1. Continue current medication. Remeron increased to 15 mg daily. 2. Continue every 15 minute checks for safety. 3. Encourage individual, group and milieu therapies. 4. Encourage sober living treatment after discharge at the highest level of care to which he is willing to commit. 5. We will work with social work team to see if there are resources or assisted living/retirement options during his cancer treatment. Involuntary Hold Information 96 Hour Hold: 96 Hour Involuntary Admission: No Attestations NPU Medical Necessity Statement*: inpatient hospitalization is medically necessary and the clinically appropriate intervention at this time. We will initiate medications and make changes as indicated. Coding Level of Care Code Acute Shoulder Sawyer for Nereida Martinez Diagnoses Status post insertion of percutaneous endoscopic gastrostomy (PEG) tube Z93.1 Cancer of supraglottis C32.1 Radiotherapy Z51.0 Malnourished E[address] Z93.0 Suicidal ideation R45.851 Major depressive disorder, recurrent F33.9 Adjustment disorder with mixed disturbance of emotions and conduct F43.25
--- NOTE | 2021-11-17 10:59 | PC.NURSE ---
off unit for Radiology, accompanied by NEEDLE LOOM OPERATOR HELPER and security
[2021-11-17 13:56] VITALS: RESP 17
[2021-11-17] MEDS: oxyCODONE 5 mg IR Tab/Cap PO (13:56)
[2021-11-17 14:00] VITALS: BP 105/64; PULSE 72; RESP 18; TEMP 36.6; O2SAT 97
[2021-11-17 16:10] VITALS: O2SAT 96
[2021-11-17 19:49] VITALS: BP 112/78; PULSE 70; RESP 18; TEMP 36.7; O2SAT 97
[2021-11-17] MEDS: mirtazapine 15 mg Tablet PEG-TUBE (20:24)
[2021-11-17] MEDS: quetiapine 100 mg Tablet PEG-TUBE (20:24)
[2021-11-17] MEDS: quetiapine 300 mg Tablet PEG-TUBE (20:24)
[2021-11-18 06:00] VITALS: BP 95/56; PULSE 88; RESP 18; TEMP 36.6; O2SAT 97
--- NOTE | 2021-11-18 08:31 | PC.NURSE ---
IN BED RESTING. DENIES SI/HI AND AVH AT THIS TIME. C/O NAUSEA AND STOMACH PAIN 11/20. MED NURSE NOTIFIED TO GIVE ZOFAN AND OXYCODONE ORDERED. PT WILL BE RECEIVING HIS LAST RADIATION TREATMENT TODAY. MED NURSE NOTIFIED TO GIVE ATIVAN AT 1000 AM ORDERED.
[2021-11-18 08:42] VITALS: RESP 16; O2SAT 98
[2021-11-18] MEDS: oxyCODONE 5 mg IR Tab/Cap PO (08:42)
[2021-11-18] MEDS: ondansetron 4 MG Tablet PO (08:42)
[2021-11-18] MEDS: tizanidine 4 mg Tablet PEG-TUBE (08:43)
[2021-11-18] MEDS: donepezil 5 MG Tablet PEG-TUBE (08:43)
--- NOTE | 2021-11-18 10:10 | P.NPUPN_ITS ---
Subjective NPU Subjective: He has not noticed anything from the increased Remeron to 15 mg at night. He has his last radiation treatment and is happy about that. He is a little discouraged because he thought he could get his tracheostomy out fairly soon but now they say it is going to be a couple of months. He continues to plan on going to his apartment when he leaves. Anticipate discharge toward the end of the week after his radiation treatments are completed. Mental Status Exam MSE Comments: This is a tall underweight appearing white male with signs of hughes around his face looking older than his stated age in hospital scrubs with adequate grooming but adequate eye contact. No abnormal movements. Psychomotor activity is normal. Cooperative with exam in no acute distress. Speech normal rate and slightly decreased volume due to trach. Mood described as a depressed and still fairly hopeless, affect congruent. Thought process, organized. Thought content: patient denies any homicidal. He denies any current suicidal ideation, no delusions reported or noted, and denies any auditory or visual hallucinations. Attention and concentration are intact and memory is reliable but none were formally tested. He is alert and oriented three times. Insight and judgment appear fair. Impulse control is fair. Cognition: Patient Appearance: Appropriate Level of Consciousness: Awake, Alert, Appropriate and Follows Commands Patient Cognition Impaired: No Ability to Follow Directions: Good Patient Orientation (long list): Person, Place, Time, Name, Age, Birthday, Month and Year Comprehension Ability: No Impairment Hallucination Type: None Delusion Description: Not Present Thought Process: Appropriate Affect: Mood Description: Appropriate Affect Description: Appropriate Behavior: Patient Behavior: Appropriate Speech Pattern: Appropriate Vitals/I&O/Wt Last Vital Signs Temp 97.8 F 11/18/21 06:00 Pulse 88 11/18/21 06:00 Resp 16 11/18/21 08:42 BP 95/56 11/18/21 06:00 Pulse Ox 98 11/18/21 08:42 Data NPU : 11/09/21 16:05 11/09/21 16:33 A&P Assessment and plan (1) Status post insertion of percutaneous endoscopic gastrostomy (PEG) tube: Status: Acute (2) Cancer of supraglottis: Status: Acute (3) Radiotherapy: Status: Acute (4) Malnourished: Status: Acute (5) Tracheostomy in place: Status: Acute (6) Suicidal ideation: Status: Acute (7) Major depressive disorder, recurrent: Status: Acute (8) Adjustment disorder with mixed disturbance of emotions and conduct: Status: Acute Plan This is a 66 year old white male with a long history of alcohol dependence with significant nicotine/cigarette smoking history, depression and anxiety who pres ents after recent discovery of a lorengal mass for which she has been getting radiation treatment currently having a increase in depression and suicidal thinking. 1. Continue current medication. Remeron increased to 15 mg daily. 2. Continue every 15 minute checks for safety. 3. Encourage individual, group and milieu therapies. 4. Encourage sober living treatment after discharge at the highest level of care to which he is willing to commit. 5. We will work with social work team to see if there are resources or assisted living/senior care options during his cancer treatment. Involuntary Hold Information 96 Hour Hold: 96 Hour Involuntary Admission: No Attestations NPU Medical Necessity Statement*: Inpatient hospitalization is medically necessary and the clinically appropriate intervention at this time. We will initiate medications and make changes as indicated. Coding Level of Care Code Acute Photo Mask Cleaner for Nereida Martinez Diagnoses Status post insertion of percutaneous endoscopic gastrostomy (PEG) tube Z93.1 Cancer of supraglottis C32.1 Radiotherapy Z51.0 Malnourished E[address] Z93.0 Suicidal ideation R45.851 Major depressive disorder, recurrent F33.9 Adjustment disorder with mixed disturbance of emotions and conduct F43.25
[2021-11-18] MEDS: LORazepam 1 mg Tablet PO (10:23)
--- NOTE | 2021-11-18 11:18 | N.ONRD TS_ITS ---
Radiation OncologyTreatment Summary Patient Name: Nima Vallejo Date of : 1955 Date of Service: 11/18/2021 Attending Physician: Dutch Ko M.D. 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 The T4b annotation is a consequence of likely prevertebral space involvement. He was evaluated at the [facility] on August 24, [address] scan of the neck identified a 3 cm x 3 cm x 4 cm epiglottic mass extending posteriorly to the fourth cervical vertebral body. No cervical adenopathy was present. The patient was admitted for further management. A microdirect laryngoscopy and tracheotomy was performed by Tirso Clarke M.D. on August 26, 2021. Intraoperative findings described an obstructing mass of the surgical surface of the epiglottis. Biopsies diagnosed a moderately differentiated, nonkeratinizing, invasive squamous cell carcinoma. A thoracoabdominopelvic CT scan ordered on September 13, 2021 described emphysematous changes and an infrarenal abdominal aortic aneurysm measuring 2.4 cm without evidence of metastatic disease. He was prescribed cisplatin (100 mg/m2) every 21 days. Head and neck radiation therapy was delivered between the dates of September 24, 2021 through November 18, 2021. A dose of 70 Gy was delivered in 35 fractions encompassing 56 elapsed days. He was prescribed cisplatin (100 mg/m2) every 21 days for three cycles. The supraglottic tumor and cervical lymph node regions were treated utilizing an intensity modulated radiotherapy plan with a step and shoot treatment technique. The plan required ten gantry angles (0???, 30???, 60???, 80???, 120???, 160???, 220???, 260???, 300???, and 330???) replicating an arc. The collimator rotation was 0???. The field sizes measured between 11.7 cm x 15.6 cm to 13.9 cm x 15.3 cm. The SSDs measured a minimum of 82.8 cm to a maximum of 96 cm. The ports delivered 235 MU, 210 MU, 158 MU, 151 MU, 120 MU, 160 MU, 133 MU, 122 MU, 157 MU, 220 MU, and 235 MU corresponding to the gantry angles described. Low energy photons were prescribed. The initial gilmore began on September 24, 2021 and continued through November 04, 2021. A prescribed dose of 54 Gy was administered in 25 fractions over 42 elapsed days. The gross tumor volume was subsequently treated with an intensity modular radiotherapy plan with a step and shoot treatment technique. The plan required eight gantry angles (0???, 30???, 70???, 160???, 220???, 260???, 300???, and 330?) replicating an arc. The collimator rotation was 0???. The field sizes ranged between 8.3 cm x 8 cm to 13.9 cm x 15.3 cm. The SSDs measured a minimum of 91.1 cm to a maximum of 96.7 cm. The ports distributed 104 MU, 102 MU, 107 MU, 66 MU, 58 MU, 103 MU, 101 MU, and 104 MU corresponding to the gantry angles described. Low energy photons were prescribed. The reduced ports commenced on November 05, 2021 and concluded on November 18, 2021. An additional 16 Gy was allocated in 8 fractions over 14 elapsed days. All treatments were performed with the Yobble linear accelerator and an isocentric technique. The dose was calculated by Anisotropic Analytic Algorithm with the plan normalized to deliver 100% of the prescription dose to 95% of the planning target volume. Signed by: Dr. Dutch Ko 11/18/2021 11:17:09 AM
[2021-11-18 14:00] VITALS: BP 93/44; PULSE 77; RESP 18; TEMP 36.6; O2SAT 95
--- NOTE | 2021-11-18 16:08 | PC.NURSE ---
LAST RADIATION TREATMENT COMPLETED AT 1130 AM. PT IN GOOD SPIRITS AND EXCITED THAT TREATMENT IS OVER.
[2021-11-18 19:59] VITALS: BP 108/72; PULSE 71; RESP 17; TEMP 36.4; O2SAT 97
[2021-11-18] MEDS: quetiapine 300 mg Tablet PEG-TUBE (20:23)
[2021-11-18] MEDS: quetiapine 100 mg Tablet PEG-TUBE (20:23)
[2021-11-18] MEDS: mirtazapine 15 mg Tablet PEG-TUBE (20:23)
--- NOTE | 2021-11-18 22:41 | PC.RESP ---
Pt refused trach care said he would do it in the morning
[2021-11-19 06:00] VITALS: BP 86/53; PULSE 66; RESP 17; TEMP 36.8; O2SAT 97
--- NOTE | 2021-11-19 07:50 | P.NPUDS_ITS ---
Diagnoses at Discharge Discharge Diagnosis (1) Status post insertion of percutaneous endoscopic gastrostomy (PEG) tube: Status: Acute (2) Cancer of supraglottis: Status: Acute Permanent problem details: Stage IVB - T4b, N0, M0 (3) Radiotherapy: Status: Acute Permanent problem details: Started 09/16/21 (4) Malnourished: Status: Acute (5) Tracheostomy in place: Status: Acute (6) Suicidal ideation: Status: Acute (7) Major depressive disorder, recurrent: Status: Acute (8) Adjustment disorder with mixed disturbance of emotions and conduct: Status: Acute Reason for Visit Reason for Visit: ABDOMINAL & BACK PAIN Brief History: History of Present Illness Nima Vallejo is a 66 year old male who presented to the emergency department with the following report: Chief Complaint: Abdominal Pain Stated Complaint: ABDOMINAL & BACK PAIN Time Seen by Provider: 11/09/21 14:55 History of Present Illness:?? Patient comes in with abdominal pain and suicidal ideation.? States that his abdominal pain is epigastric, dull, constant, associated with nausea, started a few months ago and has been there since starting chemotherapy.? States was recently diagnosed with throat cancer.? States he is really here today because he is suicidal and is planning on stepping out in front of a truck.? States he is unhappy about having a tracheostomy and is frustrated with the situation.? Associated Symptoms: Reports nausea; Denies dysuria, fever(s) and vomiting He was admitted to the neuropsychiatric unit for definitive treatment of those issues.? Patient presents today reporting that he just felt significant challenges in having to deal with his cancer, living situation, lack of transportation and other normal life frustrations that is not amplified by his c ancer diagnosis and treatment.? We had spoke briefly yesterday and determining his current physical fitness for being on the unit given his age and the units 62-year-old minute.? However outside of dealing with his trach and PEG tube he continues to be quite physically functional for his age.? We are able to work with the oncology team to make sure he was going to be able to continue to get his treatments which he had missed 1 while he was awaiting possible transfer in the emergency department.? He was really excited when we talked because he actually was able to get the good news that he was only on a D5 or these treatments at least in the cycle.? He reports that things are going better from the standpoint of his addiction which has been a centerpiece of many hospitalizations in the past he reported that he was just feeling down and out, lonely and started having thoughts about whether would be easier just to /kill himself.? He reports that he does have some posttreatment nausea which is also a frustration.? We discussed the risk benefits and alternatives of the medications as they are for the moment but consider the possibility of increasing his Remeron if necessary and he understood and agreed proceed as is documented in this note.? An excerpt of his 09/04/2021 consultation is included below for context.? He denies any substantive changes since then.? Reports he still lives in the motel down the road and has limited supports.? He reported that for some reason he was unable to get into some kind of [facility] or something because of his trach so we agreed we would investigate that to see if maybe there would be some kind of option that he does not know of so he can have ongoing supports. Hospital Course Hospital Course He slowly acclimated to the individual, group and milieu therapies provided. He was continued on his outpatient medications except Remeron was increased from 7.5 mg to 15 mg at bedtime. He completed his radiation treatments and was discharged to home. He consistently denied suicidal ideation during the last week of his hospitalization. He tolerated these doses and showed steady improvement during his stay. He was able to contract for safety outside hospital prior to discharge. During the hospitalization, patient had routine laboratory studies which were within normal limits except for few outliers. Additionally there was a general medical evaluation which was also within normal limits and revealed no new acute processes. Discharge Summary: At the time of discharge, lethality was denied. Mood and anxiety were well managed. Patient endorsed a plan to follow-up with the aftercare recommendations of the treatment team. Patient was evaluated and deemed to be absent credible lethality, and had achieved the maximum benefit from an inpatient hospitalization, so was discharged. Involuntary Hold Information 96 Hour Hold: 96 Hour Involuntary Admission: No Mental Status Exam MSE Comments: This is a tall underweight appearing white male with signs of hughes around his face looking older than his stated age in hospital scrubs with adequate grooming but adequate eye contact. No abnormal movements. Psychomotor activity is normal. Cooperative with exam in no acute distress. Speech normal rate and slightly decreased volume due to trach. Mood described as a depressed and still fairly hopeless, affect congruent. Thought process, organized. Thought content: patient denies any homicidal. He denies any current suicidal ideation, no delusions reported or noted, and denies any auditory or visual hallucinations. Attention and concentration are intact and memory is reliable but none were formally tested. He is alert and oriented three times. Insight and judgment appear fair. Impulse control is fair. Cognition: Patient Appearance: Appropriate Level of Consciousness: Awake, Alert, Appropriate and Follows Commands Patient Cognition Impaired: No Ability to Follow Directions: Good Patient Orientation (long list): Person, Place, Time, Name, Age, Birthday, Month and Year Comprehension Ability: No Impairment Hallucination Type: None Delusion Description: Not Present Thought Process: Appropriate Affect: Mood Description: Appropriate Affect Description: Appropriate Behavior: Patient Behavior: Cooperative and Withdrawn Speech Pattern: Appropriate and Clear Discharge Data Studies Completed and Pending: Laboratory Results WBC 4.1 10^3/uL (4.0- 10.0) 11/09/21 16:05 RBC 3.82 10^6/uL (4.1 -5.3) L 11/09/21 16:05 Hgb 12.8 g/dL (11.7-1 6.6) 11/09/21 16:05 Hct 36.0 % (42.0-52.0 ) L 11/09/21 16:05 MCV 94.2 fl (80-94) H 11/09/21 16:05 MCH 33.5 pg (28.0-34. 0) 11/09/21 16:05 MCHC 35.6 g/dL (30.0-3 6.0) 11/09/21 16:05 RDW 15.6 % (12.1-15.1 ) H 11/09/21 16:05 Plt Count 270 10^3/cmm (130 -400) 11/09/21 16:05 MPV 9.5 fL (7.4-10.4) 11/09/21 16:05 Neut % (Auto) 73.8 % 11/09/21 16:05 Lymph % (Auto) 13.4 % 11/09/21 16:05 [place] % (Auto) 11.4 % 11/09/21 16:05 Eos % (Auto) 0.7 % 11/09/21 16:05 Baso % (Auto) 0.5 % 11/09/21 16:05 Neut # (Auto) 3.03 10^3/uL (1.8 -7.7) 11/09/21 16:05 Lymph # (Auto) 0.6 10^3/uL (0.8- 4.8) L 11/09/21 16:05 [place] # (Auto) 0.5 10^3/uL (0.2- 0.9) 11/09/21 16:05 Eos # (Auto) 0.0 10^3/uL (0.0- 0.8) 11/09/21 16:05 Baso # (Auto) 0.0 10^3/uL (0.0- 0.1) 11/09/21 16:05 Nucleated RBC % (a uto) 0 % 11/09/21 16:05 Nucleated RBCs # 0.0 /100WBC 11/09/21 16:05 Sodium 139 mmol/L (136-1 45) 11/09/21 16:33 Potassium 4.2 mmol/L (3.5-5 .1) 11/09/21 16:33 Chloride 99 mmol/L (98-107 ) 11/09/21 16:33 Carbon Dioxide 31 mmol/L (22-29) H 11/09/21 16:33 Anion Gap 13.2 (5-19) 11/09/21 16:33 BUN 23 mg/dL (8-23) 11/09/21 16:33 Creatinine 1.0 mg/dL (0.7-1. 2) 11/09/21 16:33 GFR Calculation 74.3 mL/min (90-1 30) L 11/09/21 16:33 Glucose 93 mg/dL (65-115) 11/09/21 16:33 Calculated Osmolal ity 291 mOsm/kg (285- 295) 11/09/21 16:33 Calcium 8.7 mg/dL (8.5-10 .5) 11/09/21 16:33 Total Bilirubin 0.3 mg/dL (0.15-1 .2) 11/09/21 16:33 AST 17 U/L (0-40) 11/09/21 16:33 ALT 22 U/L (0-41) 11/09/21 16:33 Alkaline Phosphata se 109 IU/L (40-130) 11/09/21 16:33 Total Protein 6.5 g/dL (6.6-8.7 ) L 11/09/21 16:33 Albumin 4.0 g/dL (3.5-5.2 ) 11/09/21 16:33 Globulin 2.5 g/dL (1.3-4.6 ) 11/09/21 16:33 Lipase 85 U/L (13-60) H 11/09/21 16:33 Salicylates < 0.3 mg/dL (3-10 ) L 11/09/21 16:33 Urine Opiates Scre en Positive ng/mL (N egative) H 11/09/21 16:33 Acetaminophen 18.2 ug/mL (10-30 ) 11/09/21 16:33 Ur Barbiturates Sc reen Negative ng/mL (N egative) 11/09/21 16:33 Ur Phencyclidine S crn Negative ng/mL (N egative) 11/09/21 16:33 Ur Amphetamines Sc reen Negative ng/mL (N egative) 11/09/21 16:33 U Benzodiazepines Scrn Positive ng/mL (N egative) H 11/09/21 16:33 Urine Cocaine Scre en Negative ng/mL (N egative) 11/09/21 16:33 U Marijuana (THC) Screen Positive ng/mL (N egative) H 11/09/21 16:33 Ethyl Alcohol < 10 mg/dL (0-10) 11/09/21 16:33 Coronavirus 229E ( PCR) Not detected (NO T DETECT) 11/09/21 18:42 SARS-CoV-2 (PCR) Not detected (NO T DETECT) 11/09/21 18:42 Vitals: Last Vital Signs Temp 98.2 F 11/19/21 06:00 Pulse 66 11/19/21 06:00 Resp 17 11/19/21 06:00 BP 86/53 11/19/21 06:00 Pulse Ox 97 11/19/21 06:00 Discharge Plan Discharge Patient Disposition: Home Condition: Stable Prescriptions: New mirtazapine 15 mg Tablet 15 mg peg-tube BEDTIME 30 Days Qty: 3 1RF Continued pregabalin [Lyrica] 75 mg capsule 75 mg PO BID 0RF tamsulosin 0.4 mg capsule 0.4 mg PO BID 0RF tizanidine 4 mg capsule 4 mg PO Q8H PRN (Reason: Muscle Spasm) 0RF prochlorperazine maleate 10 mg tablet 10 mg PO Q4H PRN (Reason: nausea and vomiting) Qty: 60 3RF oxycodone 5 mg/5 mL solution 5 mg PO Q4H PRN (Reason: pain) 10 Days Qty: 250 0RF oxycodone 10 mg tablet 10 mg PO BID PRN (Reason: pain) Qty: 20 0RF quetiapine 400 mg tablet 400 mg PO BEDTIME 0RF Narcan 4 mg/actuation spray,non-aerosol See Rx Instructions .ROUTE .COMPLEX 0RF Rx Instructions: intranasally DIRECTED donepezil 5 mg tablet 5 mg PO DAILY 30 Days Qty: 30 1RF Ativan 1 mg tablet 1 mg PO BID PRN (Reason: anxiety) 30 Days Qty: 30 0RF Discontinued mirtazapine 15 mg Tablet 7.5 mg PO BEDTIME 0RF Discharge Orders: Discharge Order (Routine); Ordered 11/19/21 Ordered By: Bib Ruelas Referrals: [facility] [Outside] - 12/11/21 11:30 am (11:30 check-in time for initial assessment) Raymond Bell DO [Physician] - 11/19/21 1:00 pm Discharge Diet: Regular Discharge Activity: Resume usual activity Patient Instructions: Opioid Safety Discharge Attestations NPU Time Spent in Discharge Care*: less than 30 min Specific Discharge Activities: Specific discharge activities: educating patient, discussing with bilingual patient support caseworker/social workers/dc planners, documenting/other paperwork and evaluating patient/reviewing data Coding Level of Care Code Acute Chg FW DC note Diagnoses Status post insertion of percutaneous endoscopic gastrostomy (PEG) tube Z93.1 Cancer of supraglottis C32.1 Radiotherapy Z51.0 Malnourished E46 [address] Z93.0 Suicidal ideation R45.851 Major depressive disorder, recurrent F33.9 Adjustment disorder with mixed disturbance of emotions and conduct F43.25
[2021-11-19 08:31] VITALS: BP 86/53; PULSE 66; RESP 17; TEMP 36.8; O2SAT 97
== END 2021-11-19 09:07 | disposition home or self-care (01) | DRG 885 ==
LOC: ER 11-10 11:31 → NP 11-11 05:46
PROVIDERS: Emergency Medicine; Admitting Provider Psychiatry & Neurology Psychiatry; Emergency Provider Family Medicine; Visit Provider Psychiatry & Neurology Psychiatry
DX: F33.2 Major depressive disorder, recurrent severe without psychotic features (principal); C77.0 Secondary and unspecified malignant neoplasm of lymph nodes of head, face and neck; R45.851 Suicidal ideations; N13.8 Other obstructive and reflux uropathy; E46 Unspecified protein-calorie malnutrition; Z68.1 Body mass index [BMI] 19.9 or less, adult; Z51.0 Encounter for antineoplastic radiation therapy; C32.1 Malignant neoplasm of supraglottis; Z79.899 Other long term (current) drug therapy; Z93.0 Tracheostomy status; F10.11 Alcohol abuse, in remission; F15.11 Other stimulant abuse, in remission; N40.1 Benign prostatic hyperplasia with lower urinary tract symptoms; F12.20 Cannabis dependence, uncomplicated; F17.210 Nicotine dependence, cigarettes, uncomplicated; M51.37 Other intervertebral disc degeneration, lumbosacral region; G30.9 Alzheimer's disease, unspecified; F02.80 Dementia in other diseases classified elsewhere, unspecified severity, without behavioral disturbance, psychotic disturbance, mood disturbance, and anxiety; M48.061 Spinal stenosis, lumbar region without neurogenic claudication; Z93.1 Gastrostomy status; Z79.891 Long term (current) use of opiate analgesic; F43.25 Adjustment disorder with mixed disturbance of emotions and conduct
CPT/HCPCS: 77336; 77386; 80053; 80306; 80307; 83690; 85025; 87635; 93005; 94664; 96361; 96374; 96375; 97150; 97165; 99285; J2270; J2405; J7030; Q0162; Q0164

== ENCOUNTER 2021-12-30 08:51 | Outpatient (CLI) | payer MEDICAID, SELFPAY ==
--- NOTE | 2021-12-30 09:08 | CT_ITS ---
WS: [id number] CT NECK TECHNIQUE: Contrast-enhanced CT of the neck with coronal and sagittal reformatted images. CLINICAL INFORMATION: MALIGNANT NEOPLASM OF SUPRAGLOTTIS WITH OBSTRUCTION COMPARISON: PET/CT September 26, [address] neck August 24, 2021 DLP: 225.[address] scans at [facility] use at least one of these dose optimization techniques: automated e xposure control; mA and/or kV adjustment per patient size (includes targeted exams where dose is matc hed to clinical indication); or iterative reconstruction. FINDINGS:Diffuse circumferential thickening involving the hypopharynx and supraglottic larynx also in volving the glottis with airway narrowing. Subglottic airway is patent with tracheostomy.Compared to the PET/CT there is more diffuse circumferential thickening today likely due to treatment-related usama nges. High-grade narrowing of the supraglottic and glottic airway with tiny residual central aeration . Bulky supraglottic mass appears improved and essentially resolved. Interval tracheostomy. No cervical lymphadenopathy. Dense carotid bulb calcification RIGHT greater than LEFT. Advanced chron ic emphysematous changes in the lung apices. Fibrosis in the lung apices. 5 mm fibrotic opacity in th e RIGHT upper lobe appears stable compared to August 24, 2021. Mastoid air cells well aerated. Paranasal sinuses are well aerated. Moderate to advanced spondylitic changes cervical spine with ankylosis and hypertrophic changes. Moderate to severe central canal sten osis C4-C5. Mild central canal stenosis C5-C6 and C6-C7. Paranasal sinuses and mastoid air cells are well aerated. Normal posterior nasopharynx. Normal paraph aryngeal fat. Thyroid gland is normal. Normal submandibular and parotid glands. CT/CT neck w con* [id number] IMPRESSION: 1. Interval placement tracheostomy compared to the prior PET/CT. 2. Diffuse circumferential soft tissue thickening involving the hypopharynx, s upraglottis, and glottis with airway narrowing likely due to treatment-related changes. Bulky supraglottic mass appears significantly improved and essentially resolved. This can be further evaluated with PET/CT to assess for residual act ivity. 3. Persistent high-grade airway narrowing with only a tiny amount of central a eration at the level of the glottis. 4. Subglottic airway is normal. No cervical lymphadenopathy. 5. No other significant changes compared to previous.
[2021-12-30] MEDS: iohexol 350 mg/mL 100 mL Btl IV (10:27)
[2021-12-31 12:06] LABS: Blood Urea Nitrogen 12 mg/dL (8-23); Glomerular Filtration Rate 96.1 mL/min (90-130)
== END 2021-12-30 08:52 | disposition home or self-care (01) ==
LOC: RAD 08:51
PROVIDERS: Visit Provider Specialist
DX: C32.1 Malignant neoplasm of supraglottis (principal); J04.31 Supraglottitis, unspecified, with obstruction; Z93.0 Tracheostomy status
CPT/HCPCS: 70491; 82565; 84520

== ENCOUNTER → 2022-03-10 10:13 | Outpatient (BNVA) | payer MEDICAID, SELFPAY | PROVIDERS: Referring Provider Specialist; Visit Provider Surgery | DX: R13.10 Dysphagia, unspecified (principal); Z93.1 Gastrostomy status | CPT/HCPCS: 99213 ==

== ENCOUNTER 2022-05-04 09:56 | Outpatient (CLI) | payer MEDICAID, SELFPAY ==
--- NOTE | 2022-05-04 11:00 | FL_ITS ---
WS: [id number] MODIFIED BARIUM SWALLOW TECHNIQUE: Modified barium swallow with speech therapy using multiple consistencies. FLUOROSCOPY TIME: 2min [id number] # of spot films: 1 CLINICAL INFORMATION: Tracheostomy COMPARISON: None. FINDINGS: Multiple consistencies utilized. Penetration with initial nectar consistency. Otherwise no evidence o f aspiration penetration the remainder of the study. No difficulties with the barium tablet. Minimal pooling in the vallecula. FL/FL barium swallow modifd [id number] IMPRESSION: 1. Initial nectar consistency penetration which resolved with additional consi stencies. Otherwise no evidence of aspiration/penetration. 2. No difficulties with the barium tablet 3. Please see speech therapy consultation for further detail.
== END 2022-05-04 09:57 | disposition home or self-care (01) ==
LOC: RAD 09:57
PROVIDERS: Visit Provider Surgery
DX: Z93.0 Tracheostomy status (principal)
CPT/HCPCS: 74230; 92611

== ENCOUNTER → 2022-05-18 11:59 | Outpatient (BNVA) | payer MEDICAID, SELFPAY | PROVIDERS: Visit Provider Nurse Practitioner Psychiatric/Mental Health | DX: Z79.899 Other long term (current) drug therapy (principal) | CPT/HCPCS: 80053; 80061; 83036 ==

== ENCOUNTER → 2022-05-31 13:25 | Outpatient (BNVA) | payer MEDICAID, SELFPAY | PROVIDERS: Visit Provider Surgery | DX: Z93.1 Gastrostomy status (principal); R13.10 Dysphagia, unspecified | CPT/HCPCS: 99213 ==

== ENCOUNTER 2022-06-03 07:07 | Day surgery (SDC) | payer MEDICAID, SELFPAY ==
[2022-06-03 07:19] VITALS: BP 114/72; PULSE 82; RESP 18; TEMP 36.1; O2SAT 95
[2022-06-03] MEDS: sodium chloride 0.9% 1,000 ML 30 ML IV (07:24)
--- NOTE | 2022-06-03 07:29 | W.PM.OPSUD ---
Surgery/Procedure H&P Update DATE OF PROCEDURE: June 03, 2022 DATE H&P PERFORMED: 05/31/22 H&P UPDATE INFORMATION: I have reviewed H&P completed within last 30 days, I have examined patient prior to procedure and No changes to prior documentation PREOP DIAGNOSIS: Undesired gastrostomy tube PRIMARY INDICATION FOR PROCEDURE: The same PLANNED PROCEDURE: Operation Date: 06/03/22 08:15 Proposed Procedures p PEG Tube removal( no CPT) CPT for Mac sedation is 746419, 24323,Z93.1(Not Applicable) - Armand Lin MD
[2022-06-03 07:32] VITALS: BMI 17.4
--- NOTE | 2022-06-03 07:58 | ANES.PREANE2 ---
Pre-Anesthetic Assessment Height/Weight: Height 1.91 m Weight 63.503 kg Temp Pulse Resp BP Pulse Ox O2 Del Method 97.0 F L 82 18 114/72 95 06/03/22 07:19 06/03/22 07:19 06/03/22 07:19 06/03/22 07:19 06/03/22 07:19 06/03/22 07:19 Preop Diagnosis: Undesired gastrostomy tube Operation Date: 06/03/22 08:15 Proposed Procedures p PEG Tube removal( no CPT) CPT for Mac sedation is 468360, 42393,Z93.1(Not Applicable) - Armand Lin MD Familial anesthetic complications: none Was Beta Miriam taken within 24 hours: N/A Was Clonidine taken within 24 hours: N/A Last intake: Intake Last Liquid Date 06/02/22 Last Liquid Time 21:00 Last Solid Date 06/02/22 Last Solid Time 18:00 Social Tobacco and No alcohol Exam alert and oriented x 3 Airway Submandibular: within normal limits Cervical ROM: within normal limits Mallampati: Class III History/ROS No significant history except as noted Pulmonary has open stoma- no O2 or trach in place. recieved chemo and radiation for throat cancer. CV/HEM None reported None reported Hepatic None reported GI Gastroesophageal Reflux Disease Metabolic None reported Musc/skel None reported Neuropsych None reported Anesthetic Plan ASA status: 3 Anesthesia: Anesthesia Evaluation and MAC Medications/Allergies Home Medications Medication Instructions Recorded Confirmed Last Taken Type tamsulosin 0.4 mg capsule 0.4 mg PO BID 10/14/21 06/03/22 06/02/22 History tizanidine 4 mg capsule 4 mg PO Q8H PRN Muscle Spasm 10/14/21 06/03/22 Unknown History prochlorperazine maleate 10 mg 10 mg PO Q4H PRN nausea and 10/16/21 06/03/22 Unknown Rx tablet vomiting #60 tabs naloxone 4 mg/actuation nasal See Rx Instructions .Route .COMPLEX 11/09/21 06/03/22 06/01/22 History spray (Narcan) donepezil 5 mg tablet 5 mg PO DAILY 30 days #30 tabs 05/18/22 06/03/22 06/02/22 Rx quetiapine 25 mg tablet (Seroquel) 25 mg PO BID PRN anxiety/agitation 05/18/22 06/03/22 Unknown Rx #60 tabs quetiapine 400 mg tablet (Seroquel) 400 mg PO BEDTIME #30 tabs 05/18/22 06/03/22 06/02/22 Rx Allergies Allergy/AdvReac Type Severity Reaction Status Date / Time No Known Allergies Allergy Verified 05/31/22 15:32 Current Medications Generic Name Dose Route Start Last Admin Trade Name Freq PRN Reason Stop Dose Admin Sodium Chloride 1,000 mls @ 30 mls/hr 06/03/22 07:15 06/03/22 07:24 Sodium Chloride 0.9% IV 06/04/22 07:14 30 mls/hr .Q24H HENRY Administration PFSH Anesthesia Medical History Amphetamine use disorder, severe, in early remission, dependence Patient reports last use in Jun 2021 BPH loc w urin obs/LUTS Cannabis dependence daily basis Cigarette nicotine dependence DDD (degenerative disc disease), lumbosacral Hiatal hernia Lower urinary tract symptoms (LUTS) Major depressive disorder, recurrent severe without psychotic features 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 (Alzheimer/substance use), mild to moderate Need for discharge planning Prostate induration Psychiatric care Spinal stenosis, lumbar region, with neurogenic claudication Surgical History S/P hernia repair abdominal Status post skin graft Family History Mother , at 67 Cancer Father , at age 80 No problems noted. Daughter No problems noted. Brother Diabetes Denies family history of CAD (coronary artery disease) Clotting disorder Dementia Hyperlipidemia Psychiatric illness Chronic kidney disease (CKD) Suicide Anesthesia complication Bleeding disorder Lung disease Hypertension Stroke Social History Smoking and tobacco status: current every day smoker (half a pack a day ) Quit status (tobacco): not considering quitting Second hand smoke exposure: Yes Smoking risk assessment/counseling performed?: No Reason smoking risk assessment not done: patient refused Alcohol intake: former Marital status: Current occupational status: disabled History of recent travel: No Data Anesthesia Cardiac Studies: Echocardiogram 08/29/21
--- NOTE | 2022-06-03 08:46 | P.PCN_ITS ---
Procedure/Consent Consent: Consent for Procedure: Consent obtained from patient, Risks & Benefits reviewed and Agrees to proceed with procedure Procedure Narrative: Preprocedure diagnosis undesired PEG tube Postprocedure diagnosis the same Procedure explantation of gastrostomy feeding tube Patient was identified in the GI lab preprocedure area and was taken to the procedure room, time-out was done verifying the patient's name, date of , and procedure, all were in agreement. Patient received propofol IV by the anesthesia provider. The PEG tube was removed without difficulty or complications. No evidence of bleeding and dry dressing was then applied Patient tolerated the procedure well and was discharged home after meeting the appropriate and safe criteria.. I was present for the whole entire procedure Estimated blood loss 0 Locker Room Clerk GI nursing staff Sammie James No specimens No immediate complications
[2022-06-03 08:48] VITALS: BP 111/75; PULSE 80; RESP 18; TEMP 36.1; O2SAT 94
--- NOTE | 2022-06-03 08:52 | ANE.PACU2 ---
Inpatient post-anesthesia follow up: Airway intact: Yes Vital signs: Temperature 97.0 F Pulse Rate 82 Respiratory Rate 18 Blood Pressure 114/72 Pulse Oximetry 95 Oxygen Delivery Me thod Room Air Oxygen Flow Rate Fraction of Inspir ed Oxygen Hydration adequate: Yes Nausea and vomiting: No Pain level: 1 Mental status: Baseline
[2022-06-03 09:06] VITALS: BP 94/55; PULSE 65; RESP 16; O2SAT 96
== END 2022-06-03 09:17 | disposition home or self-care (01) ==
PROVIDERS: Visit Provider Surgery
PROC: (CPT 43999; principal; 2022-06-03 08:15)
DX: Z43.1 Encounter for attention to gastrostomy (principal)
CPT/HCPCS: J2704; J7030

== ENCOUNTER 2022-10-04 07:52 | Outpatient (CLI) | payer MEDICAID, SELFPAY ==
[2022-10-04 08:26] LABS: Basophils # 0.1 10^3/uL (0.0-0.1); Basophils % 1.1 %; Eosinophils # 0.1 10^3/uL (0.0-0.8); Eosinophils % 2.9 %; Hematocrit 38.8 % (42.0-52.0); Lymphocytes # 1.2 10^3/uL (0.8-4.8); Lymphocytes % 25.6 %; Mean Corpuscular HGB Conc 33.5 g/dL (30.0-36.0); Mean Corpuscular Hemoglobin 34.9 pg (28.0-34.0); Mean Platelet Volume 9.3 fL (7.4-10.4); Monocytes # 0.5 10^3/uL (0.2-0.9); Monocytes % 11.1 %; Neutrophils # 2.64 10^3/uL (1.8-7.7); Neutrophils % 58.9 %; Nucleated Red Blood Cells % 0 %; Platelet Count 222 10^3/cmm (130-400); Red Blood Count 3.73 10^6/uL (4.1-5.3); Red Cell Distribution Width 14.9 % (12.1-15.1); White Blood Count 4.5 10^3/uL (4.0-10.0)
[2022-10-04 08:46] LABS: Anion Gap 10.5 (5-19); Blood Urea Nitrogen 20 mg/dL (8-23); Calcium 8.9 mg/dL (8.5-10.5); Carbon Dioxide 29 mmol/L (22-29); Chloride 106 mmol/L (98-107); Glomerular Filtration Rate 111.8 mL/min (90-130); Glucose 96 mg/dL (65-115); Osmolality Calculated 294 mOsm/kg (285-295); Potassium 4.5 mmol/L (3.5-5.1); Sodium 141 mmol/L (136-145)
--- NOTE | 2022-10-04 08:55 | ECG_ITS ---
[facility] Test Date: 2022-10-04 Pat Name: Nima Vallejo (Jake) Department: Room: Gender: Male Licensed Guide: : 1955 Requested By: Tirso Bauer Order Number: [id number] Concepción MD: Osmel Sánchez M.D. Measurements Intervals [place] Rate: 63 P: 150 WI: 207 QRS: 122 QRSD: 89 T: 131 QT: 406 QTc: 419 Interpretive Statements SINUS RHYTHM ARM LEADS REVERSED [INVERTED P AND QRS IN I] Compared to ECG 11/09/2021 18:27:26 Myocardial infarct finding no longer present Electronically Signed On 10-04-2022 14:33:48 CDT by Osmel Sánchez M.D. [email or web address] [facility] Colourmed[facility] hospital[facility] Solutions/store/NU/[id number] f
== END 2022-10-04 07:53 | disposition home or self-care (01) ==
LOC: LAB 07:57
PROVIDERS: Visit Provider Specialist
DX: C32.1 Malignant neoplasm of supraglottis (principal)
CPT/HCPCS: 36415; 80048; 85025; 93005

== ENCOUNTER → 2023-01-27 11:24 | Outpatient (BNVA) | payer MEDICAID, SELFPAY | PROVIDERS: Visit Provider Nurse Practitioner Psychiatric/Mental Health | DX: Z79.899 Other long term (current) drug therapy (principal) | CPT/HCPCS: 80061; 83036 ==

== ENCOUNTER 2023-04-05 12:11 | Inpatient (IN) | payer MEDICAID, SELFPAY ==
[2023-04-05] VITALS (25 sets, daily range): BP systolic 75–127; BP diastolic 46–70; PULSE 83–117; RESP 16–35; TEMP 36.8; O2SAT 84–100; BMI 18.7
--- NOTE | 2023-04-05 12:19 | XR_ITS ---
WS: [id number] Exam: XR chest 1V portable [id number] Date/Time of Exam: 04/05/2023 12:29 PM Reason For Exam: cough Comparison 10/26/2021. There is extensive infiltrate throughout the RIGHT lung. There are also small focal areas of infiltra te in the mid and lower LEFT lung. There are changes of honeycombing and interstitial fibrosis in bot h lungs most pronounced on the RIGHT. Heart size is normal. The mediastinum is normal in contour. Ron ateral apical pleural thickening. RIGHT subclavian port ends in the lower one third of the SVC. No pn eumothorax. No pleural effusion. IMPRESSION: 1. Extensive infiltrate throughout the RIGHT lung. Small focal infiltrates in the mid and lower LEFT lung. 2. Extensive pulmonary fibrosis and honeycombing most severe on the RIGHT. 3. Right-sided subclavian port in satisfactory location.
--- NOTE | 2023-04-05 12:20 | ED_ITS ---
HPI - SOB/Dyspnea General: Chief Complaint: Shortness of Breath/Dyspnea Stated Complaint: Weakness, SOB Time Seen by Provider: 04/05/23 12:12 Source: patient Mode of arrival: ambulatory Limitations: no limitations History of Present Illness: HPI Narrative: 67-year-old male who states that he has been having generalized weakness along with cough and shortness of breath over the last 2 weeks. States he had low- grade fevers as well. He is a longtime smoker he had a history of throat cancer. Patient is requiring 4 L of oxygen here. He denies any vomiting he has had some right-sided chest pain as well. Associated symptoms: Reports chest pain and fever(s); Deny abdominal pain, nausea or vomiting Review of Systems Const: Reports: fever(s) and fatigue; Denies: chills, body aches or change in appetite Eyes: Denies: blurry vision or eye discomfort ENMT: Denies: throat pain or dental pain Card: Reports: chest pain Resp: Reports: dyspnea and productive cough GI: Denies: abdominal pain, nausea, vomiting or diarrhea : Denies: dysuria Musc: Denies: neck pain or back pain Skin/Breast: Denies: rash Neuro: Denies: headache(s) PFSH ED PFSH: Medical History Amphetamine use disorder, severe, in early remission, dependence last use reported as September 2022 BPH loc w urin obs/LUTS Cannabis dependence daily basis Cigarette nicotine dependence DDD (degenerative disc disease), lumbosacral Hiatal hernia Lower urinary tract symptoms (LUTS) Major depressive disorder, recurrent severe without psychotic features 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 (Alzheimer/substance use), mild to moderate Need for discharge planning Prostate induration Psychiatric care Spinal stenosis, lumbar region, with neurogenic claudication Surgical History S/P hernia repair abdominal Status post skin graft Family History Mother , at 67 Cancer Father , at age 80 No problems noted. Daughter No problems noted. Brother Diabetes Denies family history of CAD (coronary artery disease) Clotting disorder Dementia Hyperlipidemia Psychiatric illness Chronic kidney disease (CKD) Suicide Anesthesia complication Bleeding disorder Lung disease Hypertension Stroke Social History Smoking and tobacco/nicotine status: current every day tobacco/nicotine user cigarettes Packs smoked per day: 1 Quit status (tobacco/nicotine): not considering quitting Second hand smoke exposure: Yes Alcohol intake: former Year of sobriety/quit date alcohol: 2002 Substance/Drug Use: former Date of last use: marijuana and meth Marital status: Current occupational status: disabled Physical Exam Const: COMMON NORMALS: patient oriented x3 GENERAL APPEARANCE: ill appearing and frail appearing HENMT: COMMON NORMALS: normocephalic and atraumatic HEAD & SCALP: normocephalic and atraumatic Neck/C-Spine: COMMON NORMALS: full ROM and supple Chest: COMMONS NORMALS: normal inspection of the chest and normal palpation of entire chest wall Resp: COMMON NORMALS: No retractions and No use of accessory muscles AUSCULTATION: rales Cardio: COMMON NORMALS: regular rate, regular rhythm and No murmurs present (Cardio) RATE: regular rate RHYTHM: regular rhythm GI: COMMON NORMALS: Normal to inspection, nondistended, normoactive bowel sounds present, Soft to palpation, non-tender and no masses PALPATION: Yes Soft to palpation Extremity: COMMON NORMALS: normal to inspection and full ROM Neuro: COMMON NORMALS: patient oriented x3, moves all extremities and no focal motor deficits Psych: COMMON NORMALS: mental status grossly normal, Normal thought process present and cooperative THOUGHT PROCESS: Normal thought process present Skin: COMMON NORMALS: no rashes or lesions noted and no wounds GENERAL SKIN EXAM: no rashes or lesions noted Course Vital Signs: Vital signs: Vital Signs Temperature 98.2 F 04/05/23 12:12 Pulse Rate 117 H 04/05/23 12:12 Respiratory Rate 20 H 04/05/23 12:12 Blood Pressure 97/46 04/05/23 12:12 Pulse Oximetry 92 04/05/23 12:12 Oxygen Delivery Me thod Nasal Cannula 04/05/23 12:12 Oxygen Flow Rate 4 04/05/23 12:12 MDM - SOB/Dyspnea Medical Decision Making Patient presents here with cough along with fever and shortness of breath he does have an extensive right-sided pneumonia he is requiring oxygen here. Did have some hypotension his blood pressures improved here after IV fluids did start him on antibiotic spoke to the hospitalist will admit. Medical Records I reviewed the patient's medical records. Lab Data I reviewed the patient's lab results. 04/05/23 11:54 04/05/23 11:54 Labs/Radiology: Laboratory Results WBC 13.54 10^3/uL (3.29-11.43) H 04/05/23 11:54 RBC 3.72 10^6/uL (3.85-5.65) L 04/05/23 11:54 Hgb 12.90 g/dL (11.27-16.99) 04/05/23 11:54 Hct 35.8 % (37-53) L 04/05/23 11:54 MCV 96.2 fl (82-101) 04/05/23 11:54 MCH 34.7 pg (27-33) H 04/05/23 11:54 MCHC 36.0 g/dL (30-55) 04/05/23 11:54 RDW 13.3 % (12.1-15.1) 04/05/23 11:54 Plt Count 224 10^3/cmm (157-399) 04/05/23 11:54 MPV 10.1 fL (7.4-10.4) 04/05/23 11:54 Neut % (Auto) 85.7 % 04/05/23 11:54 Lymph % (Auto) 3.2 % 04/05/23 11:54 [place] % (Auto) 9.3 % 04/05/23 11:54 Eos % (Auto) 0.3 % 04/05/23 11:54 Baso % (Auto) 0.1 % 04/05/23 11:54 Neut # (Auto) 11.60 10^3/uL (1.8-7.7) H 04/05/23 11:54 Lymph # (Auto) 0.4 10^3/uL (0.8-4.8) L 04/05/23 11:54 [place] # (Auto) 1.3 10^3/uL (0.2-0.9) H 04/05/23 11:54 Eos # (Auto) 0.0 10^3/uL (0.0-0.8) 04/05/23 11:54 Baso # (Auto) 0.0 10^3/uL (0.0-0.1) 04/05/23 11:54 Nucleated RBC % (auto) 0 % 04/05/23 11:54 Nucleated RBCs # 0.0 /100WBC 04/05/23 11:54 PT 14.00 SECONDS (12.1-14.9) 04/05/23 11:54 INR 1.05 (0.8-1.2) 04/05/23 11:54 Specimen Type Arterial 04/05/23 12:24 Sample Site Radial, left 04/05/23 12:24 ABG pH 7.42 (7.35-7.45) 04/05/23 12:24 ABG pCO2 41.7 mmHg (35-45) 04/05/23 12:24 ABG pO2 55.6 mmHg (80.0-100.0) L 04/05/23 12:24 ABG HCO3 27.2 mmol/L (22-26) H 04/05/23 12:24 ABG Base Excess 2.4 mmol/L (-2.0-2.0) H 04/05/23 12:24 Joao Test Pos 04/05/23 12:24 Hematocrit 36.3 % (42-52) L 04/05/23 12:24 O2 Delivery Device Nc 04/05/23 12:24 O2 Liters/Min 4.0 % 04/05/23 12:24 Rotary Planer Set Up Operator ID [employer] 04/05/23 12:24 Sodium 133 mmol/L (136-145) L 04/05/23 11:54 Potassium 3.8 mmol/L (3.5-5.1) 04/05/23 11:54 Chloride 92 mmol/L (98-107) L 04/05/23 11:54 Carbon Dioxide 29 mmol/L (22-29) 04/05/23 11:54 Anion Gap 15.8 (5-19) 04/05/23 11:54 BUN 15 mg/dL (8-23) 04/05/23 11:54 Creatinine 1.1 mg/dL (0.7-1.2) 04/05/23 11:54 GFR Calculation 66.4 mL/min (90-130) L 04/05/23 11:54 Glucose 117 mg/dL (65-115) H 04/05/23 11:54 Calculated Osmolality 278 mOsm/kg (285-295) L 04/05/23 11:54 Lactic Acid 2.1 mmol/L (0.5-2.2) 04/05/23 12:35 Calcium 9.5 mg/dL (8.5-10.5) 04/05/23 11:54 Total Bilirubin 1.0 mg/dL (0.15-1.2) 04/05/23 11:54 AST 15 U/L (0-40) 04/05/23 11:54 ALT 8 U/L (0-41) 04/05/23 11:54 Alkaline Phosphatase 95 U/L (40-130) 04/05/23 11:54 Troponin T Baseline 21 ng/L (0-15) H 04/05/23 11:54 Troponin T 120 Minute 12.46 ng/L (0-15) 04/05/23 13:44 Delta Troponin T -8.54 ABS# (0-10) L 04/05/23 13:44 NT-Pro-B Natriuret Pep 493 pg/mL (0-125) H 04/05/23 11:54 Total Protein 7.0 g/dL (6.6-8.7) 04/05/23 11:54 Albumin 3.5 g/dL (3.5-5.2) 04/05/23 11:54 Globulin 3.5 g/dL (1.3-4.6) 04/05/23 11:54 Influenza Type A Ag negative (Negative) 04/05/23 12:57 Influenza Type B Ag negative (Negative) 04/05/23 12:57 SARS-CoV-2 Ag (Rapid) Negative (Negative) 04/05/23 12:56 All radiology interpretation(s) finalized by discharge ED provider radiology interpretation(s): cxr: right sided pneumonia EKG Data EKG 1: I personally reviewed and interpreted this EKG as follows: EKG Interpretation Date: 04/05/23 EKG interpretation time: 12:47 Interpretation: sinus tach hr [address] or t wave abnormalities qrs 81 qtc 385 Critical Care Time Critical Care Time: Critical Care Time: Yes Total Critical Care Time: 45 Attestation: The high probability of a clinically significant, sudden or life threatening deterioration of the patient's resp system(s) required my full and direct attention, intervention and personal management. The critical care time is as shown. This time is in addition to time spent performing any reported procedures but includes the following: [x] Data and vital sign review and interpretation [x] Patient assessment, examination and intervention [x] Documentation [x] Medication orders and management Discharge Plan Discharge Admit Provider: Percy Farris Clinical Impression: Community acquired pneumonia, Acute respiratory failure with hypoxia Condition: Stable Coding Level of Care Code ED Planner/Scheduler for Nereida Martinez
[2023-04-05 12:35] LABS: ABG PCO2 41.7 mmHg (35-45); ABG PH Result 7.42 (7.35-7.45); Arterial Blood Gas Hematocrit 36.3 % (42-52); Base Excess ABG 2.4 mmol/L (-2.0-2.0); Blood Gas Allen Test Pos; Blood Gas Operator Identificat WALCI; Blood Gas Sample Site Radial, left; Blood Gas Sample Type Arterial; HCO3 ABG 27.2 mmol/L (22-26); Oxygen Device NC; PO2 ABG 55.6 mmHg (80.0-100.0)
[2023-04-05] MEDS: sodium chloride 0.9% 2,041.17 ML 2041.17 ML IV (12:37)
--- NOTE | 2023-04-05 12:47 | ECG_ITS ---
Test Date: 2023-04-05 Pat Name: Nima Vallejo (Jake) Department: Room: [facility] Gender: Male Computer Patternmaker: : 1955 Requested By: Roman Jin Order Number: [id number] Reading MD: Jonathon Pedro M.D. Measurements Intervals [place] Rate: 116 P: 70 [place]: 180 QRS: 71 QRSD: 81 T: 64 QT: 316 QTc: 439 Interpretive Statements SINUS TACHYCARDIA POSSIBLE LEFT ATRIAL ENLARGEMENT [-0.1mV P-WAVE IN V1/V2] LOW QRS VOLTAGE IN PRECORDIAL LEADS [QRS DEFLECTION < 1.0 mV IN CHEST LEADS] SEPTAL MYOCARDIAL INFARCTION , OF INDETERMINATE AGE [40+ ms Q WAVE IN V1/V2] Compared to ECG 10/04/2022 08:20:03 Low QRS voltage now present Myocardial infarct finding now present Sinus rhythm no longer present Electronically Signed On 04-05-2023 16:07:11 CDT by Jonathon Pedro M.D. [id number]
[2023-04-05 12:49] LABS: Basophils % 0.1 %; Eosinophils % 0.3 %; Hematocrit 35.8 % (37-53); Lymphocytes # 0.4 10^3/uL (0.8-4.8); Lymphocytes % 3.2 %; Mean Corpuscular Hemoglobin 34.7 pg (27-33); Mean Corpuscular Volume 96.2 fl (82-101); Mean Platelet Volume 10.1 fL (7.4-10.4); Monocytes # 1.3 10^3/uL (0.2-0.9); Monocytes % 9.3 %; Neutrophils % 85.7 %; Nucleated Red Blood Cells % 0 %; Platelet Count 224 10^3/cmm (157-399); Red Blood Count 3.72 10^6/uL (3.85-5.65); Red Cell Distribution Width 13.3 % (12.1-15.1); White Blood Count 13.54 10^3/uL (3.29-11.43)
[2023-04-05 12:55] LABS: INR 1.05 (0.8-1.2); Troponin(5th) Baseline 21 ng/L (0-15)
[2023-04-05 13:05] LABS: Lactic Sepsis W/Reflex 2.1 mmol/L (0.5-2.2)
[2023-04-05 13:06] LABS: Alanine Aminotransferase 8 U/L (0-41); Albumin Level 3.5 g/dL (3.5-5.2); Alkaline Phosphatase 95 U/L (40-130); Anion Gap 15.8 (5-19); Aspartate Amino Transferase 15 U/L (0-40); Blood Urea Nitrogen 15 mg/dL (8-23); Calcium 9.5 mg/dL (8.5-10.5); Carbon Dioxide 29 mmol/L (22-29); Chloride 92 mmol/L (98-107); Globulin 3.5 g/dL (1.3-4.6); Glomerular Filtration Rate 66.4 mL/min (90-130); Glucose 117 mg/dL (65-115); Osmolality Calculated 278 mOsm/kg (285-295); Potassium 3.8 mmol/L (3.5-5.1); Sodium 133 mmol/L (136-145)
[2023-04-05 13:15] LABS: SARS Covid-2 Antigen Negative (Negative)
[2023-04-05 13:23] LABS: Slide Review Slide Review Perform
[2023-04-05 13:26] LABS: Influenza A by IFA negative (Negative); Influenza B by IFA negative (Negative)
[2023-04-05] MEDS: azithromycin 500 MG in sodium chloride 0.9% 250 ML 250 MG IV (13:30)
[2023-04-05] MEDS: cefTRIAXone 1,000 MG in sodium chloride 0.9% (plus) 50 ML 100 MG IV (13:30)
[2023-04-05 13:31] LABS: NT Pro B Type Natriuretic Pept 493 pg/mL (0-125)
[2023-04-05 14:21] LABS: Troponin 5 2HR 12.46 ng/L (0-15); Troponin 5 2HR Delta -8.54 ABS# (0-10)
[2023-04-05] MEDS: sodium chloride 0.9% 1,000 ML 999 ML IV (14:22)
--- NOTE | 2023-04-05 14:25 | ECG_ITS ---
[facility] Test Date: 2023-04-05 Pat Name: Nima Vallejo (Jake) Department: Room: [facility] Gender: Male Supervisor Microbiology Technologists: : 1955 Requested By: Roman Jin Order Number: [id number] Reading MD: Jonathon Pedro M.D. Measurements Intervals [place] Rate: 83 P: 71 [place]: 163 QRS: 72 QRSD: 84 T: 75 QT: 367 QTc: 431 Interpretive Statements SINUS RHYTHM LOW QRS VOLTAGE IN PRECORDIAL LEADS [QRS DEFLECTION < 1.0 mV IN CHEST LEADS] ANTERIOR MYOCARDIAL INFARCTION ,AGE INDETERMINATE [40+ ms Q WAVE AND/OR ST/T ABNORMALITY IN V3/V4] ACUTE AL Compared to ECG 04/05/2023 12:47:38 Sinus tachycardia no longer present Myocardial infarct finding still present Electronically Signed On 04-05-2023 17:05:09 CDT by Jonathon Pedro M.D. [email or web address].[employer]/store/OM/[id number]
[2023-04-05 14:32] LABS: Reflex Lactate Order REFLEX LACTIC ORDERD
--- NOTE | 2023-04-05 15:42 | PC.NURSE ---
patient arrived from ED via stretcher, AO x4 no c/o
--- NOTE | 2023-04-05 15:59 | P.HP_ITS ---
Providers/Chief Complaint Admitting Physician: Percy Farris MD Chief Complaint: Weakness, SOB History of Present Illness Nima Vallejo (Jake) is a 67 year old male with history of throat cancer, active smoker, at one point required PEG tube placement and trach collar management, presented with chief complaint of worsening of shortness of breath fever and hypoxia. In the ER he is requiring 2 to 3 L of oxygen, does not use oxygen at home. Patient is eating mechanical soft diet at home PEG tube has been removed, trach site healed as well, currently living with his brother. Chest x-ray shows right-sided pneumonia patient is endorsing pleuritic chest pain, patient stating that for last 2 weeks he has been experiencing the sy mptoms, he is describing chest pain which gets worse on deep breathing on right side He is endorsing low-grade fever productive cough Review of Systems Const: Reports: fever(s) and chills Eyes: Denies: change in vision ENMT: Reports: throat pain Card: Reports: chest pain Resp: Reports: productive cough GI: Denies: abdominal pain : Denies: flank pain Medications/Allergies Home Medications Medication Instructions Recorded Confirmed Last Taken Type prochlorperazine maleate 10 mg 10 mg PO Q4H PRN nausea and 10/16/21 04/05/23 Unknown Rx tablet vomiting #60 tabs naloxone 4 mg/actuation nasal See Rx Instructions .Route .COMPLEX 11/09/21 04/05/23 06/01/22 History spray (Narcan) quetiapine 25 mg tablet (Seroquel) 25 mg PO BID PRN anxiety/agitation 01/28/23 04/05/23 04/05/23 Rx #60 tabs quetiapine 400 mg tablet (Seroquel) 400 mg PO BEDTIME #30 tabs 01/28/23 04/05/23 04/04/23 Rx donepezil 5 mg tablet 5 mg PO QAM 04/05/23 04/05/23 04/05/23 History Allergies Allergy/AdvReac Type Severity Reaction Status Date / Time No Known Allergies Allergy Verified 04/05/23 13:51 PFSH Acute PFSH: Medical History Amphetamine use disorder, severe, in early remission, dependence last use reported as September 2022 BPH loc w urin obs/LUTS Cannabis dependence daily basis Cigarette nicotine dependence DDD (degenerative disc disease), lumbosacral Hiatal hernia Lower urinary tract symptoms (LUTS) Major depressive disorder, recurrent severe without psychotic features 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 (Alzheimer/substance use), mild to moderate Need for discharge planning Prostate induration Psychiatric care Spinal stenosis, lumbar region, with neurogenic claudication Surgical History S/P hernia repair abdominal Status post skin graft Family History Mother , at 67 Cancer Father , at age 80 No problems noted. Daughter No problems noted. Brother Diabetes Denies family history of CAD (coronary artery disease) Clotting disorder Dementia Hyperlipidemia Psychiatric illness Chronic kidney disease (CKD) Suicide Anesthesia complication Bleeding disorder Lung disease Hypertension Stroke Social History Smoking and tobacco/nicotine status: current every day tobacco/nicotine user cigarettes Packs smoked per day: 1 Quit status (tobacco/nicotine): not considering quitting Second hand smoke exposure: Yes Alcohol intake: former Year of sobriety/quit date alcohol: 2002 Substance/Drug Use: former Date of last use: marijuana and meth Marital status: Current occupational status: disabled Vitals/I&O/Wt Last Vital Signs Temp 98.2 F 04/05/23 12:12 Pulse 100 04/05/23 13:52 Resp 20 H 04/05/23 12:12 BP 101/64 04/05/23 14:43 Pulse Ox 94 04/05/23 13:52 O2 Del Method Nasal Cannula 04/05/23 12:12 O2 Flow Rate 4 04/05/23 12:12 04/05/23 04/05/23 04/05/23 06:59 14:59 22:59 Intake Total 2341.17 / 2341.17 Balance 2341.17 / 2341.17 Weight last 48 hrs Weight 68.039 kg Physical Exam Narrative: Cachectic, malnourished Currently on 2 L oxygen Sinus rhythm Hemodynamic stable Lower extremity no edema Abdomen soft Tracheostomy wound well-healed Abdomen soft Pleasant and cooperative GCS 15 Nonfocal neuro exam Data 04/05/23 11:54 04/05/23 11:54 Micro: Microbiology 04/05/23 12:40 Blood Culture - Preliminary Blood SPECIMEN COLLECTED 04/05/23 12:35 Blood Culture - Preliminary Blood SPECIMEN COLLECTED A&P Assessment and plan (1) Community acquired pneumonia: (2) Acute respiratory failure with hypoxia: (3) Cannabis dependence: (4) Amphetamine use disorder, severe, in early remission, dependence: (5) Cigarette nicotine dependence: Qualifiers: Substance use status: uncomplicated Qualified Code(s): F17.210 - Nicotine dependence, cigarettes, uncomplicated (6) Cancer of supraglottis: (7) Malnourished: (8) Hypotension: (9) Pleuritic pain: (10) Dehydration: Plan Community-acquired pneumonia Low blood pressure, responsive to IV fluids Clinically dehydrated Monitor for any development of sepsis Patient is afebrile PEG tube and trach has been removed Patient is on mechanical soft diet at home Active smoker Check drug screen Polysubstance abuse history Protein calorie malnourishment we will consult dietitian Monitor inflammatory markers Patient currently with his brother I will rediscuss goals of care in the morning currently full code however previous admissions he was DNR/DNI Start ceftriaxone and azithromycin We will add low-dose steroids Tessalon Perles DVT prophylaxis on board In case of worsening of fever he might need CT chest for further delineation Attestations Medical Necessity Statement*: More than 2 midnights anticipated Diagnoses Community acquired pneumonia J18.9 Acute respiratory failure with hypoxia J96.01 Cannabis dependence F12.20 Amphetamine use disorder, severe, in early remission, dependence F15.21 Cigarette nicotine dependence F17.210 Substance use status: uncomplicated 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
[2023-04-05 16:20] LABS: Lactic Acid level (Lactate) 1.6 mmol/L (0.5-2.2)
--- NOTE | 2023-04-05 16:54 | PC.NURSE ---
EKG showed anterior [place], patient denied chest pain, dr. Farris notified
[2023-04-05 16:59] LABS: Vitamin B12 1535 pg/mL (232-1245)
[2023-04-05] MEDS: sodium chloride 0.9% 1,000 ML 75 ML IV (17:44)
--- NOTE | 2023-04-05 18:05 | ECG_ITS ---
[facility] Test Date: 2023-04-05 Pat Name: Nima Vallejo (Jake) Department: Room: [facility] Gender: Male Energy Assistant: : 1955 Requested By: Roman Jin Order Number: [id number] Reading MD: Jonathon Pedro M.D. Measurements Intervals [place] Rate: 96 P: 0 IA: 0 QRS: 78 QRSD: 83 T: 79 QT: 349 QTc: 443 Interpretive Statements ATRIAL FIBRILLATION LOW QRS VOLTAGE IN PRECORDIAL LEADS [QRS DEFLECTION < 1.0 mV IN CHEST LEADS] PROBABLE ANTERIOR MYOCARDIAL INFARCTION , OF INDETERMINATE AGE [35 ms Q WAVE IN V3/V4] Compared to ECG 04/05/2023 16:48:35 Sinus rhythm no longer present Myocardial infarct finding still present Electronically Signed On 04-06-2023 8:03:19 CDT by Jonathon Pedro M.D. [id number]
--- NOTE | 2023-04-05 18:24 | CTR_ITS ---
PROCEDURE INFORMATION: Exam: CT Chest Without Contrast; Diagnostic Exam date and time: 04/05/2023 9:12 PM Age: 67 years old Clinical indication: Shortness of breath; Additional info: Supraglottic cancer, right-sided pneumonia TECHNIQUE: Imaging protocol: Diagnostic computed tomography of the chest without contrast. Radiation optimization: All CT scans at this facility use at least one of these dose optimization techniques: automated exposure control; mA and/or kV adjustment per patient size (includes targeted exams where dose is matched to clinical indication); or iterative reconstruction. REPORTING DATA: Count of CT and Cardiac NM exams in prior 12 months: This patient has received 0 known CTs and 0 known cardiac nuclear medicine studies in the 12 months prior to the current study. COMPARISON: [place] [id number] 09/13/2021 5:46 PM RADIATION DOSE METRICS: Total DLP (mGy-cm): 400 FINDINGS: Lungs: Patchy airspace opacities in the peripheral right lung, left upper lobe, and inferior left lower lobe. Pleural spaces: Unremarkable. No pneumothorax. No pleural effusion. Heart: The heart size is normal. Coronary arteries: Mild coronary artery calcifications. Lymph nodes: Calcified mediastinal lymph nodes. Vasculature: Bilateral carotid bulb calcifications. Pancreas: Benign calcifications in the posterior pancreatic head. Spleen: Calcified granulomas in the spleen. Bones/joints: Curvature of the thoracic spine with degenerative changes. No acute fracture. Soft tissues: Unremarkable. Other findings: Severe emphysema. CT/CT chest wo con [id number] IMPRESSION: 1. Bilateral multilobar pneumonia, greater in the right lung. 2. Severe emphysema.
[2023-04-05 19:03] LABS: Troponin 5 6HR 13.01 ng/L (0-15); Troponin 5 6HR Delta -7.99 ng/L (0-12)
[2023-04-05] MEDS: ipratropium-albuterol 3 mL Neb INHALATION (19:42)
[2023-04-05] MEDS: morphine IR 15 mg Tablet PO (23:03)
[2023-04-06] VITALS (27 sets, daily range): BP systolic 88–123; BP diastolic 52–69; PULSE 73–93; RESP 14–29; TEMP 36.4–37.1; O2SAT 92–100
[2023-04-06 04:05] LABS: Basophils % 0.4 %; Eosinophils % 0.1 %; Hematocrit 29.5 % (37-53); Lymphocytes # 0.5 10^3/uL (0.8-4.8); Lymphocytes % 5.4 %; Mean Corpuscular HGB Conc 33.9 g/dL (30-55); Mean Corpuscular Hemoglobin 34.4 pg (27-33); Mean Corpuscular Volume 101.4 fl (82-101); Mean Platelet Volume 10.2 fL (7.4-10.4); Monocytes # 0.9 10^3/uL (0.2-0.9); Monocytes % 10.2 %; Neutrophils # 6.87 10^3/uL (1.8-7.7); Neutrophils % 82.1 %; Nucleated Red Blood Cells % 0 %; Platelet Count 160 10^3/cmm (157-399); Red Blood Count 2.91 10^6/uL (3.85-5.65); Red Cell Distribution Width 13.6 % (12.1-15.1); White Blood Count 8.36 10^3/uL (3.29-11.43)
[2023-04-06 04:22] LABS: Slide Review Slide Review Perform
[2023-04-06 04:29] LABS: Anion Gap 10.6 (5-19); Blood Urea Nitrogen 13 mg/dL (8-23); C Reactive Protein 349.4 mg/L (0.0-4.9); Calcium 8.3 mg/dL (8.5-10.5); Carbon Dioxide 30 mmol/L (22-29); Chloride 101 mmol/L (98-107); Glomerular Filtration Rate 111.8 mL/min (90-130); Glucose 127 mg/dL (65-115); Magnesium 1.9 mg/dL (1.7-2.3); Osmolality Calculated 288 mOsm/kg (285-295); Phosphorus 2.7 mg/dL (2.5-4.5); Potassium 3.6 mmol/L (3.5-5.1); Sodium 138 mmol/L (136-145)
[2023-04-06] MEDS: ipratropium-albuterol 3 mL Neb INHALATION ×4 (08:13→20:54)
[2023-04-06] MEDS: azithromycin 250 mg Tablet 500 MG PO (08:19)
[2023-04-06] MEDS: cefTRIAXone 1,000 MG in sodium chloride 0.9% (plus) 50 ML 100 MG IV (08:20)
[2023-04-06] MEDS: sodium chloride 0.9% 1,000 ML 75 ML IV (08:37)
--- NOTE | 2023-04-06 08:48 | PM.PN ---
Subjective Subjective: No fever, white count is normal Patient endorsing feeling better Vitals/I&O/Wt Last Vital Signs Temp 97.5 F L 04/06/23 00:30 Pulse 79 04/06/23 08:20 Resp 20 H 04/06/23 08:13 BP 90/58 04/06/23 05:00 Pulse Ox 93 04/06/23 08:13 O2 Del Method Nasal Cannula 04/06/23 08:13 O2 Flow Rate 2 04/06/23 08:13 04/05/23 04/06/23 04/06/23 22:59 06:59 14:59 Intake Total 1000 / 1000 Output Total 475 / 475 350 / 825 Balance -475 / 1866.17 -350 / 1516.17 1000 / 1000 Weight last 48 hrs Weight 68.039 kg Physical Exam Narrative: Patient ate breakfast GCS 15 Nonfocal neuro exam Currently on 2 L Afebrile Nonfocal neuro exam Pleasant and cooperative Malnourished cachectic dehydrated S1, S2 Nonfocal neuro Data 04/06/23 03:15 04/06/23 03:15 Micro: Microbiology 04/05/23 12:40 Blood Culture - Preliminary Blood SPECIMEN COLLECTED 04/05/23 12:35 Blood Culture - Preliminary Blood SPECIMEN COLLECTED A&P Assessment and plan (1) Dehydration: (2) Pleuritic pain: (3) Hypotension: (4) Community acquired pneumonia: (5) Acute respiratory failure with hypoxia: (6) Malnourished: (7) Major depressive disorder, recurrent severe without psychotic features: Plan Acute hypoxia related to community-acquired pneumonia Bilateral infiltrates Afebrile No sign of sepsis We will do home oxygen evaluation Plan to discharge him by tomorrow if he is feeling better Continue antibiotics Malnourished, patient is on mechanical soft diet Lives with his brother Has baseline cognitive impairment, we can resume donepezil DVT prophylaxis on board Can be transferred out of ICU to [facility] Attestations Medical Necessity Statement*: Possible discharge tomorrow Diagnoses Dehydration E86.0 Pleuritic pain R07.81 Hypotension I95.9 Community acquired pneumonia J18.9 Acute respiratory failure with hypoxia J96.01 Malnourished E46 Major depressive disorder, recurrent severe without psychotic features F33.2
[2023-04-06] MEDS: benzonatate 100 mg Capsule 200 MG PO (18:41)
[2023-04-06] MEDS: acetaminophen 500 mg Tablet PO (18:41)
[2023-04-06] MEDS: enoxaparin 40 mg/0.4 mL Syringe SUBCUT (20:05)
[2023-04-07] VITALS (12 sets, daily range): BP systolic 115–153; BP diastolic 58–88; PULSE 71–84; RESP 16–18; TEMP 36.6–37.1; O2SAT 90–97
[2023-04-07] MEDS: sodium chloride 0.9% 1,000 ML 75 ML IV (00:07)
[2023-04-07 05:18] LABS: Basophils % 0.2 %; Eosinophils # 0.1 10^3/uL (0.0-0.8); Eosinophils % 0.7 %; Hematocrit 30.2 % (37-53); Lymphocytes # 0.4 10^3/uL (0.8-4.8); Lymphocytes % 4.3 %; Mean Corpuscular HGB Conc 34.1 g/dL (30-55); Mean Corpuscular Hemoglobin 33.8 pg (27-33); Mean Platelet Volume 10.2 fL (7.4-10.4); Monocytes # 0.6 10^3/uL (0.2-0.9); Monocytes % 7.9 %; Neutrophils # 7.02 10^3/uL (1.8-7.7); Neutrophils % 86.2 %; Nucleated Red Blood Cells % 0 %; Platelet Count 191 10^3/cmm (157-399); Red Blood Count 3.05 10^6/uL (3.85-5.65); Red Cell Distribution Width 13.6 % (12.1-15.1); White Blood Count 8.15 10^3/uL (3.29-11.43)
[2023-04-07] MEDS: donepezil 5 MG Tablet PO (05:24)
[2023-04-07 05:43] LABS: Anion Gap 10.2 (5-19); Blood Urea Nitrogen 10 mg/dL (8-23); Calcium 8.5 mg/dL (8.5-10.5); Carbon Dioxide 29 mmol/L (22-29); Chloride 100 mmol/L (98-107); Glomerular Filtration Rate 164.9 mL/min (90-130); Glucose 141 mg/dL (65-115); Osmolality Calculated 283 mOsm/kg (285-295); Potassium 3.2 mmol/L (3.5-5.1); Sodium 136 mmol/L (136-145)
[2023-04-07] MEDS: ipratropium-albuterol 3 mL Neb INHALATION ×4 (07:19→20:44)
[2023-04-07] MEDS: azithromycin 250 mg Tablet 500 MG PO (08:09)
[2023-04-07] MEDS: cefTRIAXone 1,000 MG in sodium chloride 0.9% (plus) 50 ML 100 MG IV (08:09)
--- NOTE | 2023-04-07 11:18 | PM.PN ---
Subjective Subjective: Patient is stating that he is experiencing back pain Currently on 2 L nasal cannula Afebrile No leukocytosis Blood Mucinex and budesonide Productive cough Vitals/I&O/Wt Last Vital Signs Temp 98.3 F 04/07/23 08:00 Pulse 77 04/07/23 11:15 Resp 16 04/07/23 11:15 BP 116/85 04/07/23 08:00 Pulse Ox 97 04/07/23 11:15 O2 Del Method Nasal Cannula 04/07/23 11:15 O2 Flow Rate 2 04/07/23 11:15 04/06/23 04/07/23 04/07/23 22:59 06:59 14:59 Intake Total 1250 / 2600 290 / 290 Output Total 1050 / 1050 400 / 1450 200 / 200 Balance 200 / 1550 -400 / 1150 90 / 90 Weight last 48 hrs Weight 68.039 kg Physical Exam Narrative: Awake and alert GCS 15 Productive cough Currently on 2 L Pleasant cooperative Dehydrated Abdomen soft Paraspinal muscle tenderness lumbar area Data 04/07/23 04:55 04/07/23 04:55 Micro: Microbiology 04/05/23 17:05 Gram Stain - Final Sputum - Expectorated Sputum 04/05/23 12:40 Blood Culture - Preliminary Blood NEGATIVE TO DATE 04/05/23 12:35 Blood Culture - Preliminary Blood NEGATIVE TO DATE A&P Assessment and plan (1) Dehydration: (2) Pleuritic pain: (3) Hypotension: (4) Community acquired pneumonia: (5) Acute respiratory failure with hypoxia: Plan For back pain will request x-ray, will add Flexeril and opioids Hypoxia related to pneumonia We will do home oxygen evaluation before discharge Currently 2 on 2 L Add budesonide and Mucinex Continue ceftriaxone and azithromycin Afebrile DVT prophylaxis covered with Lovenox Planning to discharge him tomorrow after home O2 eval Currently on soft diet Signs of dehydration improving Attestations Medical Necessity Statement*: Discharge tomorrow Diagnoses Dehydration E86.0 Pleuritic pain R07.81 Hypotension I95.9 Community acquired pneumonia J18.9 Acute respiratory failure with hypoxia J96.01
--- NOTE | 2023-04-07 11:19 | XR_ITS ---
WS: [id number] Exam: XR thoracic spine 2V [id number] Date/Time of Exam: 04/07/2023 11:55 AM Reason For Exam: Back pain No acute fracture or dislocation. There is spondylosis and osteopenia. No significant scoliosis. Para spinal soft tissues are unremarkable. Right-sided port ends at the cavoatrial junction. Diffuse infil trate in the mid and lower RIGHT lung. IMPRESSION: 1. Degenerative changes and osteopenia. No fracture or malalignment identified. 2. Additional findings in the chest as detailed above.
--- NOTE | 2023-04-07 11:19 | XR_ITS ---
WS: [email or web address] Exam: XR lumbar spine 1V port [id number] Date/Time of Exam: 04/07/2023 11:55 AM Reason For Exam: Back pain Single AP view of the lumbar spine is submitted for evaluation. No obvious fracture noted. There is spondylosis. Very slight dextroscoliosis. IMPRESSION: 1. Degenerative changes as noted above. No other significant finding based on the single image [email or web address] [email or web address]
[2023-04-07] MEDS: guaiFENesin 600 mg Tablet PO ×2 (12:20→19:23)
[2023-04-07] MEDS: ketorolac 30 mg/mL INJ 15 MG IVP (12:21)
[2023-04-07] MEDS: enoxaparin 40 mg/0.4 mL Syringe SUBCUT (19:23)
[2023-04-07] MEDS: budesonide 0.5 mg/2 mL Neb INHALATION (20:44)
[2023-04-07] MEDS: oxyCODONE-APAP 5-325 mg Tablet 1 TAB PO (21:13)
[2023-04-08 03:52] VITALS: BP 129/75; PULSE 76; RESP 17; TEMP 37; O2SAT 92
[2023-04-08 05:05] VITALS: RESP 20
[2023-04-08] MEDS: oxyCODONE-APAP 5-325 mg Tablet 1 TAB PO (05:05)
[2023-04-08] MEDS: donepezil 5 MG Tablet PO (05:06)
[2023-04-08 07:50] VITALS: BP 145/71; PULSE 77; RESP 14; TEMP 36.9; O2SAT 94
[2023-04-08] MEDS: cefTRIAXone 1,000 MG in sodium chloride 0.9% (plus) 50 ML 100 MG IV (08:39)
[2023-04-08 08:40] VITALS: PULSE 79; RESP 16; O2SAT 89
[2023-04-08] MEDS: guaiFENesin 600 mg Tablet PO (08:41)
[2023-04-08] MEDS: azithromycin 250 mg Tablet 500 MG PO (08:41)
[2023-04-08] MEDS: budesonide 0.5 mg/2 mL Neb INHALATION (08:51)
[2023-04-08] MEDS: ipratropium-albuterol 3 mL Neb INHALATION (08:51)
[2023-04-08 08:54] VITALS: PULSE 80; O2SAT 90
--- NOTE | 2023-04-08 09:49 | PM.DCS ---
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 Please note he is currently living in a hotel. Physical Exam Narrative: GCS 15 Awake and alert Malnourished S1, S2 Currently on room air [facility] Discharge Data Studies Completed and Pending Completed Studies During Hospitalization Category Date Time Status CT chest wo con [id number] Routine Cat Scan 04/05/23 18:24 Completed XR chest 1V portable [id number] Stat Exams 04/05/23 12:19 Completed XR lumbar spine 1 view portable [XR lumbar spine 1V Exams 04/07/23 11:19 Completed port [id number]] Routine XR thoracic spine 2V [id number] Routine Exams 04/07/23 11:19 Completed Pending at discharge Category Date Time Status Bacterial Antigen Routine Lab 04/05/23 17:16 Ordered Blood Culture Stat Lab 04/05/23 12:40 Results Sputum Culture and Gram Stain Stat Lab 04/05/23 17:05 Results Radiology Impressions Chest CT 04/05/23 18:24 IMPRESSION: 1. Bilateral multilobar pneumonia, greater in the right lung. 2. Severe emphysema. Laboratory Results WBC 8.15 10^3/uL (3.29-11.43) 04/07/23 04:55 RBC 3.05 10^6/uL (3.85-5.65) L 04/07/23 04:55 Hgb 10.30 g/dL (11.27-16.99) L 04/07/23 04:55 Hct 30.2 % (37-53) L 04/07/23 04:55 MCV 99.0 fl (82-101) 04/07/23 04:55 MCH 33.8 pg (27-33) H 04/07/23 04:55 MCHC 34.1 g/dL (30-55) 04/07/23 04:55 RDW 13.6 % (12.1-15.1) 04/07/23 04:55 Plt Count 191 10^3/cmm (157-399) 04/07/23 04:55 MPV 10.2 fL (7.4-10.4) 04/07/23 04:55 Neut % (Auto) 86.2 % 04/07/23 04:55 Lymph % (Auto) 4.3 % 04/07/23 04:55 Pettis % (Auto) 7.9 % 04/07/23 04:55 Eos % (Auto) 0.7 % 04/07/23 04:55 Baso % (Auto) 0.2 % 04/07/23 04:55 Neut # (Auto) 7.02 10^3/uL (1.8-7.7) 04/07/23 04:55 Lymph # (Auto) 0.4 10^3/uL (0.8-4.8) L 04/07/23 04:55 Pettis # (Auto) 0.6 10^3/uL (0.2-0.9) 04/07/23 04:55 Eos # (Auto) 0.1 10^3/uL (0.0-0.8) 04/07/23 04:55 Baso # (Auto) 0.0 10^3/uL (0.0-0.1) 04/07/23 04:55 Nucleated RBC % (auto) 0 % 04/07/23 04:55 Nucleated RBCs # 0.0 /100WBC 04/07/23 04:55 PT 14.00 SECONDS (12.1-14.9) 04/05/23 11:54 INR 1.05 (0.8-1.2) 04/05/23 11:54 Specimen Type Arterial 04/05/23 12:24 Sample Site Radial, left 04/05/23 12:24 ABG pH 7.42 (7.35-7.45) 04/05/23 12:24 ABG pCO2 41.7 mmHg (35-45) 04/05/23 12:24 ABG pO2 55.6 mmHg (80.0-100.0) L 04/05/23 12:24 ABG HCO3 27.2 mmol/L (22-26) H 04/05/23 12:24 ABG Base Excess 2.4 mmol/L (-2.0-2.0) H 04/05/23 12:24 Joao Test Pos 04/05/23 12:24 Hematocrit 36.3 % (42-52) L 04/05/23 12:24 O2 Delivery Device Nc 04/05/23 12:24 O2 Liters/Min 4.0 % 04/05/23 12:24 Hand Shaper ID [place] 04/05/23 12:24 Sodium 136 mmol/L (136-145) 04/07/23 04:55 Potassium 3.2 mmol/L (3.5-5.1) L 04/07/23 04:55 Chloride 100 mmol/L (98-107) 04/07/23 04:55 Carbon Dioxide 29 mmol/L (22-29) 04/07/23 04:55 Anion Gap 10.2 (5-19) 04/07/23 04:55 BUN 10 mg/dL (8-23) 04/07/23 04:55 Creatinine 0.5 mg/dL (0.7-1.2) L 04/07/23 04:55 GFR Calculation 164.9 mL/min (90-130) H 04/07/23 04:55 Glucose 141 mg/dL (65-115) H 04/07/23 04:55 Calculated Osmolality 283 mOsm/kg (285-295) L 04/07/23 04:55 Lactic Acid 2.1 mmol/L (0.5-2.2) 04/05/23 12:35 Lactic Acid (Sepsis) 1.6 mmol/L (0.5-2.2) 04/05/23 15:42 Calcium 8.5 mg/dL (8.5-10.5) 04/07/23 04:55 Phosphorus 2.7 mg/dL (2.5-4.5) 04/06/23 03:15 Magnesium 1.9 mg/dL (1.7-2.3) 04/06/23 03:15 Total Bilirubin 1.0 mg/dL (0.15-1.2) 04/05/23 11:54 AST 15 U/L (0-40) 04/05/23 11:54 ALT 8 U/L (0-41) 04/05/23 11:54 Alkaline Phosphatase 95 U/L (40-130) 04/05/23 11:54 Troponin T Baseline 21 ng/L (0-15) H 04/05/23 11:54 Troponin T 120 Minute 12.46 ng/L (0-15) 04/05/23 13:44 Delta Troponin T -8.54 ABS# (0-10) L 04/05/23 13:44 Troponin T Hi Sens 6Hr 13.01 ng/L (0-15) 04/05/23 18:02 Troponin T Hi Sens 6Hr Delta -7.99 ng/L (0-12) L 04/05/23 18:02 C-Reactive Protein 349.4 mg/L (0.0-4.9) H 04/06/23 03:15 NT-Pro-B Natriuret Pep 493 pg/mL (0-125) H 04/05/23 11:54 Total Protein 7.0 g/dL (6.6-8.7) 04/05/23 11:54 Albumin 3.5 g/dL (3.5-5.2) 04/05/23 11:54 Globulin 3.5 g/dL (1.3-4.6) 04/05/23 11:54 Vitamin B12 1535 pg/mL (232-1245) H 04/05/23 11:54 Influenza Type A Ag negative (Negative) 04/05/23 12:57 Influenza Type B Ag negative (Negative) 04/05/23 12:57 SARS-CoV-2 Ag (Rapid) Negative (Negative) 04/05/23 12:56 Vitals Last Vital Signs Temp 98.4 F 04/08/23 07:50 Pulse 80 04/08/23 08:54 Resp 16 04/08/23 08:40 BP 145/71 04/08/23 07:50 Pulse Ox 90 04/08/23 08:54 O2 Del Method Room Air 04/08/23 08:40 O2 Flow Rate 2 04/07/23 20:00 Discharge Plan Discharge Patient Disposition: Home Condition: Stable Prescriptions: New albuterol sulfate 90 mcg/actuation HFA aerosol inhaler 1 inh inhalation Q6H PRN (Reason: shortness of breath or wheezing) Qty: 6.7 0RF amoxicillin-pot clavulanate 875-125 mg tablet 1 tab PO BID Qty: 10 0RF guaifenesin [Mucinex] 600 mg tablet extended release 12hr 600 mg PO BID PRN (Reason: cough) Qty: 6 0RF Continued quetiapine [Seroquel] 25 mg tablet 25 mg PO BID PRN (Reason: anxiety/agitation) Qty: 60 6RF Rx Instructions: May take one tablet twice per day as needed for anxiety/agitation quetiapine [Seroquel] 400 mg tablet 400 mg PO BEDTIME Qty: 30 6RF prochlorperazine maleate 10 mg tablet 10 mg PO Q4H PRN (Reason: nausea and vomiting) Qty: 60 3RF naloxone [Narcan] 4 mg/actuation spray,non-aerosol See Rx Instructions .ROUTE .COMPLEX Rx Instructions: intranasally DIRECTED donepezil 5 mg tablet 5 mg PO QAM Discharge Orders: Discharge Order (Routine); Ordered 04/08/23 Ordered By: Percy Farris Referrals: Isela De Jesus DO [Referring] - 04/11/23 2:00 pm Patient Instructions: Opioid Safety Discharge Attestations Time Spent in Discharge Care*: greater than 30 min Quality Metrics Clinical Quality Measures [ No reported AMI, CVA or VTE this stay] Coding Level of Care Code Acute Code for Chg Fwd Diagnoses Dehydration E86.0 Pleuritic pain R07.81 Hypotension I95.9 Community acquired pneumonia J18.9 Acute respiratory failure with hypoxia J96.01
--- NOTE | 2023-04-08 10:52 | PC.RESP ---
pt. refused home o2 eval. nsg. notified
--- NOTE | 2023-04-08 12:40 | PC.NURSE ---
patient refused to do home oxygen qualifier test. Dr. Farris notified. patient avoided eye contact while discussing discharge paperwork, but verbalized understanding of discharge instructions. patients follow up appointment was made for a PCP in [place], however patient stated that he will not go to [place] as it is too far away. Attempted to make a follow up with a PCP in [place], however no local clinics were answering the phone. Dr. Adams office notified to make a follow up appointment for the patient and that he would need an appointment card mailed to him.
[2023-04-08 12:55] VITALS: PULSE 80; O2SAT 90
== END 2023-04-08 12:58 | disposition home or self-care (01) | DRG 193 ==
LOC: ER 13:54 → ICU 14:23 → MEDSURG 04-06 18:38
PROVIDERS: Admitting Provider Internal Medicine; Emergency Provider Emergency Medicine; Visit Provider Internal Medicine
DX: J18.9 Pneumonia, unspecified organism (principal); J96.01 Acute respiratory failure with hypoxia; F33.9 Major depressive disorder, recurrent, unspecified; E46 Unspecified protein-calorie malnutrition; Z68.1 Body mass index [BMI] 19.9 or less, adult; Z85.89 Personal history of malignant neoplasm of other organs and systems; J43.9 Emphysema, unspecified; E86.0 Dehydration; I95.9 Hypotension, unspecified; F17.210 Nicotine dependence, cigarettes, uncomplicated; F15.21 Other stimulant dependence, in remission; F12.20 Cannabis dependence, uncomplicated; R07.81 Pleurodynia; Z11.52 Encounter for screening for COVID-19; M85.80 Other specified disorders of bone density and structure, unspecified site; M47.816 Spondylosis without myelopathy or radiculopathy, lumbar region
CPT/HCPCS: 36415; 36600; 71045; 71250; 72020; 72070; 80048; 80053; 82607; 82803; 83605; 83735; 83880; 84100; 84484; 85025; 85610; 86140; 87040; 87070; 87205; 87426; 87804; 93005; 94640; 94664; 96365; 96367; 96372; 99285; J0456; J0696; J1650; J1885; J7030; J7050; J7626; Q0144

== ENCOUNTER 2023-07-12 12:28 | Emergency (ER) | payer MEDICAID, SELFPAY ==
[2023-07-12 12:30] VITALS: BP 125/92; PULSE 76; RESP 18; TEMP 36.4; O2SAT 96; BMI 18.3
--- NOTE | 2023-07-12 12:41 | XRR_ITS ---
PROCEDURE INFORMATION: Exam: XR Chest Exam date and time: 07/12/2023 12:48 PM Age: 68 years old Clinical indication: Shortness of breath; Prior surgery; Surgery date: 6+ months; Surgery type: Port; Patient HX: HX of suraglottic cancer; Additional info: SOB TECHNIQUE: Imaging protocol: Radiologic exam of the chest. Views: 1 view. COMPARISON: CT chest con [id number] 04/05/2023 9:12 PM FINDINGS: Tubes, catheters and devices: Central venous access catheter or port is seen on the right with tip of the catheter overlying the expected level of the superior vena cava in good position. Lungs: Emphysematous change with small amount of apical pleural scarring bilaterally. No pleural effusion or pneumothorax. Minimal interstitial scarring. No focal infiltrate or consolidation. Interval resolution of infiltrate or pneumonia otherwise from prior exam. Pleural spaces: See Lungs finding. Heart/Mediastinum: Cardiac size is normal. Bones/joints: Visualized osseous structures show no acute abnormality. XR/XR chest 1V portable [id number] IMPRESSION: Emphysematous change with minimal scarring. Central venous catheter on the right.
--- NOTE | 2023-07-12 12:43 | ECG_ITS ---
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 Measurements Intervals [place] Rate: 66 P: 80 RI: 164 QRS: 74 QRSD: 86 T: 76 QT: 397 QTc: 418 Interpretive Statements SINUS RHYTHM POSSIBLE RIGHT ATRIAL ENLARGEMENT [0.25mV P-WAVE] Compared to ECG 04/05/2023 18:05:51 Atrial fibrillation no longer present Myocardial infarct finding no longer present Electronically Signed On 07-12-2023 18:29:43 POT FISHER by Jonathon Pedro M.D. [email or web address] ABCtyler holmes memorial hospitalTarana Wirelesspremier health [facility].[employer]store/[id number]
--- NOTE | 2023-07-12 12:51 | ED_ITS ---
HPI - URI/Sore Throat 2 General: Chief Complaint: Upper Respiratory Infection Stated Complaint: Flu Like Time Seen by Provider: 07/12/23 12:31 Source: patient and EMS Mode of arrival: EMS Limitations: no limitations History of Present Illness: 68-year-old male states over the last 2 days he has had flulike symptoms he has had some dyspnea along with shortness of breath he states he had some abdominal cramping as well. He had nauseous but denies any vomiting he denies fever denies headache he states he had pneumonia in the past as well he has a history of COPD. 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 Daughter No problems noted. Brother Diabetes Denies family history of CAD (coronary artery disease) Clotting disorder Dementia Hyperlipidemia Psychiatric illness Chronic kidney disease (CKD) Suicide Anesthesia complication Bleeding disorder Lung disease Hypertension Stroke Social History Smoking and tobacco/nicotine status: current every day tobacco/nicotine user cigarettes Packs smoked per day: 1 Quit status (tobacco/nicotine): not considering quitting Second hand smoke exposure: Yes Alcohol intake: former Year of sobriety/quit date alcohol: 2002 Substance/Drug Use: former Date of last use: marijuana and meth Marital status: Current occupational status: disabled Course 2 Vital Signs: Vital signs: Vital Signs Temperature 97.6 F 07/12/23 12:30 Pulse Rate 68 07/12/23 13:32 Respiratory Rate 14 07/12/23 13:26 Blood Pressure 125/92 07/12/23 12:30 Pulse Oximetry 96 07/12/23 13:26 Oxygen Delivery Me thod Room Air 07/12/23 13:26 MDM - URI/Sore Throat Medical Decision Making Patient presents here with cough congestion some nausea likely upper respiratory infection he is well-appearing here his x-ray shows no acute findings he is in no distress blood work is all normal no signs of pneumonia he is stable for discharge follow-up with PCP and return if worsening. Medical Records I reviewed the patient's medical records. Lab Data I reviewed the patient's lab results. 07/12/23 12:48 07/12/23 12:48 Radiology Impressions Chest X-Ray 07/12/23 12:41 IMPRESSION: Emphysematous change with minimal scarring. Central venous catheter on the right. Laboratory Results WBC 6.03 10^3/uL (3.29-11.43) 07/12/23 12:48 RBC 4.31 10^6/uL (3.85-5.65) 07/12/23 12:48 Hgb 14.30 g/dL (11.27-16.99) 07/12/23 12:48 Hct 42.5 % (37-53) 07/12/23 12:48 MCV 98.6 fl (82-101) 07/12/23 12:48 MCH 33.2 pg (27-33) H 07/12/23 12:48 MCHC 33.6 g/dL (30-55) 07/12/23 12:48 RDW 13.9 % (12.1-15.1) 07/12/23 12:48 Plt Count 272 10^3/cmm (157-399) 07/12/23 12:48 MPV 9.3 fL (7.4-10.4) 07/12/23 12:48 Neut % (Auto) 71.2 % 07/12/23 12:48 Lymph % (Auto) 17.6 % 07/12/23 12:48 Andrew % (Auto) 9.3 % 07/12/23 12:48 Eos % (Auto) 1.0 % 07/12/23 12:48 Baso % (Auto) 0.7 % 07/12/23 12:48 Neut # (Auto) 4.30 10^3/uL (1.8-7.7) 07/12/23 12:48 Lymph # (Auto) 1.1 10^3/uL (0.8-4.8) 07/12/23 12:48 Andrew # (Auto) 0.6 10^3/uL (0.2-0.9) 07/12/23 12:48 Eos # (Auto) 0.1 10^3/uL (0.0-0.8) 07/12/23 12:48 Baso # (Auto) 0.0 10^3/uL (0.0-0.1) 07/12/23 12:48 Nucleated RBC % (auto) 0 % 07/12/23 12:48 Nucleated RBCs # 0.0 /100WBC 07/12/23 12:48 Sodium 138 mmol/L (136-145) 07/12/23 12:48 Potassium 3.9 mmol/L (3.5-5.1) 07/12/23 12:48 Chloride 98 mmol/L (98-107) 07/12/23 12:48 Carbon Dioxide 28 mmol/L (22-29) 07/12/23 12:48 Anion Gap 15.9 (5-19) 07/12/23 12:48 BUN 10 mg/dL (8-23) 07/12/23 12:48 Creatinine 0.8 mg/dL (0.7-1.2) 07/12/23 12:48 GFR Calculation 95.6 mL/min (90-130) 07/12/23 12:48 Glucose 107 mg/dL (65-115) 07/12/23 12:48 Calculated Osmolality 286 mOsm/kg (285-295) 07/12/23 12:48 Calcium 9.7 mg/dL (8.5-10.5) 07/12/23 12:48 Total Bilirubin 0.3 mg/dL (0.15-1.2) 07/12/23 12:48 AST 12 U/L (0-40) 07/12/23 12:48 ALT 6 U/L (0-41) 07/12/23 12:48 Alkaline Phosphatase 133 U/L (40-130) H 07/12/23 12:48 Total Protein 7.7 g/dL (6.6-8.7) 07/12/23 12:48 Albumin 4.2 g/dL (3.5-5.2) 07/12/23 12:48 Globulin 3.5 g/dL (1.3-4.6) 07/12/23 12:48 Lipase 22 U/L (13-60) 07/12/23 12:48 Influenza Type A Ag negative (Negative) 07/12/23 13:02 Influenza Type B Ag negative (Negative) 07/12/23 13:02 SARS-CoV-2 Ag (Rapid) negative (Negative) 07/12/23 13:02 All radiology interpretation(s) finalized by discharge EKG Data EKG 1: I personally reviewed and interpreted this EKG as follows: EKG interpretation date: 07/12/23 EKG interpretation time: 12:43 Interpretation: nsr hr [address] or t wave abnormalities qrs 86 qtc 411 Discharge Plan Discharge Patient Disposition: Home Clinical Impression: Upper respiratory infection Qualifiers: URI type: unspecified URI Qualified Code(s): J06.9 - Acute upper respiratory infection, unspecified Condition: Stable Prescriptions: No Action quetiapine [Seroquel] 25 mg tablet 25 mg PO BID PRN (Reason: anxiety/agitation) Qty: 60 6RF Rx Instructions: May take one tablet twice per day as needed for anxiety/agitation quetiapine [Seroquel] 400 mg tablet 400 mg PO BEDTIME Qty: 30 6RF albuterol sulfate 90 mcg/actuation HFA aerosol inhaler 1 inh inhalation Q6H PRN (Reason: shortness of breath or wheezing) Qty: 6.7 0RF fluticasone propionate [Flonase Allergy Relief] 50 mcg/actuation spray,suspension 1 spray intranasal BID Qty: 32 0RF Rx Instructions: administer into each nostril pseudoephedrine-guaifenesin 60-600 mg tablet extended release 12 hr 1 tab PO BID PRN (Reason: cold symptoms) Qty: 30 2RF Claritin-D 12 Hour 5-120 mg tablet extended release 12 hr 1 tab PO BID PRN (Reason: Allergy Symptoms) naloxone [Narcan] 4 mg/actuation spray,non-aerosol See Rx Instructions .ROUTE .COMPLEX Rx Instructions: intranasally DIRECTED donepezil 5 mg tablet 5 mg PO QAM Discharge Orders: Discharge ED (Routine); Ordered 07/12/23 Ordered By: Roman Jin Discharge Diet: Advance as tolerated Discharge Activity: Resume usual activity Patient Instructions: Upper Respiratory Infection (ED) Coding Level of Care Code ED Unified Communications Engineer for Nereida Martinez
[2023-07-12 13:03] LABS: Basophils % 0.7 %; Eosinophils # 0.1 10^3/uL (0.0-0.8); Hematocrit 42.5 % (37-53); Lymphocytes # 1.1 10^3/uL (0.8-4.8); Lymphocytes % 17.6 %; Mean Corpuscular HGB Conc 33.6 g/dL (30-55); Mean Corpuscular Hemoglobin 33.2 pg (27-33); Mean Corpuscular Volume 98.6 fl (82-101); Mean Platelet Volume 9.3 fL (7.4-10.4); Monocytes # 0.6 10^3/uL (0.2-0.9); Monocytes % 9.3 %; Neutrophils % 71.2 %; Nucleated Red Blood Cells % 0 %; Platelet Count 272 10^3/cmm (157-399); Red Blood Count 4.31 10^6/uL (3.85-5.65); Red Cell Distribution Width 13.9 % (12.1-15.1); White Blood Count 6.03 10^3/uL (3.29-11.43)
[2023-07-12] MEDS: ondansetron 2 mg/ML SDV 2 mL 4 MG IVP (13:08)
[2023-07-12] MEDS: dexamethasone 10 mg/mL INJ IVP (13:10)
[2023-07-12 13:12] LABS: Alanine Aminotransferase 6 U/L (0-41); Albumin Level 4.2 g/dL (3.5-5.2); Alkaline Phosphatase 133 U/L (40-130); Anion Gap 15.9 (5-19); Aspartate Amino Transferase 12 U/L (0-40); Blood Urea Nitrogen 10 mg/dL (8-23); Calcium 9.7 mg/dL (8.5-10.5); Carbon Dioxide 28 mmol/L (22-29); Chloride 98 mmol/L (98-107); Creatinine Clr Calc Pharmacy 81.0323; Globulin 3.5 g/dL (1.3-4.6); Glomerular Filtration Rate 95.6 mL/min (90-130); Glucose 107 mg/dL (65-115); Lipase 22 U/L (13-60); Osmolality Calculated 286 mOsm/kg (285-295); Potassium 3.9 mmol/L (3.5-5.1); Sodium 138 mmol/L (136-145); Total Bilirubin 0.3 mg/dL (0.15-1.2); Total Protein 7.7 g/dL (6.6-8.7)
[2023-07-12 13:26] VITALS: PULSE 66; RESP 14; O2SAT 96
[2023-07-12] MEDS: ipratropium-albuterol 3 mL Neb INHALATION (13:26)
[2023-07-12 13:32] VITALS: PULSE 68
[2023-07-12 13:36] LABS: Influenza A by IFA negative (Negative); Influenza B by IFA negative (Negative)
[2023-07-12 13:37] LABS: SARS Covid-2 Antigen negative (Negative)
--- NOTE | 2023-07-12 13:55 | PC.PHAR ---
PT IS OUT OF ALL OF HIS HOME MEDICATIONS- WANTS TO KNOW IF HE CAN GET REFILLS
== END 2023-07-12 14:54 | disposition home or self-care (01) ==
PROVIDERS: Emergency Provider Emergency Medicine
DX: J06.9 Acute upper respiratory infection, unspecified (principal); Z11.52 Encounter for screening for COVID-19; F17.210 Nicotine dependence, cigarettes, uncomplicated; J44.9 Chronic obstructive pulmonary disease, unspecified
CPT/HCPCS: 36415; 71045; 80053; 83690; 85025; 87426; 87804; 93005; 94640; 96374; 96375; 99285; J1100; J2405

== ENCOUNTER 2023-10-25 11:23 | Emergency (ER) | payer MEDICAID, SELFPAY ==
[2023-10-25 11:29] VITALS: BP 151/104; PULSE 79; RESP 18; TEMP 36.2; O2SAT 96; BMI 18.3
--- NOTE | 2023-10-25 11:45 | W.ED.PSYCHS ---
HPI - Psych General: Chief Complaint: Psychiatric Symptoms Stated Complaint: SI Time Seen by Provider: 10/25/23 11:30 Source: patient Mode of arrival: ambulatory Limitations: no limitations History of Present Illness: Patient is a 68-year-old male with a history of depression here for worsening depression and suicidal ideations over the past several weeks. Patient states he feels hopeless and feels like there is nothing left in this life to live for. He states he has been contemplating suicide. He reports a previous suicide attempt several several years ago. 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 He states he spends most of the day stressing about everything and he thinks this is influencing his worsening depression. He has no specific plan at the moment to kill himself. No homicidal ideations. Denies hallucinations. MD complaint: suicidal ideation and feels depressed Onset (ago): week(s) Duration: constant and getting worse History of same: Yes Relieving factors: none Exacerbating factors: none Associated psychiatric symptoms: depression and suicidal ideation Associated symptoms: Reports depression and suicidal ideation; Deny auditory hallucinations, visual hallucinations or homicidal ideation Treatments prior to arrival: none If self harm: admits thoughts of self harm Review of Systems Const: Denies: fever(s) or chills Card: Denies: chest pain, palpitations, lightheadedness or syncope Resp: Denies: dyspnea GI: Denies: abdominal pain, nausea, vomiting or diarrhea Skin/Breast: Denies: rash Neuro: Denies: headache(s) Psych: Reports: anxiety, depression, hopelessness, loss of interest and suicidal ideation; Denies: visual hallucinations, auditory hallucinations or homicidal ideation [facility] ED PFSH: Medical History Major depressive disorder, recurrent severe without psychotic features Nasal sinus congestion COPD (chronic obstructive pulmonary disease) Pleuritic pain Acute respiratory failure with hypoxia 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, N0, M0 Radiotherapy Started 09/16/21 Psychiatric care Amphetamine use disorder, severe, in early remission, 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, last use January 2023 DDD (degenerative disc disease), lumbosacral Spinal stenosis, lumbar region, with neurogenic claudication 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 Daughter No problems noted. Brother Diabetes Denies family history of CAD (coronary artery disease) Clotting disorder Dementia Hyperlipidemia Psychiatric illness Chronic kidney disease (CKD) Suicide Anesthesia complication Bleeding disorder Lung disease Hypertension Stroke Social History Smoking and tobacco/nicotine status: current every day tobacco/nicotine user cigarettes Packs smoked per day: 1 Quit status (tobacco/nicotine): not considering quitting Second hand smoke exposure: Yes Alcohol intake: former Year of sobriety/quit date alcohol: 2002 Substance/Drug Use: former Date of last use: marijuana and meth Marital status: Current occupational status: disabled Physical Exam Const: COMMON NORMALS: no acute distress, patient oriented x3, alert and well nourished GENERAL APPEARANCE: cooperative and disheveled ORIENTATION/CONSCIOUSNESS: Yes awake, Yes oriented to person, Yes oriented to place and Yes oriented to time Resp: COMMON NORMALS: normal respiratory effort and clear to auscultation bilaterally AUSCULTATION: clear to auscultation bilaterally Cardio: COMMON NORMALS: regular rate and regular rhythm RATE: regular rate RHYTHM: regular rhythm Neuro: COMMON NORMALS: patient oriented x3 SENSORIUM/ORIENTATION: Yes alert, Yes oriented to person, Yes oriented to place and Yes oriented to time Psych: COMMON NORMALS: mental status grossly normal, Normal thought process present, cooperative, normal affect, speech normal, activity/motor behavior normal, denies hallucinations and denies homicidal ideation APPEARANCE: Yes disheveled ATTITUDE: Yes calm ACTIVITY/MOTOR BEHAVIOR: Yes appropriate eye contact and No psychomotor agitation SPEECH: Yes normal speech MOOD & AFFECT: Yes depressed mood THOUGHT PROCESS: Normal thought process present ATTENTION/CONCENTRATION: Yes attention grossly intact and Yes concentration grossly intact MEMORY/COGNITION: Yes memory grossly intact and Yes cognition grossly intact INSIGHT: Good insight present (Psych) JUDGEMENT: Good judgement present (Psych) Course Consultations: Consultation #1: Dr. Mckeon-felt like patient was more appropriate for a geriatric psychiatric facility Consultation #2: [facility]-accepting patient Vital Signs: Vital signs: Vital Signs Temperature 97.2 F L 10/25/23 11:29 Pulse Rate 79 10/25/23 11:29 Respiratory Rate 18 10/25/23 11:29 Blood Pressure 151/104 10/25/23 11:29 Pulse Oximetry 96 10/25/23 11:29 Oxygen Delivery Me thod Room Air 10/25/23 11:29 MDM - Psych Medical Decision Making Patient will be transferred to [facility] for treatment of his depression and suicidal ideations. Medical Records I reviewed the patient's medical records. Lab Data I reviewed the patient's lab results. 10/25/23 12:05 10/25/23 12:05 Radiology Impressions Chest X-Ray 10/25/23 13:00 IMPRESSION: No acute findings. Laboratory Results WBC 4.45 10^3/uL (3.29-11.43) 10/25/23 12:05 RBC 4.16 10^6/uL (3.85-5.65) 10/25/23 12:05 Hgb 14.30 g/dL (11.27-16.99) 10/25/23 12:05 Hct 42.4 % (37-53) 10/25/23 12:05 MCV 101.9 fl (82-101) H 10/25/23 12:05 MCH 34.4 pg (27-33) H 10/25/23 12:05 MCHC 33.7 g/dL (30-55) 10/25/23 12:05 RDW 14.4 % (12.1-15.1) 10/25/23 12:05 Plt Count 250 10^3/cmm (157-399) 10/25/23 12:05 MPV 9.1 fL (7.4-10.4) 10/25/23 12:05 Neut % (Auto) 68.5 % 10/25/23 12:05 Lymph % (Auto) 19.8 % 10/25/23 12:05 Pratt % (Auto) 9.0 % 10/25/23 12:05 Eos % (Auto) 1.6 % 10/25/23 12:05 Baso % (Auto) 0.9 % 10/25/23 12:05 Neut # (Auto) 3.05 10^3/uL (1.8-7.7) 10/25/23 12:05 Lymph # (Auto) 0.9 10^3/uL (0.8-4.8) 10/25/23 12:05 Pratt # (Auto) 0.4 10^3/uL (0.2-0.9) 10/25/23 12:05 Eos # (Auto) 0.1 10^3/uL (0.0-0.8) 10/25/23 12:05 Baso # (Auto) 0.0 10^3/uL (0.0-0.1) 10/25/23 12:05 Nucleated RBC % (auto) 0 % 10/25/23 12:05 Nucleated RBCs # 0.0 /100WBC 10/25/23 12:05 Sodium 137 mmol/L (136-145) 10/25/23 12:05 Potassium 4.7 mmol/L (3.5-5.1) 10/25/23 12:05 Chloride 99 mmol/L (98-107) 10/25/23 12:05 Carbon Dioxide 31 mmol/L (22-29) H 10/25/23 12:05 Anion Gap 11.7 (5-19) 10/25/23 12:05 BUN 13 mg/dL (8-23) 10/25/23 12:05 Creatinine 0.8 mg/dL (0.7-1.2) 10/25/23 12:05 GFR Calculation 95.6 mL/min (90-130) 10/25/23 12:05 Glucose 141 mg/dL (65-115) H 10/25/23 12:05 Calculated Osmolality 286 mOsm/kg (285-295) 10/25/23 12:05 Calcium 9.4 mg/dL (8.5-10.5) 10/25/23 12:05 Total Bilirubin 0.3 mg/dL (0.15-1.2) 10/25/23 12:05 AST 13 U/L (0-40) 10/25/23 12:05 ALT 7 U/L (0-41) 10/25/23 12:05 Alkaline Phosphatase 106 U/L (40-130) 10/25/23 12:05 Total Protein 7.4 g/dL (6.6-8.7) 10/25/23 12:05 Albumin 4.1 g/dL (3.5-5.2) 10/25/23 12:05 Globulin 3.3 g/dL (1.3-4.6) 10/25/23 12:05 TSH 5.03 uIU/mL (0.27-4.20) H 10/25/23 12:05 Urine Color Colorless (Yellow) 10/25/23 13:20 Urine Appearance Clear (CLEAR) 10/25/23 13:20 Urine pH 7 (5-7) 10/25/23 13:20 Ur Specific [place] 1.010 (1.005-1.030) 10/25/23 13:20 Urine Protein Neg (Negative) 10/25/23 13:20 Urine Glucose (UA) Norm (Normal) 10/25/23 13:20 Urine Ketones Negative (Negative) 10/25/23 13:20 Urine Blood Neg (Negative) 10/25/23 13:20 Urine Nitrate Negative (Negative) 10/25/23 13:20 Urine Bilirubin Neg (Negative) 10/25/23 13:20 Urine Urobilinogen Norm mg/dL (Negative) 10/25/23 13:20 Ur Leukocyte Esterase Negative (Negative) 10/25/23 13:20 Salicylates 0.5 mg/dL (3-10) L 10/25/23 12:05 Urine Opiates Screen Negative ng/mL (Negative) 10/25/23 13:20 Acetaminophen < 5.0 ug/mL (10-30) L 10/25/23 12:05 Ur Barbiturates Screen Negative ng/mL (Negative) 10/25/23 13:20 Ur Phencyclidine Scrn Negative ng/mL (Negative) 10/25/23 13:20 Ur Amphetamines Screen Negative ng/mL (Negative) 10/25/23 13:20 U Benzodiazepines Scrn Negative ng/mL (Negative) 10/25/23 13:20 Urine Cocaine Screen Negative ng/mL (Negative) 10/25/23 13:20 U Marijuana (THC) Screen Positive ng/mL (Negative) H 10/25/23 13:20 Ethyl Alcohol < 10 mg/dL (0-10) 10/25/23 12:05 Influenza Type A Ag negative (Negative) 10/25/23 13:10 Influenza Type B Ag negative (Negative) 10/25/23 13:10 RSV Antigen Negative (Negative) 10/25/23 13:10 SARS-CoV-2 Ag (Rapid) negative (Negative) 10/25/23 13:10 No radiology studies performed this visit Discharge Plan Discharge Patient Disposition: Xfer Psychiatric Hosp Clinical Impression: Suicidal ideation, Depression Condition: Stable Prescriptions: No Action albuterol sulfate 90 mcg/actuation HFA aerosol inhaler 1 inh inhalation Q6H PRN (Reason: shortness of breath or wheezing) Qty: 6.7 0RF quetiapine [Seroquel] 25 mg tablet 25 mg PO BID PRN (Reason: anxiety/agitation) Qty: 60 6RF quetiapine [Seroquel] 400 mg tablet 400 mg PO BEDTIME Qty: 30 6RF donepezil 5 mg tablet 5 mg PO QAM Qty: 30 6RF Referrals: Estiven Godwin MD [Primary Care Provider] - Coding Level of Care Code ED Content Management Specialist for Nereida Martinez
--- NOTE | 2023-10-25 11:54 | ECG_ITS ---
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 Measurements Intervals [place] Rate: 68 P: 74 [place]: 198 QRS: 71 QRSD: 80 T: 71 QT: 384 QTc: 408 Interpretive Statements SINUS RHYTHM POSSIBLE LEFT ATRIAL ENLARGEMENT [-0.1mV P-WAVE IN V1/V2] SEPTAL MYOCARDIAL INFARCTION , OF INDETERMINATE AGE [40+ ms Q WAVE IN V1/V2] Compared to ECG 07/12/2023 12:43:38 Myocardial infarct finding now present Electronically Signed On 10-25-2023 17:49:48 CDT by Jonathon Pedro M.D. [id number]
--- NOTE | 2023-10-25 12:15 | PC.PHAR ---
PT STATES TAKES NO OTHER MEDICATIONS EXCEPT: ALBUTEROL INHALER 1PUFF Q6H PRN SOB, DONEPEZIL 5MG DAILY, QUETIAPINE 25MG BID PRN, AND QUETIAPINE 400MG AT BEDTIME.
[2023-10-25 12:17] LABS: Basophils % 0.9 %; Eosinophils # 0.1 10^3/uL (0.0-0.8); Eosinophils % 1.6 %; Hematocrit 42.4 % (37-53); Lymphocytes # 0.9 10^3/uL (0.8-4.8); Lymphocytes % 19.8 %; Mean Corpuscular HGB Conc 33.7 g/dL (30-55); Mean Corpuscular Hemoglobin 34.4 pg (27-33); Mean Corpuscular Volume 101.9 fl (82-101); Mean Platelet Volume 9.1 fL (7.4-10.4); Monocytes # 0.4 10^3/uL (0.2-0.9); Neutrophils # 3.05 10^3/uL (1.8-7.7); Neutrophils % 68.5 %; Nucleated Red Blood Cells % 0 %; Platelet Count 250 10^3/cmm (157-399); Red Blood Count 4.16 10^6/uL (3.85-5.65); Red Cell Distribution Width 14.4 % (12.1-15.1); White Blood Count 4.45 10^3/uL (3.29-11.43)
[2023-10-25 12:42] LABS: Alanine Aminotransferase 7 U/L (0-41); Albumin Level 4.1 g/dL (3.5-5.2); Alkaline Phosphatase 106 U/L (40-130); Anion Gap 11.7 (5-19); Aspartate Amino Transferase 13 U/L (0-40); Blood Urea Nitrogen 13 mg/dL (8-23); Calcium 9.4 mg/dL (8.5-10.5); Carbon Dioxide 31 mmol/L (22-29); Chloride 99 mmol/L (98-107); Creatinine Clr Calc Pharmacy 81.0323; Globulin 3.3 g/dL (1.3-4.6); Glomerular Filtration Rate 95.6 mL/min (90-130); Glucose 141 mg/dL (65-115); Osmolality Calculated 286 mOsm/kg (285-295); Potassium 4.7 mmol/L (3.5-5.1); Salicylate 0.5 mg/dL (3-10); Sodium 137 mmol/L (136-145); Thyroid Stimulating Hormone 5.03 uIU/mL (0.27-4.20); Total Bilirubin 0.3 mg/dL (0.15-1.2); Total Protein 7.4 g/dL (6.6-8.7)
[2023-10-25 12:43] LABS: Acetaminophen < 5.0 ug/mL (10-30); Alcohol Level < 10 mg/dL (0-10)
--- NOTE | 2023-10-25 13:00 | XRR_ITS ---
PROCEDURE INFORMATION: Exam: XR Chest Exam date and time: 10/25/2023 1:05 PM Age: 68 years old Clinical indication: Screening exam; Other screening; Additional info: Psych TECHNIQUE: Imaging protocol: Radiologic exam of the chest. Views: 1 view. COMPARISON: CR XR chest 1V portable [id number] 07/12/2023 12:48 PM FINDINGS: Lungs: Emphysematous changes. No focal consolidation. Pleural spaces: No pleural effusion. No pneumothorax. Heart/Mediastinum: No cardiomegaly. Bones/joints: No acute findings. XR/XR chest 1V portable [id number] IMPRESSION: No acute findings.
[2023-10-25 13:30] LABS: Add Urine Microscopic? NO; Charge for UA Resulting for Rev
[2023-10-25 13:31] LABS: Bilirubin Urine Neg (Negative); Blood Urine Neg (Negative); Glucose Urine UA Norm (Normal); Ketones Urine Negative (Negative); Leukocyte Esterase Urine Negative (Negative); Nitrate Urine Negative (Negative); Protein Urine Neg (Negative); Urine Appearance Clear (CLEAR); Urine Color Colorless (Yellow); Urobilinogen Urine Norm (Negative); pH Urine 7 (5-7)
[2023-10-25 13:40] LABS: Amphetamines Screen Urine Negative (Negative); Barbiturates Screen Urine Negative (Negative); Benzodiazepines Screen Urine Negative (Negative); Cocaine Screen Urine Negative (Negative); Opiate Screen Urine Negative (Negative); PCP Screen Urine Negative (Negative); THC Screen Urine Positive (Negative)
[2023-10-25 13:56] LABS: RSV Transfer Patient (ED) Negative (Negative)
[2023-10-25 13:57] LABS: Influenza A by IFA negative (Negative); Influenza B by IFA negative (Negative)
[2023-10-25 13:58] LABS: SARS Covid-2 Antigen negative (Negative)
[2023-10-25] MEDS: acetaminophen 325 mg Tablet 650 MG PO (17:00)
[2023-10-25 18:37] VITALS: BP 139/76; PULSE 77; O2SAT 96
--- NOTE | 2023-10-25 20:17 | PC.NURSE ---
Juan tx to [facility] via [facility]. Tamara Hoffman from [facility] took pt and all belongings.
== END 2023-10-25 20:16 ==
PROVIDERS: Emergency Provider Physician Assistant; PCP Family Medicine Adult Medicine
DX: R45.851 Suicidal ideations (principal); F32.A Depression, unspecified; Z11.52 Encounter for screening for COVID-19; J44.9 Chronic obstructive pulmonary disease, unspecified; F17.210 Nicotine dependence, cigarettes, uncomplicated
CPT/HCPCS: 36415; 71045; 80053; 80306; 80307; 81003; 84443; 85025; 87426; 87804; 87899; 93005; 99285

== ENCOUNTER → 2023-12-06 09:42 | Outpatient (BNVA) | payer OTHER, SELFPAY | PROVIDERS: PCP Family Medicine Adult Medicine; Visit Provider Nurse Practitioner Psychiatric/Mental Health | DX: Z79.899 Other long term (current) drug therapy (principal); F33.2 Major depressive disorder, recurrent severe without psychotic features; F02.80 Dementia in other diseases classified elsewhere, unspecified severity, without behavioral disturbance, psychotic disturbance, mood disturbance, and anxiety; F12.20 Cannabis dependence, uncomplicated; F15.21 Other stimulant dependence, in remission; F17.210 Nicotine dependence, cigarettes, uncomplicated | CPT/HCPCS: 80053; 80061; 83036 ==

== ENCOUNTER → 2024-10-24 10:09 | Outpatient (BNVA) | payer OTHER, SELFPAY | PROVIDERS: PCP Family Medicine Adult Medicine; Visit Provider Nurse Practitioner Psychiatric/Mental Health | DX: Z79.899 Other long term (current) drug therapy (principal) | CPT/HCPCS: 80053; 80061; 83036 ==

== ENCOUNTER 2025-01-04 10:14 | Emergency (ER) | payer MEDICAID, SELFPAY ==
[2025-01-04 10:16] VITALS: BP 126/90; PULSE 81; RESP 16; TEMP 36.8; O2SAT 94; BMI 22.4
--- NOTE | 2025-01-04 10:26 | CT_ITS ---
WS: [id number] CT HEAD NONCONTRAST HISTORY: near syncope TECHNIQUE: Contiguous axial imaging performed through the brain. Bone and soft tissue windows. Sagittal and coronal reformats reviewed. All CT scans at [facility] use at least one of these dose optimization techniques: automated exposure control; mA and/or kV adjustment per patient size (includes targeted exams where dose is matched to clinical indication); or iterative reconstruction. DLP: 1219.98 mGy.cm COMPARISON: None available. No acute intracranial hemorrhage, midline shift or mass effect. Mild atrophy and small vessel disease. No prior infarct. Ventricles: Normal size with no hydrocephalus. Paranasal sinuses: As visualized are clear. Mastoid air cells: Well pneumatized. Calvarium and scalp: Skull is intact with no soft tissue edema or swelling. CT/CT head wo con* [id number] IMPRESSION: 1. No acute intracranial hemorrhage or edema. 2. Mild cerebral atrophy and small vessel disease.
--- NOTE | 2025-01-04 10:26 | XR_ITS ---
WS: [id number] Portable AP upright chest, 01/04/2025 Clinical Data: cough Comparison: Portable chest, 10/25/2023 Findings: No nodules, masses or effusions are seen. The heart is normal. The pulmonary vascularity is not increased. No pneumonia or pneumothorax is seen. The diaphragms are flattened. The aortic arch shows tortuosity. There is a right infusion catheter unchanged. XR/XR chest 1V portable [id number] Impression: Atherosclerosis and hyperinflation.
--- NOTE | 2025-01-04 10:28 | ECG_ITS ---
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
--- NOTE | 2025-01-04 10:29 | ED_ITS ---
Documented by User: STAN Trevino 01/04/25 12:48 HPI - Weakness 2 General: Chief complaint: Syncope Stated complaint: WEAKNESS Time Seen by Provider: 01/04/25 10:16 History of Present Illness: Nima Vallejo is a 69-year-old man that presents to the emergency department with complaints of generalized weakness, near syncope. Patient reports that he has fallen on financial difficulty. He is about to be evicted and has not eaten in the last 2 to 3 days. Patient went out in an effort to find some work in order to fix his situation and got dizzy. He was directed over to a orthodoxy but nobody was there to offer any assistance. EMS arrived on scene and found him behind the orthodoxy sitting in the shade. Reported that he felt weak and like he was going to pass out. Over the last week he has had intermittent bouts of nausea vomiting diarrhea but none now. He has some left upper quadrant pain that radiates across to the right intermittently He reports cough but no shortness of breath or chest pain. He is an everyday smoker and smokes marijuana. He denies routine alcohol use or recreational drug use. Associated symptoms: Denies chest pain, chills, confusion, dysuria, easy bruising, fever(s), headache(s), nausea or vomiting Related Data Home Medications ?Medication ?Instructions ?Recorded ?Confirmed clonazepam 0.5 mg tablet (Klonopin) 0.5 mg PO BEDTIME 10/24/24 01/04/25 Previous Rx's ?Medication ?Instructions ?Recorded donepezil 5 mg tablet 5 mg PO QAM #30 tabs 5 quetiapine 200 mg tablet (Seroquel) 200 mg PO BEDTIME #30 tabs 10/24/24 quetiapine 400 mg tablet (Seroquel) 400 mg PO BEDTIME #30 tabs 10/24/24 Allergies Allergy/AdvReac Type Severity Reaction Status Date / Time No Known Allergies Allergy Verified 10/24/24 09:10 Review of Systems 2 General: Reports: 10 or more systems reviewed and unremarkable except in HPI and below Const: Denies: fever(s), chills, change in appetite, change in weight, fatigue or malaise Eyes: Denies: change in vision, eye discomfort, eye discharge or eye redness ENMT: Denies: throat pain, enlarged tonsils, odynophagia, hoarseness, ear or mastoid pain, ear discharge, change in hearing, tinnitus, nasal discharge, nasal congestion, post nasal drip or sinus pain Card: Denies: chest pain, palpitations, irregular heart rhythm, edema, dyspnea on exertion, orthopnea or leg pain with exertion Resp: Denies: dyspnea, productive cough, non-productive cough, wheezing, stridor or chest congestion GI: Denies: abdominal pain, nausea, vomiting, dysphagia, diarrhea, constipation, bloating, GI cramping or hematochezia : Denies: flank pain, dysuria, urinary frequency, urinary urgency, urinary hesitancy, oliguria or hematuria Musc: Denies: neck pain, back pain, extremity pain, joint pain, joint swelling, joint redness, joint warmth or muscle weakness Skin/Breast: Denies: rash, pruritus, erythema, photosensitivity or new lesions Neuro: Denies: headache(s), numbness in extremities, weakness in extremities, sensory changes, lack of coordination, difficulty walking, frequent falls, dizziness, confusion, Slurred speech present, difficulty communicating thoughts, seizure-like activity or involuntary movements Endo: Denies: polyuria, polydipsia or tired all the time Yovanny/Lymph: Denies: easy bruising or easy bleeding PFSH ED 2 PFSH: Medical History (Updated 01/04/25 @ 18:11 by MALCOM Lamb) Amphetamine substance use disorder, moderate, in sustained remission last use Mar 2023 Major depressive disorder, recurrent severe without psychotic features Nasal sinus congestion COPD (chronic obstructive pulmonary disease) 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, N0, M0 Radiotherapy Started 09/16/21 Psychiatric care DDD (degenerative disc disease), lumbosacral Spinal stenosis, lumbar region, with neurogenic claudication 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 Daughter No problems noted. Brother Diabetes Denies family history of CAD (coronary artery disease) Clotting disorder Dementia Hyperlipidemia Psychiatric illness Chronic kidney disease (CKD) Suicide Anesthesia complication Bleeding disorder Lung disease Hypertension Stroke Social History Smoking and tobacco/nicotine status: current every day tobacco/nicotine user cigarettes Packs smoked per day: 1 Quit status (tobacco/nicotine): not considering quitting Second hand smoke exposure: Yes Alcohol intake: former Year of sobriety/quit date alcohol: 2002 Substance/Drug Use: former Date of last use: marijuana and meth Marital status: Current occupational status: disabled Physical Exam 2 Const: COMMON NORMALS: no acute distress, patient oriented x3 and alert G ENERAL APPEARANCE: cooperative ORIENTATION/CONSCIOUSNESS: Yes awake, Yes oriented to person, Yes oriented to place and Yes oriented to time HENMT: COMMON NORMALS: normocephalic and atraumatic HEAD & SCALP: n ormocephalic and atraumatic FACE & SINUS: normal facial exam MOUTH: Normal oral and palatal mucosa present THROAT: posterior oropharynx normal Eye: COMMON NORMALS: Equal, round and reactive pupils present, EOMs intact bilaterally, conjunctivae normal and no scleral icterus GENERAL EYE: a ppearance normal, both eyes and all related structures ALIGNMENT: Yes alignment normal PERIORBITAL: periorbital findings normal CONJUNCTIVA: Yes conjunctivae normal PUPIL: Yes Equal, round and reactive pupils present Neck/C-Spine: COMMON NORMALS: full ROM GENERAL: Yes normal visual inspection Lymph: LYMPHATIC: no lymphadenopathy noted Chest: COMMONS NORMALS: normal inspection of the chest Breast/axilla inspection: Yes no chest deformity, asymmetry, normal contours, no nodules, masses, tenderness Resp: COMMON NORMALS: normal respiratory effort, No retractions, No use of accessory muscles and clear to auscultation bilaterally EFFORT & INSPECTION: Yes able to speak in complete sentences, Yes symmetric chest movement, No respiratory distress, Yes decreased respiratory effort and Yes Actively coughing moist and hoarse AUSCULTATION: clear to auscultation bilaterally Cardio: COMMON NORMALS: regular rate, regular rhythm and Peripheral pulses 2+ throughout RATE: regular rate RHYTHM: regular rhythm PERIPHERAL PULSES: Peripheral pulses 2+ throughout GI: COMMON NORMALS: Normal to inspection, nondistended, normoactive bowel sounds present, Soft to palpation, non-tender and No hepatosplenomegaly present INSPECTION: Yes normal to inspection AUSCULTATION: Yes normoactive bowel sounds PALPATION: Yes Soft to palpation and Yes No hepatosplenomegaly present RECTAL EXAM: Yes deferred Extremity: COMMON NORMALS: normal to inspection GENERAL: Yes normal exam except as noted Neuro: COMMON NORMALS: patient oriented x3 SENSORIUM/ORIENTATION: Yes alert, Yes oriented to person, Yes oriented to place and Yes oriented to time CRANIAL NERVES: Yes CN normal except as noted Psych: COMMON NORMALS: mental status grossly normal, Normal thought process present, cooperative, activity/motor behavior normal, denies homicidal ideation and denies suicidal ideation THOUGHT PROCESS: Normal thought process present Skin: COMMON NORMALS: no rashes or lesions noted, no wounds and turgor normal GENERAL SKIN EXAM: no rashes or lesions noted and turgor normal Course 2 Vital Signs: Vital signs: Vital Signs Temperature 98.2 F 01/04/25 10:16 Pulse Rate 69 01/04/25 17:35 Respiratory Rate 16 01/04/25 10:16 Blood Pressure 132/79 01/04/25 17:35 Pulse Oximetry 99 01/04/25 17:35 MDM - Weakness Medical Decision Making Patient was evaluated in the emergency department today for complaints of near syncope. Patient reports he has been under quite a bit of stress today. He is about to be evicted and has not eaten in several days. He denies chest pain or shortness of breath Denies abdominal pain nausea vomiting diarrhea. He reports a headache denies trauma. He is normotensive. Heart score is 4 points. He has normal troponin series and normal EKG from baseline We obtained an EKG and 1210. EKG reveals sinus rhythm. His rate was 69 beats minute and a QTc is 420. CT head and chest x-ray were completed. CT head reveals atrophy but no hemorrhage, space-occupying lesion. Chest x-ray reveals hyperinflation. He has a history of COPD Laboratory studies revealed no leukocytosis, anemias, electrolyte abnormalities, renal or liver dysfunction His troponin series was within normal limits. Patient was given a meal, IV fluids, oral fluids and he did well. Believe the patient likely became overheated due to the high temperature outside At the time of disposition, patient became angry and expressed a desire to harm himself. Specifically he states if I leave I am going to fucking stab myself . Patient reports that he has had these thoughts prior. Statements were witnessed by RN. Patient is being placed on a hold. Lab Data 01/04/25 10:00 01/04/25 10:00 Radiology Impressions Chest X-Ray 01/04/25 10:26 Impression: Atherosclerosis and hyperinflation. Head CT 01/04/25 10:26 IMPRESSION: 1. No acute intracranial hemorrhage or edema. 2. Mild cerebral atrophy and small vessel disease. Laboratory Results WBC 4.93 10^3/uL (3.29-11.43) 01/04/25 10:00 RBC 4.07 10^6/uL (3.85-5.65) 01/04/25 10:00 Hgb 13.50 g/dL (11.27-16.99) 01/04/25 10:00 Hct 39.8 % (37-53) 01/04/25 10:00 MCV 97.8 fl (82-101) 01/04/25 10:00 MCH 33.2 pg (27-33) H 01/04/25 10:00 MCHC 33.9 g/dL (30-55) 01/04/25 10:00 RDW 13.4 % (12.1-15.1) 01/04/25 10:00 Plt Count 273 10^3/cmm (157-399) 01/04/25 10:00 MPV 9.3 fL (7.4-10.4) 01/04/25 10:00 Neut % (Auto) 68.2 % 01/04/25 10:00 Lymph % (Auto) 20.3 % 01/04/25 10:00 Dougherty % (Auto) 9.1 % 01/04/25 10:00 Eos % (Auto) 1.4 % 01/04/25 10:00 Baso % (Auto) 0.8 % 01/04/25 10:00 Neut # (Auto) 3.36 10^3/uL (1.8-7.7) 01/04/25 10:00 Lymph # (Auto) 1.0 10^3/uL (0.8-4.8) 01/04/25 10:00 Dougherty # (Auto) 0.5 10^3/uL (0.2-0.9) 01/04/25 10:00 Eos # (Auto) 0.1 10^3/uL (0.0-0.8) 01/04/25 10:00 Baso # (Auto) 0.0 10^3/uL (0.0-0.1) 01/04/25 10:00 Nucleated RBC % (auto) 0 % 01/04/25 10:00 Nucleated RBCs # 0.0 /100WBC 01/04/25 10:00 Sodium 137 mmol/L (136-145) 01/04/25 10:00 Potassium 4.3 mmol/L (3.5-5.1) 01/04/25 10:00 Chloride 99 mmol/L (98-107) 01/04/25 10:00 Carbon Dioxide 27 mmol/L (22-29) 01/04/25 10:00 Anion Gap 15.3 (5-19) 01/04/25 10:00 BUN 12 mg/dL (8-23) 01/04/25 10:00 Creatinine 0.7 mg/dL (0.7-1.2) 01/04/25 10:00 GFR Calculation Not Reportable 01/04/25 10:00 Glucose 89 mg/dL (65-115) 01/04/25 10:00 Calculated Osmolality 283 mOsm/kg (285-295) L 01/04/25 10:00 Calcium 9.3 mg/dL (8.5-10.5) 01/04/25 10:00 Magnesium 2.1 mg/dL (1.7-2.3) 01/04/25 10:00 Total Bilirubin 0.5 mg/dL (0.15-1.2) 01/04/25 10:00 AST 16 U/L (0-40) 01/04/25 10:00 ALT 8 U/L (0-41) 01/04/25 10:00 Alkaline Phosphatase 98 U/L (40-130) 01/04/25 10:00 Troponin T Baseline 10 ng/L (0-15) 01/04/25 10:00 Troponin T 120 Minute 8.96 ng/L (0-15) 01/04/25 12:04 Delta Troponin T -1.04 ABS# (0-10) L 01/04/25 12:04 Troponin T Hi Sens 6Hr 8.25 ng/L (0-15) 01/04/25 15:53 Troponin T Hi Sens 6Hr Delta -1.75 ng/L (0-12) L 01/04/25 15:53 NT-Pro-B Natriuret Pep 44 pg/mL (0-125) 01/04/25 10:00 Total Protein 6.9 g/dL (6.6-8.7) 01/04/25 10:00 Albumin 4.4 g/dL (3.5-5.2) 01/04/25 10:00 Globulin 2.5 g/dL (1.3-4.6) 01/04/25 10:00 Lipase 21 U/L (13-60) 01/04/25 10:00 Urine Color Yellow (Yellow) 01/04/25 11:31 Urine Appearance Clear (CLEAR) 01/04/25 11:31 Urine pH 7.5 (5-7) 01/04/25 11:31 Ur Specific [place] 1.014 (1.005-1.030) 01/04/25 11:31 Urine Protein Negative (Negative) 01/04/25 11:31 Urine Glucose (UA) Negative (Normal) 01/04/25 11:31 Urine Ketones Trace (Negative) 01/04/25 11:31 Urine Blood Negative (Negative) 01/04/25 11:31 Urine Nitrate Negative (Negative) 01/04/25 11:31 Urine Bilirubin Negative (Negative) 01/04/25 11:31 Urine Urobilinogen 1.0 mg/dL (Negative) 01/04/25 11:31 Ur Leukocyte Esterase Trace (Negative) A 01/04/25 11:31 Urine RBC 0-2 /hpf (0-2) 01/04/25 11:31 Urine WBC 0-5 /hpf (0-5) 01/04/25 11:31 Ur Squamous Epith Cells 0-5 /hpf (0-5) 01/04/25 11:31 Amorphous Sediment Not Reportable 01/04/25 11:31 Urine Bacteria None seen /hpf (NONE) 01/04/25 11:31 Hyaline Casts 0.40 /lpf 01/04/25 11:31 Salicylates < 0.3 mg/dL (3-10) L 01/04/25 10:00 Urine Opiates Screen Negative ng/mL (Negative) 01/04/25 11:31 Acetaminophen < 5.0 ug/mL (10-30) L 01/04/25 10:00 Ur Barbiturates Screen Negative ng/mL (Negative) 01/04/25 11:31 Ur Phencyclidine Scrn Negative ng/mL (Negative) 01/04/25 11:31 Ur Amphetamines Screen Negative ng/mL (Negative) 01/04/25 11:31 U Benzodiazepines Scrn Negative ng/mL (Negative) 01/04/25 11:31 Urine Cocaine Screen Negative ng/mL (Negative) 01/04/25 11:31 U Marijuana (THC) Screen Positive ng/mL (Negative) H 01/04/25 11:31 Ethyl Alcohol < 10 mg/dL (0-10) 01/04/25 10:00 Influenza A (PCR) Negative (Negative) 01/04/25 13:56 Influenza Type B (PCR) Negative (Negative) 01/04/25 13:56 RSV (PCR) Negative (Negative) 01/04/25 13:56 SARS-CoV-2 (PCR) Negative (Negative) 01/04/25 13:56 Discharge Plan Discharge Patient Disposition: Xfer Psychiatric Hosp Clinical Impression: Suicidal ideation, Involuntary commitment, Weakness, Near syncope Condition: Stable Referrals: Estiven Godwin MD [Primary Care Provider, [facility]] Print Language: [place] Islander Sign Out Sign Out Data: Patient Sign Out occurred on 01/04/25 at 17:31. Patient's care was discussed, and care was transferred from STAN Trevino to AMLCOM Lamb. Coding Level of Care Code ED [employer] Operator for Chg Fwd Documented by User: MALCOM Lamb 01/04/25 18:11 HPI - Weakness 2 General: Chief complaint: Syncope Stated complaint: WEAKNESS Time Seen by Provider: 01/04/25 10:16 Related Data Home Medications ?Medication ?Instructions ?Recorded ?Confirmed clonazepam 0.5 mg tablet (Klonopin) 0.5 mg PO BEDTIME 10/24/24 01/04/25 Previous Rx's ?Medication ?Instructions ?Recorded donepezil 5 mg tablet 5 mg PO QAM #30 tabs 5 quetiapine 200 mg tablet (Seroquel) 200 mg PO BEDTIME #30 tabs 10/24/24 quetiapine 400 mg tablet (Seroquel) 400 mg PO BEDTIME #30 tabs 10/24/24 Allergies Allergy/AdvReac Type Severity Reaction Status Date / Time No Known Allergies Allergy Verified 10/24/24 09:10 [facility] ED 2 [facility]: Medical History (Updated 01/04/25 @ 18:11 by MALCOM Lamb) Amphetamine substance use disorder, moderate, in sustained remission last use Mar 2023 Major depressive disorder, recurrent severe without psychotic features Nasal sinus congestion COPD (chronic obstructive pulmonary disease) 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, N0, M0 Radiotherapy Started 09/16/21 Psychiatric care DDD (degenerative disc disease), lumbosacral Spinal stenosis, lumbar region, with neurogenic claudication 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 Daughter No problems noted. Brother Diabetes Denies family history of CAD (coronary artery disease) Clotting disorder Dementia Hyperlipidemia Psychiatric illness Chronic kidney disease (CKD) Suicide Anesthesia complication Bleeding disorder Lung disease Hypertension Stroke Social History Smoking and tobacco/nicotine status: current every day tobacco/nicotine user cigarettes Packs smoked per day: 1 Quit status (tobacco/nicotine): not considering quitting Second hand smoke exposure: Yes Alcohol intake: former Year of sobriety/quit date alcohol: 2002 Substance/Drug Use: former Date of last use: marijuana and meth Marital status: Current occupational status: disabled Course 2 Vital Signs: Vital signs: Vital Signs Temperature 98.2 F 01/04/25 10:16 Pulse Rate 69 01/04/25 17:35 Respiratory Rate 16 01/04/25 10:16 Blood Pressure 132/79 01/04/25 17:35 Pulse Oximetry 99 01/04/25 17:35 MDM - Weakness Medical Decision Making Patient was evaluated in the emergency department today for complaints of near syncope. Patient reports he has been under quite a bit of stress today. He is about to be evicted and has not eaten in several days. He denies chest pain or shortness of breath Denies abdominal pain nausea vomiting diarrhea. He reports a headache denies trauma. He is normotensive. Heart score is 4 points. He has normal troponin series and normal EKG from baseline We obtained an EKG and 1210. EKG reveals sinus rhythm. His rate was 69 beats minute and a QTc is 420. CT head and chest x-ray were completed. CT head reveals atrophy but no hemorrhage, space-occupying lesion. Chest x-ray reveals hyperinflation. He has a history of COPD Laboratory studies revealed no leukocytosis, anemias, electrolyte abnormalities, renal or liver dysfunction His troponin series was within normal limits. Patient was given a meal, IV fluids, oral fluids and he did well. Believe the patient likely became overheated due to the high temperature outside At the time of disposition, patient became angry and expressed a desire to harm himself. Specifically he states if I leave I am going to fucking stab myself . Patient reports that he has had these thoughts prior. Statements were witnessed by RN. Patient is being placed on a hold. CARE TRANSFERED TO MYSELF JUST PENDING [facility]IAGO [facility]YCH ADMISSION/TRANSFER. HE WAS ACCEPTED AT [facility]. ES Medical Records I reviewed the patient's medical records. Lab Data I reviewed the patient's lab results. 01/04/25 10:00 01/04/25 10:00 Radiology Impressions Chest X-Ray 01/04/25 10:26 Impression: Atherosclerosis and hyperinflation. Head CT 01/04/25 10:26 IMPRESSION: 1. No acute intracranial hemorrhage or edema. 2. Mild cerebral atrophy and small vessel disease. Laboratory Results WBC 4.93 10^3/uL (3.29-11.43) 01/04/25 10:00 RBC 4.07 10^6/uL (3.85-5.65) 01/04/25 10:00 Hgb 13.50 g/dL (11.27-16.99) 01/04/25 10:00 Hct 39.8 % (37-53) 01/04/25 10:00 MCV 97.8 fl (82-101) 01/04/25 10:00 MCH 33.2 pg (27-33) H 01/04/25 10:00 MCHC 33.9 g/dL (30-55) 01/04/25 10:00 RDW 13.4 % (12.1-15.1) 01/04/25 10:00 Plt Count 273 10^3/cmm (157-399) 01/04/25 10:00 MPV 9.3 fL (7.4-10.4) 01/04/25 10:00 Neut % (Auto) 68.2 % 01/04/25 10:00 Lymph % (Auto) 20.3 % 01/04/25 10:00 Dougherty % (Auto) 9.1 % 01/04/25 10:00 Eos % (Auto) 1.4 % 01/04/25 10:00 Baso % (Auto) 0.8 % 01/04/25 10:00 Neut # (Auto) 3.36 10^3/uL (1.8-7.7) 01/04/25 10:00 Lymph # (Auto) 1.0 10^3/uL (0.8-4.8) 01/04/25 10:00 Dougherty # (Auto) 0.5 10^3/uL (0.2-0.9) 01/04/25 10:00 Eos # (Auto) 0.1 10^3/uL (0.0-0.8) 01/04/25 10:00 Baso # (Auto) 0.0 10^3/uL (0.0-0.1) 01/04/25 10:00 Nucleated RBC % (auto) 0 % 01/04/25 10:00 Nucleated RBCs # 0.0 /100WBC 01/04/25 10:00 Sodium 137 mmol/L (136-145) 01/04/25 10:00 Potassium 4.3 mmol/L (3.5-5.1) 01/04/25 10:00 Chloride 99 mmol/L (98-107) 01/04/25 10:00 Carbon Dioxide 27 mmol/L (22-29) 01/04/25 10:00 Anion Gap 15.3 (5-19) 01/04/25 10:00 BUN 12 mg/dL (8-23) 01/04/25 10:00 Creatinine 0.7 mg/dL (0.7-1.2) 01/04/25 10:00 GFR Calculation Not Reportable 01/04/25 10:00 Glucose 89 mg/dL (65-115) 01/04/25 10:00 Calculated Osmolality 283 mOsm/kg (285-295) L 01/04/25 10:00 Calcium 9.3 mg/dL (8.5-10.5) 01/04/25 10:00 Magnesium 2.1 mg/dL (1.7-2.3) 01/04/25 10:00 Total Bilirubin 0.5 mg/dL (0.15-1.2) 01/04/25 10:00 AST 16 U/L (0-40) 01/04/25 10:00 ALT 8 U/L (0-41) 01/04/25 10:00 Alkaline Phosphatase 98 U/L (40-130) 01/04/25 10:00 Troponin T Baseline 10 ng/L (0-15) 01/04/25 10:00 Troponin T 120 Minute 8.96 ng/L (0-15) 01/04/25 12:04 Delta Troponin T -1.04 ABS# (0-10) L 01/04/25 12:04 Troponin T Hi Sens 6Hr 8.25 ng/L (0-15) 01/04/25 15:53 Troponin T Hi Sens 6Hr Delta -1.75 ng/L (0-12) L 01/04/25 15:53 NT-Pro-B Natriuret Pep 44 pg/mL (0-125) 01/04/25 10:00 Total Protein 6.9 g/dL (6.6-8.7) 01/04/25 10:00 Albumin 4.4 g/dL (3.5-5.2) 01/04/25 10:00 Globulin 2.5 g/dL (1.3-4.6) 01/04/25 10:00 Lipase 21 U/L (13-60) 01/04/25 10:00 Urine Color Yellow (Yellow) 01/04/25 11:31 Urine Appearance Clear (CLEAR) 01/04/25 11:31 Urine pH 7.5 (5-7) 01/04/25 11:31 Ur Specific [place] 1.014 (1.005-1.030) 01/04/25 11:31 Urine Protein Negative (Negative) 01/04/25 11:31 Urine Glucose (UA) Negative (Normal) 01/04/25 11:31 Urine Ketones Trace (Negative) 01/04/25 11:31 Urine Blood Negative (Negative) 01/04/25 11:31 Urine Nitrate Negative (Negative) 01/04/25 11:31 Urine Bilirubin Negative (Negative) 01/04/25 11:31 Urine Urobilinogen 1.0 mg/dL (Negative) 01/04/25 11:31 Ur Leukocyte Esterase Trace (Negative) A 01/04/25 11:31 Urine RBC 0-2 /hpf (0-2) 01/04/25 11:31 Urine WBC 0-5 /hpf (0-5) 01/04/25 11:31 Ur Squamous Epith Cells 0-5 /hpf (0-5) 01/04/25 11:31 Amorphous Sediment Not Reportable 01/04/25 11:31 Urine Bacteria None seen /hpf (NONE) 01/04/25 11:31 Hyaline Casts 0.40 /lpf 01/04/25 11:31 Salicylates < 0.3 mg/dL (3-10) L 01/04/25 10:00 Urine Opiates Screen Negative ng/mL (Negative) 01/04/25 11:31 Acetaminophen < 5.0 ug/mL (10-30) L 01/04/25 10:00 Ur Barbiturates Screen Negative ng/mL (Negative) 01/04/25 11:31 Ur Phencyclidine Scrn Negative ng/mL (Negative) 01/04/25 11:31 Ur Amphetamines Screen Negative ng/mL (Negative) 01/04/25 11:31 U Benzodiazepines Scrn Negative ng/mL (Negative) 01/04/25 11:31 Urine Cocaine Screen Negative ng/mL (Negative) 01/04/25 11:31 U Marijuana (THC) Screen Positive ng/mL (Negative) H 01/04/25 11:31 Ethyl Alcohol < 10 mg/dL (0-10) 01/04/25 10:00 Influenza A (PCR) Negative (Negative) 01/04/25 13:56 Influenza Type B (PCR) Negative (Negative) 01/04/25 13:56 RSV (PCR) Negative (Negative) 01/04/25 13:56 SARS-CoV-2 (PCR) Negative (Negative) 01/04/25 13:56 All radiology interpretation(s) finalized by discharge Discharge Plan Discharge Patient Disposition: Xfer Psychiatric Hosp Clinical Impression: Suicidal ideation, Involuntary commitment, Weakness, Near syncope Condition: Stable Referrals: Estiven Godwin MD [Primary Care Provider, [facility]] Print Language: [place] Islander Sign Out Sign Out Data: Patient Sign Out occurred on 01/04/25 at 17:31. Patient's care was discussed, and care was transferred from STAN Trevino to MALCOM Lamb. Coding Level of Care Code ED [employer] Operator for Nereida Martinez
[2025-01-04 10:33] LABS: Hematocrit 39.8 % (37-53); Hemoglobin 13.50 g/dL (11.27-16.99); Mean Corpuscular HGB Conc 33.9 g/dL (30-55); Mean Corpuscular Hemoglobin 33.2 pg (27-33); Mean Corpuscular Volume 97.8 fl (82-101); Nucleated Red Blood Cells % 0 %; Platelet Count 273 10^3/cmm (157-399); Red Blood Count 4.07 10^6/uL (3.85-5.65); White Blood Count 4.93 10^3/uL (3.29-11.43)
[2025-01-04 10:45] LABS: Troponin(5th) Baseline 10 ng/L (0-15)
[2025-01-04 10:58] LABS: Alanine Aminotransferase 8 U/L (0-41); Albumin Level 4.4 g/dL (3.5-5.2); Alkaline Phosphatase 98 U/L (40-130); Anion Gap 15.3 (5-19); Aspartate Amino Transferase 16 U/L (0-40); Blood Urea Nitrogen 12 mg/dL (8-23); Calcium 9.3 mg/dL (8.5-10.5); Carbon Dioxide 27 mmol/L (22-29); Chloride 99 mmol/L (98-107); Creatinine Clr Calc Pharmacy 91.6373; Globulin 2.5 g/dL (1.3-4.6); Glucose 89 mg/dL (65-115); Lipase 21 U/L (13-60); Magnesium 2.1 mg/dL (1.7-2.3); NT Pro B Type Natriuretic Pept 44 pg/mL (0-125); Osmolality Calculated 283 mOsm/kg (285-295); Potassium 4.3 mmol/L (3.5-5.1); Sodium 137 mmol/L (136-145); Total Protein 6.9 g/dL (6.6-8.7)
[2025-01-04 10:59] VITALS: PULSE 69; O2SAT 95
[2025-01-04 11:29] VITALS: PULSE 70; O2SAT 93
[2025-01-04 11:30] VITALS: PULSE 70; O2SAT 93
[2025-01-04 11:41] LABS: Glucose Urine UA Negative (Normal); Nitrate Urine Negative (Negative); Specific Gravity, Urine 1.014 (1.005-1.030)
[2025-01-04 11:44] LABS: Add Urine Microscopic? YES
[2025-01-04 12:00] VITALS: PULSE 77; O2SAT 95
[2025-01-04 12:25] LABS: Troponin 5 2HR 8.96 ng/L (0-15)
[2025-01-04 12:30] LABS: Troponin 5 2HR Delta -1.04 ABS# (0-10)
--- NOTE | 2025-01-04 12:50 | PC.NURSE ---
pt refused orthostatic VS, educated pt on the need for VS to make sure blood pressure wouldnt drop and pt would be safe for d/c. requested to talk to ARCENIO Jeronimo. pt stated to Phani that he was suicidal.
--- NOTE | 2025-01-04 13:11 | PC.NURSE ---
pt moved to recliner by room 9 into hallbed after making SI statements to Frances Jeronimo NP. pt dressed out by this RN and all belongings removed and placed into locker.
[2025-01-04 13:27] LABS: Acetaminophen < 5.0 ug/mL (10-30); Alcohol Level < 10 mg/dL (0-10); Salicylate < 0.3 mg/dL (3-10)
[2025-01-04 13:54] LABS: PCP Screen Urine Negative (Negative)
--- NOTE | 2025-01-04 13:57 | PC.NURSE ---
ASSUMED CARE OF PATIENT FROM HANNAH JACINTO AT 1357. PT CHANGED OUT IN TO GREEN SCRUBS WITH ALL BELONGINGS REMOVED. PT SITTING IN HALLWAY CHAIR WITH PSA AT THIS TIME.
--- NOTE | 2025-01-04 14:38 | PC.NURSE ---
pt requesting coffee, gave pt cup of fresh coffee with cream and sugar.
[2025-01-04 14:40] LABS: Respiratory Syncytial Virus Ce NEGATIVE (Negative); SARS-CoV-2 PCR NEGATIVE (Negative)
[2025-01-04 16:40] LABS: Troponin 5 6HR 8.25 ng/L (0-15)
[2025-01-04 16:53] LABS: Troponin 5 6HR Delta -1.75 ng/L (0-12)
[2025-01-04 17:35] VITALS: BP 132/79; PULSE 69; O2SAT 99
== END 2025-01-04 19:11 ==
PROVIDERS: Nurse Practitioner; Emergency Provider Physician Assistant; PCP Family Medicine Adult Medicine
DX: R45.851 Suicidal ideations (principal); R53.1 Weakness; R55 Syncope and collapse; Z11.52 Encounter for screening for COVID-19; Z04.6 Encounter for general psychiatric examination, requested by authority; J44.9 Chronic obstructive pulmonary disease, unspecified; Z85.21 Personal history of malignant neoplasm of larynx; F17.210 Nicotine dependence, cigarettes, uncomplicated
CPT/HCPCS: 36415; 70450; 71045; 80053; 80306; 80307; 81001; 83690; 83735; 83880; 84484; 85025; 87637; 93005; 99285; J7120

== ENCOUNTER 2025-03-20 14:39 | Emergency (ER) | payer MEDICAID, SELFPAY ==
--- NOTE | 2025-03-20 14:41 | XR_ITS ---
WS: [id number] Portable AP upright chest, 03/20/2025 Clinical Data: sob Comparison: Portable chest, 01/04/2025 Findings: No nodules, masses or effusions are seen. The heart is normal. The pulmonary vascularity is not increased. No pneumonia or pneumothorax is seen. The diaphragms are flattened. The aortic arch and descending thoracic aorta show tortuosity. There is a right infusion catheter unchanged. XR/XR chest 1V portable [id number] Impression: Atherosclerosis and hyperinflation.
[2025-03-20 14:50] VITALS: BP 126/52; PULSE 70; RESP 18; TEMP 36.9; O2SAT 96; BMI 18.1
--- NOTE | 2025-03-20 15:52 | ED_ITS ---
HPI - URI/Sore Throat 2 General: Chief Complaint: Upper Respiratory Infection Stated Complaint: been sick living with mold Time Seen by Provider: 03/20/25 15:48 History of Present Illness: 69-year-old male with a history of tobac co dependence and COPD who presents emergency room with worsening shortness of breath over the last month or so. He is extremely concerned about having a test for mold. I discussed with him at length that we do not really have a test for mold and also discussed that his tobacco dependence and COPD are likely to blame for this right now. No chest pain. No fevers. Vitals are normal on presentation. No altered mental status. No nausea or vomiting. Related Data Home Medications ?Medication ?Instructions ?Recorded ?Confirmed clonazepam 0.5 mg tablet (Klonopin) 0.5 mg PO BEDTIME 10/24/24 01/23/25 Previous Rx's ?Medication ?Instructions ?Recorded donepezil 5 mg tablet 5 mg PO QAM #30 tabs 5 pantoprazole 20 mg tablet,delayed 20 mg PO .morning #3 0 tabs 01/23/25 release (Protonix) quetiapine 200 mg tablet (Seroquel) 200 mg PO BEDTIME #30 tabs 01/23/25 quetiapine 400 mg tablet (Seroquel) 400 mg PO BEDTIME #30 tabs 01/23/25 albuterol sulfate 90 mcg/actuation 2 inh inhalation Q4 H #6.7 grams 03/20/25 aerosol inhaler (Ventolin HFA) doxycycline hyclate 100 mg capsule 100 mg PO BID 7 day s #14 caps 03/20/25 prednisone 20 mg tablet 60 mg (3 x 20 mg) PO DAILY 5 days 03/20/25 #15 tabs Allergies Allergy/AdvReac Type Severity Reaction Status Date / Time No Known Allergies Allergy Verified 01/23/25 09:37 Review of Systems 2 Narrative: Constitutional symptoms: Negative except as documented in HPI. Skin symptoms: Negative except as documented in HPI. Eye symptoms: Negative except as documented in HPI. ENMT symptoms: Negative except as documented in HPI. Respiratory symptoms: Negative except as documented in HPI. Cardiovascular symptoms: Negative except as documented in HPI. Gastrointestinal symptoms: Negative except as documented in HPI. Genitourinary symptoms: Negative except as documented in HPI. Musculoskeletal symptoms: Negative except as documented in HPI. Neurologic symptoms: Negative except as documented in HPI. Psychiatric symptoms: Negative except as documented in HPI. Endocrine symptoms: Negative except as documented in HPI. 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, N0, M0 Radiotherapy Started 09/16/21 Psychiatric care DDD (degenerative disc disease), lumbosacral Spinal stenosis, lumbar region, with neurogenic claudication 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 Daughter No problems noted. Brother Diabetes Denies family history of CAD (coronary artery disease) Clotting disorder Dementia Hyperlipidemia Psychiatric illness Chronic kidney disease (CKD) Suicide Anesthesia complication Bleeding disorder Lung disease Hypertension Stroke Social History Smoking and tobacco/nicotine status: current every day tobacco/nicotine user cigarettes Packs smoked per day: 1 Quit status (tobacco/nicotine): not considering quitting Second hand smoke exposure: Yes Alcohol intake: former Year of sobriety/quit date alcohol: 2002 Substance/Drug Use: former Date of last use: marijuana and meth Marital status: Current occupational status: disabled Physical Exam 2 Narrative: EXAM NARRATIVE: General: Alert, no acute distress. Skin: Warm, dry. Head: Normocephalic, atraumatic. Neck: Supple, trachea midline. Eye: Extraocular movements are intact. Ears, nose, mouth and throat: Oral mucosa moist. Cardiovascular: Regular rate and rhythm, Normal peripheral perfusion. Respiratory: some expiratory wheeze, mild increased wob, breath sounds are equal, Symmetrical chest wall expansion. Gastrointestinal: Soft, Nontender, Non distended Musculoskeletal: Normal ROM, no deformity. Neurological: Alert and oriented, No focal neurological deficit observed. Psychiatric: Cooperative, appropriate mood & affect. Course 2 Vital Signs: Vital signs: Vital Signs Temperature 98.5 F 03/20/25 14:50 Pulse Rate 70 03/20/25 14:50 Respiratory Rate 18 03/20/25 14:50 Blood Pressure 126/52 03/20/25 14:50 Pulse Oximetry 96 03/20/25 14:50 MDM - URI/Sore Throat Medical Decision Making Differential diagnosis for patient with shortness of breath includes but is not limited to and based on the above HPI, review of systems and physical exam: Pneumonia. Bronchitis. Asthma or COPD with acute exacerbation. Acute coronary syndrome / SD. Pulmonary embolism. Anxiety. Congestive heart failure. Viral infections including influenza and Covid-19. Atrial fibrillation. Anxiety. Pleural effusion. Pneumothorax. Orders placed to evaluate differential diagnosis based on the above differential, HPI and physical exam Chest x-ray: Hyperexpansion, atherosclerosis, no acute process. This was reviewed and interpreted by myself the emergency room physician. I also reviewed the radiology report. Lab Review: Laboratory results were reviewed and interpreted by myself the emergency room physician. No leukocytosis. No anemia. No renal failure. I reviewed the patient's medical record. Reexamination: Patient remained stable. No increased work of breathing. No altered mental status. No focal motor deficits. Assessment and plan: COPD with acute exacerbation Tobacco dependence - Discharged home - Discussed plan with patient. Answered any questions. - Evaluation and treatment of this problem were appropriate in the emergency setting. Lab Data 03/20/25 15:26 03/20/25 15:26 Radiology Impressions Chest X-Ray 03/20/25 14:41 Impression: Atherosclerosis and hyperinflation. Laboratory Results WBC 5.03 10^3/uL (3.29-11.43) 03/20/25 15: RBC 3.95 10^6/uL (3.85-5.65) 03/20/25 15: Hgb 12.80 g/dL (11.27-16.99) 03/20/25 15: Hct 38.9 % (37-53) 03/20/25 15: MCV 98.5 fl (82-101) 03/20/25 15:26 MCH 32.4 pg (27-33) 03/20/25 15: MCHC 32.9 g/dL (30-55) 03/20/25 15: RDW 13.5 % (12.1-15.1) 03/20/25 15: Plt Count 215 10^3/cmm (157-399) 03/20/25 15: MPV 10.1 fL (7.4-10.4) 03/20/25 15: Neut % (Auto) 61.5 % 03/20/25 15: Lymph % (Auto) 25.2 % 03/20/25 15: Reagan % (Auto) 10.7 % 03/20/25 15: Eos % (Auto) 2.2 % 03/20/25: Baso % (Auto) 0.2 % 03/20/25: Neut # (Auto) 3.09 10^3/uL (1.8-7.7) 03/20/25: Lymph # (Auto) 1.3 10^3/uL (0.8-4.8) 03/20/25 15: Reagan # (Auto) 0.5 10^3/uL (0.2-0.9) 03/20/25 15: Eos # (Auto) 0.1 10^3/uL (0.0-0.8) 03/20/25: Baso # (Auto) 0.0 10^3/uL (0.0-0.1) 03/20/25 15: Nucleated RBC % (auto) 0 % 03/20/25: Nucleated RBCs # 0.0 /100WBC 03/20/25 15: Sodium 141 mmol/L (136-145) 03/20/25 15: Potassium 3.8 mmol/L (3.5-5.1) 03/20/25 15: Chloride 102 mmol/L (98-107) 03/20/25 15: Carbon Dioxide 30 mmol/L (22-29) H 03/20/25 15: Anion Gap 12.8 (5-19) 03/20/25 15: BUN 13 mg/dL (8-23) 03/20/25 15:26 Creatinine 0.8 mg/dL (0.7-1.2) 03/20/25 15:26 GFR Calculation Not Reportable 03/20/25 15:26 Glucose 99 mg/dL (65-115) 03/20/25 15:26 Calculated Osmolality 292 mOsm/kg (285-295) 03/20/25 15:26 Calcium 8.9 mg/dL (8.5-10.5) 03/20/25 15:26 Total Bilirubin 0.2 mg/dL (0.15-1.2) 03/20/25 15:26 AST 14 U/L (0-40) 03/20/25 15:26 ALT 8 U/L (0-41) 03/20/25 15:26 Alkaline Phosphatase 138 U/L (40-130) H 03/20/25 15:26 Total Protein 6.6 g/dL (6.6-8.7) 03/20/25 15:26 Albumin 4.2 g/dL (3.5-5.2) 03/20/25 15:26 Globulin 2.4 g/dL (1.3-4.6) 03/20/25 15:26 All radiology interpretation(s) finalized by discharge Discharge Plan Discharge Patient Disposition: Home Clinical Impression: COPD with acute exacerbation Condition: Stable Prescriptions: New doxycycline hyclate 100 mg capsule 100 mg PO BID 7 Days Qty: 14 0RF prednisone 20 mg tablet 60 mg PO DAILY 5 Days Qty: 15 0RF albuterol sulfate [Ventolin HFA] 90 mcg/actuation HFA aerosol inhaler 2 inh inhalation Q4H Qty: 6.7 0RF Rx Instructions: Please schedule every 4 hours for the next 3 days with up to every every 2 as needed. Please provide patient with a spacer/AeroChamber No Action clonazepam [Klonopin] 0.5 mg tablet 0.5 mg PO BEDTIME donepezil 5 mg tablet 5 mg PO QAM Qty: 30 6RF quetiapine [Seroquel] 200 mg tablet 200 mg PO BEDTIME Qty: 30 6RF Rx Instructions: Take one tablet at bedtime with 400 mg tablet, total dose 600 mg pantoprazole [Protonix] 20 mg tablet,delayed release (DR/EC) 20 mg PO .morning Qty: 30 4RF Rx Instructions: Take one tablet every morning quetiapine [Seroquel] 400 mg tablet 400 mg PO BEDTIME Qty: 30 6RF Rx Instructions: Take one tablet at bedtime with 200 mg tablet, total dose 600 mg Discharge Orders: Discharge ED (Routine); Ordered 03/20/25 Ordered By: Janina Bacon Referrals: Brenda Garcia MD [Primary Care Provider, Family Practice] Patient Instructions: Opioid Safety, Pain Management, Patient Portal & Albino Instructions, COPD (Chronic Obstructive Pulmonary Disease) (DC) Activity Restrictions/Additional Instructions: Thank you for choosing [facility] for your healthcare needs today. You have been screened and evaluated and felt safe for discharge. Health conditions do change or evolve sometimes and as such it is important that you follow up with your Primary Doctor to be re checked, 3-5 days is a general good time frame for follow up. You are always welcome to return to the ED for re assessment if your symptoms are worsening or you have new concerns Print Language: Polish Coding Level of Care Code ED Dyed Raw Stock Blower Feeder for Nereida Martinez
[2025-03-20 16:07] LABS: Hematocrit 38.9 % (37-53); Hemoglobin 12.80 g/dL (11.27-16.99); Mean Corpuscular HGB Conc 32.9 g/dL (30-55); Mean Corpuscular Hemoglobin 32.4 pg (27-33); Mean Corpuscular Volume 98.5 fl (82-101); Nucleated Red Blood Cells % 0 %; Platelet Count 215 10^3/cmm (157-399); Red Blood Count 3.95 10^6/uL (3.85-5.65); White Blood Count 5.03 10^3/uL (3.29-11.43)
[2025-03-20 16:36] LABS: Alanine Aminotransferase 8 U/L (0-41); Albumin Level 4.2 g/dL (3.5-5.2); Alkaline Phosphatase 138 U/L (40-130); Anion Gap 12.8 (5-19); Aspartate Amino Transferase 14 U/L (0-40); Blood Urea Nitrogen 13 mg/dL (8-23); Calcium 8.9 mg/dL (8.5-10.5); Carbon Dioxide 30 mmol/L (22-29); Chloride 102 mmol/L (98-107); Creatinine Clr Calc Pharmacy 78.7882; Globulin 2.4 g/dL (1.3-4.6); Glucose 99 mg/dL (65-115); Osmolality Calculated 292 mOsm/kg (285-295); Potassium 3.8 mmol/L (3.5-5.1); Sodium 141 mmol/L (136-145); Total Protein 6.6 g/dL (6.6-8.7)
== END 2025-03-20 16:37 | disposition home or self-care (01) ==
PROVIDERS: Emergency Medicine; Emergency Provider Emergency Medicine; PCP Family Medicine
DX: J44.1 Chronic obstructive pulmonary disease with (acute) exacerbation (principal); F17.210 Nicotine dependence, cigarettes, uncomplicated; J44.9 Chronic obstructive pulmonary disease, unspecified; Z85.21 Personal history of malignant neoplasm of larynx
CPT/HCPCS: 36415; 71045; 80053; 85025; 99284

== ENCOUNTER 2025-04-29 10:56 | Emergency (ER) | payer MEDICAID, SELFPAY ==
--- NOTE | 2025-04-29 10:59 | XR_ITS ---
WS: [id number] XR chest 1V portable [id number] REASON FOR EXAM: psych clearance FINDINGS: The chest is unchanged compared to 03/20/2025. Chemotherapy infusion port over the right chest with trans right subclavian vein infusion catheter to the mid SVC. Mild tortuosity of the thoracic aorta. Normal heart size. Calcified granulomatous disease bilaterally. No acute pulmonary parenchymal or pleural abnormality. 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 Mild degenerative spondylosis in the mid and lower thoracic spine. XR/XR chest 1V portable [id number] IMPRESSION: Stable chest without acute abnormality.
--- NOTE | 2025-04-29 10:59 | ECG_ITS ---
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 Measurements Intervals Frederic Rate: 67 P: 80 FL: 177 QRS: 93 QRSD: 88 T: 71 QT: 405 QTc: 430 Interpretive Statements SINUS RHYTHM BORDERLINE RIGHT AXIS DEVIATION [QRS AXIS > 90] LOW QRS VOLTAGE IN PRECORDIAL LEADS [QRS DEFLECTION < 1.0 mV IN CHEST LEADS] Compared to ECG 01/04/2025 12:10:01 First degree AV block no longer present Myocardial infarct finding no longer present Electronically Signed On 05-01-2025 09:49:47 VENDING MACHINE MECHANIC by Nicci Montalvo M.D. [email or web address]
--- NOTE | 2025-04-29 10:59 | W.ED.PSYCHS ---
HPI - Psych General: Chief Complaint: Psychiatric Symptoms Stated Complaint: SI History of Present Illness: 69-year-old man with a history of anxiety, depression, COPD, tobacco dependence and BPH who presents to the emergency room by ambulance from behavioral health clinic with suicidal ideation. Last admission to the psychiatric unit was in 2021. Patient is homeless. He says he has not eaten in a while. Someone had put him up in a hotel for 3 days and today was the last day. He said he has been feeling suicidal for a while but its gotten worse and he feels like walking in front of a car Related Data Home Medications ?Medication ?Instructions ?Recorded ?Confirmed clonazepam 0.5 mg tablet (Klonopin) 0.5 mg PO BEDTIME 10/24/24 04/25/25 Previous Rx's ?Medication ?Instructions ?Recorded donepezil 5 mg tablet 5 mg PO QAM #30 tabs 01/23/25 pantoprazole 20 mg tablet,delayed 20 mg PO .morning #30 tabs 01/23/25 release (Protonix) quetiapine 200 mg tablet (Seroquel) 200 mg PO BEDTIME #30 tabs 01/23/25 quetiapine 400 mg tablet (Seroquel) 400 mg PO BEDTIME #30 tabs 01/23/25 albuterol sulfate 90 mcg/actuation 2 inh inhalation Q4H #6.7 grams 03/20/25 aerosol inhaler (Ventolin HFA) Allergies Allergy/AdvReac Type Severity Reaction Status Date / Time No Known Allergies Allergy Verified 04/25/25 08:45 Review of Systems Narrative: Constitutional symptoms: Negative except as documented in HPI. Skin symptoms: Negative except as documented in HPI. Eye symptoms: Negative except as documented in HPI. ENMT symptoms: Negative except as documented in HPI. Respiratory symptoms: Negative except as documented in HPI. Cardiovascular symptoms: Negative except as documented in HPI. Gastrointestinal symptoms: Negative except as documented in HPI. Genitourinary symptoms: Negative except as documented in HPI. Musculoskeletal symptoms: Negative except as documented in HPI. Neurologic symptoms: Negative except as documented in HPI. Psychiatric symptoms: Negative except as documented in HPI. Endocrine symptoms: Negative except as documented in HPI. 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, N0, M0 Radiotherapy Started 09/16/21 Psychiatric care DDD (degenerative disc disease), lumbosacral Spinal stenosis, lumbar region, with neurogenic claudication 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 Daughter No problems noted. Brother Diabetes Denies family history of CAD (coronary artery disease) Clotting disorder Dementia Hyperlipidemia Psychiatric illness Chronic kidney disease (CKD) Suicide Anesthesia complication Bleeding disorder Lung disease Hypertension Stroke Social History Smoking and tobacco/nicotine status: current every day tobacco/nicotine user cigarettes Packs smoked per day: 1 Quit status (tobacco/nicotine): not considering quitting Second hand smoke exposure: Yes Alcohol intake: former Year of sobriety/quit date alcohol: 2002 Substance/Drug Use: former Date of last use: marijuana and meth Marital status: Current occupational status: disabled Physical Exam Narrative: EXAM NARRATIVE: General: Alert. no acute distress Skin: Warm, dry Head: Normocephalic, atraumatic. Neck: Supple, trachea midline. Eye: Extraocular movements are intact. Ears, nose, mouth and throat: Oral mucosa moist. Cardiovascular: Regular rate and rhythm, Normal peripheral perfusion. Respiratory: Lungs are clear to auscultation, respirations are non-labored, breath sounds are equal, Symmetrical chest wall expansion. Gastrointestinal: Soft, Nontender, Non distended Musculoskeletal: Normal ROM, no deformity. Neurological: Alert and oriented. No focal neurological deficit observed. Psychiatric: Cooperative, depressed, expresses suicidal ideation. Course Vital Signs: Vital signs: Vital Signs Temperature 98.1 F 04/29/25 11:12 Pulse Rate 71 04/29/25 11:12 Respiratory Rate 18 04/29/25 11:12 Blood Pressure 110/68 04/29/25 11:12 Pulse Oximetry 98 04/29/25 11:12 Oxygen Delivery Me thod Room Air 04/29/25 11:12 MDM - Psych Medical Decision Making Medical decision making: Patient's reason for coming to the emergency room: Suicidal thoughts. Social determinants: Patient is homeless. I reviewed the patient's medical record. 69-year-old man with a history of anxiety, depression, COPD, tobacco dependence and BPH. Last admission to the psychiatric unit was in 2021. I reviewed the patient's current home meds Patient tells me he takes clonazepam, and Alzheimer's med (donepezil) quetiapine is also listed in his med list. Alternate historians: EMS provides some history. Differential diagnosis: Patient with reported depression and suicidal ideation. concerns for infection, alcohol intoxication, cardiac issues or other medical problems prior to psychiatric admission. Workup: labwork, ekg ordered to evaluate the pathologies and to clear the patient medically prior to psychiatric admission EKG: Time 1208. Rate 67. Normal sinus rhythm, No ST-T changes, no ectopy, normal PA & QRS intervals, This was reviewed and interpreted by myself the ER physician at 1214. Chest x-ray: No acute process. No infiltrate. No pneumothorax. This was reviewed and interpreted by myself the emergency room physician. I also reviewed the radiology report. Lab Review: Laboratory results were reviewed and interpreted by myself the emergency room physician. - Medically cleared. - EKG shows no ischemic changes. - Blood alcohol level is negative, -Tylenol and salicylate levels are negative. - Drug screen is positive for amphetamines and marijuana - No signs of infection, urinalysis clear and white count is not elevated - No anemia. - BUN and creatinine are within normal limits. Assessment of risk: - Level of risk - Was hospitalization considered? Reexamination: Patient remained stable. No increased work of breathing. No altered mental status. No focal motor deficits. Continues to feel suicidal. Assessment and plan: Depression Suicidal ideation Homelessness - Transfer to geriatric neuropsychiatric unit for continued evaluation and treatment. - All lab work was reviewed and interpreted personally by myself, the ER physician - Evaluation and treatment of this problem were appropriate in the emergency setting Lab Data 04/29/25 11:39 04/29/25 11:39 Radiology Impressions Chest X-Ray 04/29/25 10:59 IMPRESSION: Stable chest without acute abnormality. Laboratory Results WBC 3.92 10^3/uL (3.29-11.43) 04/29/25 11:39 RBC 3.60 10^6/uL (3.85-5.65) L 04/29/25 11:39 Hgb 11.50 g/dL (11.27-16.99) 04/29/25 11:39 Hct 35.8 % (37-53) L 04/29/25 11:39 MCV 99.4 fl (82-101) 04/29/25 11:39 MCH 31.9 pg (27-33) 04/29/25 11:39 MCHC 32.1 g/dL (30-55) 04/29/25 11:39 RDW 14.8 % (12.1-15.1) 04/29/25 11:39 Plt Count 255 10^3/cmm (157-399) 04/29/25 11:39 MPV 9.5 fL (7.4-10.4) 04/29/25 11:39 Neut % (Auto) 61.2 % 04/29/25 11:39 Lymph % (Auto) 25.3 % 04/29/25 11:39 Kem[place] % (Auto) 9.9 % 04/29/25 11:39 Eos % (Auto) 2.3 % 04/29/25 11:39 Baso % (Auto) 1.0 % 04/29/25 11:39 Neut # (Auto) 2.40 10^3/uL (1.8-7.7) 04/29/25 11:39 Lymph # (Auto) 1.0 10^3/uL (0.8-4.8) 04/29/25 11:39 Kemper # (Auto) 0.4 10^3/uL (0.2-0.9) 04/29/25 11:39 Eos # (Auto) 0.1 10^3/uL (0.0-0.8) 04/29/25 11:39 Baso # (Auto) 0.0 10^3/uL (0.0-0.1) 04/29/25 11:39 Nucleated RBC % (auto) 0 % 04/29/25 11:39 Nucleated RBCs # 0.0 /100WBC 04/29/25 11:39 Sodium 141 mmol/L (136-145) 04/29/25 11:39 Potassium 4.0 mmol/L (3.5-5.1) 04/29/25 11:39 Chloride 104 mmol/L (98-107) 04/29/25 11:39 Carbon Dioxide 32 mmol/L (22-29) H 04/29/25 11:39 Anion Gap 9.0 (5-19) 04/29/25 11:39 BUN 12 mg/dL (8-23) 04/29/25 11:39 Creatinine 0.7 mg/dL (0.7-1.2) 04/29/25 11:39 GFR Calculation Not Reportable 04/29/25 11:39 Glucose 80 mg/dL (65-115) 04/29/25 11:39 Calculated Osmolality 291 mOsm/kg (285-295) 04/29/25 11:39 Calcium 8.1 mg/dL (8.5-10.5) L 04/29/25 11:39 Total Bilirubin 0.2 mg/dL (0.15-1.2) 04/29/25 11:39 AST 12 U/L (0-40) 04/29/25 11:39 ALT < 5 U/L (0-41) 04/29/25 11:39 Alkaline Phosphatase 102 U/L (40-130) 04/29/25 11:39 Total Protein 5.6 g/dL (6.6-8.7) L 04/29/25 11:39 Albumin 3.5 g/dL (3.5-5.2) 04/29/25 11:39 Globulin 2.1 g/dL (1.3-4.6) 04/29/25 11:39 TSH 5.81 uIU/mL (0.27-4.20) H 04/29/25 11:39 Urine Color Yellow (Yellow) 04/29/25 13:58 Urine Appearance Clear (CLEAR) 04/29/25 13:58 Urine pH 6.0 (5-7) 04/29/25 13:58 Ur Specific [place] 1.025 (1.005-1.030) 04/29/25 13:58 Urine Protein Negative (Negative) 04/29/25 13:58 Urine Glucose (UA) Negative (Normal) 04/29/25 13:58 Urine Ketones Negative (Negative) 04/29/25 13:58 Urine Blood Negative (Negative) 04/29/25 13:58 Urine Nitrate Negative (Negative) 04/29/25 13:58 Urine Bilirubin Negative (Negative) 04/29/25 13:58 Urine Urobilinogen 1.0 mg/dL (Negative) 04/29/25 13:58 Ur Leukocyte Esterase Negative (Negative) 04/29/25 13:58 Urine RBC 0-2 /hpf (0-2) 04/29/25 13:58 Urine WBC 0-5 /hpf (0-5) 04/29/25 13:58 Ur Squamous Epith Cells 0-5 /hpf (0-5) 04/29/25 13:58 Amorphous Sediment Not Reportable 04/29/25 13:58 Urine Bacteria None seen /hpf (NONE) 04/29/25 13:58 Hyaline Casts 0-4 /lpf H 04/29/25 13:58 Salicylates < 0.3 mg/dL (3-10) L 04/29/25 11:39 Urine Opiates Screen Negative ng/mL (Negative) 04/29/25 13:58 Acetaminophen < 5.0 ug/mL (10-30) L 04/29/25 11:39 Ur Barbiturates Screen Negative ng/mL (Negative) 04/29/25 13:58 Ur Phencyclidine Scrn Negative ng/mL (Negative) 04/29/25 13:58 Ur Amphetamines Screen Positive ng/mL (Negative) H 04/29/25 13:58 U Benzodiazepines Scrn Negative ng/mL (Negative) 04/29/25 13:58 Urine Cocaine Screen Negative ng/mL (Negative) 04/29/25 13:58 U Marijuana (THC) Screen Positive ng/mL (Negative) H 04/29/25 13:58 Ethyl Alcohol < 10 mg/dL (0-10) 04/29/25 11:39 All radiology interpretation(s) finalized by discharge Discharge Plan Discharge Patient Disposition: Xfer Psychiatric Hosp Clinical Impression: Depression, Suicidal ideation, Homelessness Condition: Stable Referrals: Brenda Garcia MD [Primary Care Provider, [facility]] Print Language: Greenlandic Coding Level of Care Code ED Plastic Panel Installer for Nereida Martinez
[2025-04-29 11:12] VITALS: BP 110/68; PULSE 71; RESP 18; TEMP 36.7; O2SAT 98
[2025-04-29 11:57] LABS: Hematocrit 35.8 % (37-53); Hemoglobin 11.50 g/dL (11.27-16.99); Mean Corpuscular HGB Conc 32.1 g/dL (30-55); Mean Corpuscular Hemoglobin 31.9 pg (27-33); Mean Corpuscular Volume 99.4 fl (82-101); Nucleated Red Blood Cells % 0 %; Platelet Count 255 10^3/cmm (157-399); Red Blood Count 3.60 10^6/uL (3.85-5.65); White Blood Count 3.92 10^3/uL (3.29-11.43)
[2025-04-29 12:29] LABS: Alanine Aminotransferase < 5 U/L (0-41); Albumin Level 3.5 g/dL (3.5-5.2); Alkaline Phosphatase 102 U/L (40-130); Anion Gap 9.0 (5-19); Aspartate Amino Transferase 12 U/L (0-40); Blood Urea Nitrogen 12 mg/dL (8-23); Calcium 8.1 mg/dL (8.5-10.5); Carbon Dioxide 32 mmol/L (22-29); Chloride 104 mmol/L (98-107); Globulin 2.1 g/dL (1.3-4.6); Glucose 80 mg/dL (65-115); Osmolality Calculated 291 mOsm/kg (285-295); Potassium 4.0 mmol/L (3.5-5.1); Sodium 141 mmol/L (136-145); Thyroid Stimulating Hormone 5.81 uIU/mL (0.27-4.20); Total Protein 5.6 g/dL (6.6-8.7)
[2025-04-29 12:30] LABS: Acetaminophen < 5.0 ug/mL (10-30); Alcohol Level < 10 mg/dL (0-10); Salicylate < 0.3 mg/dL (3-10)
[2025-04-29 14:31] LABS: Glucose Urine UA Negative (Normal); Nitrate Urine Negative (Negative); Specific Gravity, Urine 1.025 (1.005-1.030)
[2025-04-29 14:38] LABS: PCP Screen Urine Negative (Negative)
[2025-04-29 15:10] LABS: Respiratory Syncytial Virus Ce NEGATIVE (Negative); SARS-CoV-2 PCR NEGATIVE (Negative)
== END 2025-04-29 17:13 ==
PROVIDERS: Emergency Provider Emergency Medicine; PCP Family Medicine
DX: F32.A Depression, unspecified (principal); R45.851 Suicidal ideations; Z59.00 Homelessness unspecified; F17.210 Nicotine dependence, cigarettes, uncomplicated; J44.9 Chronic obstructive pulmonary disease, unspecified; Z85.21 Personal history of malignant neoplasm of larynx
CPT/HCPCS: 36415; 71045; 80053; 80306; 80307; 81001; 84443; 85025; 87637; 93005; 99285